=== PATIENT | female | born 2000 | race Caucasian/White ===

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

== ENCOUNTER 2018-07-05 23:00 | Emergency (ER) | payer MEDICAID, SELFPAY ==
[2018-07-05 23:01] VITALS: BP 163/93; PULSE 102; RESP 16; TEMP 37; O2SAT 99; BMI 34.2
[2018-07-05 23:41] LABS: Color, Urine Yellow (Yellow); Glucose, Dipstick Normal (Normal); Ketone-Dipstick 15 mg/dl (Negative); Leukocyte Esterase-Dipstick 25 /ul (Negative); Nitrite-Dipstick Negative (Negative); Occult Blood-Urine Negative /ul (Negative); Protein-Dipstick 15 mg/dl (Negative); Urine Bilirubin Dipstick Negative (Negative); Urine Clarity Clear (Clear); Urine Urobilinogen 1 mg/dl (Normal)
[2018-07-05 23:42] LABS: Absolute Lymphocyte Count 3.06 X10^3/ul (0.83-4.51); Absolute Neutrophil Count 6.4 X10^3/uL (2.0-7.7); Basophil# 0.06 X10^3/uL; Basophil% 0.6 % (0-1); Eosinophil# 0.31 X10^3/uL; Eosinophils% 2.9 % (0-5); Hematocrit 44.6 % (37-47); Hemoglobin 14.6 g/dl (12.0-15.0); Lymphocyte # 3.06 X10^3/ul (4.0); Mean Corp Hgb Conc 32.7 g/gl (32-36); Mean Corpuscular Hgb 26.8 pg (27.0-32.0); Mean Corpuscular Volume 81.8 fL (81-99); Mean Platelet Vol. 9.1 fl (6.2-12.0); Monocyte# 0.74 X10^3/uL; Neutrophil # 6.35 X10^3/uL (2.7-7.7); Neutrophil % 60.3 % (47-70); Platelet Count 313 K/mm3 (150-450); RBC Distribution Width CV 13.9 % (11.6-14.6); RBC Distribution Width SD 41.1 fl (35.1-43.9); Red Blood Count 5.45 M/mm3 (4.2-5.4); White Blood Count 10.5 K/mm3 (4.4-11.0)
[2018-07-05 23:46] LABS: Bacteria RARE /hpf (None Seen); POSITIVE COUNT NO; POSITIVE DIFFERENTIAL NO; POSITIVE MORPHOLOGY NO; Squamous Epithelial Cells - UA 0-5 SEEN /hpf (5-10); White Blood Cells 0-5 SEEN /hpf (0-5)
[2018-07-05 23:47] LABS: Mucous, Urine RARE /hpf (<or=2+); Red Blood Cells-Urine 0 SEEN /hpf (0-5)
[2018-07-05 23:49] LABS: Internal QC Validated? YES +Cl - CLEAR BKGD; Pregnancy, Serum, hCG Quali. NEGATIVE Negative
[2018-07-05 23:55] LABS: Anion Gap 8 (5-15); BUN 17 mg/dL (7-18); BUN/Creat Ratio 22.5 RATIO (10-20); Calcium,Total 8.9 mg/dL (8.5-10.1); Chloride 105 mmol/L (98-107); Creatinine, Serum 0.76 mg/dL (0.55-1.02); EST Glomerular Filtration Rate 104 mL/min (>60); Est Glom Filt Rate - Afr Amer 125 mL/min (>60); Estimated Creatinine Clearance 101.96 ml/min; Glucose 97 mg/dL (74-106); Potassium 3.6 mmol/L (3.5-5.1); Sodium Level 139 mmol/L (136-145)
[2018-07-05] MEDS: Ondansetron 4 MG/2 ML Vial IV (23:56)
[2018-07-05] MEDS: Ketorolac 30 MG/ML Syringe IV (23:56)
[2018-07-05] MEDS: 0.9% Normal Saline 1,000 ML 1000 ML IV (23:56)
[2018-07-06 00:03] LABS: AST(SGOT) 16 U/L (15-37); Alanine Aminotransfer ALT/SGPT 20 U/L (13-56); Albumin, Serum 4.3 g/dL (3.2-5.0); Alkaline Phosphatase 90 U/L (45-117); Lipase 100 U/L (73-393); Protein, Total 8.3 g/dL (6.4-8.2)
--- NOTE | 2018-07-06 01:03 | ED.DCSUM_ITS ---
- ER Visit Summary Date of Service: 07/06/18 Chief Complaint: Abdominal pain, nausea, diarrhea History of Present Illness: The patient is a 18 F with a 3-day history of sharp lower abdominal pain. She reports nausea but no vomiting. She had mild diarrhea with no blood noted in her stool. She does not have a history of IBS, Crohn's disease, ulcerative colitis. She does not have urinary symptoms. Last menstrual cycle was 2 and half weeks ago. She has no known history of ovarian cysts. Physical Examination: Blood pressure is 163/93, otherwise vitals normal. Head and neck examination normal. Heart is regular rate and rhythm. Lungs sounds are clear. Abdomen is soft with mild diffuse tenderness. No guarding or rebound. Hypoactive bowel sounds are noted throughout. Test Results: CBC and chemistry studies normal. LFTs normal. Urinalysis normal. test negative. Emergency Department Course and Treatment: Patient was given IV fluids, Toradol, and Zofran. On repeat evaluation she does feel improved. Blood pressure is 134/87. At this time we have discussed conservative treatment with bland diet. We will avoid CT scan at this time to try to avoid radiation exposure. If her symptoms worsen she is encouraged to return and it can be obtained at that time. Patient is given prescriptions for Zofran and Bentyl. Treatment Plan: [] Disposition: Discharge Impression: Viral gastroenteritis This note was generated with [employer] dictation software. It may contain incorrect words, spelling, and punctuation that were not noted in review of the chart prior to signing ED Disposition - Plan for ED Patient: Disposition: Home or Assisted Living Instructions: ED Gastroenteritis Viral Prescriptions: Ondansetron [Zofran Odt] 4 mg PO Q8H PRN PRN #10 tablet PRN Reason: Nausea Dicyclomine HCl [Bentyl] 20 mg PO TIDAC #20 capsule Referrals: Christy Lao MD [Primary Care Provider] - 1 Week
[2018-07-06 01:16] VITALS: BP 134/87; PULSE 69; PULSE 71; RESP 18; O2SAT 100
== END 2018-07-06 01:19 | disposition home or self-care (01) ==
PROVIDERS: Emergency Provider Emergency Medicine; Family Provider Family Medicine; PCP Family Medicine
DX: A08.4 Viral intestinal infection, unspecified (principal); F32.9 Major depressive disorder, single episode, unspecified; Z79.899 Other long term (current) drug therapy; Z72.0 Tobacco use
CPT/HCPCS: 80048; 80076; 81001; 83690; 84703; 85025; 96361; 96374; 96375; 99283; J7030; A4216; J2405

== ENCOUNTER 2018-07-31 21:26 | Emergency (ER) | payer MEDICAID, SELFPAY ==
[2018-07-31 21:27] VITALS: BP 158/83; PULSE 114; RESP 18; TEMP 36.6; O2SAT 98; BMI 33.7
--- NOTE | 2018-07-31 21:59 | ED.DCSUM_ITS ---
- ER Visit Summary Date of Service: 07/31/18 Chief Complaint: Left lower quadrant abdominal pelvic pain. History of Present Illness: The patient is a 18 F no significant past medical or surgical history. She is Ab0. Over the last month she is had intermittent left lower quadrant and pelvic abdominal pain. Cramping. No vaginal bleeding. Her last menstrual period was more than a month ago. Recently stopped her control. Denies any dysuria. No fever. Mild diarrhea and mild nausea. No tr auma. Patient was seen in the emergency department on July 05 and had a negative work-up at that time. was negative as was her CBC and UA. Physical Examination: Well-appearing young female. Vital signs are stable. She is afebrile. She does not look septic toxic. She is no distress. HEENT exam unremarkable. Neck nontender no lymphadenopathy. Lungs clear to auscultation bilaterally. Heart regular rhythm no murmur. Abdomen soft. Nondistended. Normal bowel sounds no peritoneal signs. Patient moving all 4 extremities. Back nontender. Neurologically she is awake and alert. Pelvic exam done with female nurse present in the room. No vaginal bleeding. Clear discharge. No odor. No lesions. On bimanual exam she had no uterine or adnexal tenderness. No masses. No signs of ectopic. No cervical motion tenderness. Test Results: Urine is positive. Urinalysis shows shows no signs of infection. Due to her positive test a quantitative hCG will be obtained. The overnight physician will interpret those results and make final disposition. Emergency Department Course and Treatment: Left lower quadrant abdominal pelvic pain. Currently not reproducible on exam. Exam is benign. If the quantitative hCG is greater than 1500 and then ultrasound will be obtained tonight. Otherwise she will be discharged home for outpatient follow- up. Treatment Plan: [] Disposition: Discharge Impression: Acute left lower quadrant pelvic pain of uncertain etiology Newly diagnosed first trimester This note was generated with [employer] dictation software. It may contain incorrect words, spelling, and punctuation that were not noted in review of the chart prior to signing ED Disposition - Plan for ED Patient: Referrals: Christy Lao MD [Primary Care Provider] -
[2018-07-31 22:05] LABS: Mucous, Urine 0 SEEN /hpf (<or=2+); Red Blood Cells-Urine 0 SEEN /hpf (0-5)
[2018-07-31 22:08] LABS: Color, Urine Yellow (Yellow); Glucose, Dipstick Normal (Normal); Ketone-Dipstick 15 mg/dl (Negative); Leukocyte Esterase-Dipstick 25 /ul (Negative); Nitrite-Dipstick Negative (Negative); Occult Blood-Urine Negative /ul (Negative); Protein-Dipstick Negative (Negative); Urine Bilirubin Dipstick Negative (Negative); Urine Clarity Clear (Clear); Urine Urobilinogen Normal (Normal); Urine pH 6.5 (5.0 - 8.0)
[2018-07-31 22:09] LABS: Internal QC Validated? YES +Cl - CLEAR BKGD
[2018-07-31 22:11] LABS: Pregnancy, Urine Positive Negative
--- NOTE | 2018-07-31 22:12 | ED.RN ---
LAB CALLED WITH POSITIVE RESULTS. DR. AVENDANO MADE AWARE. NO NEW ORDERS AT THIS TIME
[2018-07-31 22:19] LABS: Squamous Epithelial Cells - UA 0-5 SEEN /hpf (5-10); White Blood Cells 0-5 SEEN /hpf (0-5)
[2018-07-31 22:20] LABS: Bacteria RARE /hpf (None Seen)
--- NOTE | 2018-07-31 23:28 | ED.DEP ---
ED Disposition - Plan for ED Patient: Disposition: Home or Assisted Living Instructions: ED Abdominal Pain Unkn Cause Referrals: Nallely Barksdale MD [STAFF PHYSICIAN] - As soon as possible Additional Instructions: Home follow-up with Dr. Nallely Barksdale CHIEF MINISTER for care and newly diagnosed .
--- NOTE | 2018-07-31 23:31 | DCINST.ED_ITS ---
ED Disposition - Plan for ED Patient: Disposition: Home or Assisted Living Instructions: ED Abdominal Pain Unkn Cause Referrals: Nallely Barksdale MD [STAFF PHYSICIAN] - As soon as possible Additional Instructions: Home follow-up with Dr. Nallely Barksdale DIALER for care and newly diagnosed .
[2018-07-31 23:55] LABS: hCG Titer Quant., Serum 9900 mIU/mL (1-3)
--- NOTE | 2018-08-01 00:13 | US_ITS ---
STUDY: FIRST TRIMESTER OBSTETRICAL ULTRASOUND REASON FOR EXAM: Female, 18 years old. Pelvic pain for 3 weeks. LMP: 06/14/2018. TECHNIQUE: Transvaginal TECHNICAL QUALITY: Adequate. PRIOR ULTRASOUND: None. FINDINGS: There is visualization of a single gestational sac in a normal intrauterine position. The mean sac diameter (MSD) measures 1.22 cm, indicating an estimated gestational age (EGA) of 6 weeks, 0 days. The gestational sac shape is within normal limits. There is a small subchorionic hemorrhage to the right of the gestational sac. There is a visualized yolk sac. The yolk sac measures 2.7 mm.. The placenta is non-visualized. There is visualization of a live embryo. The crown-rump length (CRL) measures 3.4 mm, indicating an estimated gestational age (EGA) of 6 weeks, 0 days. There is demonstrated cardiac activity with a heart rate of 109 bpm. The estimated gestation age (EGA) by LMP is 6 weeks, 6 days. The estimated date of delivery (JORJE) by LMP is 03/21/2019. The estimated gestation age (EGA) by US is 6 weeks, 0 days. The estimated date of delivery (JORJE) by US is 03/27/2019. The uterus measures 7.3 x 5.4 x 4.7 cm. There is no demonstrated uterine fibroid. The cervix is closed. The right ovary measures 3.0 x 2.2 x 2.3 cm. There is a 1.8 cm hypoechoic nodule in the right ovary with increased surrounding vascular flow and small central cyst, consistent with a corpus luteum. There is no visualized right adnexal mass or complex lesion. The left ovary measures 2.7 x 1.6 x 1.1 cm. There is no left ovarian cyst. There is no visualized left adnexal mass or complex lesion. There is small amount of free fluid in the cul de sac. US/Transvaginal w/Preg US IMPRESSION: Single viable intrauterine gestation of 6 weeks, 0 days with estimated date of delivery of . Small subchorionic hemorrhage. Small amount of free fluid in the cul-de-sac. Electronically Signed: Khoi King MD at 3:04 EDT , Service support ,
[2018-08-01 02:01] VITALS: PULSE 88; RESP 16; O2SAT 99
--- NOTE | 2018-08-01 03:09 | DCINST.ED_ITS ---
ED Disposition - Plan for ED Patient: Disposition: Home or Assisted Living Instructions: ED Preg Established Normal Sxs, ED Abdominal Pain Unkn Cause Referrals: Nallely Barksdale MD [STAFF PHYSICIAN] - As soon as possible Additional Instructions: Home follow-up with Dr. Nallely Barksdale DIGITAL PRODUCTION ARTIST for care and newly diagnosed .
[2018-08-01 03:13] VITALS: BP 132/56; PULSE 98; RESP 18; O2SAT 96
== END 2018-08-01 03:14 | disposition home or self-care (01) ==
PROVIDERS: Emergency Provider Emergency Medicine; Family Provider Family Medicine; PCP Family Medicine
DX: O26.891 Other specified pregnancy related conditions, first trimester (principal); R10.32 Left lower quadrant pain; R10.2 Pelvic and perineal pain; O99.331 Smoking (tobacco) complicating pregnancy, first trimester; Z3A.01 Less than 8 weeks gestation of pregnancy
CPT/HCPCS: 76817; 81001; 81025; 84702; 99282

== ENCOUNTER → 2018-08-18 15:53 | Outpatient (CLI) | payer MEDICAID, SELFPAY ==
[2018-07-31 21:27] VITALS: BMI 33.7
[2018-08-18 18:47] LABS: Probe Check PASS; Sample Adequacy Control PASS; Specimen Processing Control PASS; Trichomonas Vag DNA by PCR Negative (Negative)
[2018-08-18 18:50] LABS: Chlamydia Trachomatis by PCR Negative (Negative); Neisserai gonorrhoeae by PCR Negative (Negative); Probe Check PASS; Sample Adequacy Control PASS; Specimen Processing Control PASS
== END ==
PROVIDERS: Family Provider Family Medicine; PCP Family Medicine; Referring Provider Family Medicine; Visit Provider Family Medicine
DX: Z34.90 Encounter for supervision of normal pregnancy, unspecified, unspecified trimester (principal); B37.3 Candidiasis of vulva and vagina; N91.2 Amenorrhea, unspecified
CPT/HCPCS: 87491; 87591; 87661

== ENCOUNTER 2019-05-12 22:46 | Emergency (ER) | payer MEDICAID, SELFPAY ==
[2019-05-12 22:48] VITALS: BP 122/85; PULSE 94; RESP 17; TEMP 36.1; O2SAT 97; BMI 34.5
--- NOTE | 2019-05-12 23:05 | ED.DCSUM_ITS ---
- ER Visit Summary Date of Service: 05/12/19 Chief Complaint: Depression History of Present Illness: The patient is a 18 F history of depression. She had a second child 6 weeks ago and since she is more depressed. After her first child she was placed on an antidepressant for period of time. She states she is more depressed. Start cutting her legs. Denies any prior suicide attempt. Has not tried to commit suicide this time. Has had suicidal thoughts. Patient sees the counseling center. Physical Examination: Young female no acute distress. Accompanied by family. Vital signs are stable and afebrile. She does not look septic or toxic. There is no obvious signs of a toxidrome. I do not smell any alcohol. H EENT exam unremarkable. No signs of trauma. Neck nontender no trauma. No lymphadenopathy. Lungs clear to auscultation bilaterally. Heart regular rhythm rate about 90 no murmur. Chest wall nontender. Abdomen soft nontender. Normal bowel sounds no peritoneal signs. Patient is moving all 4 extremities. Neurovascular intact. Both eyes have very superficial minor self-inflicted wounds. There is no bleeding. Nothing needs to be repaired. No signs of infection. Both upper and lower extremities are neurovascular intact with normal motor strength and range of motion. Back nontender. Neurologically she is awake and alert with no focal motor deficits. Currently she is calm. She is not violent. She is not verbally abusive. She answers questions appears to be forthcoming with answers and follows commands. Test Results: Emergency Department Course and Treatment: After crisis evaluation I spoke to the patient at length she told them that she fully intended to kill herself today. Also that her 2 children at home are better off if she was not alive. She was not that forthcoming with information to me. We will do ED mental health laboratories and she will be transferred for psychiatric admission. Treatment Plan: Transfer to a psychiatric facility. Disposition: Transfer to a psychiatric facility Impression: depression Suicidal ideation This note was generated with [employer] dictation software. It may contain incorrect words, spelling, and punctuation that were not noted in review of the chart prior to signing ED Disposition - Plan for ED Patient: Disposition: Home or Assisted Living Instructions: Depression Referrals: Counseling,Center [GROUP OF PHYSICIANS] - As soon as possible Christy Lao MD [Primary Care Provider] - As Needed Additional Instructions: Follow-up with the counseling center. Return emergency department if you feel worse or that you would actually try to hurt yourself or try to commit suicide. .
--- NOTE | 2019-05-12 23:08 | ED.DEP ---
ED Disposition - Plan for ED Patient: Disposition: Home or Assisted Living Instructions: Depression Referrals: Christy Lao MD [Primary Care Provider] - As Needed Counseling,Center [GROUP OF PHYSICIANS] - As soon as possible Additional Instructions: Follow-up with the counseling center. Return emergency department if you feel worse or that you would actually try to hurt yourself or try to commit suicide. .
--- NOTE | 2019-05-12 23:09 | ED.RN ---
DR. AVENDANO ORDERS NO SITTER, PT WITH NO ACTIVE SUICIDAL IDEATION JUST DEPRESSION. CRISIS CALLED PER DR. AVENDANO FOR EVALUATION AND OUTPATIENT F/U.
--- NOTE | 2019-05-13 00:30 | ED.RN ---
UPON RECOMMENDATION BY CRISIS, PT NOW NEEDS A SITTER AND LAB WORK. RN GETTING PT UNDRESSED. LARGE ANIMAL VETERINARIAN TO DRAW BLOOD AND SIT WITH PATIENT.
[2019-05-13 00:42] VITALS: BP 114/83; PULSE 87; RESP 16; O2SAT 100
[2019-05-13 01:00] VITALS: BP 114/83; PULSE 87; RESP 16; O2SAT 100
[2019-05-13 01:07] LABS: Absolute Lymphocyte Count 2.46 X10^3/uL (0.83-4.51); Basophil# 0.04 X10^3/uL; Basophil% 0.5 % (0-1); Eosinophil# 0.33 X10^3/uL; Eosinophils% 3.9 % (0-5); Hemoglobin 14.4 g/dL (12.0-15.0); Lymphocyte # 2.46 X10^3/ul (4.0); Lymphocyte % 28.9 % (19-41); Mean Corp Hgb Conc 32.7 g/dL (32-36); Mean Corpuscular Hgb 27.9 pg (27.0-32.0); Mean Corpuscular Volume 85.1 fL (81-99); Mean Platelet Vol. 8.8 fl (6.2-12.0); Monocyte# 0.64 X10^3/uL; Monocyte% 7.5 % (0-10); NRBC Flagged by Analyzer 0 % (0-5); Neutrophil # 5.01 X10^3/uL (2.7-7.7); Neutrophil % 58.8 % (47-70); Platelet Count 264 K/mm3 (150-450); RBC Distribution Width CV 13.6 % (11.6-14.6); RBC Distribution Width SD 42.3 fl (35.1-43.9); Red Blood Count 5.17 M/mm3 (4.2-5.4); White Blood Count 8.5 K/mm3 (4.4-11.0)
[2019-05-13 01:20] LABS: Anion Gap 4 (5-15); BUN 8 mg/dL (7-18); BUN/Creat Ratio 10.3 RATIO (10-20); Calcium,Total 9.5 mg/dL (8.5-10.1); Chloride 108 mmol/L (98-107); Creatinine, Serum 0.78 mg/dL (0.55-1.02); EST Glomerular Filtration Rate 100 mL/min (>60); Est Glom Filt Rate - Afr Amer 121 mL/min (>60); Estimated Creatinine Clearance 99.35 ml/min; Glucose 90 mg/dL (74-106); Potassium 3.1 mmol/L (3.5-5.1); Sodium Level 138 mmol/L (136-145)
[2019-05-13 01:40] LABS: Internal QC Validated? YES +Cl - CLEAR BKGD; Pregnancy, Serum, hCG Quali. NEGATIVE Negative
[2019-05-13 01:41] LABS: Alcohol, Blood (Medical)-Serum < 3.0 mg/dL
[2019-05-13 01:49] LABS: Amphetamine Urine VISTA NEGATIVE (<1000 ng/mL); Barbiturate Urine VISTA NEGATIVE (< 200 ng/mL); Benzodiazepine Urine VISTA NEGATIVE (< 200 ng/mL); Cocaine Urine VISTA NEGATIVE (< 300 ng/mL); Ecstacy Urine VISTA NEGATIVE (< 500 ng/mL); Methadone Urine VISTA NEGATIVE (< 300 ng/mL); PCP Urine VISTA NEGATIVE (< 25 ng/mL); THC Urine VISTA NEGATIVE (< 50 ng/mL); Vista UDS pH Range 6
[2019-05-13 03:00] VITALS: BP 114/83; PULSE 87; RESP 16; O2SAT 100
--- NOTE | 2019-05-13 03:03 | ED.RN ---
No charting was done in 0200 hr as it is day [place]. Please see charting in 0100 and 0300 hrs.
== END 2019-05-13 03:38 | disposition home or self-care (01) ==
LOC: ED 23:35
PROVIDERS: Emergency Provider Emergency Medicine; PCP Family Medicine
DX: F53.0 Postpartum depression (principal); R45.851 Suicidal ideations
CPT/HCPCS: 80048; 80307; 80320; 84703; 85025; 99285; G0480

== ENCOUNTER → 2020-06-26 15:24 | Outpatient (CLI) | payer MEDICAID, SELFPAY | PROVIDERS: PCP Family Medicine; Referring Provider Family Medicine; Visit Provider Family Medicine | DX: Z01.419 Encounter for gynecological examination (general) (routine) without abnormal findings (principal) ==

== ENCOUNTER → 2022-12-27 | Outpatient (CLI) | payer MEDICAID, SELFPAY | END | disposition home or self-care (01) | PROVIDERS: PCP Family Medicine; Referring Provider Obstetrics & Gynecology; Visit Provider Obstetrics & Gynecology | DX: O36.80X0 Pregnancy with inconclusive fetal viability, not applicable or unspecified (principal); Z3A.00 Weeks of gestation of pregnancy not specified | CPT/HCPCS: 36415; 84702; 86850; 86900; 86901 ==

== ENCOUNTER 2023-01-02 18:21 | Emergency (ER) | payer MEDICAID, SELFPAY ==
[2023-01-02 18:22] VITALS: BP 110/64; PULSE 80; RESP 18; TEMP 37.1; O2SAT 100; BMI 35.2
[2023-01-02] MEDS: 0.9% Normal Saline (1000mL) 1,000 ML 1000 ML IV (19:06)
[2023-01-02] MEDS: Ondansetron 4 MG/2 ML Vial IV (19:06)
[2023-01-02 19:15] LABS: Color, Urine Yellow (Yellow); Glucose, Dipstick Normal (Normal); Ketone-Dipstick Negative (Negative); Leukocyte Esterase-Dipstick 25 /ul (Negative); Mucous, Urine 0 SEEN /hpf (<or=2+); Nitrite-Dipstick Negative (Negative); Occult Blood-Urine Negative /ul (Negative); Protein-Dipstick Negative (Negative); Red Blood Cells-Urine 0 SEEN /hpf (0-5); Specific Gravity, Urine 1.015 (1.002-1.030); Urine Bilirubin Dipstick Negative (Negative); Urine Clarity Cloudy (Clear); Urine Urobilinogen Normal (Normal)
--- NOTE | 2023-01-02 19:18 | EX.ED.DYSGE1 ---
HPI History of Present Illness Chief Complaint: Nausea/Vomiting Detail of Chief Complaint: Nausea and vomiting several times today. Informant: patient Onset/Context/Timing Onset: Today and Weeks (She also had problems with nausea vomiting 2 weeks ago due to her .) Context: Sudden Onset Timing: Intermittent and Waxes and wanes Quality: Nausea and vomiting 15+ times since this morning Location: GI and Current Severity: Severe Maximum Severity: Severe Worsened by: Relieved by: Nothing Associated Symptoms Associated Symptoms: Thirst and lightheadedness Narrative Narrative: Patient is a G3, P2 Ab0 female who is seen by Dr. Valerio Cardenas for her . PFSH PFS Medical History Depression Home Medications ondansetron 4 mg disintegrating tablet 4 mg PO Q8H PRN PRN Nausea #10 tabs 01/02/23 [Rx Last Taken Unknown] pnv #[id number] acid-dha 28 mg-975 mcg-200 mg oral powder efferv pk 1 ea PO DAILY 01/02/23 [History Last Taken Unknown] Allergy/AdvReac Type Severity Reaction Status Date / Time Penicillins Allergy Hives Verified 01/02/23 18:22 Social History household members: children housing: condominium Smoking Status: Current every day smoker tobacco type: cigarettes ROS ROS ED Constitutional Constitutional ED: Denies chills, fever(s), subjective, sweats or weight loss Eyes Eyes: Denies blurry vision, change in vision or diplopia ENT ENT ED: Reports sore throat; Denies ear pain or rhinorrhea Cardiovascular Cardiovascular: Denies chest pain, palpitations or racing heartbeat Respiratory/Chest Respiratory/Chest: Denies cough, dyspnea or dyspnea on exertion Gastrointestinal Gastrointestinal: Reports nausea and vomiting; Denies abdominal pain, constipation, diarrhea or melena Genitourinary Genitourinary ED: Reports LMP (females 10-50) Details: Comment: (Last normal menstrual period began November 05, 2022.); Denies dysuria, hematuria or urinary frequency Musculoskeletal Musculoskeletal: Denies arthralgias or myalgias Neurologic Neurologic: Denies headache(s), paresthesias or weakness Hematologic/Lymphatic Hematologic/Lymphatic: Reports systems reviewed and no addt'l complaints, except as documented EXAM Physical Exam Const Vital Signs: 01/02/23 18:22 Temperature 98.8 F Temperature Source Temporal Pulse Rate 80 Respiratory Rate 18 Blood Pressure 110/64 Blood Pressure Mean 79 Pulse Ox 100 Oxygen Delivery Method Room Air Positive well nourished and well developed Constitutional Narrative: Patient appears pale and ill. General Appearance ED: well developed and pallor; Negative for cyanotic, diaphoretic or NAD HEENT Reports dry mucous membranes Mouth ED: Yes dry mucous membranes Mouth: dry mucous membranes Eyes PERRL and EOMs intact bilaterally General Eye ED: Negative for pale conjunctiva or scleral icterus Neck no lymphadenopathy, supple and no JVD Chest Wall inspection of chest normal and palpation of chest normal Resp normal respiratory effort and clear to auscultation bilaterally Cardio regular rate, regular rhythm, S1 normal heart sound, S2 normal heart sound and no murmurs GI non-tender, non-distended and no masses; Negative for hepatosplenomegaly Auscultation: hypoactive bowel sounds Palpation: soft; Negative for tender or guarding Back/Spine no CVA tenderness Extremity normal to inspection General Extremety ED: Negative for edema or tenderness General Extremity: Negative for edema Neuro oriented x3, CN's II-XII intact bilaterally and no sensory deficits noted Psych mental status grossly normal Skin no rashes or lesions noted, no wounds and No skin turgor normal General Skin Exam: pallor; Negative for jaundice MDM MDM MDM Narrative Medical decision making narrative: Patient has hyperemesis gravidarum. Will obtain urine to assess for his gravity and for ketones. Also will assess for infection. IV fluids were ordered as well as antiemetic. Also BMP was obtained to assess electrolytes and renal function. History & Record Review Additional record(s) reviewed:: Prior ED visit (There are no recent ER visits.) and No prior records Lab Data Attestation: I reviewed the patient's lab results. Lab results narrative: Patient metabolic panel reveals mild hyponatremia UA is unremarkable. Macro is positive for leukoesterase. Microscopic reveals 0 RBCs and 0-5 WBCs with no bacteria seen. Specific gravity was 1.015. Labs: Laboratory Results - last 24 hr 01/02/23 18:42 Sodium 134 L Potassium 3.5 Chloride 105 Carbon Dioxide 25.0 Anion Gap 4 L BUN 10 Creatinine 0.58 Estim Creat Clear Calc 129.15 Est GFR (MDRD) Af Amer 165 Est GFR (MDRD) Non-Af 137 BUN/Creatinine Ratio 17.4 Glucose 120 H Calcium 8.4 L Urine Color Yellow Urine Clarity Cloudy Urine pH 8.0 Ur Specific [place] 1.015 Urine Protein Negative Urine Glucose (UA) Normal Urine Ketones Negative Urine Occult Blood Negative Urine Nitrite Negative Urine Bilirubin Negative Urine Urobilinogen Normal Ur Leukocyte Esterase 25 H Urine RBC 0 SEEN Urine WBC 0-5 SEEN Ur Squamous Epith Cells 0-5 SEEN Amorphous Sediment 2+ Urine Bacteria RARE Urine Mucus 0 SEEN Treatment and Re-Evaluation :: Patient passed p.o. challenge. Plan is discharged with prescription for Zofran and follow-up with her medicare specialist Dr. Nallely Cardenas Discharge Plan Triage Chief Complaint: Nausea/Vomiting ED Provider: Jarad Hilton Dx/Rx/DC Orders Clinical Impression: Hyperemesis gravidarum, First trimester Prescriptions: New ondansetron [ondansetron] 4 mg tablet,disintegrating 4 mg PO Q8H PRN PRN (Reason: Nausea) Qty: 10 0RF No Action pnv #[id number] [id number] mg-mcg-mg powder effervescent in packet 1 ea PO DAILY Primary Care Provider: Christy Lao Referrals: Christy Lao MD [Primary Care Provider] - Nallely Barksdale MD [Med Staff - Active Staff] - 1-2 Days if not improving Disposition Disposition: Home, Self Care
[2023-01-02 19:21] LABS: Amorphous Sediment 2+; Bacteria RARE /hpf (None Seen); Squamous Epithelial Cells - UA 0-5 SEEN /hpf (5-10); White Blood Cells 0-5 SEEN /hpf (0-5)
[2023-01-02 19:30] LABS: Anion Gap 4 (5-15); BUN 10 mg/dL (7-18); BUN/Creat Ratio 17.4 RATIO (10-20); Calcium,Total 8.4 mg/dL (8.5-10.1); Chloride 105 mmol/L (98-107); Creatinine, Serum 0.58 mg/dL (0.55-1.02); EST Glomerular Filtration Rate 137 mL/min (>60); Est Glom Filt Rate - Afr Amer 165 mL/min (>60); Estimated Creatinine Clearance 129.15 ml/min; Glucose 120 mg/dL (74-106); Potassium 3.5 mmol/L (3.5-5.1); Sodium Level 134 mmol/L (136-145)
[2023-01-02 20:35] VITALS: BP 125/78; PULSE 88; RESP 16
== END 2023-01-02 20:36 | disposition home or self-care (01) ==
PROVIDERS: Emergency Provider Emergency Medicine; PCP Family Medicine; Visit Provider Emergency Medicine
DX: O21.0 Mild hyperemesis gravidarum (principal); O99.331 Smoking (tobacco) complicating pregnancy, first trimester; F17.210 Nicotine dependence, cigarettes, uncomplicated; Z3A.00 Weeks of gestation of pregnancy not specified
CPT/HCPCS: 80048; 81001; 96361; 96374; 99283; J7030; A4216; J2405

== ENCOUNTER → 2023-01-26 | Outpatient (CLI) | payer MEDICAID, SELFPAY ==
[2023-01-26 17:35] LABS: Amphetamine Urine VISTA NEGATIVE (<1000 ng/mL); Barbiturate Urine VISTA NEGATIVE (< 200 ng/mL); Benzodiazepine Urine VISTA NEGATIVE (< 200 ng/mL); Cocaine Urine VISTA NEGATIVE (< 300 ng/mL); Ecstacy Urine VISTA NEGATIVE (< 500 ng/mL); Methadone Urine VISTA NEGATIVE (< 300 ng/mL); PCP Urine VISTA NEGATIVE (< 25 ng/mL); THC Urine VISTA POSITIVE (< 50 ng/mL); Vista UDS pH Range 6
[2023-01-31 18:07] LABS: Chlamydia By Nucleic Acid AMP Negative (Negative); Gonococcus By Nucleic Acid AMP Negative (Negative)
[2023-02-05 05:07] LABS: HPV APTIMA, High Risk Negative (Negative)
[2023-02-07 20:34] LABS: HPV Reflexed? YES, CHARGE PATIENT
== END | disposition home or self-care (01) ==
LOC: LABSPEC 16:50
PROVIDERS: PCP Family Medicine; Referring Provider Registered Nurse; Visit Provider Registered Nurse
DX: Z34.90 Encounter for supervision of normal pregnancy, unspecified, unspecified trimester (principal)
CPT/HCPCS: 80307; 87086; 87088; 87491; 87591; 87624; 88175; G0145

== ENCOUNTER → 2023-02-08 | Outpatient (CLI) | payer MEDICAID, SELFPAY ==
[2023-02-08 14:16] LABS: Absolute Lymphocyte Count 2.86 X10^3/uL (0.83-4.51); Absolute Neutrophil Count 5.9 X10^3/uL (2.0-7.7); Basophil# 0.08 X10^3/uL; Basophil% 0.8 % (0-1); Eosinophil# 0.32 X10^3/uL; Eosinophils% 3.3 % (0-5); Hematocrit 37.1 % (37-47); Hemoglobin 12.2 g/dL (12.0-15.0); Lymphocyte # 2.86 X10^3/ul (0.83-4.51); Lymphocyte % 29.1 % (19-41); Mean Corp Hgb Conc 32.9 g/dL (32-36); Mean Corpuscular Hgb 27.9 pg (27.0-32.0); Mean Corpuscular Volume 84.7 fL (81-99); Mean Platelet Vol. 8.7 fl (6.2-12.0); Monocyte# 0.66 X10^3/uL; Monocyte% 6.7 % (0-10); NRBC Flagged by Analyzer 0 % (0-5); Neutrophil # 5.87 X10^3/uL (2.7-7.7); Neutrophil % 59.6 % (47-70); Platelet Count 250 K/mm3 (150-450); RBC Distribution Width CV 14.1 % (11.6-14.6); RBC Distribution Width SD 43.7 fl (35.1-43.9); Red Blood Count 4.38 M/mm3 (4.2-5.4); White Blood Count 9.8 K/mm3 (4.4-11.0)
[2023-02-08 14:37] LABS: Free T3 1.5 pg/mL (2.18-3.98); T4 Free Direct 0.95 ng/dL (0.76-1.46); Thyroid Stim Hormone (TSH) 1.07 uIU/mL (0.358-3.74)
[2023-02-08 15:10] LABS: HIV - WCH Non-Reactive (Nonreactive); Hepatitis B Surface Antigen Non-Reactive (Nonreactive); Hepatitis C Antibody Non-Reactive (Nonreactive); Rubella IgG Reactive (Nonreactive); Syphilis Antibodies Non-reactive
[2023-02-08 16:42] LABS: NATERA MAILED SPECIMEN
[2023-02-10 08:10] LABS: Thyroid Peroxidase AB 19 IU/mL (0-34)
== END | disposition home or self-care (01) ==
LOC: PAVLAB 13:54
PROVIDERS: PCP Family Medicine; Referring Provider Registered Nurse; Visit Provider Registered Nurse
DX: Z34.90 Encounter for supervision of normal pregnancy, unspecified, unspecified trimester (principal); F17.210 Nicotine dependence, cigarettes, uncomplicated
CPT/HCPCS: 36415; 83036; 84439; 84443; 84481; 85025; 86376; 86703; 86762; 86780; 86803; 86850; 86900; 86901; 87340

== ENCOUNTER 2023-05-06 11:20 | Outpatient (CLI) | payer MEDICAID, SELFPAY ==
[2023-05-06 11:54] VITALS: BP 111/61; PULSE 81; TEMP 36.7
[2023-05-06 12:01] VITALS: BMI 38.2
--- OUTSIDE RECORDS SUMMARY | 2023-05-06 12:01 | XMS RPT_ITS | CCD ---
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 Take 1 tablet and 1 capsule by mouth daily. ondansetron orally disintegrating (ZOFRAN ODT) 4 mg disintegrating tablet Take 1 tablet by mouth every 8 hours as needed for nausea/vomiting. 60 tablet 0 No current facility-administered medications for this visit. Allergies As of Date: 01/19/2023 Allergen Noted Reaction PENICILLINS 01/14/2023 Rash Fully Assessed 01/19/2023 Does patient have penicillin allergy: Yes, plan for allergy testing. documented in this encounter [facility] 12-24-2022 Miscellaneous Notes Formattin g of this note might be different from the original. Attempted to call patient, no answer and unable to leave message due to mailbox full. JANELLE LIVE RN No HCG levels needed at this time. Spotting possibly due to recent intercourse. Please have patient call back if continues to have bleeding or any cramping. Farida Rangel APRN.CNM Pt just got positive test, LMP 11/06/22, 6w 6d. She is c/o dark brown vaginal bleeding that she notes with wiping. No cramping or LOF. Pt was given bleeding precautions and voiced understanding. Pt did report intercourse about 2 days ago. Please see pended order below and advise. Laura Norris LPN documented in this encounter [facility] Diagnosis Supervision of high risk , antepartum- Primary History of depression Personal history of other mental disorder History of depression Nausea and vomiting during Bleeding in early Unspecified hemorrhage in early , unspecified as to episode of care Tobacco use affecting , antepartum Marijuana use during Obesity affecting , antepartum, unspecified obesity type History of hypothyroidism Personal history of other endocrine, metabolic, and immunity disorders Patient request for diagnostic testing Other specified examination [facility] Diagnosis Encounter for screening of mother- Primary Unspecified screening [facility] Diagnosis Screening, , for malformation by ultrasound Encounter for routine screening for malformation using ultrasonics 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 care, single or unspecified fetus [facility] 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 [address] [place] [address] Referral ID Status Reason Start Date Expiration Date Visits Requested Visits Authorized [id number] Pending Review Auto-Generat ed Referral 3 01/19/2024 [address] [facility] Summary Purpose Family History No Family History Records FoundNo Family History Records FoundNo Family History Records FoundNo Family History Records Found Advance Directives No Advanced Directives Records FoundNo Advanced Directives Records FoundNo Advanced Directives Records FoundNo Advanced Directives Records Found Reason for Referral Specialty Diagnoses / Procedures Referred By Vidal churchill Referred To Contact Radiology Diagnoses Screening, , for malformation by ultrasound 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 care, single or unspecified fetus Procedures MRI (single) Aj Betancur MD [address] [facility] [address] [place] [address] Referral ID Status Reason Start Date Expiration Date Visits Re quested Visits Authorized [id number] Closed 03/28/2023 03/27/2024 1 1 Additional Source Comments INFORMATION SOURCE (unrecogn ized section and content) DATE CREATED AUTHOR AUTHOR'S ORGANIZ ATION 02/10/2021 [facility] DATE CREATED AUTHOR AUTHOR'S ORGANIZ ATION 02/07/2023 [facility] DATE CREATED AUTHOR AUTHOR'S ORGANIZ ATION 04/27/2023 [facility] Source Comments (unrecognize d section and content) In the event this informatio n is protected by the Federal Confidentiality of Alcohol and Drug Abuse Patient Records regulations: The Federal rules restrict any use of the information to criminally investigate or prosecute any alcohol or drug abuse patient.[facility] the event this information is protected by the Federal Confidentiality of Alcohol and Drug Abuse Patient Records regulations: The Federal rules restrict any use of the information to criminally investigate or prosecute any alcohol or drug abuse patient.[facility] the event this information is protected by the Federal Confidentiality of Alcohol and Drug Abuse Patient Records regulations: The Federal rules restrict any use of the information to criminally investigate or prosecute any alcohol or drug abuse patient.[facility] Reason for Visit (unrecogniz ed section and content) Reason Comments Care Reason Comments Care Specialty Diagnoses / Procedures Referred By Contac t Referred To Contact Radiology Diagnoses Screening, , for malformation by ultrasound 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 care, single or unspecified fetus Procedures MRI (single) Aj Betancur MD [address] [place] [address] Referral ID Status Reason Start Date Expiration Date Visits Re quested Visits Authorized [id number] Closed 03/28/2023 03/27/2024 1 1 Care Teams (unrecognized sec tion and content) Head Of Talent Management Relationship Specialty Start Date End Date No Primary Care[place] [address] PCP - General Pediatrics 03/28/23 FOR RECORDS PERTAINING TO PATIENTS WHO ARE OR HAVE BEEN ENROLLED IN A CHEMICAL DEPENDENCY/SUBSTANCEABUSE PROGRAM, SOME INFORMATION MAY BE OMITTED. This clinical summary was aggregated from multiple sources. Caution should be exercised in using it in the provision of clinical care. This summary normalizes information from multiple sources, and as a consequence, information in this document may materially change the coding, format and clinical context of patient data. In addition, data may be omitted in some cases. CLINICAL DECISIONS SHOULD BE BASED ON THE PRIMARY CLINICAL RECORDS. [facility] [employer] provides no warranty or guarantee of the accuracy or completeness of information in this document.
[2023-05-06] MEDS: Lactated Ringers 1,000 ML 999 ML IV (12:50)
[2023-05-06 12:57] LABS: Mucous, Urine 0 SEEN /hpf (<or=2+); Red Blood Cells-Urine 0 SEEN /hpf (0-5)
[2023-05-06] MEDS: Acetaminophen 500 MG Tablet 1000 MG PO (12:57)
[2023-05-06 13:10] LABS: Color, Urine Yellow (Yellow); Glucose, Dipstick Normal (Normal); Leukocyte Esterase-Dipstick 25 /ul (Negative); Nitrite-Dipstick Negative (Negative); Occult Blood-Urine Negative /ul (Negative); Protein-Dipstick 30 mg/dl (Negative); Specific Gravity, Urine 1.025 (1.002-1.030); Urine Clarity Sl. Cloudy (Clear); Urine Urobilinogen Normal (Normal)
[2023-05-06 13:16] LABS: Urine Bilirubin Dipstick 1 mg/dL (Negative)
[2023-05-06 13:19] LABS: Ketone-Dipstick 150 mg/dl (Negative)
[2023-05-06 13:22] LABS: ALB/GLOB Ratio 0.6 RATIO (0.9-2.4); AST(SGOT) 42 U/L (15-37); Alanine Aminotransfer ALT/SGPT 37 U/L (13-56); Albumin, Serum 2.5 g/dL (3.2-5.0); Alkaline Phosphatase 71 U/L (45-117); Anion Gap 7 (5-15); BUN 8 mg/dL (7-18); BUN/Creat Ratio 15.2 RATIO (10-20); Chloride 108 mmol/L (98-107); Creatinine, Serum 0.53 mg/dL (0.55-1.02); EST Glomerular Filtration Rate 151 mL/min (>60); Est Glom Filt Rate - Afr Amer 182 mL/min (>60); Estimated Creatinine Clearance 189.25 ml/min; Glucose 92 mg/dL (74-106); Potassium 3.4 mmol/L (3.5-5.1); Protein, Total 6.5 g/dL (6.4-8.2); Sodium Level 135 mmol/L (136-145)
[2023-05-06 13:49] LABS: Bacteria 2+ /hpf (None Seen); Squamous Epithelial Cells - UA 0-5 SEEN /hpf (5-10); White Blood Cells 5-10 SEEN /hpf (0-5)
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
== END 2023-05-06 14:31 | disposition home or self-care (01) ==
LOC: WPOUT 11:40 → WP 11:44
PROVIDERS: Referring Provider Registered Nurse; Visit Provider Registered Nurse
DX: O09.92 Supervision of high risk pregnancy, unspecified, second trimester (principal); O99.332 Smoking (tobacco) complicating pregnancy, second trimester; O99.322 Drug use complicating pregnancy, second trimester; F17.210 Nicotine dependence, cigarettes, uncomplicated; F12.10 Cannabis abuse, uncomplicated; Z79.82 Long term (current) use of aspirin; Z3A.25 25 weeks gestation of pregnancy
CPT/HCPCS: 96365; 36415; 59025; 59050; 80053; 81001; 99221; J7120; G0378

== ENCOUNTER → 2023-05-18 | Outpatient (CLI) | payer MEDICAID, SELFPAY ==
[2023-05-18 10:27] LABS: Absolute Lymphocyte Count 2.59 X10^3/uL (0.83-4.51); Basophil% 0.8 % (0-1); Eosinophil# 0.17 X10^3/uL; Eosinophils% 1.4 % (0-5); Hematocrit 32.7 % (37-47); Hemoglobin 10.4 g/dL (12.0-15.0); Lymphocyte # 2.59 X10^3/ul (0.83-4.51); Lymphocyte % 21.4 % (19-41); Mean Corp Hgb Conc 31.8 g/dL (32-36); Mean Corpuscular Volume 81.8 fL (81-99); Mean Platelet Vol. 8.5 fl (6.2-12.0); Monocyte# 0.95 X10^3/uL; Monocyte% 7.9 % (0-10); NRBC Flagged by Analyzer 0 % (0-5); Neutrophil # 7.97 X10^3/uL (2.7-7.7); Platelet Count 246 K/mm3 (150-450); RBC Distribution Width CV 13.4 % (11.6-14.6); RBC Distribution Width SD 40.1 fl (35.1-43.9); White Blood Count 12.1 K/mm3 (4.4-11.0)
[2023-05-18 10:44] LABS: ALB/GLOB Ratio 0.6 RATIO (0.9-2.4); AST(SGOT) 15 U/L (15-37); Alanine Aminotransfer ALT/SGPT 21 U/L (13-56); Albumin, Serum 2.5 g/dL (3.2-5.0); Alkaline Phosphatase 65 U/L (45-117); Anion Gap 7 (5-15); BUN 11 mg/dL (7-18); BUN/Creat Ratio 18.5 RATIO (10-20); Calcium,Total 8.4 mg/dL (8.5-10.1); Chloride 105 mmol/L (98-107); Creatinine, Serum 0.59 mg/dL (0.55-1.02); EST Glomerular Filtration Rate 131 mL/min (>60); Est Glom Filt Rate - Afr Amer 159 mL/min (>60); Glucose 109 mg/dL (74-106); Glucose Challenge Gest 1H 50g 109 mg/dL (70-140); Potassium 3.5 mmol/L (3.5-5.1); Protein, Total 6.5 g/dL (6.4-8.2); Sodium Level 136 mmol/L (136-145)
[2023-05-18 11:11] LABS: HIV - WCH Non-Reactive (Nonreactive); Syphilis Antibodies Non-reactive
--- OUTSIDE RECORDS SUMMARY | 2023-05-18 12:00 | XMS RPT_ITS | CCD ---
Author Name Unknown Address [address] [place] [address] Organization [facility] Care Team Providers Care Fashion Photographer Name Role Phone CHELSY BELL NP Primary [...] Unavailable Primary Care Provider Unavailabl e No coil strapper, Md Primary Care Provider Tonya vailable ZEESHAN [...] Reaction(s) Facility (1 source) Amoxicillin Drug Allergy [facility] Repository (1 source) Penicillins Drug allergy (disorder) [facility] Repository (5 sources) Penicillins; Translations: [PENICILLINS] Drug Allergy 0 Rash, Hives, Itching [facility] Medications Current Medications Medication Drug Class(es) Dates Sig (Normalized) Sig (Original) aspirin 81 mg delayed release oral tablet (1 source) Platelet Aggregation Inhibitor, Nonsteroidal Anti-inflammatory Drug take 1 tablet by mouth once daily aspirin EC (ECOTRIN LOW STRENGTH) 81 MG EC tablet Take 1 Tablet (81 mg) by mouth daily 0 Active Rgp-YpLewk-BO-DHA (SELECT-OB+DHA) 29-1 & 250 MG MISC (1 source) take 1 tablet by mouth once daily Iol-HgVfwj-XY-DHA (SELECT-OB+DHA) 29-1 & 250 MG MISC Take [...] Start: 04-26-2023 End: 04-26-2023 ambulatory MD NO [facility] Start: 04-25-2023 End: 04-25-2023 ambulatory MD NO [facility] Start: 04-11-2023 End: 04-12-2023 ambulatory MD NO [facility] Start: 04-11-2023 End: 04-11-2023 Subsequent [...] EST Office Visit Maternal Medicine [address] [place], [place] [id number] Aj Betancur MD [address] [facility] [address] [place], [place] [id number] Hedy Hinojosa, [place], [place] [id number] Maternal Medicine Start: 01-19-2023 End: 01-20-2024 NUCHAL TRANSLUCENCY WHI NUCHAL TRANSLUCENCY WHI Anc Imaging Routine Encounter for screening of mother Expected: 01/19/2023, Expires: 01/20/2024 [facility] Work Phone: Payers Date Payer Category Payer Medicaid [facility] MEDICAID [facility] COMMUNITY PLAN MEDICAID [place] [id number] 2022-Present [phone] [address] [place] [id number] Medicaid [id number] 2022 Medicaid [id number] 2022 Private Health Insurance [facility] COMMUNITY [facility] MEDICAID [facility] [id number] 2022-Present [address] [place] [address] [id number] 1998 Unknown [id number] [id number]. 651 1998 Unknown [id number] 2.16.840.1.073991.3.579.2. 651 1998 Unknown [id number] 2.16.840.1.444719.3.579.2. 651 1998 Unknown [id number] 2.16840.1.702490.3.579.2. 651 1998 Unknown [id number] 2.16.840.1.495686.3.579.2. 651 1998 Unknown [id number] 2.16.840.1.404361.3.579.2. 651 1998 Unknown [id number] 2.16840.1.523371.3.579.2. 651 1998 Unknown [id number] 2.16840.1.141807.3.579.2. 479 1998 Unknown [id number] 2.16840.1.102822.3.579.2. 479 1998 Unknown [id number] 2.16840.1.071511.3.579.2. 479 1998 Unknown [id number] 2.16840.1.840811.3.579.2. 479 1998 Unknown [id number] 2.16840.1.934106.3.579.2. 479 1998 Unknown [id number] [id number]. 479 Private Health Insurance [id number] Social History Date Type Detail Facility Tobacco smoking stat [facility] Tobacco smoking consumption unknown [facility] Work Phone: Start: 2000 Sex Assigned At Not on file [facility] Start: 01-19-2023 End: 04-11-2023 Gender identity Not on file [facility] Start: 11-15-2023 [facility] Work Phone: End: 01-05-2023 History of tobacco use Cigarette Smoker [facility] Work Phone: Start: 01-19-2023 Tobacco use and exposure Smokeless tobacco non-user [facility] Work Phone: Start: 01-19-2023 End: 04-11-2023 Alcohol intake Ex-drinker (finding) [facility] Start: 01-19-2023 End: 04-11-2023 History of Social function [facility] National Score (1-100), lower number is lower risk 99 [facility] Start: 01-19-2023 Education 15 [facility] Start: 01-19-2023 Alcohol Comment [facility] Start: 11-20-2022 [facility] Start: 04-11-2023 Tobacco smoking stat [facility] Ex-smoker [facility] End: 01-05-2023 History of tobacco use Current smoker [facility] History of tobacco use Passive smoker [facility] Start: 04-11-2023 Tobacco use and exposure Former smokeless tobacco user [facility] End: 03-07-2023 History of tobacco use User of smokeless tobacco [facility] Clinical Notes 12-24-2022 to 01-26-2023 Telephone Encounter [...] ultrasound a few weeks [facility] and due date was confirmed at [...] before. Please advise documented in this encounter [facility] 01-19-2023 Miscellaneous Notes Formattin g of this [...] Patient had her previous 2 deliveries at [facility].Pt has a history of depression diagnosed at [...] was transferred to a psychiatric facility in [place]. She states she did do cutting at that time. Denies any suicidal thoughts since then. She sees a counselor Mac Galeano at [facility]. Patient was seen at [facility] on December 27 for nausea and vomiting. [...] a quantitative hCG done December 27 at [facility] her where she was seen for nausea [...] coverage. Declines genetic carrier screening testing. Angelica Anglees RN documented in this encounter [facility] 01-19-2023 Note HNO ID: [id number] Author: Angelica Angeles RN Service: ? 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 documented in this encounter [facility] 12-24-2022 Miscellaneous Notes Formattin g of this [...] Laura Norris LPN documented in this encounter [facility] documented in this encounter [facility] Diagnosis Supervision of high risk , [...] specified examination [facility] Diagnosis Encounter for screening of mother- Primary Unspecified screening documented in this encounter [facility] Diagnosis Screening, , for malformation by ultrasound Encounter for routine screening for malformation using ultrasonics 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 care, single or unspecified fetus documented [facility] 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 documented [facility]ative[facility] Diagnostic Procedure Only (Routine) - Pending Review Specialty Diagnoses / Procedures Referred By Vidal churchill Referred To Contact [facility] Diagnoses Encounter for screening of mother Procedures NUCHAL TRANSLUCENCY WHI US NUCHAL TRANSLUCENCY 1ST GESTATION Chelsy Mcclellan APRN.CNM [address] [place] [address] [facility] [address] [place] [address] Referral ID Status Reason Start Date Expiration Date Visits Requested Visits Authorized [id number] Pending Review Auto-Generat ed Referral 3 01/19/2024 1 1 [facility] Summary Purpose Family History No Family [...] MRI (single) Aj Betancur MD [address] [facility] [address] [place] [address] Referral ID Status Reason Start Date Expiration Date Visits Re quested Visits Authorized [id number] Closed 03/28/2023 03/27/2024 1 1 Additional Source Comments INFORMATION SOURCE (unrecogn ized section and content) DATE CREATED AUTHOR AUTHOR'S ORGANIZ ATION 02/10/2021 [facility] DATE CREATED AUTHOR AUTHOR'S ORGANIZ ATION 02/07/2023 [facility] DATE CREATED AUTHOR AUTHOR'S ORGANIZ ATION 04/27/2023 [facility] Source Comments (unrecognize d section and content) In the event this informatio n is protected by the Federal Confidentiality of Alcohol and Drug Abuse Patient Records regulations: The Federal rules restrict any use of the information to criminally investigate or prosecute any alcohol or drug abuse patient.[facility] the event this information is protected by the Federal Confidentiality of Alcohol and Drug Abuse Patient Records regulations: The Federal rules restrict any use of the information to criminally investigate or prosecute any alcohol or drug abuse patient.[facility] the event this information is protected by the Federal Confidentiality of Alcohol and Drug Abuse Patient Records regulations: The Federal rules restrict any use of the information to criminally investigate or prosecute any alcohol or drug abuse patient.[facility] Reason for Visit (unrecogniz ed section and content) Reason Comments Care Reason Comments Care Specialty Diagnoses / Procedures Referred By Contac t Referred To Contact Radiology Diagnoses Screening, , for malformation by ultrasound 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 [facility] [employer] provides no warranty or guarantee of the accuracy or completeness of information in this document.
== END | disposition home or self-care (01) ==
LOC: PAVLAB 10:02
PROVIDERS: Advanced Practice Midwife; Referring Provider Registered Nurse; Visit Provider Registered Nurse
DX: Z34.92 Encounter for supervision of normal pregnancy, unspecified, second trimester (principal)
CPT/HCPCS: 36415; 80053; 82950; 85025; 86703; 86780

== ENCOUNTER → 2023-06-30 | Outpatient (CLI) | payer MEDICAID, SELFPAY ==
[2023-06-30 15:30] LABS: Absolute Neutrophil Count 5.2 X10^3/uL (2.0-7.7); Basophil# 0.06 X10^3/uL; Basophil% 0.7 % (0-1); Eosinophil# 0.13 X10^3/uL; Eosinophils% 1.5 % (0-5); Hematocrit 34.9 % (37-47); Mean Corp Hgb Conc 31.5 g/dL (32-36); Mean Corpuscular Hgb 26.1 pg (27.0-32.0); Mean Corpuscular Volume 82.9 fL (81-99); Mean Platelet Vol. 8.3 fl (6.2-12.0); Monocyte# 0.67 X10^3/uL; Monocyte% 7.9 % (0-10); NRBC Flagged by Analyzer 0 % (0-5); Neutrophil # 5.21 X10^3/uL (2.7-7.7); Neutrophil % 61.3 % (47-70); Platelet Count 229 K/mm3 (150-450); RBC Distribution Width CV 15.8 % (11.6-14.6); RBC Distribution Width SD 47.5 fl (35.1-43.9); Red Blood Count 4.21 M/mm3 (4.2-5.4); White Blood Count 8.5 K/mm3 (4.4-11.0)
== END | disposition home or self-care (01) ==
LOC: PAVLAB 15:20
PROVIDERS: Referring Provider Nurse Practitioner Women's Health; Visit Provider Nurse Practitioner Women's Health
DX: O99.019 Anemia complicating pregnancy, unspecified trimester (principal); Z3A.00 Weeks of gestation of pregnancy not specified
CPT/HCPCS: 36415; 85025

== ENCOUNTER 2023-07-19 07:25 | Outpatient (CLI) | payer MEDICAID, SELFPAY ==
[2023-05-06 11:54] VITALS: RESP 16
[2023-07-19 07:48] VITALS: BMI 42.9
[2023-07-19 08:02] LABS: Mucous, Urine 0 SEEN /hpf (<or=2+)
[2023-07-19 08:17] LABS: Color, Urine Straw (Yellow); Glucose, Dipstick Normal (Normal); Ketone-Dipstick Negative (Negative); Leukocyte Esterase-Dipstick 500 /ul (Negative); Nitrite-Dipstick Negative (Negative); Occult Blood-Urine Negative /ul (Negative); Protein-Dipstick Negative (Negative); Urine Bilirubin Dipstick Negative (Negative); Urine Clarity Sl. Cloudy (Clear); Urine Urobilinogen Normal (Normal)
[2023-07-19 08:23] LABS: Bacteria 2+ /hpf (None Seen); Red Blood Cells-Urine 0-5 SEEN /hpf (0-5); Squamous Epithelial Cells - UA 0-5 SEEN /hpf (5-10); White Blood Cells 10-25 SEEN /hpf (0-5)
--- NOTE | 2023-07-19 08:30 | OB.TRI.PN ---
Progress Notes Date of Service: 07/19/23 Progress Note: Patient presents for triage evaluation secondary to low back pain FHT: 125 Moderate variability reactive no decelerations category I tracing [place]: no Contractions Assessment and plan: + UTI, atb sent, Reactive NST, reassuring maternal and status patient discharged to home to follow-up in office. See problem list details for additional plan information. Laboratory Studies: Laboratory Tests 07/19/23 Range/Units 07:45 Urine Color Straw (Yellow) Urine Clarity Sl. Cloudy (Clear) Urine pH 6.0 (5.0 - 8.0) Ur Specific [place] 1.010 (1.002-1.030) Urine Protein Negative (Negative) mg/dl Urine Glucose (UA) Normal (Normal) mg/dl Urine Ketones Negative (Negative) mg/dl Urine Occult Blood Negative (Negative) /ul Urine Nitrite Negative (Negative) Urine Bilirubin Negative (Negative) mg/dL Urine Urobilinogen Normal (Normal) mg/dl Ur Leukocyte Esterase 500 H (Negative) /ul Urine RBC 0-5 SEEN (0-5) /hpf Urine WBC 10-25 SEEN (0-5) /hpf Ur Squamous Epith Cells 0-5 SEEN (5-10) /hpf Urine Bacteria 2+ (None Seen) /hpf Urine Mucus 0 SEEN (<or=2+) /hpf Charges/Coding Multi Select Codes Urinary/Genital Urinary/Genital CPT Codes: 15053-85 non-stress test Interp Assessment & Plan (1) UTI (urinary tract infection) during : (2) Anemia affecting : QUALIFIERS: Trimester: second trimester Qualified Code(s): O99.012 - Anemia complicating , second trimester COMMENT: 10.4 start PO iron repeat at 32 weeks: anemia improved. 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 no operative vaginal delivery recommended per [facility]. follow up q 4 weeks at [facility]. echo and sees neurology 05/31:reassuring visit. Fluid in brain low and stable. Sees [facility] Q4 wk and is considering c section (4) COVID-19: COMMENT: asa 81 mg daily (5) Obesity (BMI 30-39.9): COMMENT: hbga1c, enc healthy weight gain. 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 Stable (9) Cigarette smoker: COMMENT: counseling provided, cutting down to 2-3/day; no cigarettes now. Occa vaping-not daily (10) Marijuana use: COMMENT: medical card, daily, random tox screen (11) Supervision of high-risk : QUALIFIERS: Trimester: third trimester Qualified Code(s): O09.93 - Supervision of high risk , unspecified, third trimester COMMENT: [id number], JORJE 08/13/23, Azam Bynum (12) : QUALIFIERS: Weeks of gestation: 35 weeks Qualified Code(s): Z3A.35 - 35 weeks gestation of COMMENT: Physician only. NIPT low risk, declines carrier testing, obtaining. low risk,nl 1 hr GCT (13) LGSIL (low grade squamous intraepithelial dysplasia): COMMENT: 07/2020 at PCP. Record scanned. repeated today. 01/2023 ASCUS- repeat in 1 year.
== END 2023-07-19 08:52 | disposition home or self-care (01) ==
LOC: WPOUT 07:33 → WP 07:33
PROVIDERS: Referring Provider Advanced Practice Midwife; Visit Provider Advanced Practice Midwife
DX: O99.891 Other specified diseases and conditions complicating pregnancy (principal); M54.50 Low back pain, unspecified; O23.43 Unspecified infection of urinary tract in pregnancy, third trimester; O99.013 Anemia complicating pregnancy, third trimester; O99.213 Obesity complicating pregnancy, third trimester; O99.283 Endocrine, nutritional and metabolic diseases complicating pregnancy, third trimester; E06.3 Autoimmune thyroiditis; Z3A.35 35 weeks gestation of pregnancy; O99.333 Smoking (tobacco) complicating pregnancy, third trimester
CPT/HCPCS: 59025; 59050; 81001; 87086; 87088; 99221; G0378

== ENCOUNTER → 2023-07-22 | Outpatient (CLI) | payer MEDICAID, SELFPAY | END | disposition home or self-care (01) | LOC: LABSPEC 17:58 | PROVIDERS: Visit Provider Obstetrics & Gynecology | DX: O09.93 Supervision of high risk pregnancy, unspecified, third trimester (principal); Z3A.00 Weeks of gestation of pregnancy not specified | CPT/HCPCS: 87081 ==

== ENCOUNTER → 2023-07-26 | Outpatient (CLI) | payer MEDICAID, SELFPAY | END | disposition home or self-care (01) | LOC: LABSPEC 12:03 | PROVIDERS: Referring Provider Obstetrics & Gynecology; Visit Provider Obstetrics & Gynecology | DX: O09.93 Supervision of high risk pregnancy, unspecified, third trimester (principal); Z3A.00 Weeks of gestation of pregnancy not specified | CPT/HCPCS: 87081 ==

== ENCOUNTER → 2023-08-04 | Outpatient (CLI) | payer MEDICAID, SELFPAY | END | disposition home or self-care (01) | LOC: LABSPEC 16:17 | PROVIDERS: Referring Provider Obstetrics & Gynecology; Visit Provider Obstetrics & Gynecology | DX: O23.40 Unspecified infection of urinary tract in pregnancy, unspecified trimester (principal); Z3A.00 Weeks of gestation of pregnancy not specified | CPT/HCPCS: 87086; 87088 ==

== ENCOUNTER 2023-08-12 07:53 | Inpatient (IN) | payer MEDICAID, SELFPAY ==
[2023-08-12] VITALS (11 sets, daily range): BP systolic 122–133; BP diastolic 60–79; PULSE 63–104; RESP 16–18; TEMP 36.3–37; O2SAT 96–99; BMI 43.7
[2023-08-12 08:15] LABS: Absolute Lymphocyte Count 2.91 X10^3/uL (0.83-4.51); Absolute Neutrophil Count 6.7 X10^3/uL (2.0-7.7); Basophil# 0.05 X10^3/uL; Basophil% 0.5 % (0-1); Eosinophil# 0.18 X10^3/uL; Eosinophils% 1.7 % (0-5); Hematocrit 37.5 % (37-47); Hemoglobin 11.9 g/dL (12.0-15.0); Lymphocyte # 2.91 X10^3/ul (0.83-4.51); Lymphocyte % 27.1 % (19-41); Mean Corp Hgb Conc 31.7 g/dL (32-36); Mean Corpuscular Hgb 26.5 pg (27.0-32.0); Mean Corpuscular Volume 83.5 fL (81-99); Monocyte# 0.77 X10^3/uL; Monocyte% 7.2 % (0-10); NRBC Flagged by Analyzer 0 % (0-5); Neutrophil % 62.2 % (47-70); Platelet Count 251 K/mm3 (150-450); RBC Distribution Width CV 15.7 % (11.6-14.6); RBC Distribution Width SD 47.5 fl (35.1-43.9); Red Blood Count 4.49 M/mm3 (4.2-5.4); White Blood Count 10.8 K/mm3 (4.4-11.0)
[2023-08-12] MEDS: Oxytocin 15 Units/NS 250ml 15 UNITS/250 ML IV.SOLN 2 UNITS IV (08:15)
[2023-08-12] MEDS: Lactated Ringers 1,000 ML 50 ML IV ×2 (08:20→23:10)
[2023-08-12 09:12] LABS: Syphilis Antibodies Non-reactive
[2023-08-12] MEDS: Ondansetron 4 MG/2 ML Vial IV ×2 (09:15→20:51)
[2023-08-12 09:30] LABS: Amphetamine Urine VISTA NEGATIVE (<1000 ng/mL); Barbiturate Urine VISTA NEGATIVE (< 200 ng/mL); Benzodiazepine Urine VISTA NEGATIVE (< 200 ng/mL); Cocaine Urine VISTA NEGATIVE (< 300 ng/mL); Ecstacy Urine VISTA NEGATIVE (< 500 ng/mL); Methadone Urine VISTA NEGATIVE (< 300 ng/mL); PCP Urine VISTA NEGATIVE (< 25 ng/mL); THC Urine VISTA NEGATIVE (< 50 ng/mL); Vista UDS pH Range 5
[2023-08-12] MEDS: 0.9% Normal Saline Single 100 ML IV.SOLN. INTRA-UTER (09:50)
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
[2023-08-12] MEDS: Acetaminophen 500 MG Tablet PO (11:29)
[2023-08-12] MEDS: Lactated Ringers 1,000 ML 200 ML IV ×2 (13:10→18:45)
[2023-08-12] MEDS: 0.9% Saline Lock 10 ML Syringe IV (20:51)
--- NOTE | 2023-08-12 21:53 | PCM.PN.OB ---
Subjective Subjective breathing through contractions Objective Data Objective Data Vital Signs: Vital Signs Temp Pulse Resp BP Pulse Ox 97.6 F L 63 18 125/71 H 99 08/12/23 21:17 08/12/23 21:18 08/12/23 21:17 08/12/23 21:18 08/12/23 21:18 Weight: 255 lb Body Mass Index (BMI) 43.7 Intake & Output: Intake and Output for Last 24 Hours 08/10/23 08/11/23 08/12/23 23:59 23:59 23:59 Intake Total 2067.60 / 2067.60 Output Total 625 / 625 Balance 1442.60 / 1442.60 Lab / Micro Data 08/12/23 07:45 Labs: Laboratory Results - last 24 hr 08/12/23 07:45: WBC 10.8, RBC 4.49, Hgb 11.9 L, Hct 37.5, MCV 83.5, MCH 26.5 L, MCHC 31.7 L, RDW Std Deviation 47.5 H, RDW Coeff of Juni 15.7 H, Plt Count 251, MPV 9.0, Immature Gran % (Auto) 1.300 H, Neut % (Auto) 62.2, Lymph % (Auto) 27.1, [place] % (Auto) 7.2, Eos % (Auto) 1.7, Baso % (Auto) 0.5, Absolute Neuts (auto) 6.7, Absolute Lymphs (auto) 2.91, Nucleated RBC % 0, Syphilis Total Ab Non-reactive, Blood Type O POSITIVE, Antibody Screen NEGATIVE 08/12/23 08:30: Urine Opiates Screen NEGATIVE, Urine Methadone Screen NEGATIVE, Ur Barbiturates Screen NEGATIVE, Ur Phencyclidine Scrn NEGATIVE, Ur Amphetamines Screen NEGATIVE, MDMA (Ecstasy) Screen NEGATIVE, U Benzodiazepines Scrn NEGATIVE, Urine Cocaine Screen NEGATIVE, U Cannabinoids Screen NEGATIVE, Ur Drug Screen Comment Physical Exam Const alert and oriented x3 Resp normal respiratory effort and normal air movement Cardio regular rate and regular rhythm Manual OB Exam: estimated gestational size, dilated 4.5, effaced 80 and station -2 Amniotic Fluid: no amniotic fluid noted Extremity normal to inspection Skin no rashes or lesions noted Psych mental status grossly normal NST FHR Rate Baby A Baseline: 135 Variability:: Moderate Accelerations:: 15 x 15 Decelerations:: None NST Reactive:: Yes FHR Category:: Category I Uterine Activity:: q2-3 minutes Assessment & Plan (1) 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 no operative vaginal delivery recommended per M. follow up q 4 weeks at [facility]. echo and sees neurology 05/31:reassuring visit. Fluid in brain low and stable. 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 AB collected on NOB. not currently on thyroid medications. (3) Encounter for induction of labor: COMMENT: at 39.6 styles/pit PLAN: AROM- clear fluid slow cervical change frequent repositioning recheck in 2 hours. reassuring maternal and status
[2023-08-12] MEDS: Mag Hydrox/Al Hydrox/Simeth 30 ML UDC PO (22:04)
[2023-08-13] VITALS (114 sets, daily range): BP systolic 82–146; BP diastolic 45–86; PULSE 52–116; RESP 16–18; TEMP 35.9–37.4; O2SAT 91–100
[2023-08-13] MEDS: Lactated Ringers 1,000 ML 999 ML IV (08:21)
[2023-08-13] MEDS: Oxytocin 15 Units/NS 250ml 15 UNITS/250 ML IV.SOLN 18 UNITS IV (08:27)
[2023-08-13] MEDS: fentaNYL-bupivacaine (epidural) 100 ML BAG EPIDURAL (09:13)
--- NOTE | 2023-08-13 09:14 | PCM.PN.OB ---
Subjective Subjective using nitrous during contractions, requesting epidural placement. Objective Data Objective Data Vital Signs: Vital Signs Temp Pulse Resp BP Pulse Ox 98.2 F 96 18 139/86 H 98 08/13/23 07:28 08/13/23 09:11 08/13/23 07:28 08/13/23 09:11 08/13/23 09:11 Weight: 255 lb Body Mass Index (BMI) 43.7 Intake & Output: Intake and Output for Last 24 Hours 08/11/23 08/12/23 08/13/23 23:59 23:59 23:59 Intake Total 3550.93 / 3550.93 144.07 / 144.07 Output Total 1675 / 1675 775 / 775 Balance 1875.93 / 1875.93 -630.93 / -630.93 Lab / Micro Data 08/12/23 07:45 Labs: Laboratory Results - last 24 hr 08/12/23 08:30: Urine Opiates Screen NEGATIVE, Urine Methadone Screen NEGATIVE, Ur Barbiturates Screen NEGATIVE, Ur Phencyclidine Scrn NEGATIVE, Ur Amphetamines Screen NEGATIVE, MDMA (Ecstasy) Screen NEGATIVE, U Benzodiazepines Scrn NEGATIVE, Urine Cocaine Screen NEGATIVE, U Cannabinoids Screen NEGATIVE Physical Exam Const alert and oriented x3 Resp normal respiratory effort and normal air movement Cardio regular rate and regular rhythm Manual OB Exam: estimated gestational size, dilated 6, effaced 90 and station -2 Amniotic Fluid: no amniotic fluid noted Extremity normal to inspection Skin no rashes or lesions noted Psych mental status grossly normal NST FHR Rate Baby A Baseline: 130 Variability:: Moderate Accelerations:: 15 x 15 Decelerations:: Early NST Reactive:: Yes FHR Category:: Category I Uterine Activity:: q2-3 Assessment & Plan (1) Encounter for induction of labor: COMMENT: at 39.6 styles/pit PLAN: s/p pit break with resumed pitocin currently at 18u. -plans epidural -making slow cervical change. Dr. Pinto updated on labor progress at 0858. continue with Pitocin per protocol
[2023-08-13] MEDS: LACTATED RINGERS 500 ML 999 ML IV (09:22)
[2023-08-13] MEDS: Lactated Ringers 1,000 ML 200 ML IV (09:52)
[2023-08-13] MEDS: Oxytocin 15 Units/NS 250ml 15 UNITS/250 ML IV.SOLN 334 UNITS IV (12:46)
[2023-08-13] MEDS: Methylergonovine 0.2 MG/ML Ampul IM (12:49)
--- NOTE | 2023-08-13 12:57 | OP.PCM_ITS ---
Assessment & Plan (1) Vaginal delivery: COMMENT: EVON 40weeks IOL Maternal Data Information JORJE Calculator Estimated Delivery Date Method Current WG Current Estimate 08/13/23 LMP (Uncertain) 40w 0d Final JORJE: 08/13/23 Final JORJE Source: LMP Gestational age: 40 Vaginal Delivery Maternal Presentation Maternal Presentation: Medically Indicated Induction Maternal Presentation: Pt with IOL at 39.6 for obesity, prolonged early labor with Pitocin/Meredith bulb. after epidural placement dilation occurred with normal progression to fully dilated. Type of Induction: Pitocin and Meredith Bulb Medical Reason for Induction: Maternal Medical Condition: list: Operative Information Date of Procedure: 08/13/23 Pre-Operative Diagnosis: see problem list Post-Operative Diagnosis: at term Surgery / Procedure Performed: Spontaneous Vaginal Delivery Type of Anesthesia: Epidural Estimated Blood Loss: 250 Time of Delivery: 12:33 Findings Description of Procedure: Patient began pushing and delivered the head in the TOMMIE presentation. The head was delivered atraumatically. The anterior and posterior shoulders delivered without complication followed by the rest of the and the was placed on the maternal abdomen. Delayed cord clamping was employed for approximately 2 minutes. Cord was clamped and cut and gentle traction was applied to the cord and the placenta delivered spontaneously immediately following it was noted to be intact with three-vessel cord. The perineum and vagina were inspected and noted to have no laceration. EBL was 250 cc. increased vaginal bleeding noted and Methergine x1 provided with excellent hemostasis achieved. Patient and infant tolerated delivery well entered recovery phase bonding skin to skin. Dr. Pinto notified of delivery. routine pp orders. Presentation: Vertex Amniotic Membrane Rupture Type: Artificial Time of Membrane Rupture: 2100 Amniotic Fluid Description: Clear Placental Delivery Description: Spontaneous Placenta Disposition: [facility] Cord Vessel Description: 3 Vessels Cord Entanglement: None Infant A Gender: Female (1 minute): 8 (5 minute): 9 Delayed Cord Clamping: Yes Post Vaginal Delivery Medications Given After Delivery: IV Pitocin and IM Methergin Episiotomy Description: None Laceration: None Complication Complications: None Procedures Urinary/Genital [id number]: [id number] Vaginal Delivery [facility]
--- NOTE | 2023-08-13 13:06 | DCINST_ITS ---
Discharge Instructions Diet Discharge Diet: No restrictions Activity Discharge Activity: May Not Drive and May Shower May resume sexual activity in: 6 weeks Weight Bearing Status: Full weight bearing Dressing / Incision Call your doctor if your incision/area has: Sudden Increased Bleeding, Increased Pain/ Swelling and Foul Smelling Discharge Call your doctor if you observe: Fever of 101 or Higher, Numbness or Tingling, Change in Color, Inability to urinate, Inability to have a bowel movement, Using more than 1 pad per hour, Shortness of breath, Dizziness, Fainting spells, Chest pain, Calf discomfort and Uncontrolled pain Follow Up Care Please Follow Up With: Darling Tabor CNM When: 6 weeks , please call office to make an appointment. Congratulations on the of your baby! Test Results: Test results from this visit will be discussed in further detail at your follow- up appointment, if applicable. Discharge Plan Admission Admit Date/Time: 08/12/23 07:53 Attending Provider: Darling Tabor Primary Care Provider: Care Physician,No Primary Discharge Orders/Prescriptions Prescriptions: No Action Slow Fe 137 mg (45 mg iron) tablet extended release 137 mg PO DAILY famotidine [Pepcid] 20 mg tablet 20 mg PO BID Qty: 60 5RF pnv #[id number] mg-mcg-mg powder effervescent in packet 1 ea PO DAILY ondansetron [ondansetron] 4 mg tablet,disintegrating 4 mg PO Q8H PRN PRN (Reason: Nausea) Qty: 10 0RF aspirin 81 mg capsule 81 mg PO DAILY Referrals / Follow Up: Care Physician,No Primary [Primary Care Provider] -
[2023-08-13] MEDS: Oxytocin 15 Units/NS 250ml 15 UNITS/250 ML IV.SOLN 83 UNITS IV (13:20)
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
[2023-08-13] MEDS: Naproxen 500 MG Tablet PO (18:42)
[2023-08-13] MEDS: Acetaminophen 500 MG Tablet 1000 MG PO (22:02)
[2023-08-14 01:52] VITALS: BP 130/92; PULSE 67; RESP 16; TEMP 36.8; O2SAT 98
[2023-08-14 04:31] VITALS: BP 127/82; PULSE 64; RESP 16; TEMP 36.9; O2SAT 98
[2023-08-14] MEDS: Naproxen 500 MG Tablet PO (06:12)
[2023-08-14 07:47] VITALS: BP 98/63; PULSE 78; RESP 17; TEMP 36.7; O2SAT 98
--- NOTE | 2023-08-14 09:28 | PCM.PN.OB ---
Subjective Subjective Patient doing well without complaints. Tolerating PO. Ambulating and voiding without difficulty. Feeding well. Denies chest pain, shortness of breath, calf pain/swelling, fevers, chills, lightheadedness. Objective Data Objective Data Vital Signs: Vital Signs Temp Pulse Resp BP Pulse Ox O2 Del Method 98.1 F 78 17 98/63 98 Room Air 08/14/23 07:47 08/14/23 07:47 08/14/23 07:47 08/14/23 07:47 08/14/23 07:47 08/14/23 07:47 Oxygen Delivery Method Room Air Weight: 255 lb Body Mass Index (BMI) 43.7 Intake & Output: Intake and Output for Last 24 Hours 08/12/23 08/13/23 08/14/23 23:59 23:59 23:59 Intake Total 3550.93 / 3550.93 4394.07 / 4394.07 Output Total 1675 / 1675 2425 / 2425 Balance 1875.93 / 1875.93 1969.07 / 1969.07 Lab / Micro Data 08/12/23 07:45 Physical Exam Const alert and oriented x3 Eyes PERRL Neck full ROM Lymph Lymphatic: no lymphadenopathy noted Chest inspection of chest normal and inspection of breasts normal Resp normal respiratory effort, normal air movement and no use of accessory muscles Effort and Inspection: able to speak in complete sentences Cardio regular rate and regular rhythm GI normal to inspection, nondistended, normoactive bowel sounds Uterus Palpation: uterus fundus firm Extremity normal to inspection, full ROM and no pedal edema Skin no rashes or lesions noted Neuro oriented x3 Psych mental status grossly normal Assessment & Plan (1) Vaginal delivery: COMMENT: EVON 40weeks IOL PLAN: s/p PPD # 1 1. routine post delivery care 2. breast feeding- support given 3. rh positive 4. rubella immune 5. desires early d/c well.
--- NOTE | 2023-08-14 09:30 | PCM.DC.SUM ---
Providers Date of Admission: 08/12/23 Primary Care Physician: No Primary Care Phys Reason For Visit: VAGINAL DELIVERY Diagnosis Discharge Diagnosis (1) Vaginal delivery: Status: Acute Code(s): O80 - Encounter for full-term uncomplicated delivery Plan: s/p PPD # 1 1. routine post delivery care 2. breast feeding- support given 3. rh positive 4. rubella immune 5. desires early d/c well. Medications at Discharge Home Medications ondansetron 4 mg disintegrating tablet 4 mg PO Q8H PRN PRN Nausea #10 tabs 01/02/23 pnv #[id number] acid-dha 28 mg-975 mcg-200 mg oral powder efferv pk 1 ea PO DAILY 01/02/23 aspirin 81 mg capsule 81 mg PO DAILY 05/06/23 ferrous sulfate 137 mg (45 mg iron) tablet,extended release (Slow Fe) 137 mg PO DAILY anemai 05/30/23 famotidine 20 mg tablet (Pepcid) 20 mg PO BID reflux #60 tabs 07/05/23 Hospital Course Operations None Procedures None Summary of Care Provided Minutes Spent on Discharge: 15 Hospital Course: admitted for IOL for obesity at 39.6 weeks Physical Exam Const alert and oriented x3 Eyes PERRL Neck full ROM Lymph Lymphatic: no lymphadenopathy noted Chest inspection of chest normal and inspection of breasts normal Resp normal respiratory effort, normal air movement and no use of accessory muscles Effort and Inspection: able to speak in complete sentences Cardio regular rate and regular rhythm GI normal to inspection, nondistended, normoactive bowel sounds Uterus Palpation: uterus fundus firm Extremity normal to inspection, full ROM and no pedal edema Skin no rashes or lesions noted Neuro oriented x3 Psych mental status grossly normal Weight / BMI Weight Weight: 255 lb Body Mass Index (BMI) 43.7 ABG / Lab / Microbiology Data 08/12/23 07:45 D/C Instructions Discharge Diet: No restrictions May resume sexual activity in: 6 weeks Weight Bearing Status: Full weight bearing Call your doctor if your incision/area has: Sudden Increased Bleeding, Increased Pain/ Swelling and Foul Smelling Discharge Call your doctor if you observe: Fever of 101 or Higher, Numbness or Tingling, Change in Color, Inability to urinate, Inability to have a bowel movement, Using more than 1 pad per hour, Shortness of breath, Dizziness, Fainting spells, Chest pain, Calf discomfort and Uncontrolled pain Please Follow Up With: Darling Tabor CNM When: 6 weeks , please call office to make an appointment. Congratulations on the of your baby! Meaningful Use Info Meaningful Use Meaningful Use Diagnoses (Choose all that apply): None applicable Ischemic Stroke Statin Dosing Therapy Reference: STATIN DOSE THERAPY REFERENCE: * Patients > 75 years receive moderate or high dose statin therapy. * Patients 75 years or YOUNGER should receive HIGH intensity statin dose unless contraindicated. You will be required to document reason for non-treatment if statin daily dose does not meet guidelines. HIGH DOSE STATIN THERAPY DAILY Atorvastatin > than or = to 40 mg Rosuvastatin > than or = to 20 mg Amlodipine + Atorvastatin > than or = to 2.5/40 mg Ezetimibe + Simvastatin 10/80 mg Simvastatin 80mg Discharge Plan Admission Admit Date/Time: 08/12/23 07:53 Attending Provider: Darling Tabor Primary Care Provider: Care Physician,No Primary Discharge Orders/Prescriptions Prescriptions: No Action Slow Fe 137 mg (45 mg iron) tablet extended release 137 mg PO DAILY famotidine [Pepcid] 20 mg tablet 20 mg PO BID Qty: 60 5RF pnv #[id number] [id number] mg-mcg-mg powder effervescent in packet 1 ea PO DAILY ondansetron [ondansetron] 4 mg tablet,disintegrating 4 mg PO Q8H PRN PRN (Reason: Nausea) Qty: 10 0RF aspirin 81 mg capsule 81 mg PO DAILY Referrals / Follow Up: Care Physician,No Primary [Primary Care Provider] - Disposition Disposition (needs filled in before D/C Order can be placed): Home, Self Care
[2023-08-14] MEDS: Acetaminophen 500 MG Tablet 1000 MG PO (12:48)
[2023-08-14 15:56] VITALS: BP 127/91; PULSE 66; RESP 16; TEMP 36.7; O2SAT 97
--- NOTE | 2023-08-15 11:15 | CASEMGMT ---
Social Work Called [facility] services and spoke with Sondra in the intake department. Referral due to substance exposed to in utero with positive maternal drug screen 01/26/2023. Maternal drug screen negative at admission as well as infant's urine is negative at admission. Updated that MOB has reported cessation as of May 2023. Brief maternal infant history is provided including maternal history of mood and anxiety complications after each of last deliveries. Reported MOB agreeable to help me grow referral, and that will need follow-up with neurology as an outpatient. Sondra reports will be reviewed for determination of whether case will be screened in or out. Plan: Make Help Me Grow referral and monitor for meconium drug screen results in . -ALINE Mendoza, BEAUTY DIRECTOR *This note was generated with Endoclear dictation software. It may contain incorrect words, spelling, and punctuation that were not noted in review of the chart prior to signing*
--- NOTE | 2023-08-18 17:59 | CASEMGMT ---
Social Work Labor and Delivery unit Help me grow referral submitted through the [facility] assisted care web-based referral system. No other services requested or indicated for this mother of baby. -ALINE Mendoza, COOLER ROOM WORKER. *This note was generated with Joturl dictation software. It may contain incorrect words, spelling, and punctuation that were not noted in review of the chart prior to signing*
== END 2023-08-14 16:15 | disposition home or self-care (01) | DRG 560 ==
PROVIDERS: Obstetrics & Gynecology; Admitting Provider Registered Nurse; Referring Provider Registered Nurse; Visit Provider Registered Nurse
DX: O99.214 Obesity complicating childbirth (principal); Z37.0 Single live birth; F17.290 Nicotine dependence, other tobacco product, uncomplicated; O35.01 Maternal care for (suspected) central nervous system malformation or damage in fetus, agenesis of the corpus callosum; O99.02 Anemia complicating childbirth; O99.334 Smoking (tobacco) complicating childbirth; Z3A.39 39 weeks gestation of pregnancy; Z79.82 Long term (current) use of aspirin; Z79.899 Other long term (current) drug therapy
CPT/HCPCS: 59025; 59050; 80307; 85025; 86780; 86850; 86900; 86901; 99221; J7120; A4216; G0378; J2405

== ENCOUNTER → 2024-05-28 | Outpatient (CLI) | payer MEDICAID, SELFPAY ==
[2024-05-28 17:02] LABS: Absolute Lymphocyte Count 2.09 X10^3/uL (0.83-4.51); Absolute Neutrophil Count 7.2 X10^3/uL (2.0-7.7); Basophil# 0.04 X10^3/uL; Basophil% 0.4 % (0-1); Eosinophil# 0.08 X10^3/uL; Eosinophils% 0.8 % (0-5); Hematocrit 39.8 % (37-47); Hemoglobin 12.9 g/dL (12.0-15.0); Lymphocyte # 2.09 X10^3/ul (0.83-4.51); Lymphocyte % 21.2 % (19-41); Mean Corp Hgb Conc 32.4 g/dL (32-36); Mean Corpuscular Hgb 27.3 pg (27.0-32.0); Mean Corpuscular Volume 84.3 fL (81-99); Mean Platelet Vol. 9.3 fl (6.2-12.0); Monocyte# 0.41 X10^3/uL; Monocyte% 4.2 % (0-10); NRBC Flagged by Analyzer 0 % (0-5); Neutrophil # 7.22 X10^3/uL (2.7-7.7); Neutrophil % 73.1 % (47-70); Platelet Count 268 K/mm3 (150-450); RBC Distribution Width CV 13.2 % (11.6-14.6); RBC Distribution Width SD 41.1 fl (35.1-43.9); Red Blood Count 4.72 M/mm3 (4.2-5.4); White Blood Count 9.9 K/mm3 (4.4-11.0)
[2024-05-28 21:47] LABS: HIV Nonreactive (Nonreactive)
[2024-05-28 22:00] LABS: Hepatitis B Surface Antigen Nonreactive (Nonreactive); Hepatitis C Antibody Nonreactive (Nonreactive); Rubella IgG REAC (Nonreactive); Syphilis Antibodies Nonreactive (Nonreactive)
[2024-05-29 12:22] LABS: Hemoglobin A1c 5.1 % (<=5.6)
[2024-05-31 03:07] LABS: Chlamydia By Nucleic Acid AMP Negative (Negative); Gonococcus By Nucleic Acid AMP Negative (Negative)
[2024-06-04 15:13] LABS: HPV Reflexed? NOT INDICATED
== END | disposition home or self-care (01) ==
PROVIDERS: Referring Provider Advanced Practice Midwife; Visit Provider Advanced Practice Midwife
DX: O99.210 Obesity complicating pregnancy, unspecified trimester (principal); Z3A.00 Weeks of gestation of pregnancy not specified; Z12.4 Encounter for screening for malignant neoplasm of cervix
CPT/HCPCS: 36415; 83036; 84439; 84443; 85025; 86703; 86762; 86780; 86803; 86850; 86900; 86901; 87086; 87340; 87491; 87591; 88175; G0145

== ENCOUNTER 2024-06-29 03:05 | Emergency (ER) | payer MEDICAID, SELFPAY ==
[2024-06-29 03:06] VITALS: BP 141/80; PULSE 79; RESP 18; TEMP 36.7; O2SAT 95; BMI 42.5
--- NOTE | 2024-06-29 03:37 | US_ITS ---
PROCEDURE: ABDOMEN LIMITED 06/29/2024 REASON FOR EXAM: PAIN COMPARISON: None available FINDINGS: The visualized pancreas appears within limits without evidence of pancreatic ductal dilation seen. The liver measures 17.2 cm and appears within limits. No evidence of intrahepatic biliary ductal dilation. Hepatic color flow is present with flow in the portal vein appearing hepatopetal as expected. No gallstones, wall thickening or pericholecystic free fluid. The wall measures 2 mm. Report of a negative sonographic Ramirez's sign. 4 mm echogenic focus non dependent gallbladder wall appears non mobile and statistically would represent gallbladder polyp versus adherent tumefactive sludge. CBD 5 mm. The right kidney measures 11.4 x 5.7 x 4.4 cm with a cortical thickness of 1 cm. No right hydronephrosis, renal stone or perinephric fluid seen. No free fluid seen. US/Abdomen Limited IMPRESSION: No evidence of acute process as above. 4 mm echogenic focus non dependent gallbladder wall appears non mobile and stat istically would represent gallbladder polyp versus adherent tumefactive sludge Reading Location: [id number]
--- NOTE | 2024-06-29 03:37 | US_ITS ---
PROCEDURE: TRANSVAGINAL W/PREG US 06/29/2024 REASON FOR EXAM: PAIN IN TECHNIQUE: High resolution obstetric ultrasound performed using a 2D transducer. Standard views obtained, including biometry, anatomy survey, and Doppler studies. Transabdominal and transvaginal ultrasound images. COMPARISON: None. FINDINGS Single, live intrauterine gestation. Cephalic presentation. heart rate 145 beats per minute. Normal closed cervix measuring 3.3 cm in its length. Estimated gestational age 17 weeks and 2 days. Estimated delivery date on 12/05/2024. Anterior right lateral placenta. No evidence of placenta previa. Normal amniotic fluid with the largest pocket measuring 3.8 x 6 cm. The maternal adnexal regions were not visualized secondary to bowel gas. US/Transvaginal w/Preg US IMPRESSION: Single, live intrauterine gestation. No abnormality is noted. Reading Location[facility]
[2024-06-29] MEDS: Ondansetron 4 MG/2 ML Vial IV (03:48)
[2024-06-29] MEDS: 0.9% Normal Saline (1000mL) 1,000 ML 999 ML IV (03:48)
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
[2024-06-29 03:55] LABS: Absolute Lymphocyte Count 1.39 X10^3/uL (0.83-4.51); Absolute Neutrophil Count 4.8 X10^3/uL (2.0-7.7); Basophil# 0.03 X10^3/uL; Basophil% 0.4 % (0-1); Eosinophil# 0.08 X10^3/uL; Eosinophils% 1.1 % (0-5); Hemoglobin 14.1 g/dL (12.0-15.0); Lymphocyte # 1.39 X10^3/ul (0.83-4.51); Lymphocyte % 19.7 % (19-41); Mean Corp Hgb Conc 36.2 g/dL (32-36); Mean Corpuscular Hgb 29.3 pg (27.0-32.0); Mean Corpuscular Volume 81.1 fL (81-99); Mean Platelet Vol. 9.4 fl (6.2-12.0); Monocyte# 0.66 X10^3/uL; Monocyte% 9.3 % (0-10); NRBC Flagged by Analyzer 0 % (0-5); Neutrophil # 4.84 X10^3/uL (2.7-7.7); Neutrophil % 68.7 % (47-70); Platelet Count 252 K/mm3 (150-450); RBC Distribution Width CV 13.5 % (11.6-14.6); RBC Distribution Width SD 39.7 fl (35.1-43.9); Red Blood Count 4.81 M/mm3 (4.2-5.4); White Blood Count 7.1 K/mm3 (4.4-11.0)
[2024-06-29 04:20] LABS: Color, Urine Yellow (Yellow); Glucose, Dipstick Normal (Normal); Ketone-Dipstick Negative (Negative); Leukocyte Esterase-Dipstick Negative /ul (Negative); Nitrite-Dipstick Negative (Negative); Occult Blood-Urine Negative /ul (Negative); Protein-Dipstick 30 mg/dl (Negative); Specific Gravity, Urine 1.025 (1.002-1.030); Urine Bilirubin Dipstick Negative (Negative); Urine Clarity Clear (Clear); Urine Urobilinogen Normal (Normal)
[2024-06-29 04:22] LABS: ALB/GLOB Ratio 1.3 RATIO (0.9-2.4); AST(SGOT) 24 U/L (<=31); Alanine Aminotransfer ALT/SGPT 19 U/L (<=34); Alkaline Phosphatase 63 U/L (35-104); Anion Gap 12 (5-15); BUN 10 mg/dL (4-19); Calcium,Total 8.7 mg/dL (7.6-11.0); Carbon Dioxide 19.3 mmol/L (21.0-32.0); Chloride 104 mmol/L (98-108); EST Glomerular Filtration Rate 133 (>60); Estimated Creatinine Clearance 209.25 ml/min (50-250); Glucose 93 mg/dL (70-99); LDH 146 U/L (84-246); Lipase 29 U/L (13-75); Potassium 3.6 mmol/L (3.3-5.1); Sodium Level 135 mmol/L (133-145); Total Bilirubin 0.31 mg/dL (0.00-1.30)
[2024-06-29 04:50] LABS: Bacteria 2+ /hpf (None Seen); Mucous, Urine 1+ /hpf (<or=2+); Red Blood Cells-Urine 0-5 SEEN /hpf (0-5); Squamous Epithelial Cells - UA 10-25 SEEN /hpf (5-10); White Blood Cells 0-5 SEEN /hpf (0-5)
[2024-06-29 05:05] VITALS: BP 151/53; PULSE 67; RESP 18; O2SAT 100
--- NOTE | 2024-06-29 05:08 | ED.RN ---
OB nurse did not make it to department prior to Ultrasound, aware and ok since Ultrasound will see fetus.
[2024-06-29] MEDS: Cephalexin 250 MG Capsule 500 MG PO (06:03)
[2024-06-29 06:05] VITALS: BP 155/71; PULSE 82; RESP 18; O2SAT 100
[2024-06-29 07:21] VITALS: BP 148/85; PULSE 72; RESP 16; TEMP 36.6; O2SAT 99
== END 2024-06-29 07:22 | disposition home or self-care (01) ==
PROVIDERS: Emergency Provider Surgery; Visit Provider Surgery
DX: O21.9 Vomiting of pregnancy, unspecified (principal); O16.2 Unspecified maternal hypertension, second trimester; O99.891 Other specified diseases and conditions complicating pregnancy; R10.84 Generalized abdominal pain; R82.71 Bacteriuria; O99.332 Smoking (tobacco) complicating pregnancy, second trimester; F17.290 Nicotine dependence, other tobacco product, uncomplicated; Z3A.17 17 weeks gestation of pregnancy; Z79.899 Other long term (current) drug therapy
CPT/HCPCS: 76705; 76817; 80053; 81001; 83615; 83690; 85025; 96361; 96374; 99283; A4216; J2405

== ENCOUNTER → 2024-08-09 | Outpatient (CLI) | payer MEDICAID, SELFPAY ==
--- OUTSIDE RECORDS SUMMARY | 2024-08-09 21:59 | XMS RPT_ITS | CCD ---
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 US MR#: [id number] Acct: [id number] Name: RANJAN TAN Rep #: [id number] : 2000 F 24 From: Teddy landon MD PCP: Care Physician,No Primary Status: REG ER Study: Transvaginal w/Preg US Date of Exam: 06/29/24 Exam# [id number] Ordering Dr: Vaughn Tan DO PROCEDURE: TRANSVAGINAL W/PREG US 06/29/2024 REASON FOR EXAM: PAIN IN TECHNIQUE: High resolution obstetric ultrasound performed using a 2D transducer. Standard views obtained, including biometry, anatomy survey, and Doppler studies. Transabdominal and transvaginal ultrasound images. COMPARISON: None. FINDINGS Single, live intrauterine gestation. Cephalic presentation. heart rate 145 beats per minute. Normal closed cervix measuring 3.3 cm in its length. Estimated gestational age 17 weeks and 2 days. Estimated delivery date on 12/05/2024. Anterior right lateral placenta. No evidence of placenta previa. Normal amniotic fluid with the largest pocket measuring 3.8 x 6 cm. The maternal adnexal regions were not visualized secondary to bowel gas. US/Transvaginal w/Preg US IMPRESSION: Single, live intrauterine gestation. No abnormality is noted. Reading [facility] CC: Dr. Vaughn Tan, DO; No Primary Care Physician Mask Inspector: Signed Normal [facility] Urinalysis, Completeon 06-29 BACTERIA 2+ /hpf Normal None Seen [facility] Comment on above: Order Comment: HA CTOR TO SPECIFY Performed By: #### L 400.0001 ####[facility] [address] [place], [address] EPI,SQUAMOUS 10-25 SEEN Normal 5-10 [facility] Comment on above: Order Comment: HA CTOR TO SPECIFY Performed By: #### L 400.0001 ####[facility] [address] [place], [address] Mucus Ql (Urine sed) 1+ /hpf Normal [facility] Comment on above: Order Comment: HA CTOR TO SPECIFY Performed By: #### L 400.0001 ####[facility] [address] [place], [address] RBC 0-5 SEEN Normal 0-5 [facility] Comment on above: Order Comment: HA CTOR TO SPECIFY Performed By: #### L 400.0001 ####[facility] [address] [place], [address] WBC 0-5 SEEN Normal 0-5 [facility] Comment on above: Order Comment: HA CTOR TO SPECIFY Performed By: #### L 400.0001 ####[facility] [address] [place], [address] BILIRUBIN URINE Negative Normal Negative [facility] Comment on above: Order Comment: HA CTOR TO SPECIFY Performed By: #### L 400.0001 ####[facility] [address] [place], [address] Clarity (U) Clear Normal Clear [facility] Comment on above: Order Comment: HA CTOR TO SPECIFY Performed By: #### L 400.0001 ####[facility] [address] [place], [address] Color (U) Yellow Normal Yellow [facility] Comment on above: Order Comment: HA CTOR TO SPECIFY Performed By: #### L 400.0001 ####[facility] [address] [facility] [address] GLUCOSE, UR Normal Normal Normal [facility] Comment on above: Order Comment: HA CTOR TO SPECIFY Performed By: #### L 400.0001 ####[facility] [address] [place], [address] KETONE UR Negative Normal Negative [facility] Comment on above: Order Comment: HA CTOR TO SPECIFY Performed By: #### L 400.0001 ####[facility] [address] [facility] [address] LEUK ESTERASE Negative Normal Negative [facility] Comment on above: Order Comment: HA CTOR TO SPECIFY Performed By: #### L 400.0001 ####[facility] [address] [place], [address] Nitrite Ql (U) Negative Normal Negative [facility] Comment on above: Order Comment: HA CTOR TO SPECIFY Performed By: #### L 400.0001 ####[facility] [address] [place], [address] OCCULT BLOOD-UR Negative Normal Negative [facility] Comment on above: Order Comment: HA CTOR TO SPECIFY Performed By: #### L 400.0001 ####[facility] [address] [place], [address] pH UR 5.0 Normal 5.0 - 8.0 [facility] Comment on above: Order Comment: HA CTOR TO SPECIFY Performed By: #### L 400.0001 ####[facility] [address] [place] [id number] PROT DIPSTX 30 mg/dl Abnormal Negative [facility] Comment on above: Order Comment: HA CTOR TO SPECIFY Performed By: #### L 400.0001 ####[facility] [address] [place], [address] SP.GR. DIPSTX 1.025 Normal 1.002-1.030 [facility] Comment on above: Order Comment: HA CTOR TO SPECIFY Performed By: #### L 400.0001 ####[facility] [address] [place], [address] UROBILI Normal Normal Normal [facility] Comment on above: Order Comment: HA CTOR TO SPECIFY Performed By: #### L 400.0001 ####[facility] [address] [place], [place], [id number] Urine blood detectionOrdered By: Vaughn Tan on 06-29-2024 Urine Occult Blood Negative Negative [facility] Urine clarityOrdered By: Rich Tan on 06-29-2024 Clarity (U) Clear Clear [facility] Urine color determinationOrd ered By: Vaughn Tan on 06-29-2024 Color (U) Yellow Yellow [facility] Urine leukocyte esterase det ection by dipstickOrdered By: Vaughn Tan on 06-29-2024 Leukocyte esterase Test strip Ql (U) Negative Negative [facility] Urine pHOrdered By: Vaughn Wong on 06-29-2024 pH (U) 5.0 [pH] 5.0 - 8.0 [facility] Urine sediment bacteria coun t by microscopy (number/high power field)Ordered By: Vaughn Tan on 06-29-2024 Bacteria LM.HPF (Urine sed) [#/Area] 2 /[HPF] None Seen [facility] Urine specific gravity measu rementOrdered By: Vaughn Tan on 06-29-2024 Specific gravity (U) [Rel density] 1.025 1.002-1.030 [facility] Urobilinogen Ql (U)Ordered B y: Vaughn Tan on 06-29-2024 Urine Urobilinogen Normal mg/dl Normal [facility] White blood cell (WBC) count Ordered By: Vaughn Tan on 06-29-2024 WBC (Bld) [#/Vol] 7.1 10*3/uL 4.4-11.0 [facility] White blood cell countOrdere d By: Vaughn Luzt on 06-29-2024 Urine WBC 0-5 SEEN /hpf 0-5 [facility] L3410.9998on 06-06-2024 [facility] Misc. COMMENT Normal . [facility] Comment on above: Order Comment: [id number] 8TSH RECEPTOR AB SERUM FZ Result Comment: Test Ordered: [id number] TSH Receptor Antibody (TBII) TSH Receptor Antibody (TBII) 0.6 U/L ES Reference Range: . Reference Range: Antibody Titer: <1.0 U/L = Negative 1.1 - 1.5 U/L = Equivocal >1.5 U/L = Positive Performed at: [facility] [address] [place] [id number] Classics Professor: Del Rock MD, Phone: [phone] Performed at: [facility] [address] [id number] Classics Professor: Brian Alvarado PhD, Phone: [phone] Performed By: #### L 501.9985, L506.0400, L3890.6006, BTS, L501.9520, L3890.6301, L509.4006, L900.0098, L3890.6102, L100.0100, L3410.9998, L509.8002 ####[facility] [address] [place], [place], [id number] PAP I-G w/rfx hrHPV-Aptimaon 06-04-2024 ADEQ Comment Normal . [facility] Comment on above: Order Comment: Speci men Comment: [id number] Specimen Comment: Source.............Cervix;Endocervix Specimen Comment: LMP / Prev Treat...EQC=[id number] Specimen Comment: Other.............. Specimen Comment: No. of containers..01 ThinPrep Vial Result Comment: Sati sfactory for evaluation. Endocervical and/or squamous metaplastic cells (endocervical component) are present. Performed By: #### M 100.2200, L7400.0353, L7000.1800 #### [facility] [address] [place], [place], [id number] COMM . Normal . [facility] Comment on above: Order Comment: Speci men Comment: [id number] Specimen Comment: Source.............Cervix;Endocervix Specimen Comment: LMP / Prev Treat...TQF=[id number] Specimen Comment: Other.............. Specimen Comment: No. of containers..01 ThinPrep Vial Performed By: #### M 100.2200, L7400.0353, L7000.1800 #### [facility] [address] [place], [place], [address] COMMENT Comment Normal . [facility] Comment on above: Order Comment: Speci men Comment: [id number] Specimen Comment: Source.............Cervix;Endocervix Specimen Comment: LMP / Prev Treat...[id number]=[id number] Specimen Comment: Other.............. Specimen Comment: No. of containers..01 ThinPrep Vial Result Comment: This liquid based ThinPrep(R) pap test was screened with the use of an image guided system. Performed By: #### M 100.2200, L7400.0353, L7000.1800 #### [facility] [address] [place], [place], [address] DIAG Comment Normal . [facility] Comment on above: Order Comment: Speci men Comment: [id number] Specimen Comment: Source.............Cervix;Endocervix Specimen Comment: LMP / Prev Treat...DOR=[id number] Specimen Comment: Other.............. Specimen Comment: No. of containers..01 ThinPrep Vial Result Comment: NEGA TIVE FOR INTRAEPITHELIAL LESION OR MALIGNANCY. Performed By: #### M 100.2200, L7400.0353, L7000.1800 #### [facility] [address] [place], [place], [address] HPV RFLX Comment Normal . [facility] Comment on above: Order Comment: Speci men Comment: [id number] Specimen Comment: Source.............Cervix;Endocervix Specimen Comment: LMP / Prev Treat...EJE=[id number] Specimen Comment: Other.............. Specimen Comment: No. of containers..01 ThinPrep Vial Result Comment: The HPV DNA reflex criteria were not met with this specimen result therefore, no HPV testing was performed. Performed at: [address] [id number] Classics Professor: Radha Lau PhD, Phone: [phone] Performed at: [address] [id number] Classics Professor: Tomeka Brandt MD, Phone: [phone] Performed By: #### M 100.2200, L7400.0353, L7000.1800 #### [facility] [address] [place], [place], [address] PAPSMR Comment Normal . [facility] Comment on above: Order Comment: Speci men Comment: [id number] Specimen Comment: Source.............Cervix;Endocervix Specimen Comment: LMP / Prev Treat...PBP=[id number] Specimen Comment: Other.............. Specimen Comment: No. of containers..01 ThinPrep Vial Result Comment: The Pap smear is a screening test designed to aid in the detection of premalignant and malignant conditions of the uterine cervix. It is not a diagnostic procedure and should not be used as the sole means of detecting cervical cancer. Both false-positive and false-negative reports do occur. Performed By: #### M 100.2200, L7400.0353, L7000.1800 #### [facility] [address] [place], [address] PERFORM Comment Normal . [facility] Comment on above: Order Comment: Speci men Comment: [id number] Specimen Comment: Source.............Cervix;Endocervix Specimen Comment: LMP / Prev Treat...CQK=[id number] Specimen Comment: Other.............. Specimen Comment: No. of containers..01 ThinPrep Vial Result Comment: Jerica Tony, Loom Blower (ASCP) Performed By: #### M 100.2200, L7400.0353, L7000.1800 #### [facility] [address] [place], [address] Chlamydia/GC SHAJI aptimaon CHLAMY,NUC ACID Negative Normal Negative [facility] Comment on above: Performed By: #### M 100.2200, L7400.0353, L7000.1800 #### [facility] [address] [place], [address] GC BY NUC ACID Negative Normal Negative [facility] Comment on above: Result Comment: Perf ormed at: =G - [facility] [address] [place] [id number] Classics Professor: Tomeka Brandt MD, Phone: [phone] Performed By: #### M 100.2200, L7400.0353, L7000.1800 #### [facility] [address] [place], [address] Urine Cultureon 05-31-2024 [facility] Culture exhibits no growth. Normal [facility] Comment on above: Performed By: #### M 100.2200, L7400.0353, L7000.1800 #### [facility] [address] [place], [address] Hemoglobin A1con 05-29-2024 HbA1c (Bld) [Mass fraction] 5.1 % Low <=5.6 [facility] Comment on above: Performed By: #### L 501.9985, L506.0400, L3890.6006, BTS, L501.9520, L3890.6301, L509.4006, L900.0098, L3890.6102, L100.0100, L3410.9998, L509.8002 ####[facility] [address] [place], [place], [address] Absolute neutrophil countOrd ered By: Simi Lara on 05-28-2024 Neutrophils (Bld) [#/Vol] 7.2 10*3/uL 2.0-7.7 [facility] Basophil percentageOrdered B y: Simi Lara on 05-28-2024 Basophils/100 WBC (Bld) 0.4 % 0-1 [facility] C. trachomatis rRNA SHAJI+prob e Ql (Unsp spec)Ordered By: Simi Lara on 05-28-2024 Chlamydia DNA (SHAJI) Negative Negative [facility] CBC W/Diff, Automatedon 05-06 Absolute Lymph 2.09 X10 3/uL Normal 0.83-4.51 [facility] Comment on above: Performed By: #### L 501.9985, L506.0400, L3890.6006, BTS, L501.9520, L3890.6301, L509.4006, L900.0098, L3890.6102, L100.0100, L3410.9998, L509.8002 #### [facility] [address] [place], [address] Absolute Neut 7.2 X10 3/uL Normal 2.0-7.7 [facility] Comment on above: Performed By: #### L 501.9985, L506.0400, L3890.6006, BTS, L501.9520, L3890.6301, L509.4006, L900.0098, L3890.6102, L100.0100, L3410.9998, L509.8002 #### [facility] [address] [place], [address] Basophils/100 WBC (Bld) 0.4 % Normal 0-1 [facility] Comment on above: Performed By: #### L 501.9985, L506.0400, L3890.6006, BTS, L501.9520, L3890.6301, L509.4006, L900.0098, L3890.6102, L100.0100, L3410.9998, L509.8002 #### [facility] [address] [place], [address] Eosinophils/100 WBC (Bld) 0.8 % Normal 0-5 [facility] Comment on above: Performed By: #### L 501.9985, L506.0400, L3890.6006, BTS, L501.9520, L3890.6301, L509.4006, L900.0098, L3890.6102, L100.0100, L3410.9998, L509.8002 #### [facility] [address] [place], [address] Erythrocyte distribution width (RBC) [Ratio] 13.2 % Normal 11.6-14.6 [facility] Comment on above: Performed By: #### L 501.9985, L506.0400, L3890.6006, BTS, L501.9520, L3890.6301, L509.4006, L900.0098, L3890.6102, L100.0100, L3410.9998, L509.8002 #### [facility] [address] [place], [address] Hematocrit (Bld) [Volume fraction] 39.8 % Normal 37-47 [facility] Comment on above: Performed By: #### L 501.9985, L506.0400, L3890.6006, BTS, L501.9520, L3890.6301, L509.4006, L900.0098, L3890.6102, L100.0100, L3410.9998, L509.8002 #### [facility] [address] [place], [address] Hemoglobin (Bld) [Mass/Vol] 12.9 g/dL Normal 12.0-15.0 [facility] Comment on above: Performed By: #### L 501.9985, L506.0400, L3890.6006, BTS, L501.9520, L3890.6301, L509.4006, L900.0098, L3890.6102, L100.0100, L3410.9998, L509.8002 #### [facility] [address] [place], [address] IG% 0.300 Normal 0.0-0.9 [facility] Comment on above: Result Comment: IG% - Immature Granulocytes (promyelocytes, myelocytes and metamyelocytes) > 1% indicates that a LEFT SHIFT is Present. Performed By: #### L 501.9985, L506.0400, L3890.6006, BTS, L501.9520, L3890.6301, L509.4006, L900.0098, L3890.6102, L100.0100, L3410.9998, L509.8002 #### [facility] [address] [place], [address] Lymphocytes/100 WBC (Bld) 21.2 % Normal 19-41 [facility] Comment on above: Performed By: #### L 501.9985, L506.0400, L3890.6006, BTS, L501.9520, L3890.6301, L509.4006, L900.0098, L3890.6102, L100.0100, L3410.9998, L509.8002 #### [facility] [address] [place], [address] MCH (RBC) [Entitic mass] 27.3 pg Normal 27.0-32.0 [facility] Comment on above: Performed By: #### L 501.9985, L506.0400, L3890.6006, BTS, L501.9520, L3890.6301, L509.4006, L900.0098, L3890.6102, L100.0100, L3410.9998, L509.8002 #### [facility] [address] [place], [address] MCHC (RBC) [Mass/Vol] 32.4 g/dL Normal 32-36 [facility] Comment on above: Performed By: #### L 501.9985, L506.0400, L3890.6006, BTS, L501.9520, L3890.6301, L509.4006, L900.0098, L3890.6102, L100.0100, L3410.9998, L509.8002 #### [facility] [address] [place], [address] MCV (RBC) [Entitic vol] 84.3 fL Normal 81-99 [facility] Comment on above: Performed By: #### L 501.9985, L506.0400, L3890.6006, BTS, L501.9520, L3890.6301, L509.4006, L900.0098, L3890.6102, L100.0100, L3410.9998, L509.8002 #### [facility] [address] [place], [address] Monocytes/100 WBC (Bld) 4.2 % Normal 0-10 [facility] Comment on above: Performed By: #### L 501.9985, L506.0400, L3890.6006, BTS, L501.9520, L3890.6301, L509.4006, L900.0098, L3890.6102, L100.0100, L3410.9998, L509.8002 #### [facility] [address] [place], [address] Neutrophils/100 WBC (Bld) 73.1 % High 47-70 [facility] Comment on above: Performed By: #### L 501.9985, L506.0400, L3890.6006, BTS, L501.9520, L3890.6301, L509.4006, L900.0098, L3890.6102, L100.0100, L3410.9998, L509.8002 #### [facility] [address] [place], [address] Nucleated RBC (Bld) [#/Vol] 0 10*3/uL Normal 0-5 [facility] Comment on above: Performed By: #### L 501.9985, L506.0400, L3890.6006, BTS, L501.9520, L3890.6301, L509.4006, L900.0098, L3890.6102, L100.0100, L3410.9998, L509.8002 #### [facility] [address] [place], [address] Platelet mean volume (Bld) [Entitic vol] 9.3 fL Normal 6.2-12.0 [facility] Comment on above: Performed By: #### L 501.9985, L506.0400, L3890.6006, BTS, L501.9520, L3890.6301, L509.4006, L900.0098, L3890.6102, L100.0100, L3410.9998, L509.8002 #### [facility] [address] [place], [id number] (819) Platelets (Bld) [#/Vol] 268 10*3/uL Normal 150-450 [facility] Comment on above: Performed By: #### L 501.9985, L506.0400, L3890.6006, BTS, L501.9520, L3890.6301, L509.4006, L900.0098, L3890.6102, L100.0100, L3410.9998, L509.8002 #### [facility] [address] [place], [address] (607) RBC (Bld) [#/Vol] 4.72 10*6/uL Normal 4.2-5.4 [facility] Comment on above: Performed By: #### L 501.9985, L506.0400, L3890.6006, BTS, L501.9520, L3890.6301, L509.4006, L900.0098, L3890.6102, L100.0100, L3410.9998, L509.8002 #### [facility] [address] [place], [place], [phone] (849) RDW SD 41.1 fl Normal 35.1-43.9 [facility] Comment on above: Performed By: #### L 501.9985, L506.0400, L3890.6006, BTS, L501.9520, L3890.6301, L509.4006, L900.0098, L3890.6102, L100.0100, L3410.9998, L509.8002 #### [facility] [address] [place], [place], [id number] WBC (Bld) [#/Vol] 9.9 10*3/uL Normal 4.4-11.0 [facility] Comment on above: Performed By: #### L 501.9985, L506.0400, L3890.6006, BTS, L501.9520, L3890.6301, L509.4006, L900.0098, L3890.6102, L100.0100, L3410.9998, L509.8002 #### [facility] [address] [place], [place], [phone] Pharmacology Associate Cyto stain Nom (C vx/Vag) [ID]Ordered By: Simi Lara on 05-28-2024 Pap Smear Performed By Comment . [facility] Comment on above: Nunu Tony, Cyto technologist (ASCP) Cytology report Cyto stain D oc (Cvx/Vag)Ordered By: Simi Lara on 05-28-2024 Thin Prep Pap Smear Comment . [facility] Comment on above: The Pap smear is a s creening test designed to aid in thedetection of premalignant and malignant conditions of theuterine cervix. It is not a diagnostic procedure andshould not be used as the sole means of detecting cervicalcancer. Both false-positive and false-negative reports dooccur. Eosinophil percentageOrdered By: Simi Lara on 05-28-2024 Eosinophils/100 WBC (Bld) 0.8 % 0-5 [facility] Erythrocyte distribution wid th ratioOrdered By: Simi Lara on 05-28-2024 Erythrocyte distribution width (RBC) [Ratio] 13.2 % 11.6-14.6 [facility] Erythrocyte distribution wid th standard deviationOrdered By: Simi Lara on 05-28-2024 Erythrocyte distribution width (RBC) [Entitic vol] 41.1 fL 35.1-43.9 [facility] HBV surface Ag Ql (S)Ordered By: Simi Lara on 05-28-2024 Hepatitis B Surface Antigen Non-Reactive Nonreactive [facility] Comment on above: Reactive: Presumptiv e evidence of HBV. Repeatedly reactive samples must be confirmed using a neutralization test ([employer]ys HBsAg Confirmatory Test)Non-Reactive: HBsAg not detected; does not exclude the possibility of exposure to HBV Hematocrit Auto (Bld) [Volum e fraction]Ordered By: Simi Lara on 05-28-2024 Hematocrit (Bld) [Volume fraction] 39.8 % 37-47 [facility] Hemoglobin A1c percentageOrd ered By: Simi Lara on 05-28-2024 HbA1c (Bld) [Mass fraction] 5.1 % Low >5.7 [facility] Hemoglobin measurementOrdere d By: Simi Lara on 05-28-2024 Hemoglobin (Bld) [Mass/Vol] 12.9 g/dL 12.0-15.0 [facility] Hepatitis C antibodyOrdered By: Simi Lara on 05-28-2024 Hepatitis C Antibody Non-Reactive Nonreactive [facility] Comment on above: Reactive: Presumptiv e evidence of antibodies to HCV. Follow CDC recommendations for supplemental testing.Non-Reactive: Antibodies to HCV were not detected; does not exclude the possibility of exposure to HCVReactive Results are presumptive evidence of antibodies to HCV. Follow CDC recommendations for supplemental testing.Order confirmation testing: HCV Quant by PCR testing - HCVPCR #[id number] Non Reactive: < 0.8 Equivocal: >/= 0.8 to < 1.0 Reactive: >/= 1.0The CDC requires that a reactive/equivocal HCV antibody result be sent out for confirmation. HCV Quant by PCR testing. Image-guided ThinPrep PapOrd ered By: Simi Lara on 05-28-2024 Pap Smear Note Comment . [facility] Comment on above: This liquid based Th inPrep(R) pap test was screened withthe use of an image guided system. Image-guided liquid-based Pa pOrdered By: Simi Lara on 05-28-2024 Pap Smear Diagnosis Comment . [facility] Comment on above: NEGATIVE FOR INTRAEP ITHELIAL LESION OR MALIGNANCY. Image-guided liquid-based ce rvical Pap w high-risk HPV+reflex to HPV 16+18Ordered By: Simi Lara on 05-28-2024 Human Papillomavirus Screen Comment . [facility] Comment on above: The HPV DNA reflex c riteria were not met with this specimenresult therefore, no HPV testing was performed.Performed at: [address] [id number] Director: Radha Lau PhD, Phone: [phone] at: WB - [facility] [address] [place] [id number] Director: Tomeka Brandt MD, Phone: [phone] Immature granulocytes/100 WB C Auto (Bld)Ordered By: Simi Lara on 05-28-2024 Immature granulocytes/100 WBC (Bld) 0.300 % 0.0-0.9 [facility] Comment on above: IG% - Immature Granu locytes (promyelocytes, myelocytes and metamyelocytes) > 1% indicates that a LEFT SHIFT is Present. L3890.6006on 05-28-2024 HIV Non-Reactive Normal Nonreactive [facility] Comment on above: Result Comment: Non- Reactive Reactive Repeatedly reactive samples must be confirmed according to CDC recommended confirmatory algorithms. The subresults for either HIVAG or AHIV can be used as an aid in the selection of the confirmation algorithm for reactive samples. Send out specimens with Reactive results to [facility] for confirmation. Order the HIV antibody detection and differentiation: [id number] Performed By: #### L 501.9985, L506.0400, L3890.6006, BTS, L501.9520, L3890.6301, L509.4006, L900.0098, L3890.6102, L100.0100, L3410.9998, L509.8002 ####[facility] [address] [place], [address] L3890.6102on 05-28-2024 HEP B Surf Ag Non-Reactive Normal Nonreactive [facility] Comment on above: Result Comment: Reac tive: Presumptive evidence of HBV. Repeatedly reactive samples must be confirmed using a neutralization test (Elecsys HBsAg Confirmatory Test) Non-Reactive: HBsAg not detected; does not exclude the possibility of exposure to HBV Performed By: #### L 501.9985, L506.0400, L3890.6006, BTS, L501.9520, L3890.6301, L509.4006, L900.0098, L3890.6102, L100.0100, L3410.9998, L509.8002 ####[facility] [address] [place], [address] L3890.6301on 05-28-2024 Hepatitis C Ab Non-Reactive Normal Nonreactive [facility] Comment on above: Result Comment: Reac tive: Presumptive evidence of antibodies to HCV. Follow CDC recommendations for supplemental testing. Non-Reactive: Antibodies to HCV were not detected; does not exclude the possibility of exposure to HCV Reactive Results are presumptive evidence of antibodies to HCV. Follow CDC recommendations for supplemental testing. Order confirmation testing: HCV Quant by PCR testing - HCVPCR #[id number] Non Reactive: < 0.8 Equivocal: >/= 0.8 to < 1.0 Reactive: >/= 1.0 The [facility] requires that a reactive/equivocal HCV antibody result be sent out for confirmation. HCV Quant by PCR testing. Performed By: #### L 501.9985, L506.0400, L3890.6006, BTS, L501.9520, L3890.6301, L509.4006, L900.0098, L3890.6102, L100.0100, L3410.9998, L509.8002 ####[facility] [address] [facility] [place], [address] L509.4006on 05-28-2024 Rubella IgG REAC [facility] Comment on above: Result Comment: Anti body Result: Interpretation Non-Reactive: Non-Immune Reactive: Immune The following results were obtained with the Ele[employer]ys Rubella IgG assay. Results from assays of other manufacturers cannot be used interchangeably. Performed By: #### L 501.9985, L506.0400, L3890.6006, BTS, L501.9520, L3890.6301, L509.4006, L900.0098, L3890.6102, L100.0100, L3410.9998, L509.8002 ####[facility] [address] [facility] [place], [address] L509.8002on 05-28-2024 Syphilis Abs Non-Reactive Normal Nonreactive [facility] Comment on above: Performed By: #### L 501.9985, L506.0400, L3890.6006, BTS, L501.9520, L3890.6301, L509.4006, L900.0098, L3890.6102, L100.0100, L3410.9998, L509.8002 ####[facility] [address] [place], [address] Lymphocytes Auto (Unsp spec) [#/Vol]Ordered By: Simi Lara on 05-28-2024 Lymphocytes (Bld) [#/Vol] 2.09 10*3/uL 0.83-4.51 [facility] Lymphocytes/100 WBC Auto (Un sp spec)Ordered By: Simi Lara on 05-28-2024 Lymphocytes/100 WBC (Bld) 21.2 % 19-41 [facility] MCV (mean corpuscular volume ) determinationOrdered By: Simi Lara on 05-28-2024 MCV (RBC) [Entitic vol] 84.3 fL 81-99 [facility] Mean corpuscular hemoglobin (MCH) determinationOrdered By: Simi Lara on 05-28-2024 MCH (RBC) [Entitic mass] 27.3 pg 27.0-32.0 [facility] Mean corpuscular hemoglobin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 Papanicolaou smear with manual screening 2.5 g/dL 3.2-5.0 [facility] Thin prep Papanicolaou smear with manual screening 42 U/L 15-37 [facility] Thin prep Papanicolaou smear with manual screening 7 5-15 [facility] Urine blood detectionOrdered By: Darling Tabor on 05-06-2023 RBC Ql (U) Negative Negative [facility] Urine clarityOrdered By: Yuli Tabor on 05-06-2023 Clarity (U) Sl. Cloudy Clear [facility] Urine color determinationOrd ered By: Darling Tabor on 05-06-2023 Color (U) Yellow Yellow [facility] Urine glucose detectionOrder ed By: Darling Tabor on 05-06-2023 Glucose Ql (U) Normal mg/dl Normal [facility] Urine leukocyte esterase det ection by dipstickOrdered By: Darling Tabor on 05-06-2023 Leukocyte esterase Test strip Ql (U) 25 /ul Negative [facility] Urine pHOrdered By: Darling Tabor on 05-06-2023 pH (U) 6.0 [pH] 5.0 - 8.0 [facility] Urine sediment bacteria coun t by microscopy (number/high power field)Ordered By: Darling Tabor on 05-06-2023 Bacteria LM.HPF (Urine sed) [#/Area] 2 /[HPF] None Seen [facility] Urine specific gravity measu rementOrdered By: Darling Tabor on 05-06-2023 Specific gravity (U) [Rel density] 1.025 1.002-1.030 [facility] Urine urobilinogen measureme ntOrdered By: Darling Tabor on 05-06-2023 Urobilinogen Ql (U) Normal mg/dl Normal [facility] Laboratory - Chemistry and C hemistry - challengeon 04-21-2023 Glucose Ql (U) Negative [facility] Laboratory - Urinalysison Protein Ql (U) Negative [facility] MR Fetalon 04-06-2023 IMPRESSION: The study is significantly limited by motion. 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 No other obvious [employer]ELOPER abnormality is identified This report has been created using voice recognition software [facility] RADIOLOGY MRI (SINGLE) CLINICAL HISTORY: agnesis of CC COMPARISON: Examination correlated with report of obstetrical ultrasound performed on 03/28/2023 PROCEDURE COMMENTS: MRI of the fetus was performed without contrast, with attention to the brain. Examination performed at approximately 22 weeks of gestational age, as assessed from the above ultrasound. FINDINGS: Findings of : Quintana intrauterine gestation. Placenta: Posterior. Placenta previa: No. Findings: position: Vertex. Number of vessels in umbilical cord: Three. Amniotic fluid volume: Normal. brain: There is agenesis of the corpus callosum. The ventricles are splayed with a mildly colpocephalic configuration. The trigones of the lateral ventricles fissure 89 mm bilaterally. Posterior Fossa: Brainstem morphology: Normal. Cerebellum morphology: Normal appearance of hemispheres and vermis for age. Cranio-cervical junction: Normal with no sign of Chiari or other malformation. Face: There is no obvious facial clefting. Ocular globes: Normal and symmetrical appearance. spine: Spine: Normal appearing. No sign of scoliosis or open neural tube defect. Conus: Normal in position. Body: Limited by motion. Grossly unremarkable to extent visualized Situs: Normal. Oropharynx/cervical airway: Normal. Lungs: Normal in size and signal. No diaphragmatic hernia. Liver: Normal. Kidneys: Normal. Small bowel: Normal. Colon: Normal. Meconium is present in the rectum. Urinary bladder: Normal. Evaluation of the extremities is limited due to motion artifacts. No gross limb deficiencies are noted, but subtle findings would be better assessed by ultrasound. Maternal findings: Visible parts of maternal kidneys/bladder/adnexa are unremarkable. Visible maternal spine is unremarkable. [facility] RADIOLOGY Fidencio Coley MD - 04/06/2023 MRI (SINGLE) CLINICAL HISTORY: agnesis of CC COMPARISON: Examination correlated with report of obstetrical ultrasound performed on 03/28/2023 PROCEDURE COMMENTS: MRI of the fetus was performed without contrast, with attention to the brain. Examination performed at approximately 22 weeks of gestational age, as assessed from the above ultrasound. FINDINGS: Findings of : Quintana intrauterine gestation. Placenta: Posterior. Placenta previa: No. Findings: position: Vertex. Number of vessels in umbilical cord: Three. Amniotic fluid volume: Normal. brain: There is agenesis of the corpus callosum. The ventricles are splayed with a mildly colpocephalic configuration. The trigones of the lateral ventricles fissure 89 mm bilaterally. Posterior Fossa: Brainstem morphology: Normal. Cerebellum morphology: Normal appearance of hemispheres and vermis for age. Cranio-cervical junction: Normal with no sign of Chiari or other malformation. Face: There is no obvious facial clefting. Ocular globes: Normal and symmetrical appearance. spine: Spine: Normal appearing. No sign of scoliosis or open neural tube defect. Conus: Normal in position. Body: Limited by motion. Grossly unremarkable to extent visualized Situs: Normal. Oropharynx/cervical airway: Normal. Lungs: Normal in size and signal. No diaphragmatic hernia. Liver: Normal. Kidneys: Normal. Small bowel: Normal. Colon: Normal. Meconium is present in the rectum. Urinary bladder: Normal. Evaluation of the extremities is limited due to motion artifacts. No gross limb deficiencies are noted, but subtle findings would be better assessed by ultrasound. Maternal findings: Visible parts of maternal kidneys/bladder/adnexa are unremarkable. Visible maternal spine is unremarkable. IMPRESSION: The study is significantly limited by motion. 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 No other obvious [employer]BEL DEVELOPER abnormality is identified This report has been created using voice recognition software [facility] Radiology Study observation (narrative) [facility] MR FetalOrdered By: Fidencio Coley on 04-06-2023 [facility] Work Phone: Laboratory - Chemistry and C hemistry - challengeon 03-23-2023 Glucose Ql (U) Negative [facility] Laboratory - Urinalysison Protein Ql (U) Negative [facility] Laboratory - Chemistry and C hemistry - challengeon 02-21-2023 Glucose Ql (U) Negative [facility] Laboratory - Urinalysison Protein Ql (U) Negative [facility] Absolute lymphocyte countOrd ered By: Darlign Tabor on 02-08-2023 Lymphocytes Auto (Unsp spec) [#/Vol] 2.86 10*3/uL 0.83-4.51 [facility] Basophil percentageOrdered B y: Darling Tabor on 02-08-2023 Basophils/100 WBC (Bld) 0.8 % 0-1 [facility] Eosinophils/100 WBC (Bld) 3.3 % 0-5 [facility] Neutrophils (Bld) [#/Vol] 5.9 10*3/uL 2.0-7.7 [facility] Neutrophils/100 WBC (Bld) 59.6 % 47-70 [facility] WBC (Bld) [#/Vol] 9.8 10*3/uL 4.4-11.0 [facility] Blood erythrocytes count (nu mber/volume)Ordered By: Darling Tabor on 02-08-2023 RBC (Bld) [#/Vol] 4.38 10*6/uL 4.2-5.4 [facility] Blood hemoglobin measurement (mass/volume)Ordered By: Darling Tabor on 02-08-2023 Hemoglobin (Bld) [Mass/Vol] 12.2 g/dL 12.0-15.0 [facility] Blood lymphocytes/100 leukoc ytesOrdered By: Darling Tabor on 02-08-2023 Lymphocytes/100 WBC (Bld) 29.1 % 19-41 [facility] Blood monocytes/100 leukocyt esOrdered By: Darling Tabor on 02-08-2023 Monocytes/100 WBC (Bld) 6.7 % 0-10 [facility] Blood platelet mean volumeOr dered By: Darling Tabor on 02-08-2023 Platelet mean volume (Bld) [Entitic vol] 8.7 fL 6.2-12.0 [facility] Determination of erythrocyte mean corpuscular volume (MCV)Ordered By: Darling Tabor on 02-08-2023 MCV (RBC) [Entitic vol] 84.7 fL 81-99 [facility] HIV 1 and HIV-2 antibody ass ay with HIV-1 p24 antigen detectionOrdered By: Darling Tabor on 02-08-2023 HIV 1+2 Ab+HIV1 p24 Ag IA Ql Non-Reactive Nonreactive [facility] Hematocrit Auto (Bld) [Volum e fraction]Ordered By: Darling Tabor on 02-08-2023 Hematocrit (Bld) [Volume fraction] 37.1 % 37-47 [facility] Laboratory - Chemistry and C hemistry - challengeOrdered By: Darling Tabor on 02-08-2023 Free T4 [Mass/Vol] 0.95 ng/dL 0.76-1.46 [facility] Laboratory - Hematology and Cell countsOrdered By: Darling Tabor on 02-08-2023 Erythrocyte distribution width (RBC) [Entitic vol] 43.7 fL 35.1-43.9 [facility] Erythrocyte distribution width (RBC) [Ratio] 14.1 % 11.6-14.6 [facility] Immature granulocytes/100 WBC (Bld) 0.500 % 0.0-0.9 [facility] Comment on above: IG% - Immature Granu locytes (promyelocytes, myelocytes and metamyelocytes) > 1% indicates that a LEFT SHIFT is Present. MCH (RBC) [Entitic mass] 27.9 pg 27.0-32.0 [facility] Nucleated RBC/100 WBC (Bld) [Ratio] 0 % 0-5 [facility] MCHC Auto (RBC) [Mass/Vol]Or dered By: Darling Tabor on 02-08-2023 MCHC (RBC) [Mass/Vol] 32.9 g/dL 32-36 [facility] No Panel InformationOrdered By: Darling Tabor on 02-08-2023 Free Triiodothyronine (T3) pg/dL 1.5 pg/mL 2.18-3.98 [facility] Hepatitis B Surface Antigen Non-Reactive Nonreactive [facility] Hepatitis C Antibody Non-Reactive Nonreactive [facility] Comment on above: Non Reactive: < 0.8 Equivocal: >/= 0.8 to < 1.0 Reactive: >/= 1.0The CDC recommends that a reactive/equivocal HCV antibody result be followed up by the HCV Nucleic Acid Amplificationtest (448597) Miscellaneous Test Comment MAILED SPECIMEN [facility] Rubella IgG Antibody Reactive Nonreactive [facility] Comment on above: Antibody Results Int erpretation of Immune Status Non Reactive Presumed Non-Immune Equivocal Equivocal Reactive Presumed Immune Thyroid Stimulating Hormone (TSH) 1.07 uIU/mL 0.358-3.74 [facility] Platelets bldOrdered By: Yuli Tabor on 02-08-2023 Platelets (Bld) [#/Vol] 250 10*3/uL 150-450 [facility] Serum Treponema species anti body detectionOrdered By: Darling Tabor on 02-08-2023 Treponema sp Ab Ql (S) Non-Reactive [facility] Serum or plasma thyroperoxid ase antibody assay (units/volume)Ordered By: Darling Tabor on 02-08-2023 TPO Ab Qn 19 [IU]/mL 0-34 [facility] Comment on above: Performed at: [place] [id number] Director: Brian Alvarado PhD, Phone: [phone] Whole blood hemoglobin A1c/t otal hemoglobin ratio (mass fraction)Ordered By: Darling Tabor on 02-08-2023 HbA1c (Bld) [Mass fraction] 5.0 % 3.8-5.6 [facility] Comment on above: Normal < 5.7 % Predi abetic 5.7 - 6.4 % Diabetic >or= 6.5 % Please note range changes. Cervical or vagninal specime n microscopic examination by cytology stain (reported asOrdered By: Darling Tabor on 01-26-2023 Cytology report Cyto stain Doc (Cvx/Vag) Comment . [facility] Comment on above: The Pap smear is a s creening test designed to aid in thedetection of premalignant and malignant conditions of theuterine cervix. It is not a diagnostic procedure andshould not be used as the sole means of detecting cervicalcancer. Both false-positive and false-negative reports dooccur. Chlamydia trachomatis rRNA d etection by probe and target amplification methodOrdered By: Darling Tabor on 01-26-2023 C. trachomatis rRNA SHAJI+probe Ql (Unsp spec) Negative Negative [facility] Culture, urineOrdered By: Kim Tabor on 01-26-2023 Bacteria identified Cx Nom (U) Positive [facility] Bacteria identified Cx Nom (U) Positive [facility] Laboratory - CytologyOrdered By: Darling Tabor on 01-26-2023 Pharmacology Associate Cyto stain Nom (Cvx/Vag) [ID] Comment . [facility] Comment on above: Eric Worrell otechnologist (ASCP) Pathologist Cyto stain Nom (Cvx/Vag) [ID] Comment . [facility] Comment on above: Brooklyn Murillo MD, Pa thologist Recommended follow-up Cyto stain Nom (Cvx/Vag) Comment . [facility] Comment on above: Suggest follow up as clinically appropriate. Laboratory - Drug toxicology Ordered By: Darling Tabor on 01-26-2023 Amphetamines Ql (U) Negative <1000 ng/mL [facility] Benzodiazepines Ql (U) Negative < 200 ng/mL [facility] Cannabinoids Screen Ql (U) Positive < 50 ng/mL [facility] Cocaine Ql (U) Negative < 300 ng/mL [facility] Opiates Ql (U) Negative < 300 ng/mL [facility] Laboratory - Microbiology an d Antimicrobial susceptibilityOrdered By: Darling Tabor on 01-26-2023 N. gonorrhoeae DNA SHAJI+probe Ql (Unsp spec) Negative Negative [facility] Comment on above: Performed at: =[address] [id number] Director: Tomeka Brandt MD, Phone: [phone] Laboratory - Miscellaneous t estsOrdered By: Darling Tabor on 01-26-2023 Service comment (Unsp spec) [Interp] Comment . [facility] Comment on above: This liquid based Th inPrep(R) pap test was screened withthe use of an image guided system. Service comment (Unsp spec) [Interp] . . [facility] No Panel InformationOrdered By: Darling Tabor on 01-26-2023 Human Papillomavirus Screen Comment . [facility] Comment on above: See below for HPV te sting results. MDMA (Ecstasy) Screen Negative < 500 ng/mL [facility] Pathology report final diagnosis Narrative Comment . [facility] Comment on above: EPITHELIAL CELL ABNO RMALITY.ATYPICAL SQUAMOUS CELLS OF UNDETERMINED SIGNIFICANCE (ASC-US). R87.610 Urine Barbiturates Screen Negative < 200 ng/mL [facility] Urine Drug Screen Comment [facility] Comment on above: CONFIRMATORY TESTING FOR ALL POSITIVE URINE DRUG SCREENRESULTS WILL ONLY BE SENT OUT UPON PHYSICIAN ORDER. VISTA Urine Drug Screen methods provide only preliminaryanalytical test results. A more specific alternate chemicalmethod must be used in order to obtain a confirmedanalytical result. Gas chromatography/mass spectrometery(GC/MS) is the preferred confirmatory method. Clinicalconsideration and professional judgement should be appliedto any drug of abuse test result, particularly whenpreliminary positive results are used. URINE TCA TESTING MUST BE ORDERED SEPARATELY. USE TESTMNEMONIC: [facility] Urine Methadone Screen Negative < 300 ng/mL [facility] Urine phencyclidine (PCP) de tectionOrdered By: Darling Tabor on 01-26-2023 Phencyclidine Ql (U) Negative < 25 ng/mL [facility] CNNURSEon 01-19-2023 CNNURSE Nurse Visit (OBGYWM) -- RANJAN TAN ([id number]) 2000 F Date Time Provider Department 01/19/23 9:00 [facility] During your visit today, we recorded the following information about you: Last Period 11/06/22 Angelica Angeles RN 01/19/2023 12:36 PM Signed INITIAL OB ASSESSMENT OB Provider: Angelica Angeles [...] use: No Multivitamin with Folic acid: Yes Yazidi or heritage: No Would refuse blood transfusion if medically necessary: No 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 Normal [facility] Jace 01-19-2023 ALEXANDRE Telephone (OBGYWM) -- RANJAN TAN ([id number]) 2000 F Date Time Provider Department 01/19/23 MELISSA MCCLELLAN During your visit today, we recorded the following information about you: Angelica Angeles RN 01/19/2023 10:07 AM Signed Patient seen for prenew OB visit today. She is 10 weeks 4 days by dates. States she had had ultrasound a few weeks ago at the care center and due date was confirmed at that time. Patient would like to have nuchal ultrasound. Her appointment with you is on February 07. Please advise if you would like to place order for nuchal ultrasound and we can schedule. There is 1 ultrasound available after your new OB appointment on February 07 or there are several appointments available the Tuesday before. Please advise Melissa Mcclellan APRN.CNM 01/19/2023 12:48 PM Signed Can we not get her NOB sooner than that? I can can order NT so she can have that date but recommend NOB sooner. Thanks, Melissa Mcclellan APRN.Silvina Goldberg RN 01/19/2023 1:34 PM Signed Left message to call office. We have sooner New OB appointments. Please assist patient in scheduling sooner New OB. Can also schedule NT ultrasound. Robby Live RN 01/26/2023 3:38 PM Signed Left message for patient to call office. No openings on 02/07 for NT anymore. Was going to see if patient would move to 02/04 for nuchal and visit with . ROBBY LIVE RN Allergies As of Date: 01/19/2023 Noted Allergy Reaction PENICILLINS 01/14/2023 2 - Rash Date Reviewed: 01/19/2023 Reviewed by: Angelica Angeles RN - Fully Assessed Reason for Visit: Care [86] Primary Visit Diagnosis:Encounter for screening of mother [Z36.9] Order(s):NUCHAL TRANSLUCENCY WHI [[id number]] Order #: [id number]: 1 FUTURE Prescriptions as of 02/04/2023 - vit 81-ulni-urxmt-dha (SELECT-OB+DHA) 29 mg iron-1 mg -250 mg Take by mouth as directed. Take 1 tablet and 1 capsule by mouth daily. - ondansetron orally disintegrating (ZOFRAN ODT) 4 mg disintegrating tablet Take 1 tablet by mouth every 8 hours as needed for nausea/vomiting. Problem List As Of Date 01/19/2023 Noted Resolved History of depression [Z86.59] 01/19/2023 History of depression [Z87.59, Z86.5*01/19/2023 Nausea and vomiting during [O21.9] 01/19/2023 Bleeding in early [O20.9] 01/19/2023 Tobacco use affecting , antepartum [O9*01/19/2023 Marijuana use during [O99.320, F12.90]01/19/2023 Obesity affecting , antepartum [O99.21*01/19/2023 History of hypothyroidism [Z86.39] 01/19/2023 Patient request for diagnostic testing [Z01.89] 01/19/2023 Encounter Status:Closed by CAT DOUGLASS RN on 02/04/23 [facility] CNCOon 01-14-2023 CNCO Letter Text [facility] CNPNon 01-11-2023 CNPN Telephone (OBGYWM) -- RANJAN TAN ([id number]) 2000 F Date Time Provider Department 01/11/23 FARIDA RANGEL OBGYWM During your visit today, we recorded the following information about you: Angelica Angeles RN 01/11/2023 5:05 PM Signed Left message for patient to return phone call. Patient has PNOB appt 01/19. Please ask her if she has delivered elsewhere or if this is her [facility] . Please assist her in getting records sent here is applicable. Amira Damon RN 01/14/2023 11:31 AM Addendum LMP 9 Patient returned call. 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 Asked that patient request her delivery records. Also, faxed a request to [facility]. CP- patient has gone to ER for antiemetics. She is almost out. Asking if she could have another RX. Currently taking Zofran 4 MG ODT. Pharmacy added. Allergies updated. Please advise. Thank you. Silvina Quintanilla RN, RN 01/14/2023 11:56 AM Signed Delivery records from 2016 and 2019 received from [facility]. Please also see patients question about Zofran. Scan on 01/14/2023 11:35 AM by Provider, External, PA-C: ELECTRICAL TECHNICIAN Farida Rangel APRN.CNM 01/14/2023 1:38 PM Signed Rx sent. Farida Rangel APRN.Silvina Goldberg RN 01/14/2023 1:40 PM Signed Patient notified and voiced understanding. Silvina Alvarado RN Allergies As of Date: 01/11/2023 (Not on File) Date Reviewed: Never Reviewed Reason for Visit: upcoming appointment [Other] Order(s):ondansetron orally disintegrating (ZOFRAN ODT) 4 mg disintegrating tabletTake 1 tablet by mouth every 8 hours as needed for nausea/vomiting.Disp: 60 tabletRfl: 0 Prescriptions as of 01/14/2023 - ondansetron orally disintegrating (ZOFRAN ODT) 4 mg disintegrating tablet Take 1 tablet by mouth every 8 hours as needed for nausea/vomiting. Problem List As Of Date: 01/11/2023 (None) Prescriptions ordered this encounter Disp Refills Start End ONDANSETRON 4 MG DISINTEGRATING TABL* 60 t* 0 01/14/2023 Route: ORAL Sig: Take 1 tablet by mouth every 8 hours as needed for nausea/vomiting. Encounter Status:Closed by FARIDA RANGEL on 01/14/23 [facility] Amorphous sediment detection in urine sediment by light microscopyOrdered By: Jarad Hilton on 01-02-2023 Amorphous sediment LM Ql (Urine sed) 2+ [facility] Basophil percentageOrdered B y: Jarad Hilton on 01-02-2023 Basophil percentage 0-5 SEEN /hpf 0-5 [facility] Chloride [Moles/Vol] 105 mmol/L 98-107 [facility] Glucose [Mass/Vol] 120 mg/dL 74-106 [facility] Comment on above: Fasting Glucose resu lt from 100 to 125 mg/dL suggests IMPAIRED HOMEOSTASIS per A.D.A. criteria. Potassium [Moles/Vol] 3.5 mmol/L 3.5-5.1 [facility] Sodium [Moles/Vol] 134 mmol/L 136-145 [facility] Bilirubin Test strip Ql (U)O rdered By: Jarad Hilton on 01-02-2023 Bilirubin Ql (U) Negative Negative [facility] Ketones Test strip Ql (U)Ord ered By: Jarad Hilton on 01-02-2023 Ketones Ql (U) Negative Negative [facility] Laboratory - Chemistry and C hemistry - challengeOrdered By: Jarad Hilton on 01-02-2023 CO2 [Moles/Vol] 25.0 mmol/L 21.0-32.0 [facility] Urea nitrogen/Creatinine [Mass ratio] 17.4 mg/mg 10- [facility] Mucus LM Ql (Urine sed)Order ed By: Jarad Hilton on 01-02-2023 Mucus Ql (Urine sed) 0 SEEN /hpf [facility] Nitrite Test strip Ql (U)Ord ered By: Jarad Hilton on 01-02-2023 Nitrite Ql (U) Negative Negative [facility] No Panel InformationOrdered By: Jarad Hilton on 01-02-2023 Estimated Creatinine Clearance Calc 129.15 ml/min [facility] Estimated GFR (MDRD) Amer 165 mL/min >60 [facility] Comment on above: GFR Calc Estimated GFR (MDRD) Non-Af Amer 137 mL/min >60 [facility] Comment on above: Non- GFR Calc Protein Test strip Ql (U)Ord ered By: Jarad Hilton on 01-02-2023 Protein Ql (U) Negative Negative [facility] Serum or plasma calcium hudson urement (mass/volume)Ordered By: Jarad Hilton on 01-02-2023 Calcium [Mass/Vol] 8.4 mg/dL 8.5-10.1 [facility] Serum or plasma creatinine m easurement (mass/volume)Ordered By: Jarad Hilton on 01-02-2023 Creatinine [Mass/Vol] 0.58 mg/dL 0.55-1.02 [facility] Comment on above: The validity of the calculated GFR & GFRAA in patients over 70 years has not been determined. Clinical correlation is essential. Serum or plasma urea nitroge n measurement (mass/volume)Ordered By: Jarad Hilton on 01-02-2023 Urea nitrogen [Mass/Vol] 10 mg/dL 7-18 [facility] Squamous epithelial cells de tection in urine sediment by light microscopyOrdered By: Jarad Hilton on 01-02-2023 Epithelial cells.squamous LM Ql (Urine sed) 0-5 SEEN /hpf 5-10 [facility] Thin prep Papanicolaou smear with manual screeningOrdered By: Jarad Hilton on 01-02-2023 Thin prep Papanicolaou smear with manual screening 4 5-15 [facility] Urine blood detectionOrdered By: Jarad Hilton on 01-02-2023 RBC Ql (U) Negative Negative [facility] RBC Ql (U) 0 SEEN /hpf 0-5 [facility] Urine clarityOrdered By: Jarad Hilton on 01-02-2023 Clarity (U) Cloudy Clear [facility] Urine color determinationOrd ered By: Jarad Hilton on 01-02-2023 Color (U) Yellow Yellow [facility] Urine glucose detectionOrder ed By: Jarad Hilton on 01-02-2023 Glucose Ql (U) Normal mg/dl Normal [facility] Urine leukocyte esterase det ection by dipstickOrdered By: Jarad Hilton on 01-02-2023 Leukocyte esterase Test strip Ql (U) 25 /ul Negative [facility] Urine pHOrdered By: Jarad kauffman on 01-02-2023 pH (U) 8.0 [pH] 5.0 - 8.0 [facility] Urine sediment bacteria coun t by microscopy (number/high power field)Ordered By: Jarad Hilton on 01-02-2023 Bacteria LM.HPF (Urine sed) [#/Area] RARE /hpf None Seen [facility] Urine specific gravity measu rementOrdered By: Jarad Hilton on 01-02-2023 Specific gravity (U) [Rel density] 1.015 1.002-1.030 [facility] Urobilinogen Auto test strip Ql (U)Ordered By: Jarad Hilton on 01-02-2023 Urobilinogen Ql (U) Normal mg/dl Normal [facility] Serum or plasma choriogonado tropin detectionOrdered By: Nallely Barksdale on 12-27-2022 HCG ( test) [place] [address] mIU/mL <4 [facility] Comment on above: hCG levels with Gest ational AgeGestational Age hCG mIU/mL (IU/L)0.2 - 1 week 5 - 501-2 weeks 50 - 5002-3 weeks 100 - 83431-5 weeks 500 - 223763-6 weeks 1000 - 296200-5 weeks 58729 - 100,0006-8 weeks 37031 - 200,0002-3 months 25106 - 100,000 CNPNon 12-24-2022 CNPN Telephone (OBGYWM) -- RANJAN TAN ([id number]) 2000 F Date Time Provider Department 12/24/22 FARIDA RANGEL During your visit today, we recorded the following information about you: Laura Norris LPN 12/24/2022 1:57 PM Signed Pt just got positive test, LMP 11/06/22, 6w 6d. She is c/o dark brown vaginal bleeding that she notes with wiping. No cramping or LOF. Pt was given bleeding precautions and voiced understanding. Pt did report intercourse about 2 days ago. Please see pended order below and advise. Farida Burch LPN, APRN.CNM 12/24/2022 2:37 PM Signed No HCG levels needed at this time. Spotting possibly due to recent intercourse. Please have patient call back if continues to have bleeding or any cramping. FABIOLA Marlow Danielle, RN 12/24/2022 2:49 PM Signed Attempted to call patient, no answer and unable to leave message due to mailbox full. JEFFREY WHEELER Kimberly LPN 12/30/2022 9:09 AM Signed Spoke with pt and below information given. Pt denies any further issues with bleeding. Laura Norris LPN Allergies As of Date: 12/24/2022 (Not on File) Date Reviewed: Never Reviewed Reason for Visit: Patient Question [1477] Primary Visit Diagnosis:Bleeding in early [O20.9] Problem List As Of Date: 12/24/2022 (None) Encounter Status:Closed by FARIDA RANGEL on 12/24/22 Normal [facility] B TESTO SHBG, FEM, CHIL [CCL ]on 02-09-2021 Sex Hormon Bind Glb 80 Normal [facility] Comment on above: Result Comment: Refe rence range: 30 to 135 Unit: nmol/L (NOTE) REFERENCE INTERVAL: Sex Hormone Binding Globulin Access complete set of age- and/or gender-specific reference intervals for this test in the [email or web address] Laboratory Test Directory ([facility]). Performed By: #### 2 [id number] #### [place] [id number] Testos Bioavail 3.1 Normal [facility] Comment on above: Result Comment: Refe rence range: 2.2 to 20.6 Unit: ng/dL (NOTE) Testosterone LC-MS, Bioavailable Reference Interval Females, 18 years and older Postmenopausal: 1.5 - 9.4 ng/dL REFERENCE INTERVAL: Testosterone LC-MS, Bioavailable Access complete set of age- and/or gender-specific reference intervals for this test in the [email or web address] Laboratory Test Directory ([facility]). [address] [address] Wayne Andrade III, M.D. [id number] Performed By: #### 2 [id number] #### [place] [id number] Testosterone [Mass/Vol] 11 ng/dL Normal [facility] Comment on above: Result Comment: Refe rence range: 9 to 55 Unit: ng/dL (NOTE) Total Testosterone, Females 18 years and older Premenopausal 9-55 ng/dL Postmenopausal 5-32 ng/dL REFERENCE INTERVAL: Testosterone, LC-MS/MS Access complete set of age- and/or gender-specific reference intervals for this test in the [email or web address] Test Directory ([facility]). This test was developed and its performance characteristics determined by [facility]. It has not been cleared or approved by the [place] Food and Drug Administration. This test was performed in a CLIA certified laboratory and is intended for clinical purposes. Performed By: #### 2 [id number] #### [place] [address] Testosterone Free 1.0 Normal [facility] Comment on above: Result Comment: Refe rence range: 0.8 to 7.4 Unit: pg/mL (NOTE) Testosterone, Free LC-MS/MS Reference Interval for Females 18 years and older Postmenopausal: 0.6 - 3.8 pg/mL To convert to pmol/L, multiply pg/mL by 3.47 The concentration of Free and Bioavailable Testosterone are derived from mathematical expressions based on constants for the binding of testosterone to albumin and/or sex hormone binding globulin. REFERENCE INTERVAL: Testosterone, Free LC-MS/MS Access complete set of age- and/or gender-specific reference intervals for this test in the [email or web address] Test Directory ([facility]). This test was developed and its performance characteristics determined by [facility]. It has not been cleared or approved by the [place] Food and Drug Administration. This test was performed in a CLIA certified laboratory and is intended for clinical purposes. Performed by [facility], [address] [place] [address] [email or web address], Jillian Metzger MD, Lab. Director Performed By: #### 2 [id number] #### [facility],[address] [place] [address] B TestoSHBG,fem,chilon 02-09 Sex Hormon Bind Glb 80 nmol/L Normal 30-135 [facility] Reference Lab Testos Bioavail 3.1 ng/dL Normal 2.2-20.6 [facility] Testosterone [Mass/Vol] 11 ng/dL Normal 9-55 [facility] Lab Testosterone Free 1.0 pg/mL Normal 0.8-7.4 [facility] CBC + DIFFon 02-03-2021 Baso # 0.10 x10EE3/UL Normal 0.00 - 0.10 [facility] Comment on above: Performed By: #### 2 55503 #### [facility],[address] [place] [address] Basophils/100 WBC (Bld) 1.0 % Normal 0.0 - 2.0 [facility] Comment on above: Performed By: #### 2 [id number] #### [facility],[address] [place] [address] CBC + DIFF Normal [facility] Comment on above: Result Comment: CBC- COMPLETE BLOOD COUNT Performed By: #### 2 07415 #### [facility],[address] [place] [address] EO # 0.30 x10EE3/UL Normal 0.00 - 0.50 [facility] Comment on above: Performed By: #### 2 62630 #### [facility],[address] [place], [place] [id number] Eosinophils/100 WBC (Bld) 6.2 % Normal 0.0 - 7.0 [facility] Comment on above: Performed By: #### 2 53191 #### [facility],[address] [place], [place] [id number] Erythrocyte distribution width (RBC) [Ratio] 14.1 % Normal 12.0 - 15.6 [facility] Comment on above: Performed By: #### 2 [id number] #### [facility],[address] [place] [address] Hematocrit (Bld) [Volume fraction] 40.0 % Normal 34.0 - 46.0 [facility] Comment on above: Performed By: #### 2 14504 #### [facility],[address] [place], [place] [id number] Hemoglobin (Bld) [Mass/Vol] 13.2 g/dL Normal 12.0 - 16.0 [facility] Comment on above: Performed By: #### 2 09223 #### [facility],[address] [place] [address] Lymph # 1.70 x10EE3/UL Normal 0.80 - 2.80 [facility] Comment on above: Performed By: #### 2 60868 #### [facility],[address] [place] [address] Lymphocytes/100 WBC (Bld) 32.7 % Normal 20.0 - 45.0 [facility] Comment on above: Performed By: #### 2 66881 #### [facility],[address] [place] [address] MANUAL DIFF N/A Normal [facility] Comment on above: Performed By: #### 2 25607 #### [facility],[address] [place] [address] 79414 MCH (RBC) [Entitic mass] 26 pg Low 27 - 33 [facility] Comment on above: Performed By: #### 2 64279 #### [facility],[address] [place] [address] 84498 MCHC 33 X10 3 Normal 32 - 36 [facility] Comment on above: Performed By: #### 2 88807 #### [facility],[address] [place] [address] 98346 MCV (RBC) [Entitic vol] 78 fL Low 80 - 99 [facility] Comment on above: Performed By: #### 2 36057 #### [facility],[address] [place] [address] 51897 Gratiot # 0.30 x10EE3/UL Normal 0.20 - 1.00 [facility] Comment on above: Performed By: #### 2 69107 #### [facility],[address] [place] [address] 10660 MONOS % 6.7 % Normal 0.0 - 10.0 [facility] Comment on above: Performed By: #### 2 32987 #### [facility],[address] [place] [address] 77695 Morphology González (Bld) [Interp] N/A Normal [facility] Comment on above: Result Comment: {CD] Performed By: #### 2 67852 #### [facility],[address] [place] [address] 30628 Neut # 2.70 x10EE3/UL Normal 1.50 - 7.10 [facility] Comment on above: Performed By: #### 2 82652 #### [facility],[address] [place] [address] 03217 Neutrophils/100 WBC (Bld) 53.4 % Normal 46.0 - 76.0 [facility] Comment on above: Performed By: #### 2 00541 #### [facility],[address] [place] [address] 22786 PLATELET 216 x10EE3/UL Normal 150 - 450 [facility] Comment on above: Performed By: #### 2 07206 #### [facility],[address] [place] [address] 71289 Platelet mean volume (Bld) [Entitic vol] 7.9 fL Normal 6.6 - 10.5 [facility] Comment on above: Result Comment: AUTO MATED DIFFERENTIAL Performed By: #### 2 53392 #### [facility],[address] [place] [address] 52363 RBC 5.10 x 10EE6/UL Normal 4.10 - 5.30 [facility] Comment on above: Performed By: #### 2 26598 #### [facility],[address] [place] [address] 38463 WBC 5.1 x 10EE3/UL Normal 4.5 - 10.8 [facility] Comment on above: Performed By: #### 2 28048 #### [facility],[address] [place] [address] 65160 CMP with eGFRon 02-03-2021 AGE 20 years Normal [facility] Comment on above: Performed By: #### 2 81896 #### [facility],[address] [place] [address] 05893 Albumin [Mass/Vol] 4.2 g/dL Normal 3.4 - 5.0 [facility] Comment on above: Performed By: #### 2 73876 #### [facility],[address] [place] [address] 34686 Albumin/Globulin [Mass ratio] 1.2 {ratio} Normal 0.9 - 1.6 [facility] Comment on above: Performed By: #### 2 07897 #### [facility],[address] [place] [address] 76541 ALK PHOS 58 U/L Normal 46 - 116 [facility] Comment on above: Performed By: #### 2 22723 #### [facility],[address] [place] [address] 79576 ALT [Catalytic activity/Vol] 21 U/L Normal 14 - 59 [facility] Comment on above: Performed By: #### 2 91442 #### [facility],[address] [place] [address] 06879 Anion gap [Moles/Vol] 17 mmol/L Normal 10 - 20 [facility] Comment on above: Performed By: #### 2 77648 #### [facility],[address] [place] [address] 70750 AST [Catalytic activity/Vol] 16 U/L Normal 13 - 39 [facility] Comment on above: Performed By: #### 2 75097 #### [facility],[address] [place] [address] 78001 B/C RATIO 19 ratio Normal 0 - 30 [facility] Comment on above: Performed By: #### 2 15723 #### [facility],[address] [place] [address] 30957 Bilirubin [Mass/Vol] 0.6 mg/dL Normal 0.2 - 1.0 [facility] Comment on above: Performed By: #### 2 31732 #### [facility],[address] [place] [address] 85346 Calcium [Mass/Vol] 9.2 mg/dL Normal 8.5 - 10.1 [facility] Comment on above: Performed By: #### 2 77679 #### [facility],[address] [place] [address] 56261 Chloride [Moles/Vol] 103 mmol/L Normal 98 - 107 [facility] Comment on above: Performed By: #### 2 16251 #### [facility],[address] [place] [address] 21340 CMP with eGFR Normal [facility] Comment on above: Result Comment: COMP REHENSIVE METABOLIC PANEL Performed By: #### 2 67026 #### [facility],[address] [place] [address] 34892 CO2 [Moles/Vol] 24.3 mmol/L Normal 21.0 - 32.0 [facility] Comment on above: Performed By: #### 2 43425 #### [facility],[address] [place] [address] 02161 Creatinine [Mass/Vol] 0.72 mg/dL Normal 0.55 - 1.02 [facility] Comment on above: Performed By: #### 2 95878 #### [facility],[address] [place] [address] 77483 GFR/1.73 sq M.predicted among non-blacks MDRD (S/P/Bld) [Vol rate/Area] mL/min/{1.73_m2} Normal 60 - 999 [facility] Comment on above: Performed By: #### 2 80307 #### [facility],[address] [place] [address] 81967 Result Comment: ACCO RDING TO THE NATIONAL KIDNEY DISEASE EDUCATION PROGRAM(NKDE), A NORMAL eGFR IS A VALUE GREATER THAN OR EQUAL TO 60 ML/MIN/1.73 SQ METERS. CHRONIC KIDNEY DISEASE: <60mL/MIN/1.73 SQ METERS KIDNEY FAILURE: <15mL/MIN/1.73 SQ METERS THIS TEST SHOULD ONLY BE USED FOR PATIENTS 18 YEARS OF AGE AND OLDER. Globulin (S) [Mass/Vol] 3.6 g/dL Normal 1.5 - 3.8 [facility] Comment on above: Performed By: #### 2 53363 #### [address] [address] Glucose [Mass/Vol] 82 mg/dL Normal 74 - 106 [facility] Comment on above: Performed By: #### 2 37138 #### [address] [address] Potassium [Moles/Vol] 3.9 mmol/L Normal 3.5 - 5.1 [facility] Comment on above: Performed By: #### 2 31778 #### [address] [address] Protein [Mass/Vol] 7.8 g/dL Normal 6.4 - 8.2 [facility] Comment on above: Performed By: #### 2 42323 #### [facility],[address] [place] [address] 28765 Sodium [Moles/Vol] 140 mmol/L Normal 136 - 145 [facility] Comment on above: Performed By: #### 2 15476 #### [facility],[address] [place] [address] 93538 Urea nitrogen [Mass/Vol] 14 mg/dL Normal 7 - 18 [facility] Comment on above: Performed By: #### 2 95464 #### [address] [address] LIPID PROFILEon 02-03-2021 Cholesterol [Mass/Vol] 181 mg/dL Normal 0 - 240 [facility] Comment on above: Performed By: #### 2 31796 #### [facility],[address] [place] [address] 50802 Cholesterol in HDL [Mass/Vol] 76 mg/dL High 40 - 60 [facility] Comment on above: Performed By: #### 2 22689 #### [facility],[address] [place] [address] 96167 Cholesterol in LDL [Mass/Vol] 97 mg/dL Normal 0 - 129 [facility] Comment on above: Performed By: #### 2 56816 #### [facility],[address] [place] [address] 33262 Cholesterol.total/Chol esterol in HDL [Mass ratio] 2.4 {ratio} Normal 0.0 - 5.0 [facility] Comment on above: Performed By: #### 2 97093 #### [facility],[address] [place] [address] 65081 Lipid 1996 panel Normal [facility] Comment on above: Result Comment: LIPI D PROFILE Performed By: #### 2 74595 #### [facility],[address] [place] [address] 87395 Triglyceride [Mass/Vol] 41 mg/dL Normal 0 - 150 [facility] Comment on above: Performed By: #### 2 38943 #### [facility],[address] [place] [address] 09036 T4 (THYROXINE) TOTALon 02-03 T4 (THYROXINE) TOTAL Normal [facility] Comment on above: Result Comment: THYR OXINE(T4) Performed By: #### 2 09300 #### [facility],[address] [place] [address] 97258 T4 [Mass/Vol] 6.7 ug/dL Normal 4.7 - 13.3 [facility] Comment on above: Performed By: #### 2 93349 #### [facility],[address] [place] [address] 82316 TSHon 02-03-2021 TSH Qn 2.50 m[IU]/L Normal 0.35 - 3.74 [facility] Comment on above: Performed By: #### 2 86261 #### [facility],[address] [place] [address] 64133 CORONAVIRUS PCR - [facility] 12-03-2020 SARS-CoV-2 (COVID-19) RNA SHAJI+probe Ql (Unsp spec) Negative Normal NORMAL: NEGATIVE [facility] Comment on above: Performed By: #### 2 92862 #### [facility],[address] [place] [address] 58928 SEND TO IC? YES Normal [facility] Comment on above: Result Comment: RESU LTS FAXED TO INFECTION CONTROL. SARS-CoV-2 THIS TEST IS BEING USED UNDER THE FDA EUA PROCEDURE. THIS ASSAY HAS BEEN VALIDATED IN THE [facility] FOR USE WITH [facility]OPH[facility]AL SPECIMENS [facility]. INTERPRETIVE DATA LABORATORY TEST RESULTS SHOULD ALWAYS BE CONSIDERED IN THE CONTEXT OF CLINICAL OBSERVATIONS AND EPIDEMIOLOGICAL DATA IN MAKING FINAL DIAGNOSIS AND PATIENT MANAGEMENT DECISIONS. PATIENT MANAGEMENT SHOULD FOLLOW CURRENT CDC GUIDELINES. A POSITIVE TEST RESULT FOR COVID-19 INDICATES THAT RNA FROM SARS-CoV-2 WAS DETECTED, AND THE PATIENT IS INFECTED WITH THE VIRUS AND PRESUMED TO BE CONTAGIOUS. A NEGATIVE TEST RESULT FOR THIS TEST MEANS THAT SARS-CoV-2 RNA WAS NOT PRESENT IN THE SPECIMEN ABOVE THE LIMIT OF DETECTION. HOWEVER, A NEGATVIE RESULT DOES NOT RULE OUT COVID-19 AND SHOULD NOT BE USED THE SOLE BASIS FOR TREATMENT OR PATIENT MANAGEMENT DECISIONS. A NEGATIVE RESULT DOES NOT EXCLUDE THE POSSIBILITY OF COVID-19. WHEN DIAGNOSTIC TESTING IS NEGATIVE, THE POSSIBLILTY OF A FALSE NEGATIVE RESULT SHOULD BE CONSIDERED IN THE CONTEXT OF A PATIENT'S RECENT EXPOSURES AND THE PRESENCE OF CLINICAL SIGNS AND SYMPTOMS CONSISTENT WITH COVID-19. THE POSSIBILITY OF A FALSE NEGATIVE RESULT SHOULD ESPECIALLY BE CONSIDERED IF THE PATIENT'S RECENT EXPOSURES OR CLINICAL PRESENTATION INDICATE THAT COVID-19 IS LIKELY, AND DIAGNOSTIC TESTS FOR OTHER CAUSES OF ILLNESS (e.g., OTHER RESPIRATORY ILLNESS) ARE NEGATIVE. IF COVID-19 IS STILL SUSPECTED BASED ON EXPOSURE HISTORY TOGETHER WITH OTHER CLINICAL FINDINGS, RE-TESTED SHOULD BE CONSIDERED BY HEALTHCARE PROVIDERS IN CONSULTATION WITH PUBLIC HEALTH AUTHORITIES. Performed By: #### 2 89416 #### [facility],[address] [place] [address] 48692 CORONAVIRUS PCR - [facility] 11-07-2020 SARS-CoV-2 (COVID-19) RNA SHAJI+probe Ql (Unsp spec) Negative Normal NORMAL: NEGATIVE [facility] Comment on above: Performed By: #### 2 78484 #### [facility],[address] [place] [address] 69483 SEND TO IC? YES Normal [facility] Comment on above: Result Comment: RESU LTS FAXED TO INFECTION CONTROL. SARS-CoV-2 THIS TEST IS BEING USED UNDER THE FDA EUA PROCEDURE. THIS ASSAY HAS BEEN VALIDATED IN THE [facility] FOR USE WITH [facility]OPHARYN[facility]AL SPECIMENS [facility]. INTERPRETIVE DATA LABORATORY TEST RESULTS SHOULD ALWAYS BE CONSIDERED IN THE CONTEXT OF CLINICAL OBSERVATIONS AND EPIDEMIOLOGICAL DATA IN MAKING FINAL DIAGNOSIS AND PATIENT MANAGEMENT DECISIONS. PATIENT MANAGEMENT SHOULD FOLLOW CURRENT CDC GUIDELINES. A POSITIVE TEST RESULT FOR COVID-19 INDICATES THAT RNA FROM SARS-CoV-2 WAS DETECTED, AND THE PATIENT IS INFECTED WITH THE VIRUS AND PRESUMED TO BE CONTAGIOUS. A NEGATIVE TEST RESULT FOR THIS TEST MEANS THAT SARS-CoV-2 RNA WAS NOT PRESENT IN THE SPECIMEN ABOVE THE LIMIT OF DETECTION. HOWEVER, A NEGATVIE RESULT DOES NOT RULE OUT COVID-19 AND SHOULD NOT BE USED THE SOLE BASIS FOR TREATMENT OR PATIENT MANAGEMENT DECISIONS. A NEGATIVE RESULT DOES NOT EXCLUDE THE POSSIBILITY OF COVID-19. WHEN DIAGNOSTIC TESTING IS NEGATIVE, THE POSSIBLILTY OF A FALSE NEGATIVE RESULT SHOULD BE CONSIDERED IN THE CONTEXT OF A PATIENT'S RECENT EXPOSURES AND THE PRESENCE OF CLINICAL SIGNS AND SYMPTOMS CONSISTENT WITH COVID-19. THE POSSIBILITY OF A FALSE NEGATIVE RESULT SHOULD ESPECIALLY BE CONSIDERED IF THE PATIENT'S RECENT EXPOSURES OR CLINICAL PRESENTATION INDICATE THAT COVID-19 IS LIKELY, AND DIAGNOSTIC TESTS FOR OTHER CAUSES OF ILLNESS (e.g., OTHER RESPIRATORY ILLNESS) ARE NEGATIVE. IF COVID-19 IS STILL SUSPECTED BASED ON EXPOSURE HISTORY TOGETHER WITH OTHER CLINICAL FINDINGS, RE-TESTED SHOULD BE CONSIDERED BY HEALTHCARE PROVIDERS IN CONSULTATION WITH PUBLIC HEALTH AUTHORITIES. Performed By: #### 2 92861 #### [facility],[address] [facility] [address] EMERGENCY REPORTon 1 EMERGENCY REPORT [facility] EMERGENCY ROOM REPORT NAME ACCOUNT SEX AGE ADMIT DISCHARGE PT MED. RECORD# NUMBER DATE DATE TYPE ANGIE [id number] Roscoe 09/03/20 09/03/20 3 RANJAN [id number] ROOM: ER DATE OF : 2000 DICTATING PHYSICIAN: Morro Juárez HISTORY OF PRESENT ILLNESS: This is a 20-year-old female who presents with muscle aches. She states that it began this morning. She states that she received her COVID vaccine yesterday. She is also concerned because there is redness inside of her bellybutton with some clear drainage. Denies vomiting. Denies any vaginal bleeding or discharge. PAST MEDICAL HISTORY: None. PAST SURGICAL HISTORY: None. SOCIAL HISTORY: Denies tobacco, alcohol or illicit drugs. REVIEW OF SYSTEMS: Ten systems are reviewed and negative except as mentioned above. PHYSICAL EXAMINATION: GENERAL: The patient appears well and nontoxic. VITAL SIGNS: Within normal limits. HEENT: Head is normocephalic without signs of trauma. Eye - Equal ocular motion intact. PERRLA. Mouth - Buccal mucosa appears well hydrated. NECK: Trachea is midline. Supple. LUNGS: Clear to auscultation. HEART: S1 and S2 appreciated without murmur. ABDOMEN: Soft and nontender. There is slight redness to the inner umbilicus without drainage or evidence of abscess or surrounding cellulitis. MUSCULOSKELETAL: There is +5/5 muscle strength in the upper and lower extremities. NEUROLOGIC: Alert and oriented x3. SKIN: Clear. PSYCHIATRIC: Mood and affect normal. EMERGENCY DEPARTMENT COURSE AND TREATMENT: The patient appears well and nontoxic. No appreciable infection of the umbilicus. DIAGNOSES: Post-COVID vaccine reaction. PLAN/DISPOSITION: The patient will be treated with Toradol and Naprosyn for home. Asked to return for new or worsening symptoms. Likely a post-COVID vaccine reaction. Stable at the time of discharge. Dictated By: Morro Juárez DO 09/03/20 18:28 Page 1 of 2 RANJAN TAN Emergency Room Report TANRANJAN PERALTA : 2000 JOB #: [id number] Transcribed By: rut 09/04/20 08:33 Electronically signed by: E-SIGN: Morro Juárez D.O. 09/04/20 09:41 Page 2 of 2 RANJAN TAN Emergency Room Report Normal [facility] T3, FREE [CCL]on 06-30-2020 Free T3 [Mass/Vol] 2.8 pg/mL Normal 2.3-4.1 [facility] Comment on above: Result Comment: [facility] [address] [place] [address] Wayne Andrade III, M.D. [id number] Performed By: #### 2 95293 #### [facility],[address] [place] [address] 90429 THYROGLOBULIN AB [CCL]on Thyroglobulin Ab Qn 2.4 [IU]/mL Normal <14.4 [facility] Comment on above: Result Comment: [place] [id number] [place] [id number] Wayne Andrade III, M.D. [id number] Performed By: #### 2 62140 #### [facility],[address] [place] [address] 21618 THYROID PEROXIDASE AB [CCL]o n 06-30-2020 TPO Antibody <1.0 Normal <5.6 [facility] Comment on above: Result Comment: [facility] [address] [place] [address] Wayne Andrade III, M.D. [id number] Performed By: #### 2 05956 #### [address] [address] TPO Antibodyon 06-30-2020 TPO Antibody <1.0 Normal <5.6 [facility] Comment on above: Performed By: #### F REET3, TGAB, MICRO #### [facility] Routine Lab [facility] [place] [phone] Thyroglobulin Abon Thyroglobulin Ab Qn 2.4 [IU]/mL Normal <14.4 [facility] Comment on above: Performed By: #### F REET3, TGAB, MICRO #### [facility] Routine Lab [address] [place], [place] [id number] Free T3on 06-28-2020 Free T3 [Mass/Vol] 2.8 pg/mL Normal 2.3-4.1 [facility] Comment on above: Performed By: #### F REET3, TGAB, MICRO #### [facility] Routine Lab [address] [place], [place] [id number] T4-FREE (FREE THYROXINE)on 0 06-27-2020 Free T4 [Mass/Vol] 0.93 ng/dL Normal 0.76 - 1.46 [facility] Comment on above: Result Comment: P otential of falsely elevated results when biotin concentrations are > 10 ng/mL. Performed By: #### 2 69644 #### [facility],[address] [place], [place] [id number] TSHon 06-27-2020 TSH Qn 2.78 m[IU]/L Normal 0.35 - 3.74 [facility] Comment on above: Performed By: #### 2 92902 #### [facility],[address] [place] [address] 50578 Vital Signs Date Time Vital Sign Value Performing Clinician Elena harry 06-29-2024 07:21-0400 Body temperature 97.9 [degF] No Primary Care Physician [facility] 06-29-2024 07:21-0400 Diastolic blood pressure 85 mm[Hg] No Primary Care Physician [facility] 06-29-2024 07:21-0400 Heart rate 72 /min No Primary Care Physician [facility] 06-29-2024 07:21-0400 Respiratory rate 16 /min No Primary Care Physician [facility] 06-29-2024 07:21-0400 SaO2% (BldA) [Mass fraction] 99 % No Primary Care Physician [facility] 06-29-2024 07:21-0400 Systolic blood pressure 148 mm[Hg] No Primary Care Physician [facility] 06-29-2024 03:06-0400 Body height 162.56 cm No Primary Care Physician [facility] 06-29-2024 03:06-0400 Body mass index (BMI) [Ratio] 42.5 kg/m2 No Primary Care Physician [facility] 06-29-2024 03:06-0400 Body weight 112.3 kg No Primary Care Physician [facility] 05-28-2024 14:19-0400 Body height 162.56 cm No Primary Care Physician [facility] 05-28-2024 14:19-0400 Body mass index (BMI) [Ratio] 42.4 kg/m2 No Primary Care Physician [facility] 05-28-2024 14:19-0400 Body weight 112.15 kg No Primary Care Physician [facility] 05-28-2024 14:19-0400 Diastolic blood pressure 73 mm[Hg] No Primary Care Physician [facility] 05-28-2024 14:19-0400 Systolic blood pressure 108 mm[Hg] No Primary Care Physician [facility] 07-05-2023 11:00-0400 Body height 162.[address] Christy Lao Work Phone: [facility] 07-05-2023 11:00-0400 Body mass index (BMI) [Ratio] 42.2 kg/m2 Dr. Christy Lao Work Phone: [facility] 07-05-2023 11:00-0400 Body weight 111.[address] Christy Lao Work Phone: [facility] 07-05-2023 11:00-0400 Diastolic blood pressure 78 mm[Hg] Dr. Christy Lao Work Phone: [facility] 07-05-2023 11:00-0400 Systolic blood pressure 118 mm[Hg] Dr. Christy Lao Work Phone: [facility] 06-27-2023 09:59-0400 Body mass index (BMI) [Ratio] 42.3 kg/m2 Dr. Christy Lao Work Phone: [facility] 06-27-2023 09:59-0400 Body weight 111.[address] Christy Lao Work Phone: [facility] 06-27-2023 09:59-0400 Diastolic blood pressure 72 mm[Hg] Dr. Christy Lao Work Phone: [facility] 06-27-2023 09:59-0400 Systolic blood pressure 118 mm[Hg] Dr. Christy Lao Work Phone: [facility] 05-30-2023 08:21-0400 Body mass index (BMI) [Ratio] 40.1 kg/m2 Dr. Christy Lao Work Phone: [facility] 05-30-2023 08:21-0400 Body weight 106.[address] Christy Lao Work Phone: [facility] 05-30-2023 08:21-0400 Diastolic blood pressure 84 mm[Hg] Dr. Christy Lao Work Phone: [facility] 05-30-2023 08:21-0400 Systolic blood pressure 124 mm[Hg] Dr. Christy Lao Work Phone: [facility] 05-18-2023 10:40-0400 Body height 162.[address] Christy Lao Work Phone: [facility] 05-18-2023 10:39-0400 Body mass index (BMI) [Ratio] 39.6 kg/m2 Dr. Christy Lao Work Phone: [facility] 05-18-2023 10:39-0400 Body weight 104.[address] Christy Lao Work Phone: [facility] 05-18-2023 10:39-0400 Diastolic blood pressure 69 mm[Hg] Dr. Christy Lao Work Phone: [facility] 05-18-2023 10:39-0400 Systolic blood pressure 106 mm[Hg] Dr. Christy Lao Work Phone: [facility] 05-06-2023 12:01-0500 Body height 162.[address] Christy Lao Work Phone: [facility] 05-06-2023 12:01-0500 Body mass index (BMI) [Ratio] 38.2 kg/m2 Dr. Christy Lao Work Phone: [facility] 05-06-2023 12:01-0500 Body weight 101.[address] Christy Lao Work Phone: [facility] 05-06-2023 11:54-0500 Body temperature 98 [degF] Dr. Christy Lao Work Phone: [facility] 05-06-2023 11:54-0500 Diastolic blood pressure 61 mm[Hg] Dr. Christy Lao Work Phone: [facility] 05-06-2023 11:54-0500 Heart rate 81 /min Dr. Christy Lao Work Phone: [facility] 05-06-2023 11:54-0500 Systolic blood pressure 111 mm[Hg] Dr. Christy Lao Work Phone: [facility] 04-21-2023 15:53-0500 Body mass index (BMI) [Ratio] 39.1 kg/m2 Dr. Christy Lao Work Phone: [facility] 04-21-2023 15:53-0500 Body weight 103.[address] Christy Lao Work Phone: [facility] 04-21-2023 15:53-0500 Diastolic blood pressure 73 mm[Hg] Dr. Christy Lao Work Phone: [facility] 04-21-2023 15:53-0500 Systolic blood pressure 114 mm[Hg] Dr. Christy Lao Work Phone: [facility] 03-23-2023 09:31-0500 Body mass index (BMI) [Ratio] 37.8 kg/m2 Dr. Christy Lao Work Phone: [facility] 03-23-2023 09:31-0500 Body weight 99.[address] Christy Lao Work Phone: [facility] 03-23-2023 09:31-0500 Diastolic blood pressure 68 mm[Hg] Dr. Christy Lao Work Phone: [facility] 03-23-2023 09:31-0500 Systolic blood pressure 110 mm[Hg] Dr. Christy Lao Work Phone: [facility] 02-21-2023 10:38-0500 Body mass index (BMI) [Ratio] 37.3 kg/m2 Dr. Christy Lao Work Phone: [facility] 02-21-2023 10:38-0500 Body weight 98.[address] Christy Lao Work Phone: [facility] 02-21-2023 10:38-0500 Diastolic blood pressure 76 mm[Hg] Dr. Christy Lao Work Phone: [facility] 02-21-2023 10:38-0500 Systolic blood pressure 123 mm[Hg] Dr. Christy Lao Work Phone: [facility] 01-26-2023 14:34-0500 Body height 162.[address] Christy Lao Work Phone: [facility] 01-26-2023 14:23-0500 Body mass index (BMI) [Ratio] 36.2 kg/m2 Dr. Christy Lao Work Phone: [facility] 01-26-2023 14:23-0500 Body weight 95.[address] Christy Lao Work Phone: [facility] 01-26-2023 14:23-0500 Diastolic blood pressure 72 mm[Hg] Dr. Christy Lao Work Phone: [facility] 01-26-2023 14:23-0500 Systolic blood pressure 112 mm[Hg] Dr. Christy Lao Work Phone: [facility] 01-02-2023 20:35-0400 Diastolic blood pressure 78 mm[Hg] [facility] 01-02-2023 20:35-0400 Heart rate 88 /min [facility] 01-02-2023 20:35-0400 Respiratory rate 16 /min [place] [facility] 01-02-2023 20:35-0400 Systolic blood pressure 125 mm[Hg] [facility] 01-02-2023 18:22-0400 Body height 162.56 cm [facility] 01-02-2023 18:22-0400 Body mass index (BMI) [Ratio] 35.2 kg/m2 [facility] 01-02-2023 18:22-0400 Body temperature 98.8 [degF] [facility] 01-02-2023 18:22-0400 Body weight 92.94 kg [facility] 01-02-2023 18:22-0400 SaO2% (BldA) [Mass fraction] 100 % [facility] Encounters Encounter Date Encounter Type Care Provider Facility Start: 08-09-2024 ambulatory No Primary Car e Physician Facility:[facility] Start: 08-07-2024 End: 08-07-2024 ambulatory SIMI Anay [facility] Start: 07-10-2024 End: 07-10-2024 ambulatory No Primary Care Physician Facility:[facility] Start: 06-29-2024 End: 06-29-2024 ambulatory No Primary Care Physician Facility:[facility] Start: 06-29-2024 End: 06-29-2024 Emergency department patient visit No Primary Care Physician -Emergency Department Work Phone: Start: 05-28-2024 End: 05-28-2024 Patient encounter procedure Simi Lara [facility] Work Phone: Start: 05-28-2024 End: 05-28-2024 ambulatory No Primary Care Physician [facility] Work Phone: Start: 05-28-2024 End: 05-28-2024 ambulatory No Primary Care Physician Facility:[facility] Start: 09-20-2023 End: 09-20-2023 ambulatory No Primary Care Physician Facility:[facility] Start: 09-06-2023 End: 09-06-2023 ambulatory No Primary Care Physician Facility:[facility] Start: 08-12-2023 ambulatory Darling Tabor Facilit y:[facility] Start: 08-12-2023 End: 08-14-2023 Evaluation and management of inpatient Darling Tabor Facility:[facility] Start: 08-11-2023 End: 08-11-2023 ambulatory No Primary Care Physician Facility:[facility] Start: 08-08-2023 End: 08-08-2023 ambulatory No Primary Care Physician Facility:[facility] Start: 07-05-2023 End: 07-05-[address] Christy Lao Work Phone: [facility] Work Phone: Start: 06-30-2023 End: 06-30-[address] Christy Lao Work Phone: [facility] Work Phone: Start: 06-30-2023 End: 06-30-[address] Christy Lao Work Phone: [facility] Start: 06-27-2023 End: 06-27-[address] Christy Lao Work Phone: [facility] Work Phone: Start: 06-15-[address] Christy Lao Work Phone: [facility] Work Phone: Start: 06-15-2023 End: 06-15-[address] Christy Lao Work Phone: [facility] Work Phone: Start: 05-30-2023 End: 05-30-[address] Christy Lao Work Phone: [facility] Work Phone: Start: 05-18-2023 End: 05-18-[address] Christy Lao Work Phone: [facility] Work Phone: Start: 05-18-2023 End: 05-18-[address] Christy Lao Work Phone: [facility] Work Phone: Start: 05-06-2023 Non-patient / Non-visit Dr. Antonio Lao Work Phone: [facility] Start: 05-06-2023 End: 05-06-[address] Christy Lao Work Phone: [facility] Work Phone: Start: 05-06-2023 End: 05-06-[address] [facility] Work Phone: Start: 04-21-2023 End: 04-21-[address] Christy Lao Work Phone: [facility] Work Phone: Start: 04-11-2023 End: 04-11-2023 Subsequent hospital visit by physician Dez Olmstead MD Work Phone: [facility] Comment on above: Agenesis of corpus c allosum Start: 04-06-2023 End: 04-06-2023 Subsequent hospital visit by physician Dez Olmstead MD Work Phone: Magnetic Resonance Comment on above: Screening, , for malformation by ultrasound; 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 care, single or unspecified fetus Start: 03-23-2023 End: 03-23-[address] Christy Lao Work Phone: [facility] Work Phone: Start: 02-21-2023 End: 02-21-[address] Christy Lao Work Phone: [facility] Work Phone: Start: 02-08-2023 End: 02-08-[address] Christy Lao Work Phone: [facility] Work Phone: Start: 02-08-2023 End: 02-08-[address] Christy Lao Work Phone: [facility] Start: 01-26-2023 End: 01-26-[address] [facility] Work [facility]: Start: 01-26-2023 End: 01-26-[address] Christy Lao Work Phone: [facility] Work Phone: Start: 01-19-2023 Telephone encounter Melissa monaco APRN.CNM Work Phone: OB/Gynecology Comment on above: Care Start: 01-19-2023 End: 01-19-2023 ambulatory Facility:[facility] Start: 01-19-2023 End: 01-19-2023 Nursing evaluation of patient and report Nurse [facility] Work Phone: OB/Gynecology Comment on above: Supervision of high risk , antepartum (Primary Dx); History of depression; History of depression; Nausea and vomiting during ; Bleeding in early ; Tobacco use affecting , antepartum; Marijuana use during ; Obesity affecting , antepartum, unspecified obesity type; History of hypothyroidism; Patient request for diagnostic testing Start: 01-19-2023 End: 01-19-2023 Patient requested procedure Nurse Pnob [facility] Work Phone: [facility] Work Phone: Start: 01-02-2023 End: 01-02-2023 Emergency department patient visit [facility] Work Phone: Start: 12-27-2022 End: 12-27-2022 ambulatory [facility] Work Phone: Start: 12-27-2022 End: 12-27-2022 Patient encounter procedure [facility] Work Phone: Start: 12-24-2022 Telephone encounter Farida olivares APRN.CNM Work Phone: OB/Gynecology Comment on above: Patient Question Start: 02-03-2021 End: 02-03-2021 ambulatory MELISSA BELL [facility] Start: 12-02-2020 End: 12-02-2020 ambulatory EDUARDO GONZALEZ [facility] Start: 11-06-2020 End: 11-06-[address] DOUGIE VITAL [facility] Start: 09-03-2020 End: 09-03-2020 Emergency department patient visit MORRO JUÁREZ [facility] Start: 06-27-2020 End: 06-27-2020 ambulatory OTONIEL BUSTILLO [facility] Start: 03-28-2020 ambulatory CHRISTY LAO [facility] Procedures Date Procedure Procedure Detail Performing Clinician Start: 06-29-2024 Transvaginal obstetr ic ultrasonography No Primary Care Physician Start: 06-29-2024 Ultrasonography of abdomen No Primary Care Physician Start: 05-28-2024 Urine culture No Primar y Care Physician Start: 04-06-2023 mri w/placntl matrnl plvc img sing/1st ges Dez Olmstead MD Work Phone: Start: 01-26-[address] Lorie Lao Work Phone: Plan of Treatment Date Care Activity Detail Author Start: 06-29-2024 [facility] Start: 05-28-2024 Liquid based cervica l cytology screening [facility] Start: 05-06-2023 Iv infusion therapy/prophylaxis /dx 1st to 1 hr THER/PROPH/DIAG IV INF INIT [facility] Start: 05-06-2023 Insertion of cathete r into peripheral vein [facility] Start: 05-06-2023 Nonstress test [facility] Start: 05-06-2023 Obstetric monitoring [facility] Start: 05-06-2023 Vital signs measurements [facility] Start: 05-06-2023 [facility] Start: 05-06-2023 Patient discharge [facility] Start: 04-11-2023 End: 04-11-2023 Patient encounter procedure 04/11/2023 10:15 AM EST Office Visit Maternal Medicine [address] [place], [place] [id number] Dez Olmstead MD [address] [facility] [address] [place], [place] [id number] Hedy Hinojosa, [place], [place] [id number] [facility] Start: 01-19-2023 End: 01-20-2024 [facility] TRANSLUCENCY [facility] Anc Imaging Routine Encounter for screening of mother Expected: 01/19/2023, Expires: 01/20/[address] [facility] Work Phone: Comment on above: Expected: 01/19/2023 , Expires: 01/20/2024 Start: 01-02-2023 [facility] Start: 11-05-2022 COVID-19 (2022-04 4 season) COVID-19 ( season) [facility] Start: 11-05-2022 Covid-19 Vaccine ( season) Covid-19 Vaccine ( season) [facility] Start: 11-05-2022 Influenza vaccination Influenza Vacc ine (#1) [facility] Start: 03-07-2022 Depression Assessment Depression Ass essment [facility] Start: 04-23-2021 Urine microalbumin profile DTaP,Tdap,Td Vaccine (4 - Td or Tdap) [facility] Start: 06-22-2019 Microscopic observat ion [Identifier] in Cervix by Cyto stain Pap Smear [facility] Start: 06-22-2019 Pap Testing Pap Testing [facility] Start: 2017 Urine microalbumin profile DTaP,Tdap,Td Vaccine (1 - Tdap) [facility] Start: 2016 Hepatitis C Screening Hepatitis C Sc zackning [facility] Start: 2016 HIV Screening HIV Screening [facility] Start: 2014 MenB (1 of 2 - MenB 2-Dose Series Bexsero) MenB (1 of 2 - MenB 2-Dose Series Bexsero) [facility] Start: 2012 Peds To Adult Transi tion Annual Assessment Peds To Adult Transition Annual Assessment [facility] Start: 2010 Peds To Adult Transi tion Initial Discussion Peds To Adult Transition Initial Discussion [facility] Start: 2009 HPV (1 - 2-dose series) HPV (1 - 2-d ose series) [facility] Start: 06-22-2007 HPV Vaccine (1 - 2-d ose series) HPV Vaccine (1 - 2-dose series) [facility] Start: 2005 Tetanus Diphtheria a nd Pertussis Vaccines (1 - Tdap) Tetanus Diphtheria and Pertussis Vaccines (1 - Tdap) [facility] Start: 2004 Pneumococcal vaccination Pneum ococcal Vaccine (1 - PCV) [facility] Start: 06-22-1999 MMR (1 of 1 - Standa rd series) MMR (1 of 1 - Standard series) [facility] Start: 06-22-1999 Varicella (1 of 2 - 2-dose childhood series) Varicella (1 of 2 - 2-dose childhood series) [facility] Start: 1998 Covid-19 Vaccine (#1) Covid-19 Vacci ne (#1) [facility] Start: 1998 Hepatitis B (1 of 3 - 3-dose series) Hepatitis B (1 of 3 - 3-dose series) [facility] Start: 1998 Hepatitis B Vaccine (1 of 3 - 3-dose series) Hepatitis B Vaccine (1 of 3 - 3-dose series) [facility] CMV IgG Ab CMV IgG Ab Lab R outine Agenesis of corpus callosum 04/11/2023 12:35 PM EST [facility] CMV IgM Ab CMV IgM Ab Lab R outine Agenesis of corpus callosum 04/11/2023 12:35 PM [facility] CMV PCR Quantitative CMV PCR Ronaldo ntitative Microbiology Routine Agenesis of corpus callosum 04/11/2023 12:35 PM [facility] Miscellaneous sendou t: Yuval [facility] Work Phone: Path report.final Dx Spec [facility] Patient Education [facility] Work Phone: Patient referral [facility] Work Phone: [facility] Immunizations Immunization Date Immunization Notes Care Provider Fa cility 05-30-2023 tetanus toxoid, redu yuri diphtheria toxoid, and acellular pertussis vaccine, adsorbed Dr. Christy Lao Work Phone: [facility] 03-23-2023 influenza, injectabl e, quadrivalent, preservative free Dr. Christy Lao Work Phone: [facility] Payers Date Payer Category Payer Self-pay [id number] [facility] MEDICAID UHC COMMUNITY PLAN MEDICA[place] [id number] 2022-Present [phone] [address] [place] [address] Medicaid [id number] 2022 Unknown [id number] 2022 Private Health Insurance [place] [facility] [id number] 2022-Present [address] [place] [address] [id number] 1998 Unknown [id number] 2.16.840.1.331406.3.579.2. 651 1998 Unknown [id number] 2.16.840.1.123283.3.579.2. 651 1998 Unknown [id number] 2.16.840.1.018494.3.579.2. 651 1998 Unknown [id number] 2.16.840.1.515757.3.579.2. 651 1998 Unknown [id number] 2.16.840.1.996144.3.579.2. 651 1998 Unknown [id number] 2.16.840.1.089243.3.579.2. 651 1998 Unknown [id number] 2.16.840.1.170678.3.579.2. 651 1998 Unknown [id number] 2.16.840.1.020550.3.579.2. 479 1998 Unknown [id number] 2.16.840.1.114863.3.579.2. 479 Private Health Insurance [id number] Unknown [id number] 2.16.840.1.375937.3.579.2. 462 Unknown [id number] 2.16.840.1.707604.3.579.2. 462 Unknown [id number] 2.16.840.1.443065.3.579.2. 462 Unknown [id number] 2.16.840.1.185351.3.579.2. 462 Unknown [id number] 2.16.840.1.299443.3.579.2. 462 Unknown [id number] 2.16.840.1.304298.3.579.2. 462 Unknown [id number] 2.16.840.1.033050.3.579.2. 462 Unknown [id number] 2.16.840.1.560598.3.579.2. 462 Unknown [id number] 2.16.840.1.109768.3.579.2. 462 Unknown [id number] 2.16.840.1.790508.3.579.2. 462 Unknown [id number] 2.16.840.1.338600.3.579.2. 462 Unknown [id number] 2.16.840.1.352853.3.579.2. 462 Unknown [id number] 2.16840.1.843340.3.579.2. 462 Unknown [id number] 2.16.840.1.042748.3.579.2. 462 Social History Date Type Detail Facility Start: 05-12-2019 End: 06-15-2023 Tobacco smoking status [facility]IS Tobacco smoking consumption unknown [facility] Work Phone: Start: 2000 Sex Assigned At Not on file [facility] Start: 01-19-2023 End: 04-11-2023 Gender identity Not on file [facility] Start: 05-12-2019 Cigarettes [place] [facility] Start: 2000 Sex Assigned At Female [facility] Start: 01-19-2023 [facility] Work Phone: End: 01-05-2023 History of tobacco use Cigarette Smoker [facility] Work Phone: Start: 01-19-2023 Tobacco use and exposure Smokeless tobacco non-user [facility] Work Phone: Start: 01-19-2023 End: 04-11-2023 Alcohol intake Ex-drinker (finding) [facility] Start: 01-19-2023 End: 04-11-2023 History of Social function [facility] National Score (1-100), lower number is lower risk 99 [facility] Start: 01-19-2023 Education 15 [facility] Start: 01-19-2023 Alcohol Comment rarely [facility] Start: 11-20-2022 [facility] Start: 04-11-2023 Tobacco [facility] End: 01-05-2023 History of tobacco use Current smoker [facility] History of tobacco use Passive smoker [facility] Start: 04-11-2023 Tobacco use and exposure Former smokeless tobacco user [facility] End: 03-07-2023 History of tobacco use User of smokeless tobacco [facility] Start: 05-22-2024 End: 06-29-2024 Tobacco smoking status NHIS Current some day smoker [facility] Start: 06-02-2024 End: 06-29-2024 Sex Female (finding) [facility] Clinical Notes 12-24-2022 to 06-29-2024 Note Date & Type Note Facility 06-29-2024 Discharge summary [facility] 06-29-2024 Radiology Diagnostic study note [facility] Imaging Services [address] [place] [address] Transvaginal w/Preg US MR#: [id number] Acct: [id number] Name: RANJAN TAN Rep #: [id number] : 2000 F 24 From: Katerin Walton MD PCP: Care Physician,No Primary Status: REG ER Study:Transvaginal w/Preg US Date of Exam: 06/29/24 Exam# [id number] Ordering Dr: Vaughn Guzman DO PROCEDURE: TRANSVAGINAL W/PREG US 06/29/2024 REASON FOR EXAM: PAIN IN TECHNIQUE: High resolution obstetric ultrasound performed using a 2D transducer. Standard views obtained, including biometry, anatomy survey, and Doppler studies. Transabdominal and transvaginal ultrasound images. COMPARISON: None. FINDINGS Single, live intrauterine gestation. Cephalic presentation. heart rate 145 beats per minute. Normal closed cervix measuring 3.3 cm in its length. Estimated gestational age 17 weeks and 2 days. Estimated delivery date on 12/05/2024. Anterior right lateral placenta. No evidence of placenta previa. Normal amniotic fluid with the largest pocket measuring 3.8 x 6 cm. The maternal adnexal regions were not visualized secondary to bowel gas. US/Transvaginal w/Preg US IMPRESSION: Single, live intrauterine gestation. No abnormality is noted. Reading [facility] CC: Dr. Vaughn Tan DO; No Primary Care Physician ~ Mask Inspector: Signed [facility] 06-29-2024 Radiology Diagnostic study note [facility] Imaging Services [address] [place] [address] [id number] Abdomen Limited MR#: [id number] Acct: [id number] Name: RANJAN TAN Rep #: [id number] : 2000 F 24 From: Porfirio Sinha MD PCP: Care Physician,No Primary Status: REG ER Study:Abdomen Limited Date of Exam: 06/06 07/29 Exam# [id number] Ordering Dr: Vaughn Guzman DO PROCEDURE: ABDOMEN LIMITED 06/29/2024 REASON FOR EXAM: PAIN COMPARISON: None available FINDINGS: The visualized pancreas appears within limits without evidence of pancreatic ductal dilation seen. The liver measures 17.2 cm and appears within limits. No evidence of intrahepatic biliary ductal dilation. Hepatic color flow is present with flow in the portal vein appearing hepatopetal as expected. No gallstones, wall thickening or pericholecystic free fluid. The wall measures2 mm. Report of a negative sonographic Ramirez's sign. 4 mm echogenic focus non dependent gallbladder wall appears non mobile and statistically would represent gallbladder polyp versus adherent tumefactive sludge. CBD 5 mm. The right kidney measures 11.4 x 5.7 x 4.4 cm with a cortical thickness of 1 cm. No right hydronephrosis, renal stone or perinephric fluid seen. No free fluid seen. US/Abdomen Limited IMPRESSION: No evidence of acute process as above. 4 mm echogenic focus non dependent gallbladder wall appears non mobile and statistically would represent gallbladder polyp versus adherent tumefactive sludge Reading Location: [id number] CC: Dr. Vaughn Tipton-Angela, ; No Primary Care Physician ~ Mask Inspector: Signed [facility] 05-28-2024 Note [facility] Pap Smear Specimen Adequacy May 28, 2024 11:59pm Comment . Satisfactory for evaluation. Endocervical and/or squamous metaplasticcells (endocervical component) are present. Comment on above: Satisfactory for blayne luation. Endocervical and/or squamous metaplasticcells (endocervical component) are present. 05-28-2024 Evaluation note Diagnosis Onset Date Resolution Anxiety and depression acute 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, 2024 2:14pm LGSIL (low grade squamous intraepithelial dysplasia) acute May 28, 2024 2:14pm Marijuana use acute May 28, 2024 2:14pm Obesity affecting acute May 28, 2024 2:14pm acute May 28 2:14pm Supervision of high-risk acute May 28, 2024 2:14pm [facility] Work Phone: [phone]) 590-393406-09-2024 [facility] Medical Records Department [address] [place] [address] Discharge Summary 08/14/23929 MR#: [id number] Acct: [id number] Name: RANJAN TAN Rep #: [id number] : 2000 23 From: Darling Tabor CNM PCP: Care Physician,No Primary Status:ADM IN Location: DS911-0 Providers Date of Admission: 08/12/23 Primary Care Physician: No Primary Care Phys Reason For Visit: VAGINAL DELIVERY Diagnosis Discharge Diagnosis (1) Vaginal delivery: Status: Acute Code(s): O80 - Encounter for full-term uncomplicated delivery Plan: s/p PPD # 1 1. routine post delivery care 2. breast feeding- support given 3. rh positive 4. rubella immune 5. desires early d/c well. Medications at Discharge Home Medications ondansetron 4 mg disintegrating tablet 4 mg PO Q8H PRN PRN Nausea #10 tabs 01/02/23 pnv #[id number] acid-dha 28 mg-975 mcg-200 mg oral powder efferv pk 1 ea PO DAILY 01/02/23 aspirin 81 mg capsule 81 mg PO DAILY 05/06/23 ferrous sulfate 137 mg (45 mg iron) tablet,extended release (Slow Fe) 137 mg PO DAILY anemai 05/30/23 famotidine 20 mg tablet (Pepcid) 20 mg PO BID reflux #60 tabs 07/05/23 Hospital Course Operations None Procedures None Summary of Care Provided Minutes Spent on Discharge: 15 Hospital Course: admitted for IOL for obesity at 39.6 weeks Physical Exam Const alert and oriented x3 Eyes PERRL Neck full ROM Lymph Lymphatic: no lymphadenopathy noted Chest inspection of chest normal and inspection of breasts normal Resp normal respiratory effort, normal air movement and no use of accessory muscles Effort and Inspection: able to speak in complete sentences Cardio regular rate and regular rhythm GI normal to inspection, nondistended, normoactive bowel sounds Uterus Palpation: uterus fundus firm Extremity normal to inspection, full ROM and no pedal edema Skin no rashes or lesions noted Neuro oriented x3 Psych mental status grossly normal Weight / BMI Weight Weight: 255 lb Body Mass Index (BMI) 43.7 ABG / Lab / Microbiology Data 08/12/23 07:45 D/C Instructions Discharge Diet: No restrictions May resume sexual activity in: 6 weeks Weight Bearing Status: Full weight bearing Call your doctor if your incision/area has: Sudden Increased Bleeding, Increased Pain/ Swelling and Foul Smelling Discharge Call your doctor if you observe: Fever of 101 or Higher, Numbness or Tingling, Change in Color, Inability to urinate, Inability to have a bowel movement, Using more than 1 pad per hour, Shortness of breath, Dizziness, Fainting spells, Chest pain, Calf discomfort and Uncontrolled pain Please Follow Up With: Darling Tabor CNM When: 6 weeks , please call office to make an appointment. Congratulations on the of your baby! Meaningful Use Info Meaningful Use Meaningful Use Diagnoses (Choose all that apply): None applicable Ischemic Stroke Statin Dosing Therapy Reference: STATIN DOSE THERAPY REFERENCE: * Patients > 75 years receive moderate or high dose statin therapy. * Patients 75 years or YOUNGER should receive HIGH intensity statin dose unless contraindicated. You will be required to document reason for non-treatment if statin daily dose does not meet guidelines. HIGH DOSE STATIN THERAPY DAILY Atorvastatin > than or = to 40 mg Rosuvastatin > than or = to 20 mg Amlodipine + Atorvastatin > than or = to 2.5/40 mg Ezetimibe + Simvastatin 10/80 mg Simvastatin 80mg Discharge Plan Admission Admit Date/Time: 08/12/23 07:53 Attending Provider: Darling Tabor Primary Care Provider: Care Physician,No Primary Discharge Orders/Prescriptions Prescriptions: No Action Slow Fe 137 mg (45 mg iron) tablet extended release 137 mg PO DAILY famotidine [Pepcid] 20 mg tablet 20 mg PO BID Qty: 60 5RF pnv #[id number] mg-mcg-mg powder effervescent in packet 1 ea PO DAILY ondansetron [ondansetron] 4 mg tablet,disintegrating 4 mg PO Q8H PRN PRN (Reason: Nausea) Qty: 10 0RF aspirin 81 mg capsule 81 mg PO DAILY Referrals / Follow Up: Care Physician,No Primary [Primary Care Provider] - Disposition Disposition (needs filled in before D/C Order can be placed): Home, Self Care 08/14/23 0932 Cosigner Signature (if applicable): CC: ELA Tabor; No Primary Care Physician [facility]igned[facility]-2023 NotePap Smear Specimen Adequacy January 26, 2023 5:04pmComment.Satisfactory for evaluation. No endocervical component is identified.An endocervical component is not commonly seen in the patient.[facility] A#[id number] Hardin Memorial HospitalCommclaren [facility] on above:Satisfactory for evaluation. No endocervical component is identified.An endocervical component is not commonly seen in the patient.01-26-2023 NotePap Smear Specimen AdequacyNovember 2022 5:04pmComment.Satisfactory for evaluation. No endocervical component is identified.An endocervical component is not commonly seen in the patient.[facility] A#[id number] Hardin Memorial HospitalCommclaren [facility] on above:Satisfactory for evaluation. No endocervical component is identified.An endocervical component is not commonly seen in the patient.01-26-2023 NotePap Smear Specimen AdequacyNovember 2022 6:04pmComment.Satisfactory for evaluation. No endocervical component is identified.An endocervical component is not commonly seen in the patient.[facility] A#[id number] Hardin Memorial HospitalCommclaren [place] [facility] on above:Satisfactory for evaluation. No endocervical component is identified.An endocervical component is not commonly seen in the patient.01-26-2023 Miscellaneous Notes* Telephone Encounter - Robby Live RN - 01/26/2023 3:37 PM EST Left message for patient to call office. No openings on 02/07 for NT anymore. Was going to see if patient would move to 02/04 for nuchal and visit with . ROBBY LIVE RN * Telephone Encounter - Silvina Alvarado RN - 01/19/2023 1:33 PM EST Left message to call office. We have sooner New OB appointments. Please assist patient in scheduling sooner New OB. Can also schedule NT ultrasound. * Telephone Encounter - Melissa Mcclellan APRN.CNM - 01/19/2023 12:48 PM EST Can we not get her NOB sooner than that? I can can order NT so she can have that date but recommendNOB sooner. Thanks, Melissa Mcclellan APRN.CNM * Telephone Encounter - Angelica Angeles RN - 01/19/2023 10:00 AM EST Patient seen for prenew OB visit today. She is 10 weeks 4 days by dates. States she had had ultrasound a few weeks ago at the [facility] care center and due date was confirmed at that [...] Tuesday before. Please advise documented in this encounterLancaster [facility]11-15-2023 Miscellaneous Notes*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 acute Obesity (BMI 30-39.9) acute acute Seasonal allergies acute Supervision of high-risk acute Elevated AST (SGOT) resolved [facility] Work Phone: Evaluation note* Diagnosis Onset Date Resolution Status Anxiety and depression acute Cigarette smoker acute 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 Obesity (BMI 30-39.9) acute acute Supervision of high-risk acute [id number] acute Anxiety and depression acute Cigarette smoker acute 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 acute Obesity (BMI 30-39.9) acute acute Seasonal allergies acute Supervision of high-risk acute Supervision of high-risk acute Elevated AST (SGOT) resolved [id number] acute Anxiety and depression acute Cigarette smoker acute 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 acute Obesity (BMI 30-39.9) acute acute Seasonal allergies acute Supervision of high-risk acute Elevated AST (SGOT) resolved [id number] acute Anemia affecting a cute Anxiety and depression acute Cigarette smoker acute 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 Obesity (BMI 30-39.9) acute acute Supervision of high-risk acute [id number] acute Anemia affecting a cute Anxiety and depression acute Cigarette smoker acute 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 Call them when you leave here to figure out a time of when they want you to present. Return back to the ED if symptoms change or worsen. Continue your home Zofran. You had bacteria in your urine therefore we will treat with antibiotics. You received your first dose here in the emergency department. Your ultrasound of the gallbladder showed a possible gallbladder polyp. Follow-up with general surgery.[facility] Work Phone: Reason for referral (narrative)* Diagnostic Procedure Only (Routine) - Pending Review Specialty Diagnoses / Procedures Referred By Vidal t Referred To Contact [facility] Diagnoses Encounter for screening of mother Procedures NUCHAL TRANSLUCENCY WHI US NUCHAL TRANSLUCENCY 1ST GESTATION Melissa Mcclellan APRN.LEA [address] [place] [address] [facility] [address] [place] [address] Referral ID Status Reason Start Date Expiration Date Visits Requested Visits Authorized [id number] Pending Review Auto-Generat ed Referral 3 01/19/2024 1 1 [facility] for referral (narrative)No reason for referral information [facility] Work [facility]: Summary Purpose Family History No Family History Records Found Relationship Condition Age at Onset Recorded Date/T winsome grandmother Malignant neoplasm of breast 74 aunt Family history of liver cancer 51 aunt Family history of liver cancer 61 Advance Directives No Advanced Directives Records Found Advance Directive Response Recorded Date/ Time Living Will No May 12, 2019 11:56pm Power of Relocation Specialist No May 11 11:56pm Advance Directive Response Recorded Date/ Time Living Will No January 02 6:29pm Power of Relocation Specialist No January 02, 2023 6:29pm Advance Directive Response Recorded Date/ Time Living Will No January 02 5:29pm Power of Relocation Specialist No January 02, 2023 5:29pm Advance Directive Response Recorded Date/ Time Do you have a [facility] Power of Relocation Specialist? No June 29, 2024 3:12am Chief Complaint and Reason for Visit Chief Complaint Admit Date New OB May 28, 2024 2:1 4pm n/v 17 weeks June 29, 2024 3 :05am Reason for Visit Admit Date Anxiety and depression May 28, 2024 2:14pm Cigarette smoker May 28, 2024 2:1 4pm Brandon's disease May 28, 2024 2:1 4pm LGSIL (low grade squamous intraepithelia l dysplasia) May 28, 2024 2:14pm Marijuana use May 28, 2024 2:1 4pm Obesity affecting May 28, 2024 2:14pm May 28, 2024 2:1 4pm Supervision of high-risk May 28, 2024 2:14pm Chief Complaint VOMITING Chief Complaint VOMITING NOB LMP 9/2 PAP Reason for Visit Anxiety and depressi on Cigarette smoker 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) Marijuana use Obesity (BMI 30-39.9) Seasonal allergies Supervision of high-risk Chief Complaint NOB LMP 9/2 PAP 15 WK OB 19 WK OB 24 WK OB R/O LABOR Reason for Visit Anxiety and depressi on Cigarette smoker 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) Marijuana use Obesity (BMI 30-39.9) Seasonal allergies Supervision of high-risk Anxiety and depression Cigarette smoker 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) Marijuana use Obesity (BMI 30-39.9) Seasonal allergies Supervision of high-risk Anxiety and depression Cigarette smoker 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 Obesity (BMI 30-39.9) Supervision of high-risk [id number] Anxiety and depression Cigarette smoker 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) Marijuana use Obesity (BMI 30-39.9) Seasonal allergies Supervision of high-risk Chief Complaint NOB LMP 9/2 PAP 15 WK OB 19 WK OB 24 WK OB R/O LABOR R/O LABOR 28 WK OB/GLUCOSE *pt to see Dr per phone note Reason for Visit Anxiety and depressi on Cigarette smoker 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) Marijuana use Obesity (BMI 30-39.9) Seasonal allergies Supervision of high-risk Anxiety and depression Cigarette smoker 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) Marijuana use Obesity (BMI 30-39.9) Seasonal allergies Supervision of high-risk Anxiety and depression Cigarette smoker 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 Obesity (BMI 30-39.9) Supervision of high-risk [id number] Anxiety and depression Cigarette smoker 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) Marijuana use Obesity (BMI 30-39.9) Seasonal allergies Supervision of high-risk Supervision of high-risk Elevated AST (SGOT) [id number] Anxiety and depression Cigarette smoker 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) Marijuana use Obesity (BMI 30-39.9) Seasonal allergies Supervision of high-risk Elevated AST (SGOT) Chief Complaint 19 WK OB 24 WK OB R/O LABOR R/O LABOR 28 WK OB/GLUCOSE *pt to see Dr per phone note 30 WK OB 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/tb BD/ 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- [facility] 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 34 WK OB 36 WK OB Reason for Visit Anxiety and depressi on Cigarette smoker 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 Obesity (BMI 30-39.9) Supervision of high-risk [id number] Anxiety and depression Cigarette smoker 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) Marijuana use Obesity (BMI 30-39.9) Seasonal allergies Supervision of high-risk Supervision of high-risk Elevated AST (SGOT) [id number] Anxiety and depression Cigarette smoker 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) Marijuana use Obesity (BMI 30-39.9) Seasonal allergies Supervision of high-risk Elevated AST (SGOT) [id number] Anemia affecting Anxiety and depression Cigarette smoker 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 Obesity (BMI 30-39.9) Supervision of high-risk [id number] Anemia affecting Anxiety and depression Cigarette smoker 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 Obesity (BMI 30-39.9) Supervision of high-risk [id number] Anemia affecting Anxiety and depression Cigarette smoker 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) Marijuana use Obesity (BMI 30-39.9) Seasonal allergies Supervision of high-risk Chief Complaint Admit Date New OB May 28, 2024 2:1 4pm Reason for Referral Specialty Diagnoses / Procedures Referred By Contac t Referred To Contact Radiology Diagnoses Screening, , for malformation by ultrasound 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 care, single or unspecified fetus Procedures MRI (single) Dez Olmstead MD [address] [facility] [address] [place] [address] Referral ID Status Reason Start Date Expiration Date Visits Re quested Visits Authorized [id number] Closed 03/28/2023 03/27/2024 1 1 Additional Source Comments INFORMATION SOURCE (unrecogn ized section and content) DATE CREATED AUTHOR 02/10/2021 [facility] DATE CREATED AUTHOR AUTHOR'S ORGANIZ ATION 02/10/2021 [facility] DATE CREATED AUTHOR AUTHOR'S ORGANIZ ATION 02/07/2023 [facility] DATE CREATED AUTHOR AUTHOR'S ORGANIZ ATION 08/04/2024 [facility] DATE CREATED AUTHOR AUTHOR'S ORGANIZ ATION 08/08/2024 [facility] Source Comments (unrecognize d section and content) In the event this informatio n is protected by the Federal Confidentiality of Alcohol and Drug Abuse Patient Records regulations: The Federal rules restrict any use of the information to criminally investigate or prosecute any alcohol or drug abuse patient.[facility] the event this information is protected by the Federal Confidentiality of Alcohol and Drug Abuse Patient Records regulations: The Federal rules restrict any use of the information to criminally investigate or prosecute any alcohol or drug abuse patient.[facility] the event this information is protected by the Federal Confidentiality of Alcohol and Drug Abuse Patient Records regulations: The Federal rules restrict any use of the information to criminally investigate or prosecute any alcohol or drug abuse patient.[facility] Reason for Visit (unrecogniz ed section and content) Reason Comments Patient Question Reason Comments Care Reason Comments Care Specialty Diagnoses / Procedures Referred By Contac t Referred To Contact Radiology Diagnoses Screening, , for malformation by ultrasound 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 Christy Lao MD Family Provider Active Dr. Christy Lao MD Primary Care Provider Active Team Status: Inactive Member Role Status Dates Dr. Christy Lao MD Primary Care Provider Active Dr. Nallely Barksdale MD Attending Provider, Referr ing Provider Active Team Status: Inactive Member Role Status Dates Dr. Christy Lao MD Primary Care Provider Active Dr. Jarad Hilton MD Emergency Provider Active Team Status: Inactive Member Role Status Dates Dr. Christy Lao MD Primary Care Provider, Referrin g Provider Active Darling Tabor CNM Attending Provider Active Team Status: Inactive Member Role Status Dates Dr. Christy Lao MD Primary Care Provider Active Dr. Jarad Hilton MD Attending Provider, Emergency Provi bob Active Team Status: Inactive Member Role Status Dates Dr. Christy Lao MD Primary Care Provider Active Darling Tabor CNM Attending Provider, Referring Pr ovider Active Florist Manager Relationship Specialty Start Date End Date No Primary [place] [address] PCP - General Pediatrics 03/28/23 Florist Manager Relationship Specialty Start Date End Date [place] [address] PCP - General Pediatrics 03/28/23 Team Status: Active Member Role Status Dates Dr. Christy Lao MD Family Provider Active No Primary Care Physician Primary Care Provider Active Team Status: Inactive Member Role Status Dates Dr. Christy Lao MD Primary Care Provider, Referrin g Provider Active Coby Klein SPECIAL EDUCATION TEACHER, SPECIAL EDUCATION TEACHER-C Attending Provider Active Team Status: Inactive Member Role Status Dates Dr. Christy Lao MD Primary Care Provider, Referrin g Provider Active Simi Lara CNM Attending Provider Active Team Status: Inactive Member Role Status Dates No Primary Care Physician Primary Care Provider Active Darling Tabor CNM Attending Provider, Referring Pr ovider Active Team Status: Inactive Member Role Status Dates Dr. Christy Lao MD Referring Provider Active Dr. Amira Underwood , DO Attending Provider Activ e No Primary Care Physician Primary Care Provider Active Team Status: Active Member Role Status Dates No Primary Care Physician Primary Care Provider Active Darling Tabor CNM Attending Provider , Referring Provider, Other Provider Active Team Status: Inactive Member Role Status Dates No Primary Care Physician Primary Care Provider, Refer ring Provider Active Coby Klein SPECIAL EDUCATION TEACHER, SPECIAL EDUCATION TEACHER-C Attending Provider Active Team Status: Inactive Member Role Status Dates No Primary Care Physician Primary Care Provider, Refer ring Provider Active Pablito SANCHEZ PA Attending Provider Active Team Status: Inactive Member Role Status Dates No Primary Care Physician Primary Care Provider, Refer ring Provider Active Dr. Amira Underwood , DO Attending Provider Activ e Team Status: Inactive Member Role Status Dates No Primary Care Physician Primary Care Provider Active Coby Klein SPECIAL EDUCATION TEACHER, SPECIAL EDUCATION TEACHER-C Attending Provider, Referring Provider Active Team Status: Active Member Role Status Dates No Primary Care Physician Primary Care Provider Active Pablito Grossman PA PA Attending Provider, Referring Provi bob Active Team Status: Active Member Role Status Dates No Primary Care Physician Primary Care Provider Active Team Status: Inactive Member Role Status Dates No Primary Care Physician Primary Care Provider Active Start: May 28, 2024 End: May 28, 2024 No Primary Care Physician Referring Provider Active Start: May 28, 2024 End: May 28, 2024 Simi Lara CNM Attending Provider Active S tart: May 28, 2024 End: May 28, 2024 Team Status: Inactive Member Role Status Dates No Primary Care Physician Primary Care Provider Active Start: May 28, 2024 End: May 28, 2024 Simi Lara CNM Attending Provider Active S tart: May 28, 2024 End: May 28, 2024 Simi Lara CNM Referring Provider Active S tart: May 28, 2024 End: May 28, 2024 Team Status: Inactive Member Role Status Dates No Primary Care Physician Primary Care Provider Active Start: June 29, 2024 End: June 29, 2024 Dr. Vaughn Tan , DO Emergency Provider Activ e Start: June 29, 2024 End: June 29, 2024 Goals (unrecognized section and content) Goals may be documented in a n alternate sectionGoals may be documented in an alternate sectionGoals may be documented in an alternate sectionGoals may be documented in an alternate sectionGoals may be documented in an alternate sectionGoals may be documented in an alternate sectionGoals may be documented in an alternate sectionGoals may be documented in an alternate section FOR RECORDS PERTAINING TO PATIENTS WHO ARE [...] BE BASED ON THE PRIMARY CLINICAL RECORDS. [facility] [employer] provides no warranty or guarantee of the accuracy or completeness of information in this document.
== END | disposition home or self-care (01) ==
LOC: LABSPEC 15:39
PROVIDERS: Referring Provider Obstetrics & Gynecology; Visit Provider Obstetrics & Gynecology
DX: R30.0 Dysuria (principal)
CPT/HCPCS: 87086; 87088

== ENCOUNTER → 2024-09-04 | Outpatient (CLI) | payer MEDICAID, SELFPAY ==
[2024-09-04 12:57] LABS: Hematocrit 37.5 % (37-47); Hemoglobin 12.3 g/dL (12.0-15.0); Immature Granulocytes Count 0.080 X10^3/uL (0.0-0.0); Mean Corp Hgb Conc 32.8 g/dL (32-36); Mean Corpuscular Volume 83.7 fL (81-99); Mean Platelet Vol. 8.7 fl (6.2-12.0); NRBC Flagged by Analyzer 0 % (0-5); Platelet Count 227 K/mm3 (150-450); RBC Distribution Width CV 13.9 % (11.6-14.6); RBC Distribution Width SD 42.6 fl (35.1-43.9); Red Blood Count 4.48 M/mm3 (4.2-5.4); White Blood Count 10.6 K/mm3 (4.4-11.0)
[2024-09-04 14:09] LABS: Glucose Challenge Gest 1H 50g 93 mg/dL (70-140); HIV Nonreactive (Nonreactive); Syphilis Antibodies Nonreactive (Nonreactive)
== END | disposition home or self-care (01) ==
LOC: LAB 12:21
PROVIDERS: Referring Provider Obstetrics & Gynecology; Visit Provider Obstetrics & Gynecology
DX: O09.90 Supervision of high risk pregnancy, unspecified, unspecified trimester (principal); Z13.1 Encounter for screening for diabetes mellitus; Z3A.00 Weeks of gestation of pregnancy not specified
CPT/HCPCS: 36415; 82950; 85025; 86703; 86780

== ENCOUNTER → 2024-09-25 | Outpatient (CLI) | payer MEDICAID, SELFPAY ==
[2024-09-25 17:38] LABS: Barbiturate Urine NEGATIVE (< 200 ng/mL); Benzodiazepine Urine NEGATIVE (< 200 ng/mL); PCP Urine NEGATIVE (< 25 ng/mL); THC Urine PRESUMPTIVE POSITIVE (< 50 ng/mL)
--- OUTSIDE RECORDS SUMMARY | 2024-09-25 21:28 | XMS RPT_ITS | CCD ---
Author Organization [facility] Care Team Providers Care Coloring Checker Name Role Phone MELISSA BELL COUNTER HOP Primary Care Unavailable MELISSA BELL COUNTER HOP Attending Unavailable MELISSA BELL COUNTER HOP Admitting Unavailable ROBBY SOFIA CNP Consulting Unavailable PROVIDER, UNKNOWN Consulting Unavailable PROVIDER, UNKNOWN Consulting Unavailable CHRISTY LAO Consulting Unavailable CHRISTY LAO Attending Unavailable CHRISTY LAO Admitting Unavailable CHRISTY LAO Primary Care Unavailable PROVIDER, UNKNOWN Consulting Unavailable PROVIDER, UNKNOWN Consulting Unavailable AMANUEL, DR DOUGIE Moseley Attending Unavaila ble AMANUEL, DR DOUGIE Moseley Admitting Unavaila ble AMANUEL, DR DOUGIE Moseley Primary Care Unavaila ROBBY Hernandez CNP Consulting Unavailable PROVIDER, UNKNOWN Consulting Unavailable [...] Consulting Unavailable CHRISTY LAO Consulting Unavailable OTONIEL BONE MD Primary Care Unavailable OTONIEL BONE MD Attending Unavailable OTONIEL BONE MD Admitting Unavailable PROVIDER, UNKNOWN Consulting Unavailable PROVIDER, UNKNOWN Consulting Unavailable EDUARDO GONZALEZ Primary Care Unavailable EDUARDO GONZALEZ Attending Unavailable ROBBY SOFIA CNP Consulting Unavailable EDUARDO GONZALEZ Admitting Unavailable PROVIDER, UNKNOWN Consulting Unavailable PROVIDER, UNKNOWN Consulting Unavailable Unavailable Primary Care Provider UnavailDr. Christy Ojeda Primary Care Provider [phone] Dr. Christy Lao Referring Provider ELA Tabor Attending Provider No customer service advocate, Primary Care Provider Tonya vailable Latoya COUNTER HOP, COUNTER HOP-C Coby Attending Provider ELA Lara Attending Provider [phone] Dr. Christy Lao Primary Care Provider [phone] Dr. Christy Lao Referring Provider ELA Tabor Attending Provider Latoya COUNTER HOP, COUNTER HOP-C Coby Attending Provider [phone] ELA Lara Attending Provider Care Physician, No Primary Primary Care Provider Unavailable ELA Tabor Referring Provider ELA Tabor Other Provider Dr. Amira Underwood Attending Provider [phone] Dr. Christy Lao Primary Care Provider [phone] Dr. Christy Lao Referring Provider ELA Tabor Attending Provider Care Physician, No Primary Referring Provider Un available LAURA Alejandra Attending Provider Care Physician, No Primary Primary Care Provider Unavailable Care Physician, No Primary Referring Provider Un available Simi Lara CNM Attending Provider [phone] Simi Lara CNM Referring Provider [phone] Dr. Vaughn Tan DO Emergency Provider Dr. Vaughn Tan DO Attending Provider Dr. Amira Underwood DO Attending Provider Shamir BECKER, Dr. Browning Attending Provider Dr. Nallely Barksdale MD Referring Provider Latoya COUNTER HOP-CCoby Attending Provider SIMI LARA S Referring Unavailable DOC, MISC Primary Care Unavailable CHUCK COOLEY Attending Unavailable SIMI LARA Referring Unavailable [place] [facility] [place] Unavailable OMAR DARBY Attending Unavailable MESERET, [facility] Primary Care Unavailable DOUGLAS JIMENEZ Attending Unavailable SIMI LARA Referring Unavailable Care Physician, No Primary Referring Unava ilable Amira Underwood Attending Unavailabl e Care Physician, No Primary Primary Care Unava ilable Care Physician, No Primary Referring Unava ilable Care Physician, No Primary Primary Care Unava ilable Simi Lara Attending Unavailable Care Physician, No Primary Primary Care Unava ilable Care Physician, No Primary Referring Unava ilable Latoya COUNTER HOP, Coby Attending Unavailable Care Physician, No Primary Primary Care Unava ilable Care Physician, No Primary Referring Unava ilable Nallely Barksdale Attending Unavailable Care Physician, No Primary Referring Unava ilable Marcanthnkechi, Nallely Attending Unavailable Care Physician, No Primary Primary Care Unava ilable Care Physician, No Primary Referring Unava ilable Care Physician, No Primary Primary Care Unava ilable Simi Lara Attending Unavailable MarcNallely charlton Attending Unavailable Care Physician, No Primary Primary Care Unava ilable Marcanthony, Nallely Referring Unavailable Vaughn Tan Attending Unavailabl e Care Physician, No Primary Primary Care Unava ilable Care Physician, No Primary Primary Care Unava ilable Simi Lara Referring Unavailable Simi Lara Attending Unavailable Care Physician, No Primary Primary Care Unava ilable Marcamilcarony, Nallely Referring Unavailable Shamir, Nallely Attending Unavailable Allergies Allergy Classification Reported Allergen(s) Allergy Type Date of Onset Reaction(s) Facility (1 source) Amoxicillin Drug Allergy [facility] (1 source) Penicillins Drug allergy (disorder) [facility] (16 sources) Penicillins; Translations: [PENICILLINS] Allergy to substance 0 Hives, Itching, Rash [facility] (2 sources) Penicillins Drug Allergy 3 Rash [facility] (1 source) Penicillins Drug allergy (disorder) 5 [facility] Medications Current Medications Medication Drug Class(es) Dates Sig (Normalized) Sig (Original) cephalexin 500 mg oral capsule (6 sources) Cephalosporin Antibacterial Start: 06-29-2024 take 1 capsule by mouth every six hours Cephalexin 500 mg capsule Active 500 mg PO EVERY 6 HOURS 28 7 0 June 29, 2024 12:00am famotidine 20 mg oral tablet (12 sources) Histamine-2 Receptor Antagonist Start: 09-04-2024 End: 09-25-2024 take 1 tablet by mouth twice daily Famotidine 20 mg tablet Active 20 mg PO TWICE A DAY 60 3 September 25, 2024 2:10pm Start: 07-05-2023 End: 09-20-2023 take 1 tablet by mouth twice daily Famotidine (Pepcid) 20 mg tablet Discontinued 20 mg PO TWICE A DAY 60 5 July 05, 2023 12:00am September 20, 2023 11:01am reflux ferrous sulfate 325 mg oral tablet (14 sources) Start: 06-29-2024 take 1 tablet by [...] 30, 2023 12:00am September 20, 2023 11:01am anemai Mv-Mn 870-Rw-Zi5-Dha-Epa-Fis h 180 mcg-35 mg- 25 mg-5 mg tablet,chewable (5 sources) Start: 05-22-2024 Mv-Mn 110-Fa-O x5-Bsk-Yfm-Fish 180 mcg-35 mg- 25 mg-5 mg tablet,chewable Active 1 {tbl} PO DAILY May 22, 2024 12:00am Pnv #77-Vinh-Sj-Dha (5 sources) Start: 01-02-2023 Pnv #59-Iron-F a-Dha Active 1 EACH PO DAILY January 01, 2023 11:00pm Start: 01-02-2023 Pnv #59-Iron-F a-Dha Active 1 EACH PO DAILY January 02, 2023 12:00am Pnv No.995-Gu-Aq4-Dha-Epa-Fi sh 180 mcg-35 mg- 25 mg-5 mg tablet,chewable (2 sources) Start: 05-22-2024 Pnv No.032-Ke-Bh3-Dha-Epa-Fi sh 180 mcg-35 mg- 25 mg-5 mg tablet,chewable Active 1 {tbl} PO DAILY May 22, 2024 12:00am Start: 05-22-2024 Pnv No.178-Fa- Th4-Mje-Nrc-Fish 180 mcg-35 mg- 25 mg-5 mg tablet,chewable Active {tbl} PO May 22, 2024 12:00am Klx-VoBlwp-PW-DHA (SELECT-OB+DHA) 29-1 & 250 MG MISC (1 source) take 1 tablet by mouth once daily Tdh-OtCffu-PY-DHA (SELECT-OB+DHA) 29-1 & 250 MG MISC Take 1 Tablet by mouth daily 0 Active Completed/Discontinued Medications Medication Drug Class(es) Dates Sig (Normalized) Sig (Original) aspirin 81 mg oral tablet (11 sources) Platelet Aggregation Inhibitor, Nonsteroidal Anti-inflammatory Drug Start: 05-06-2023 End: 09-20-2023 take 1 capsule by mouth once daily Aspirin 81 mg capsule Discontinued 81 mg PO DAILY May 06, 2023 1:00am September 20, 2023 11:01am take 1 tablet by mouth once regino y aspirin EC (ECOTRIN LOW STRENGTH) 81 MG EC tablet Take 1 Tablet (81 mg) by mouth daily 0 Active nitrofurantoin, macrocrystals 25 mg / nitrofurantoin, monohydrate 75 mg oral capsule (7 sources) Nitrofuran Antibacterial Start: 07-19-2023 End: 08-08-2023 take 1 capsule by mouth every twelve hours at mealtime Nitrofurantoin Monohyd/M-Cryst (Macrobid) 100 mg capsule Discontinued 100 mg PO Q12H 14 7 0 July 19, 2023 12:00am August 08, 2023 9:23am must administer with a meal/food ondansetron 4 mg disintegrating oral tablet (14 sources) Serotonin-3 Receptor Antagonist Start: 01-02-2023 End: 09-20-2023 take 1 tablet by mouth every eight hours as needed for nausea Ondansetron 4 mg tablet,disintegrati ng Discontinued 4 mg PO EVERY 8 HOURS NEEDED as needed for Nausea 10 0 January 02, 2023 12:00am September 20, 2023 11:01am Comment on above: Take 1 tablet by zeina every 8 hours as needed for nausea/vomiting. Pnv #26-Tjes-Zo-Dha 28-975-200 mg-mcg-mg powder effervescent in packet (7 sources) Start: 01-02-2023 End: 09-20-2023 Pnv #37-Mquy-Sd-Dha 28-975-200 mg-mcg-mg powder effervescent in packet Discontinued 1 NMA PO DAILY January 02, 2023 12:00am September 20, 2023 11:01am Start: 01-02-2023 End: 09-20-2023 Pnv #54-Zljn-Gt-Dha 28-975-2 00 mg-mcg-mg powder effervescent in packet Discontinued 1 NMA PO DAILY January 02, 2023 12:00am September 20, 2023 11:01am vit 16-psqc-opblg-d pinto (SELECT-OB+DHA) 29 mg iron-1 mg -250 mg (2 sources) vit 33- tlgc-whhgu-ntg (SELECT-OB+DHA) 29 mg iron-1 mg -250 mg [...] Comment on above: counseling encourage d. Stable Contraceptive and procreative management (4 sources) Patient encounter status; Translations: [Encounter for contraceptive management, unspecified] 09-04-2024 Episodic Comment on above: IUD 8wk pp Essential hypertension (11 sources) Hypertensive disorder; Translations: [Essential (primary) hypertension] 06-29-2024 Chronic Genitourinary symptoms and ill-defined conditions (1 source) Dysuria; Translations: [Dysuria] Onset: 08-17-2024 Episodic Hemorrhage during ; abruptio placenta; placenta previa (4 sources) Antepartum hemorrhage; Translations: [Hemorrhage in early , unspecified] Onset: 01-19-2023 12-24-2022 Episodic Mood disorders (1 source) Depressive disorder; Translations: [Depression] Onset: 04-11-2023 04-11-2023 Chronic Mood disorders (1 source) Mood disorders; Translations: [Depression, unspecified] Onset: 08-09-2024 Nausea and vomiting (1 source) Nausea with vomiting, unspecified; Translations: [Nausea with vomiting, unspecified] Onset: 07-04-2024 Episodic Nervous system congenital anomalies (2 sources) Agenesis of corpus callosum; 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 no operative vaginal delivery recommended per MFM. follow up q 4 weeks at [facility]. echo and sees neurology 05/31:reassuring visit. Fluid in brain low and stable. Sees [facility] Q4 wk and is considering c section Other complications of (20 sources) Maternal obesity complicating , childbirth and the puerperium, antepartum; Translations: [Obesity complicating , unspecified trimester] Onset: 01-19-2023 01-19-2023 Chronic Comment on above: HgbA1c ShaI0w-GUSh at 34 we eks Other complications of (9 sources) Anemia of ; Translations: [Anemia complicating [...] Translations: [Obesity complicating , unspecified trimester] Onset: 08-09-2024 Chronic Other complications of (12 sources) Hyperemesis gravidarum; Translations: [Mild hyperemesis gravidarum] 01-02-2023 Episodic Other complications of (14 sources) Nausea and vomiting; Translations: [Vomiting of , unspecified] Onset: 01-19-2023 01-19-2023 Episodic Other complications of (3 sources) Maternal tobacco use; Translations: [Smoking (tobacco) complicating , unspecified trimester] Onset: 01-19-2023 01-19-2023 Episodic Other complications of (20 sources) High risk ; Translations: [Supervision of high risk , unspecified, unspecified trimester] 01-19-2023 Episodic Comment on above: PRR, , JORJE 12/05, Azam Barth Oaklynn, Fiance Kyler MDOM2T3, JORJE 08/13/23, girl Azam Goldstein Other complications of (19 sources) Supervision of high risk , unspecified, unspecified trimester; Translations: [Supervision of unspecified high-risk ] Onset: 09-10-2024 01-26-2023 Episodic Other complications of (7 sources) Urinary tract infection in ; Translations: [Unspecified infection of urinary tract in , unspecified trimester] 05-18-2024 Episodic Comment on above: repeat culture neg Other infections; including parasitic (1 source) Personal history of other infectious and parasitic diseases; Translations: [History of COVID-19] Onset: 04-11-2023 04-11-2023 Episodic Other liver diseases (14 sources) Aspartate aminotransferase serum level raised; Translations: [High aspartate aminotransferase level] 05-06-2023 Episodic Comment on above: repeat-normal. AST 4 2, likely viral Other nutritional; endocrine; and metabolic disorders (11 sources) Body mass index 30+ - obesity; Translations: [Obesity, unspecified] 01-26-2023 Chronic Comment on above: hbga1c, enc healthy weight gain. Other nutritional; endocrine; and metabolic disorders (16 sources) Obesity, unspecified; Translations: [Obesity, unspecified] 01-26-2023 Chronic Other nutritional; endocrine; and metabolic disorders (1 source) Obesity; Translations: [Obesity, unspecified] Onset: 04-11-2023 04-11-2023 Chronic Other nutritional; endocrine; and metabolic disorders (3 sources) H/O: hypothyroidism; Translations: [Personal history of other endocrine, nutritional and metabolic disease] Onset: 01-19-2023 01-19-2023 Episodic Other and delivery including normal (20 sources) First trimester ; Translations: [Encounter for supervision of normal , unspecified, first trimester] 01-02-2023 Episodic Comment on above: LC 40weeks IOL at 39.6 styles/p it elects NIPT with gen bob GBS Negative, NIPT l ow risk, declines carrier testing, obtaining. low risk,nl 1 hr GCT NIPT low risk NIPT low risk, nl an atomy-more views in 2 weeks Other skin disorders (1 source) Generalized hyperhidrosis; Translations: [Generalized hyperhidrosis] Onset: 02-03-2021 Episodic Other upper respiratory disease (11 sources) Seasonal allergy; Translations: [Other seasonal allergic rhinitis] 01-21-2023 Chronic Other upper respiratory disease (11 sources) Other seasonal allergic rhinitis; Translations: [Allergic rhinitis, cause unspecified] 01-26-2023 Chronic Other upper respiratory infections (1 [...] 04-11-2023 Episodic Residual codes; unclassified (1 source) 23 weeks gestation of ; Translations: [23 weeks gestation of ] Onset: 08-09-2024 Episodic Residual codes; unclassified (1 source) 18 weeks gestation of ; Translations: [18 weeks gestation of ] Onset: 05-06-2025 Episodic Substance-related disorders (20 sources) Cigarette smoker ; Translations: [Nicotine dependence, cigarettes, uncomplicated] Onset: 08-09-2024 01-21-2023 Chronic Comment on above: counseling provided, [...] on NOB. not currently on thyroid medications. Umbilical cord complication (15 sources) Velamentous insertion of umbilical cord; Translations: [Velamentous insertion of umbilical cord, unspecified trimester] Onset: 08-09-2024 08-09-2024 Episodic Comment on above: growth at 28+ 32+36 weeks. weekly NSTs at 34 growth at 28+ 32+36 weeks. weekly NSTs at 34MFM US 7/7: growth at 28+ 32+36 weeks. weekly BPP at 34wMFM US 7/: Viral infection (20 sources) Disease caused by 2019-nCoV; Translations: [COVID-19] 03-09-2023 Episodic Comment on above: asa 81 mg daily Past or Other Problems Problem Classification Problem Date Documented Da te Episodic/Chronic Other lower respiratory disease (3 sources) Cough; Translations: [Cough] Onset: 11-06-2020 Episodic Other screening for suspected conditions (not mental disorders or infectious disease) (4 sources) Encounter for screening for lipoid disorders; Translations: [Patient encounter status] Onset: 02-03-2021 01-19-2023 Episodic Residual codes; unclassified (1 source) 28 weeks gestation of ; Translations: [28 weeks gestation of ] Onset: 03-28-2020 Episodic Residual codes; unclassified (1 source) 12 weeks gestation of ; Translations: [12 weeks gestation of ] Onset: 05-28-2024 Episodic Results Test Name Value Interpretation Reference Range Facility Absolute lymphocyte countOrd ered By: Nallely Barksdale on 09-04-2024 Lymphocytes Auto (Unsp spec) [#/Vol] 2.00 10*3/uL 0.83-4.51 [facility] Absolute neutrophil countOrd ered By: Nallely Barksdale on 09-04-2024 Neutrophils (Bld) [#/Vol] 7.8 10*3/uL High 2.0-7.7 [facility] Automated lymphocyte count a s percentage of total leukocytesOrdered By: Nallely Barksdale on 09-04-2024 Lymphocytes/100 WBC Auto (Unsp spec) 18.9 % Low 19-41 [facility] Basophil percentageOrdered B y: Nallely Barksdale on 09-04-2024 Basophils/100 WBC (Bld) 0.4 % 0-1 [facility] CBC W/Diff, Automatedon Absolute Lymph 2.00 X10 3/uL Normal 0.83-4.51 [facility] Comment on above: Performed By: #### L 509.8002, L3890.6006, L501.0250, L100.0100 ####[facility] [address] [place], [address] Absolute Neut 7.8 X10 3/uL High 2.0-7.7 [facility] Comment on above: Performed By: #### L 509.8002, L3890.6006, L501.0250, L100.0100 ####[facility] [address] [place], [address] Basophils/100 WBC (Bld) 0.4 % Normal 0-1 [facility] Comment on above: Performed By: #### L 509.8002, L3890.6006, L501.0250, L100.0100 ####[facility] [address] [place], [address] Eosinophils/100 WBC (Bld) 0.9 % Normal 0-5 [facility] Comment on above: Performed By: #### L 509.8002, L3890.6006, L501.0250, L100.0100 ####[facility] [address] [place], [address] Erythrocyte distribution width (RBC) [Ratio] 13.9 % Normal 11.6-14.6 [facility] Comment on above: Performed By: #### L 509.8002, L3890.6006, L501.0250, L100.0100 ####[facility] [address] [place], [address] Hematocrit (Bld) [Volume fraction] 37.5 % Normal 37-47 [facility] Comment on above: Performed By: #### L 509.8002, L3890.6006, L501.0250, L100.0100 ####[facility] [address] [place], [address] Hemoglobin (Bld) [Mass/Vol] 12.3 g/dL Normal 12.0-15.0 [facility] Comment on above: Performed By: #### L 509.8002, L3890.6006, L501.0250, L100.0100 ####[facility] [address] [place], [address] IG% 0.800 Normal 0.0-0.9 [facility] Comment on above: Result Comment: IG% - Immature Granulocytes (promyelocytes, myelocytes and metamyelocytes) > 1% indicates that a LEFT SHIFT is Present. Performed By: #### L 509.8002, L3890.6006, L501.0250, L100.0100 ####[facility] [address] [place], [address] Lymphocytes/100 WBC (Bld) 18.9 % Low 19-41 [facility] Comment on above: Performed By: #### L 509.8002, L3890.6006, L501.0250, L100.0100 ####[facility] [address] [place], [address] MCH (RBC) [Entitic mass] 27.5 pg Normal 27.0-32.0 [facility] Comment on above: Performed By: #### L 509.8002, L3890.6006, L501.0250, L100.0100 ####[facility] [address] [place], [address] MCHC (RBC) [Mass/Vol] 32.8 g/dL Normal 32-36 [facility] Comment on above: Performed By: #### L 509.8002, L3890.6006, L501.0250, L100.0100 ####[facility] [address] [place], [address] MCV (RBC) [Entitic vol] 83.7 fL Normal 81-99 [facility] Comment on above: Performed By: #### L 509.8002, L3890.6006, L501.0250, L100.0100 ####[facility] [address] [place], [address] Monocytes/100 WBC (Bld) 5.1 % Normal 0-10 [facility] Comment on above: Performed By: #### L 509.8002, L3890.6006, L501.0250, L100.0100 ####[facility] [address] [place], [address] Neutrophils/100 WBC (Bld) 73.9 % High 47-70 [facility] Comment on above: Performed By: #### L 509.8002, L3890.6006, L501.0250, L100.0100 ####[facility] [address] [place], [address] Nucleated RBC (Bld) [#/Vol] 0 10*3/uL Normal 0-5 [facility] Comment on above: Performed By: #### L 509.8002, L3890.6006, L501.0250, L100.0100 ####[facility] [address] [place], [address] Platelet mean volume (Bld) [Entitic vol] 8.7 fL Normal 6.2-12.0 [facility] Comment on above: Performed By: #### L 509.8002, L3890.6006, L501.0250, L100.0100 ####[facility] [address] [place], [address] Platelets (Bld) [#/Vol] 227 10*3/uL Normal 150-450 [facility] Comment on above: Performed By: #### L 509.8002, L3890.6006, L501.0250, L100.0100 ####[facility] [address] [place], [address] RBC (Bld) [#/Vol] 4.48 10*6/uL Normal 4.2-5.[address] [facility] Comment on above: Performed By: #### L 509.8002, L3890.6006, L501.0250, L100.0100 ####[facility] [address] [place], [address] RDW SD 42.6 fl Normal 35.1-43.9 [facility] Comment on above: Performed By: #### L 509.8002, L3890.6006, L501.0250, L100.0100 ####[facility] [address] [place], [address] WBC (Bld) [#/Vol] 10.6 10*3/uL Normal 4.4-11.[address] [facility] Comment on above: Performed By: #### L 509.8002, L3890.6006, L501.0250, L100.0100 ####[facility] [address] [place], [address] Eosinophil percentageOrdered By: Nallely Barksdale on 09-04-2024 Eosinophils/100 WBC (Bld) 0.9 % 0-5 [facility] Erythrocyte distribution wid th ratioOrdered By: Nallely Barksdale on 09-04-2024 Erythrocyte distribution width (RBC) [Ratio] 13.9 % 11.6-14.6 [facility] Erythrocyte distribution wid th standard deviationOrdered By: Nallely Barksdale on 09-04-2024 Erythrocyte distribution width (RBC) [Ratio] 42.6 fl 35.1-43.9 [facility] Glucose Challenge Gest 1H 50 vernon 09-04-2024 GLU GEST 50g 1H 93 mg/dL Normal 70-140 [facility] Comment on above: Performed By: #### L 509.8002, L3890.6006, L501.0250, L100.0100 ####[facility] [address] [place], [address] Glucose measurement at 2 leann rs post-dose gestational glucose tolerance testOrdered By: Nallely Barksdale on 09-04-2024 Glucose [Mass/Vol] 93 mg/dL 70-140 [facility] HIVon 09-04-2024 HIV Non-Reactive Normal Nonreactive [facility] Comment on above: Result Comment: Non- Reactive Reactive Repeatedly reactive samples must be confirmed according to CDC recommended confirmatory algorithms. The subresults for either HIVAG or AHIV can be used as an aid in the selection of the confirmation algorithm for reactive samples. Send out specimens with Reactive results to [facility] for confirmation. Order the HIV antibody detection and differentiation: #[id number] Performed By: #### L 509.8002, L3890.6006, L501.0250, L100.0100 ####[facility] [address] [place], [address] Hematocrit Auto (Bld) [Volum e fraction]Ordered By: Nallely Barksdale on 09-04-2024 Hematocrit (Bld) [Volume fraction] 37.5 % 37-47 [facility] Hemoglobin measurementOrdere d By: Nallely Barksdale on 09-04-2024 Hemoglobin (Bld) [Mass/Vol] 12.3 g/dL 12.0-15.0 [facility] Immature granulocytes/100 WB C Auto (Bld)Ordered By: Nallely Barksdale on 09-04-2024 Immature granulocytes/100 WBC (Bld) 0.800 % 0.0-0.9 [facility] Comment on above: IG% - Immature Granu locytes (promyelocytes, myelocytes and metamyelocytes) > 1% indicates that a LEFT SHIFT is Present. MCV (mean corpuscular volume ) determinationOrdered By: Nallely Barksdale on 09-04-2024 MCV (RBC) [Entitic vol] 83.7 fL 81-99 [facility] Mean corpuscular hemoglobin (MCH) determinationOrdered By: Nallely Barksdale on 09-04-2024 MCH (RBC) [Entitic mass] 27.5 pg 27.0-32.0 [facility] Mean corpuscular hemoglobin concentration (MCHC) determinationOrdered By: Nallely Barksdale on 09-04-2024 MCHC (RBC) [Mass/Vol] 32.8 g/dL 32-36 [facility] Mean platelet volume determi nationOrdered By: Nallely Barksdale on 09-04-2024 Platelet mean volume (Bld) [Entitic vol] 8.7 fL 6.2-12.0 [facility] Monocyte percentageOrdered B y: Nallely Barksdale on 09-04-2024 Monocytes/100 WBC (Bld) 5.1 % 0-10 [facility] Neutrophil percentageOrdered By: Nallely Barksdale on 09-04-2024 Neutrophils/100 WBC (Bld) 73.9 % High 47-70 [facility] No Panel InformationOrdered By: Nallely Barksdale on 09-04-2024 HIV (1&2) Antibody Non-Reactive Nonreactive [facility] Comment on above: Non-ReactiveReactive Repeatedly reactive samples must be confirmed according to CDC recommended confirmatory algorithms. The subresults for either HIVAG or AHIV can be used as an aid in the selection of the confirmation algorithm for reactive samples.Send out specimens with Reactive results to [facility] for confirmation.Order the HIV antibody detection and differentiation: #[id number] Nucleated red blood cell per centageOrdered By: Nallely Barksdale on 09-04-2024 Nucleated RBC/100 WBC (Bld) [Ratio] 0 % 0-5 [facility] Retirement Sales Consultant Office Visit Reporton 09-04-2024 Retirement Sales Consultant Office Visit Report [facility] [address], [address] [place] [address] OFFICE VISIT Date of Service: 09/04/24 MR#: [id number] Acct: [id number] Name: RANJAN TAN Rep #: [id number] : 2000 Provider: CHRISTOPHER garnica Age/Sex: 24/F Location: [facility] Status: Signed Intake Vital Signs 06/29/24 13:55 08/09/24 14:43 09/04/24 12:57 Height 5 ft 4 in 5 ft 4 in 5 ft 4 in Weight: 270 lb 2 oz BMI 46.3 BP 116/78 Intake Visit Reasons: 27 wk ob/glucose Chief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 - Urinalysison Protein Ql (U) Negative [facility] MR Fetalon 04-06-2023 IMPRESSION: The study is significantly limited by motion. 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 No other obvious EMISSION SPECIALIST abnormality is identified This report has been created using voice recognition software [facility] RADIOLOGY MRI (SINGLE) CLINICAL HISTORY: agnesis of [...] are unremarkable. Visible maternal spine is unremarkable. [facility] Fidencio Cuevas MD - 04/06/2023 MRI (SINGLE) CLINICAL HISTORY: [...] configuration of the ventricles. No other obvious EMISSION SPECIALIST abnormality is identified This report has been created using voice recognition software [facility] Radiology Study observation (narrative) [facility] MR FetalOrdered By: Fidencio Coley on 04-06-2023 [facility] Work Phone: Laboratory - Chemistry and C hemistry - challengeon 03-23-2023 Glucose Ql (U) Negative [facility] Laboratory - Urinalysison Protein Ql (U) Negative [facility] Laboratory - Chemistry and C hemistry - challengeon 02-21-2023 Glucose Ql (U) Negative [facility] Laboratory - Urinalysison Protein Ql (U) Negative [facility] Absolute lymphocyte countOrd ered By: Darling Tabor on 02-08-2023 Lymphocytes Auto (Unsp spec) [#/Vol] 2.86 10*3/uL 0.83-4.51 [facility] Basophil percentageOrdered B y: Darling Tabor on 02-08-2023 Basophils/100 WBC (Bld) 0.8 % 0-1 [facility] Eosinophils/100 WBC (Bld) 3.3 % 0-5 [facility] Neutrophils (Bld) [#/Vol] 5.9 10*3/uL 2.0-7.7 [facility] Neutrophils/100 WBC (Bld) 59.6 % 47-70 [facility] WBC (Bld) [#/Vol] 9.8 10*3/uL 4.4-11.0 [facility] Blood erythrocytes count (nu mber/volume)Ordered By: Darling Tabor on 02-08-2023 RBC (Bld) [#/Vol] 4.38 10*6/uL 4.2-5.[address] [facility] Blood hemoglobin measurement (mass/volume)Ordered By: Darling Tabor on 02-08-2023 Hemoglobin (Bld) [Mass/Vol] 12.2 g/dL 12.0-15.0 [facility] Blood lymphocytes/100 leukoc ytesOrdered By: Darling Tabor on 02-08-2023 Lymphocytes/100 WBC (Bld) 29.1 % 19-41 [facility] Blood monocytes/100 leukocyt esOrdered By: Darling Tabor on 02-08-2023 Monocytes/100 WBC (Bld) 6.7 % 0-10 [facility] Blood platelet mean volumeOr dered By: Darling Tabor on 02-08-2023 Platelet mean volume (Bld) [Entitic vol] 8.7 fL 6.2-12.0 [facility] Determination of erythrocyte mean corpuscular volume (MCV)Ordered By: Darling Tabor on 02-08-2023 MCV (RBC) [Entitic vol] 84.7 fL 81-99 [facility] HIV 1 and HIV-2 antibody ass ay with HIV-1 p24 antigen detectionOrdered By: Darling Tabor on 02-08-2023 HIV 1+2 Ab+HIV1 p24 Ag IA Ql Non-Reactive Nonreactive [facility] Hematocrit Auto (Bld) [Volum e fraction]Ordered By: Darling Tabor on 02-08-2023 Hematocrit (Bld) [Volume fraction] 37.1 % 37-47 [facility] Laboratory - Chemistry and C hemistry - challengeOrdered By: Darling Tabor on 02-08-2023 Free T4 [Mass/Vol] 0.95 ng/dL 0.76-1.46 [facility] Laboratory - Hematology and Cell countsOrdered By: Darling Tabor on 02-08-2023 Erythrocyte distribution width (RBC) [Entitic vol] 43.7 fL 35.1-43.9 [facility] Erythrocyte distribution width (RBC) [Ratio] 14.1 % 11.6-14.6 [facility] Immature granulocytes/100 WBC (Bld) 0.500 % 0.0-0.9 [facility] Comment on above: IG% - Immature Granu locytes (promyelocytes, myelocytes and metamyelocytes) > 1% indicates that a LEFT SHIFT is Present. MCH (RBC) [Entitic mass] 27.9 pg 27.0-32.0 [facility] Nucleated RBC/100 WBC (Bld) [Ratio] 0 % 0-5 [facility] MCHC Auto (RBC) [Mass/Vol]Or dered By: Darling Tabor on 02-08-2023 MCHC (RBC) [Mass/Vol] 32.9 g/dL 32-36 [facility] No Panel InformationOrdered By: Darling Tabor on 02-08-2023 Free Triiodothyronine (T3) pg/dL 1.5 pg/mL 2.18-3.98 [facility] Hepatitis B Surface Antigen Non-Reactive Nonreactive [facility] Hepatitis C Antibody Non-Reactive Nonreactive [facility] Comment on above: Non Reactive: < 0.8 Equivocal: >/= 0.8 to < 1.0 Reactive: >/= 1.0The CDC recommends that a reactive/equivocal HCV antibody result be followed up by the HCV Nucleic Acid Amplificationtest (457714) Miscellaneous Test Comment MAILED SPECIMEN [facility] Rubella IgG Antibody Reactive Nonreactive [facility] Comment on above: Antibody Results Int erpretation of Immune Status Non Reactive Presumed Non-Immune Equivocal Equivocal Reactive Presumed Immune Thyroid Stimulating Hormone (TSH) 1.07 uIU/mL 0.358-3.74 [facility] Platelets bldOrdered By: Yuli Tabor on 02-08-2023 Platelets (Bld) [#/Vol] 250 10*3/uL 150-450 [facility] Serum Treponema species anti body detectionOrdered By: Darling Tabor on 02-08-2023 Treponema sp Ab Ql (S) Non-Reactive [facility] Serum or plasma thyroperoxid ase antibody assay (units/volume)Ordered By: Darling Tabor on 02-08-2023 TPO Ab Qn 19 [IU]/mL 0-34 [facility] Comment on above: Performed at: [address] Director: Brian Alvarado PhD, Phone: [phone] Whole blood hemoglobin A1c/t otal hemoglobin ratio (mass fraction)Ordered By: Darling Tabor on 02-08-2023 HbA1c (Bld) [Mass fraction] 5.0 % 3.8-5.6 [facility] Comment on above: Normal < 5.7 % Predi abetic 5.7 - 6.4 % Diabetic >or= 6.5 % Please note range changes. Cervical or vagninal specime n microscopic examination by cytology stain (reported asOrdered By: Darling Tabor on 01-26-2023 Cytology report Cyto stain Doc (Cvx/Vag) Comment . [facility] Comment on above: The Pap smear is [...] rRNA SHAJI+probe Ql (Unsp spec) Negative Negative [facility] Culture, urineOrdered By: Kim Tabor on 01-26-2023 Bacteria identified Cx Nom (U) Positive [facility] Bacteria identified Cx Nom (U) Positive [facility] Laboratory - CytologyOrdered By: Darling Tabor on 01-26-2023 [employer] Cyto stain Nom (Cvx/Vag) [ID] Comment . [facility] Comment on above: Eric Worrell otechnologist (ASCP) Pathologist Cyto stain Nom (Cvx/Vag) [ID] Comment . [facility] Comment on above: Brooklyn Murillo MD, [place] thologist Recommended follow-up Cyto stain Nom (Cvx/Vag) Comment . [facility] Comment on above: Suggest follow up as clinically appropriate. Laboratory - Drug toxicology Ordered By: Darling Tabor on 01-26-2023 Amphetamines Ql (U) Negative <1000 ng/mL [facility] Benzodiazepines Ql (U) Negative < 200 ng/mL [facility] Cannabinoids Screen Ql (U) Positive < 50 ng/mL [facility] Cocaine Ql (U) Negative < 300 ng/mL [facility] Opiates Ql (U) Negative < 300 ng/mL [facility] Laboratory - Microbiology an d Antimicrobial susceptibilityOrdered By: Darling Tabor on 01-26-2023 N. gonorrhoeae DNA SHAJI+probe Ql (Unsp spec) Negative Negative [facility] Comment on above: Performed at: =G - L [address] [id number] Director: Tomeka Brandt MD, Phone: [phone] Laboratory - Miscellaneous t estsOrdered By: Darling Tabor on 01-26-2023 Service comment (Unsp spec) [Interp] Comment . [facility] Comment on above: This liquid based Th inPrep(R) pap test was screened withthe use of an image guided system. Service comment (Unsp spec) [Interp] . . [facility] No Panel InformationOrdered By: Darling Tabor on 01-26-2023 Human Papillomavirus Screen Comment . [facility] Comment on above: See below for HPV te sting results. MDMA (Ecstasy) Screen Negative < 500 ng/mL [facility] Pathology report final diagnosis Narrative Comment . [facility] Comment on above: EPITHELIAL CELL ABNO RMALITY.ATYPICAL SQUAMOUS CELLS OF UNDETERMINED SIGNIFICANCE (ASC-US). R87.610 Urine Barbiturates Screen Negative < 200 ng/mL [facility] Urine Drug Screen Comment [facility] Comment on above: CONFIRMATORY TESTING FOR ALL [...] TESTING MUST BE ORDERED SEPARATELY. USE TESTMNEMONIC: [facility] Urine Methadone Screen Negative < 300 ng/mL 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 Normal [facility] Jace 01-19-2023 ALEXANDRE Telephone (OBGYWM) -- RANJAN TAN ([id number]) 2000 F Date Time Provider Department 01/19/23 MELISSA MCCLELLAN During your visit today, we recorded the following information about you: Angelica Angeles RN 01/19/2023 10:07 AM Signed Patient seen for prenew OB visit today. She is 10 weeks 4 days by dates. States she had had ultrasound a few weeks ago at the [facility] and due date was confirmed [...] screening of mother [Z36.9] Order(s):NUCHAL TRANSLUCENCY WHI [[id number]] Order #: [id number]: 1 FUTURE Prescriptions as of 02/04/2023 - vit 96-niug-pqzzz-dha (SELECT-OB+DHA) 29 mg iron-1 mg -250 mg [...] Status:Closed by CAT DOUGLASS RN on 02/04/23 [facility] CNCOon 01-14-2023 CNCO Letter Text Normal [facility] CNPGisella 01-11-2023 CNPN Telephone (OBGYWM) -- RANJAN TAN ([id number]) 2000 F Date Time Provider Department 01/11/23 FARIDA RANGEL OBROWENAWJose Manuel During your visit today, we recorded the following information about you: Angelica Angeles RN 01/11/2023 5:05 PM Signed Left message for patient to return phone call. Patient has PNOB appt 01/19. Please ask her if she has delivered elsewhere or if this is her fir . Please assist her in getting records sent here is applicable. Amira Damon RN 01/14/2023 11:31 AM Addendum LMP 9/ Patient returned call. 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 Asked that patient request her delivery records. Also, faxed a request to [facility]. CP- patient has gone to ER for antiemetics. She is almost out. Asking if she could have another RX. Currently taking Zofran 4 MG ODT. Pharmacy added. Allergies updated. Please advise. Thank you. Silvina Quintanilla RN, RN 01/14/2023 11:56 AM Signed Delivery records from 2016 and 2019 received from [facility]. Please also see patients question about Zofran. Scan on 01/14/2023 11:35 AM by Provider, External, PA-C: UNDERWATER PHOTOGRAPHER Farida Rangel APRN.CNM 01/14/2023 1:38 PM Signed [...] Status:Closed by FARIDA RANGEL on 01/14/23 Normal [facility] Amorphous sediment detection in urine sediment by light microscopyOrdered By: Jarad Hilton on 01-02-2023 Amorphous sediment LM Ql (Urine sed) 2+ [facility] Basophil percentageOrdered B y: Jarad Hilton on 01-02-2023 Basophil percentage 0-5 SEEN /hpf 0-5 [facility] Chloride [Moles/Vol] 105 mmol/L 98-107 [facility] Glucose [Mass/Vol] 120 mg/dL 74-106 [facility] Comment on above: Fasting Glucose resu lt from 100 to 125 mg/dL suggests IMPAIRED HOMEOSTASIS per A.D.A. criteria. Potassium [Moles/Vol] 3.5 mmol/L 3.5-5.1 [facility] Sodium [Moles/Vol] 134 mmol/L 136-145 [facility] Bilirubin Test strip Ql (U)O rdered By: Jarad Hilton on 01-02-2023 Bilirubin Ql (U) Negative Negative [facility] Ketones Test strip Ql (U)Ord ered By: Jarad Hilton on 01-02-2023 Ketones Ql (U) Negative Negative [facility] Laboratory - Chemistry and C hemistry - challengeOrdered By: Jarad Hilton on 01-02-2023 CO2 [Moles/Vol] 25.0 mmol/L 21.0-32.0 [facility] Urea nitrogen/Creatinine [Mass ratio] 17.4 mg/mg 10- [facility] Mucus LM Ql (Urine sed)Order ed By: Jarad Hilton on 01-02-2023 Mucus Ql (Urine sed) 0 SEEN /hpf [facility] Nitrite Test strip Ql (U)Ord ered By: Jarad Hilton on 01-02-2023 Nitrite Ql (U) Negative Negative [facility] No Panel InformationOrdered By: Jarad Hilton on 01-02-2023 Estimated Creatinine Clearance Calc 129.15 ml/min [facility] Estimated GFR (MDRD) Amer 165 mL/min >60 [facility] Comment on above: GFR Calc Estimated GFR (MDRD) Non-Af Amer 137 mL/min >60 [facility] Comment on above: Non- GFR Calc Protein Test strip Ql (U)Ord ered By: Jarad Hilton on 01-02-2023 Protein Ql (U) Negative Negative [facility] Serum or plasma calcium hudson urement (mass/volume)Ordered By: Jarad Hilton on 01-02-2023 Calcium [Mass/Vol] 8.4 mg/dL 8.5-10.1 [facility] Serum or plasma creatinine m easurement (mass/volume)Ordered By: Jarad Hilton on 01-02-2023 Creatinine [Mass/Vol] 0.58 mg/dL 0.55-1.02 [facility] Comment on above: The validity of the calculated GFR & GFRAA in patients over 70 years has not been determined. Clinical correlation is essential. Serum or plasma urea nitroge n measurement (mass/volume)Ordered By: Jarad Hilton on 01-02-2023 Urea nitrogen [Mass/Vol] 10 mg/dL 7-18 [facility] Squamous epithelial cells de tection in urine sediment by light microscopyOrdered By: Jarad Hilton on 01-02-2023 Epithelial cells.squamous LM Ql (Urine sed) 0-5 SEEN /hpf 5-10 [facility] Thin prep Papanicolaou smear with manual screeningOrdered By: Jarad Hilton on 01-02-2023 Thin prep Papanicolaou smear with manual screening 4 5-15 [facility] Urine blood detectionOrdered By: Jarad Hilton on 01-02-2023 RBC Ql (U) Negative Negative [facility] RBC Ql (U) 0 SEEN /hpf 0-5 [facility] Urine clarityOrdered By: Jarad Hilton on 01-02-2023 Clarity (U) Cloudy Clear [facility] Urine color determinationOrd ered By: Jarad Hilton on 01-02-2023 Color (U) Yellow Yellow [facility] Urine glucose detectionOrder ed By: Jarad Hilton on 01-02-2023 Glucose Ql (U) Normal mg/dl Normal [facility] Urine leukocyte esterase det ection by dipstickOrdered By: Jarad Hilton on 01-02-2023 Leukocyte esterase Test strip Ql (U) 25 /ul Negative [facility] Urine pHOrdered By: Jarad kauffman on 01-02-2023 pH (U) 8.0 [pH] 5.0 - 8.0 [facility] Urine sediment bacteria coun t by microscopy (number/high power field)Ordered By: Jarad Hilton on 01-02-2023 Bacteria LM.HPF (Urine sed) [#/Area] RARE /hpf None Seen [facility] Urine specific gravity measu rementOrdered By: Jarad Hilton on 01-02-2023 Specific gravity (U) [Rel density] 1.015 1.002-1.030 [facility] Urobilinogen Auto test strip Ql (U)Ordered By: Jarad Hilton on 01-02-2023 Urobilinogen Ql (U) Normal mg/dl Normal [facility] Serum or plasma choriogonado tropin detectionOrdered By: Nallely Barksdale on 12-27-2022 HCG ( test) [place]l 52355 mIU/mL <4 [facility] Comment on above: hCG levels with Gest ational AgeGestational Age hCG mIU/mL (IU/L)0.2 - 1 week 5 - 501-2 weeks 50 - 5002-3 weeks 100 - 82617-8 weeks 500 - 167332-5 weeks 1000 - 922728-8 weeks 01988 - 100,0006-8 weeks 82853 - 200,0002-3 months 47361 - 100,000 [facility] RANJAN [facility] ([id number]) 2000 F Date Time Provider Department 12/24/22 [...] order below and advise. Farida Burch LPN, CERTIFICATION ENGINEER.CNM 12/24/2022 2:37 PM Signed No HCG levels [...] Status:Closed by FARIDA RANGEL on 12/24/22 Normal [facility] B TESTO SHBG, FEM, CHIL [CCL ]on 02-09-2021 Sex Hormon Bind Glb 80 Normal [facility] Comment on above: Result Comment: Refe rence range: 30 to 135 Unit: nmol/L (NOTE) REFERENCE INTERVAL: Sex Hormone Binding Globulin Access complete set of age- and/or gender-specific reference intervals for this test in the [facility] Test Directory ([facility]viva). Performed By: #### 2 90843 #### [facility],[address] [place] [address] Testos Bioavail 3.1 Normal [facility] Comment on above: Result Comment: Refe rence range: 2.2 to 20.6 Unit: ng/dL (NOTE) Testosterone LC-MS, Bioavailable Reference Interval Females, 18 years and older Postmenopausal: 1.5 - 9.4 ng/dL REFERENCE INTERVAL: Testosterone LC-MS, Bioavailable Access complete set of age- and/or gender-specific reference intervals for this test in the [facility] Test Directory ([place] [address] Wayne Andrade III, M.D. [id number] Performed By: #### 2 17937 #### [address] [address] Testosterone [Mass/Vol] 11 ng/dL Normal [facility] Comment on above: Result Comment: Refe rence range: 9 to 55 Unit: ng/dL (NOTE) Total Testosterone, Females 18 years and older Premenopausal 9-55 ng/dL Postmenopausal 5-32 ng/dL REFERENCE INTERVAL: Testosterone, LC-MS/MS Access complete set of age- and/or gender-specific reference intervals for this test in the [facility] Test Directory (tapviva). This test was developed and its performance characteristics determined by [employer]. It has not been cleared or approved by the US Food and Drug Administration. This test was performed in a CLIA certified laboratory and is intended for clinical purposes. Performed By: #### 2 02416 #### [address] [address] Testosterone Free 1.0 Normal [facility] Comment on above: Result Comment: Refe rence [...] reference intervals for this test in the [facility] Test Directory ([facility]iva). This test was developed and its performance characteristics determined by [employer]. It has not been cleared or approved by the US Food and Drug Administration. This test was performed in a CLIA certified laboratory and is intended for clinical purposes. Performed by [facility] [employer], [address] [place] [id number] [email or web address], Jillian Metzger MD, Lab. Director Performed By: #### 2 45436 #### [facility],[address] [place] [address] B TestoSHBG,carla vaughn 02-09 Sex Hormon Bind Glb 80 nmol/L Normal 30-135 [facility] Testos Bioavail 3.1 ng/dL Normal 2.2-20.6 [facility] Testosterone [Mass/Vol] 11 ng/dL Normal 9-55 [facility] Testosterone Free 1.0 pg/mL Normal 0.8-7.4 [facility] CBC + DIFFon 02-03-2021 Baso # 0.10 x10EE3/UL Normal 0.00 - 0.10 [facility] Comment on above: Performed By: #### 2 25002 #### [facility],[address] [place] [address]14 Basophils/100 WBC (Bld) 1.0 % Normal 0.0 - 2.0 [facility] Comment on above: Performed By: #### 2 79849 #### [facility],[address] [place] [address] CBC + DIFF Normal [facility] Comment on above: Result Comment: CBC- COMPLETE BLOOD COUNT Performed By: #### 2 23826 #### [facility],[address] [place] [address] EO # 0.30 x10EE3/UL Normal 0.00 - 0.50 [facility] Comment on above: Performed By: #### 2 06691 #### [facility],[address] [place] [address] Eosinophils/100 WBC (Bld) 6.2 % Normal 0.0 - 7.0 [facility] Comment on above: Performed By: #### 2 31818 #### [facility],[address] [place] [address] 81860 Erythrocyte distribution width (RBC) [Ratio] 14.1 % Normal 12.0 - 15.6 [facility] Comment on above: Performed By: #### 2 35348 #### [facility],[address] [place] [address] 14896 Hematocrit (Bld) [Volume fraction] 40.0 % Normal 34.0 - 46.0 [facility] Comment on above: Performed By: #### 2 37487 #### [facility],[address] [place] [address] 70228 Hemoglobin (Bld) [Mass/Vol] 13.2 g/dL Normal 12.0 - 16.0 [facility] Comment on above: Performed By: #### 2 64814 #### [facility],[address] [place] [address] Lymph # 1.70 x10EE3/UL Normal 0.80 - 2.80 [facility] Comment on above: Performed By: #### 2 90366 #### [facility],[address] [place] [address] 31266 Lymphocytes/100 WBC (Bld) 32.7 % Normal 20.0 - 45.0 [facility] Comment on above: Performed By: #### 2 38578 #### [facility],[address] [place] [address]4060 MANUAL DIFF N/A Normal [facility] Comment on above: Performed By: #### 2 51422 #### [facility],[address] [place] [address] 97579 MCH (RBC) [Entitic mass] 26 pg Low 27 - 33 [facility] Comment on above: Performed By: #### 2 14855 #### [facility],[address] [place] [address]156 MCHC 33 X10 3 Normal 32 - 36 [facility] Comment on above: Performed By: #### 2 66590 #### [facility],[address] [place] [address] 14792 MCV (RBC) [Entitic vol] 78 fL Low 80 - 99 [facility] Comment on above: Performed By: #### 2 53467 #### [facility],[address] [place] [address]37 Jackson # 0.30 x10EE3/UL Normal 0.20 - 1.00 [facility] Comment on above: Performed By: #### 2 21529 #### [facility],[address] [place] [address]995 MONOS % 6.7 % Normal 0.0 - 10.0 [facility] Comment on above: Performed By: #### 2 87775 #### [facility],[address] [place] [address]00 Morphology González (Bld) [Interp] N/A Normal [facility] Comment on above: Result Comment: {CD] Performed By: #### 2 11787 #### [facility],[address] [place] [address] 56931 Neut # 2.70 x10EE3/UL Normal 1.50 - 7.10 [facility] Comment on above: Performed By: #### 2 83686 #### [facility],[address] [place] [address] 95421 Neutrophils/100 WBC (Bld) 53.4 % Normal 46.0 - 76.0 [facility] Comment on above: Performed By: #### 2 42963 #### [facility],[address] [place] [address] 30739 PLATELET 216 x10EE3/UL Normal 150 - 450 [facility] Comment on above: Performed By: #### 2 42876 #### [facility],[address] [place] [address] 05488 Platelet mean volume (Bld) [Entitic vol] 7.9 fL Normal 6.6 - 10.5 [facility] Comment on above: Result Comment: AUTO MATED DIFFERENTIAL Performed By: #### 2 71067 #### [facility],[address] [place] [address] 42397 RBC 5.10 x 10EE6/UL Normal 4.10 - 5.30 [facility] Comment on above: Performed By: #### 2 98048 #### [facility],[address] [place] [address] 35428 WBC 5.1 x 10EE3/UL Normal 4.5 - 10.8 [facility] Comment on above: Performed By: #### 2 79845 #### [facility],[address] [place] [address]1962 CMP with eGFRon 02-03-2021 AGE 20 years Normal [facility] Comment on above: Performed By: #### 2 07231 #### [facility],[address] [place] [address] 55844 Albumin [Mass/Vol] 4.2 g/dL Normal 3.4 - 5.0 [facility] Comment on above: Performed By: #### 2 95860 #### [facility],[address] [place], [place] [address] Albumin/Globulin [Mass ratio] 1.2 {ratio} Normal 0.9 - 1.6 [facility] Comment on above: Performed By: #### 2 11373 #### [facility],[address] [place] [address] 59475 ALK PHOS 58 U/L Normal 46 - 116 [facility] Comment on above: Performed By: #### 2 94376 #### [facility],[address] [place] [address] 34230 ALT [Catalytic activity/Vol] 21 U/L Normal 14 - 59 [facility] Comment on above: Performed By: #### 2 75689 #### [facility],[address] [place] [address] 77985 Anion gap [Moles/Vol] 17 mmol/L Normal 10 - 20 [facility] Comment on above: Performed By: #### 2 74908 #### [facility],[address] [place] [address] 86145 AST [Catalytic activity/Vol] 16 U/L Normal 13 - 39 [facility] Comment on above: Performed By: #### 2 15382 #### [facility],[address] [place] [address] 84542 B/C RATIO 19 ratio Normal 0 - 30 [facility] Comment on above: Performed By: #### 2 15966 #### [facility],[address] [place] [address] 85296 Bilirubin [Mass/Vol] 0.6 mg/dL Normal 0.2 - 1.0 [facility] Comment on above: Performed By: #### 2 77799 #### [facility],[address] [place] [address] 55593 Calcium [Mass/Vol] 9.2 mg/dL Normal 8.5 - 10.1 [facility] Comment on above: Performed By: #### 2 44720 #### [facility],[address] [place] [address] 61577 Chloride [Moles/Vol] 103 mmol/L Normal 98 - 107 [facility] Comment on above: Performed By: #### 2 33370 #### [facility],[address] [place] [address] 35784 CMP with eGFR Normal [facility] Comment on above: Result Comment: COMP REHENSIVE METABOLIC PANEL Performed By: #### 2 32974 #### [facility],[address] [place] [address] 63269 CO2 [Moles/Vol] 24.3 mmol/L Normal 21.0 - 32.0 [facility] Comment on above: Performed By: #### 2 83963 #### [facility],[address] [place] [address] 37667 Creatinine [Mass/Vol] 0.72 mg/dL Normal 0.55 - 1.[address] [facility] Comment on above: Performed By: #### 2 40457 #### [facility],[address] [place] [address] 27206 GFR/1.73 sq M.predicted among non-blacks MDRD (S/P/Bld) [Vol rate/Area] mL/min/{1.73_m2} Normal 60 - 999 [facility] Comment on above: Performed By: #### 2 10261 #### [address] [address] Result Comment: ACCO RDING TO THE NATIONAL KIDNEY DISEASE EDUCATION PROGRAM(NKDE), A NORMAL eGFR IS A VALUE GREATER THAN OR EQUAL TO 60 ML/MIN/1.73 SQ METERS. CHRONIC KIDNEY DISEASE: <60mL/MIN/1.73 SQ METERS KIDNEY FAILURE: <15mL/MIN/1.73 SQ METERS THIS TEST SHOULD ONLY BE USED FOR PATIENTS 18 YEARS OF AGE AND OLDER. Globulin (S) [Mass/Vol] 3.6 g/dL Normal 1.5 - 3.8 [facility] Comment on above: Performed By: #### 2 20897 #### [address] [address] Glucose [Mass/Vol] 82 mg/dL Normal 74 - 106 [facility] Comment on above: Performed By: #### 2 01703 #### [address] [address] Potassium [Moles/Vol] 3.9 mmol/L Normal 3.5 - 5.1 [facility] Comment on above: Performed By: #### 2 85201 #### [address] [address] Protein [Mass/Vol] 7.8 g/dL Normal 6.4 - 8.2 [facility] Comment on above: Performed By: #### 2 52324 #### [address] [address] Sodium [Moles/Vol] 140 mmol/L Normal 136 - 145 [facility] Comment on above: Performed By: #### 2 82252 #### [address] [address] Urea nitrogen [Mass/Vol] 14 mg/dL Normal 7 - 18 [facility] Comment on above: Performed By: #### 2 98026 #### [facility],[address] [place] [address] 59569 LIPID PROFILEon 02-03-2021 Cholesterol [Mass/Vol] 181 mg/dL Normal 0 - [address] [facility] Comment on above: Performed By: #### 2 40361 #### [facility],[address] [place] [address] 87537 Cholesterol in HDL [Mass/Vol] 76 mg/dL High 40 - 60 [facility] Comment on above: Performed By: #### 2 60768 #### [facility],[address] [place] [address] 32644 Cholesterol in LDL [Mass/Vol] 97 mg/dL Normal 0 - 129 [facility] Comment on above: Performed By: #### 2 31837 #### [facility],[address] [place] [address] 89669 Cholesterol.total/Chol esterol in HDL [Mass ratio] 2.4 {ratio} Normal 0.0 - 5.0 [facility] Comment on above: Performed By: #### 2 57913 #### [facility],[address] [place] [address] 06831 Lipid 1996 panel Normal [facility] Comment on above: Result Comment: LIPI D PROFILE Performed By: #### 2 73809 #### [facility],[address] [place] [address] 12462 Triglyceride [Mass/Vol] 41 mg/dL Normal 0 - 150 [facility] Comment on above: Performed By: #### 2 69135 #### [facility],[address] [place] [address] 47448 T4 (THYROXINE) TOTALon 02-03 T4 (THYROXINE) TOTAL Normal [facility] Comment on above: Result Comment: THYR OXINE(T4) Performed By: #### 2 67642 #### [facility],[address] [place] [address] 23528 T4 [Mass/Vol] 6.7 ug/dL Normal 4.7 - 13.3 [facility] Comment on above: Performed By: #### 2 15610 #### [facility],[address] [place] [address] TSHon 02-03-2021 TSH Qn 2.50 m[IU]/L Normal 0.35 - 3.74 [facility] Comment on above: Performed By: #### 2 06399 #### [facility],[address] [place] [address] CORONAVIRUS PCR - [facility] 12-03-2020 SARS-CoV-2 (COVID-19) RNA SHAJI+probe Ql (Unsp spec) Negative Normal NORMAL: NEGATIVE [facility] Comment on above: Performed By: #### 2 42693 #### [facility],[address] [place] [address] 39479 SEND TO IC? YES Normal [facility] Comment on above: Result Comment: RESU LTS FAXED TO INFECTION CONTROL. SARS-CoV-2 THIS TEST IS BEING USED UNDER THE FDA EUA PROCEDURE. THIS ASSAY HAS BEEN VALIDATED IN THE [facility] FOR USE WITH NASOPHARYNGEAL SPECIMENS IN [facility]. INTERPRETIVE DATA LABORATORY TEST RESULTS SHOULD [...] PUBLIC HEALTH AUTHORITIES. Performed By: #### 2 83409 #### [facility],[address] [place] [address] CORONAVIRUS PCR - [facility] 11-07-2020 SARS-CoV-2 (COVID-19) RNA SHAJI+probe Ql (Unsp spec) Negative Normal NORMAL: NEGATIVE [facility] Comment on above: Performed By: #### 2 05976 #### [facility],[address] [place] [address] SEND TO ? YES Normal [facility] Comment on above: Result Comment: RESU LTS FAXED TO INFECTION CONTROL. SARS-CoV-2 THIS TEST IS BEING USED UNDER THE FDA EUA PROCEDURE. THIS ASSAY HAS BEEN VALIDATED IN THE [facility] FOR USE WITH NASOPHARYNGEAL SPECIMENS IN [facility]. INTERPRETIVE DATA LABORATORY TEST RESULTS SHOULD [...] PUBLIC HEALTH AUTHORITIES. Performed By: #### 2 21842 #### Mac Replaced By [facility],[address] [place] [address] EMERGENCY REPORTon 1 EMERGENCY REPORT [facility] EMERGENCY ROOM REPORT NAME ACCOUNT SEX AGE ADMIT DISCHARGE PT MED. RECORD# NUMBER DATE DATE TYPE ANGIE [id number] F 09/03/20 09/03/20 3 RANJAN [id number] ROOM: ER DATE OF : 2000 DICTATING [...] of 2 RANJAN TAN Emergency Room Report RANJAN TAN : 2000 JOB #: [id number] Transcribed By: rut 09/04/20 08:33 Electronically signed by: E-SIGN: Morro Juárez D.O. 09/04/20 09:41 Page 2 of 2 RANJAN TAN Emergency Room Report Normal [facility] T3, FREE [CCL]on 06-30-2020 Free T3 [Mass/Vol] 2.8 pg/mL Normal 2.3-4.1 [facility] Comment on above: Result Comment: [place] [address] Wayne Andrade III, M.D. [id number] Performed By: #### 2 97670 #### [address] [address] THYROGLOBULIN AB [CCL]on Thyroglobulin Ab Qn 2.4 [IU]/mL Normal <14.4 [facility] Comment on above: Result Comment: [place] [id number] Wayne Andrade III, M.D. [id number] Performed By: #### 2 29312 #### [facility],[address] [place] [address] THYROID PEROXIDASE AB [CCL]o n 06-30-2020 TPO Antibody <1.0 Normal <5.6 [facility] Comment on above: Result Comment: [place] [id number] [place] [address] Wayne Andrade III, M.D. [id number] Performed By: #### 2 83542 #### [facility],[address] [place] [address] TPO Antibodyon 06-30-2020 TPO Antibody <1.0 Normal <5.6 [facility] Comment on above: Performed By: #### F REET3, TGAB, MICRO #### [facility] Routine Lab [address] [place], [place] [address] Thyroglobulin Abon Thyroglobulin Ab Qn 2.4 [IU]/mL Normal <14.4 [facility] Comment on above: Performed By: #### F REET3, TGAB, MICRO #### [facility] Routine Lab [address] [place], [place] [address] Free T3on 06-28-2020 Free T3 [Mass/Vol] 2.8 pg/mL Normal 2.3-4.1 [facility] Comment on above: Performed By: #### F REET3, TGAB, MICRO #### [facility] Routine Lab [address] [place] [address] T4-FREE (FREE THYROXINE)on 0 06-27-2020 Free T4 [Mass/Vol] 0.93 ng/dL Normal 0.76 - 1.46 [facility] Comment on above: Result Comment: P otential of falsely elevated results when biotin concentrations are > 10 ng/mL. Performed By: #### 2 31783 #### [place] [id number] TSHon 06-27-2020 TSH Qn 2.78 m[IU]/L Normal 0.35 - 3.74 [facility] Comment on above: Performed By: #### 2 25756 #### [address] [address] Vital Signs Date Time Vital Sign Value Performing Clinician Elena harry 09-25-2024 13:49-0400 Body height 162.56 cm No Primary Care Physician [facility] 09-25-2024 13:49-0400 Body mass index (BMI) [Ratio] 47.5 kg/m2 No Primary Care Physician [facility] 09-25-2024 13:49-0400 Body weight 125.64 kg No Primary Care Physician [facility] 09-25-2024 13:49-0400 Diastolic blood pressure 76 mm[Hg] No Primary Care Physician [facility] 09-25-2024 13:49-0400 Systolic blood pressure 117 mm[Hg] No Primary Care Physician [facility] 09-04-2024 12:57-0400 Body height 162.56 cm No Primary Care Physician [facility] 09-04-2024 12:57-0400 Body mass index (BMI) [Ratio] 46.3 kg/m2 No Primary Care Physician [facility] 09-04-2024 12:57-0400 Body weight 122.52 kg No Primary Care Physician [facility] 09-04-2024 12:57-0400 Diastolic blood pressure 78 mm[Hg] No Primary Care Physician [facility] 09-04-2024 12:57-0400 Systolic blood pressure 116 mm[Hg] No Primary Care Physician [facility] 08-09-2024 14:43-0400 Body height 162.56 cm No Primary Care Physician [facility] 08-09-2024 14:43-0400 Body mass index (BMI) [Ratio] 44.9 kg/m2 No Primary Care Physician [facility] 08-09-2024 14:43-0400 Body weight 118.55 kg No Primary Care Physician [facility] 08-09-2024 14:43-0400 Diastolic blood pressure 80 mm[Hg] No Primary Care Physician [facility] 08-09-2024 14:43-0400 Systolic blood pressure 121 mm[Hg] No Primary Care Physician [facility] 07-10-2024 13:03-0400 Body mass index (BMI) [Ratio] 43.3 kg/m2 No Primary Care Physician [facility] 07-10-2024 13:03-0400 Body weight 114.47 kg No Primary Care Physician [facility] 07-10-2024 13:03-0400 Diastolic blood pressure 71 mm[Hg] No Primary Care Physician [facility] 07-10-2024 13:03-0400 Systolic blood pressure 109 mm[Hg] No Primary Care Physician [facility] 06-29-2024 13:55-0400 Body mass index (BMI) [Ratio] 42.4 kg/m2 No Primary Care Physician [facility] 06-29-2024 13:55-0400 Body weight 112.15 kg No Primary Care Physician [facility] 06-29-2024 13:55-0400 Diastolic blood pressure 73 mm[Hg] No Primary Care Physician [facility] 06-29-2024 13:55-0400 Systolic blood pressure 116 mm[Hg] No Primary Care Physician [facility] 06-29-2024 07:21-0400 Body temperature 97.9 [degF] No Primary Care Physician [facility] 06-29-2024 07:21-0400 Diastolic blood pressure 85 mm[Hg] No Primary Care Physician [facility] 06-29-2024 07:21-0400 Heart rate 72 /min No Primary Care Physician [facility] 06-29-2024 07:21-0400 Respiratory rate 16 /min No Primary Care Physician [facility] 06-29-2024 07:21-0400 SaO2% (BldA) [Mass fraction] 99 % No Primary Care Physician [facility] 06-29-2024 07:21-0400 Systolic blood pressure 148 mm[Hg] No Primary Care Physician [facility] 06-29-2024 03:06-0400 Body height 162.56 cm No Primary Care Physician [facility] 06-29-2024 03:06-0400 Body mass index (BMI) [Ratio] 42.5 kg/m2 No Primary Care Physician [facility] 06-29-2024 03:06-0400 Body weight 112.3 kg No Primary Care Physician [facility] 05-28-2024 14:19-0400 Body height 162.56 cm No Primary Care Physician [facility] 05-28-2024 14:19-0400 Body mass index (BMI) [Ratio] 42.4 kg/m2 No Primary Care Physician [facility] 05-28-2024 14:19-0400 Body weight 112.15 kg No Primary Care Physician [facility] 05-28-2024 14:19-0400 Diastolic blood pressure 73 mm[Hg] No Primary Care Physician [facility] 05-28-2024 14:19-0400 Systolic blood pressure 108 mm[Hg] No Primary Care Physician [facility] 07-05-2023 11:00-0400 Body height 162.[address] Christy Lao Work Phone: [facility] 07-05-2023 11:00-0400 Body mass index (BMI) [Ratio] 42.2 kg/m2 Dr. Christy Lao Work Phone: [facility] 07-05-2023 11:00-0400 Body weight 111.[address] Christy Lao Work Phone: [facility] 07-05-2023 11:00-0400 Diastolic blood pressure 78 mm[Hg] Dr. Christy Lao Work Phone: [facility] 07-05-2023 11:00-0400 Systolic blood pressure 118 mm[Hg] Dr. Christy Lao Work Phone: [facility] 06-27-2023 09:59-0400 Body mass index (BMI) [Ratio] 42.3 kg/m2 Dr. Christy Lao Work Phone: [facility] 06-27-2023 09:59-0400 Body weight 111.[address] Christy Lao Work Phone: [facility] 06-27-2023 09:59-0400 Diastolic blood pressure 72 mm[Hg] Dr. Christy Lao Work Phone: [facility] 06-27-2023 09:59-0400 Systolic blood pressure 118 mm[Hg] Dr. Christy Lao Work Phone: [facility] 05-30-2023 08:21-0400 Body mass index (BMI) [Ratio] 40.1 kg/m2 Dr. Christy Lao Work Phone: [facility] 05-30-2023 08:21-0400 Body weight 106.[address] Christy Lao Work Phone: [facility] 05-30-2023 08:21-0400 Diastolic blood pressure 84 mm[Hg] Dr. Christy Lao Work Phone: [facility] 05-30-2023 08:21-0400 Systolic blood pressure 124 mm[Hg] Dr. Christy Lao Work Phone: [facility] 05-18-2023 10:40-0400 Body height 162.[address] Christy Lao Work Phone: [facility] 05-18-2023 10:39-0400 Body mass index (BMI) [Ratio] 39.6 kg/m2 Dr. Christy Lao Work Phone: [facility] 05-18-2023 10:39-0400 Body weight 104.[address] Christy Lao Work Phone: [facility] 05-18-2023 10:39-0400 Diastolic blood pressure 69 mm[Hg] Dr. Christy Lao Work Phone: [facility] 05-18-2023 10:39-0400 Systolic blood pressure 106 mm[Hg] Dr. Christy Lao Work Phone: [facility] 05-06-2023 12:01-0500 Body height 162.[address] Christy Lao Work Phone: [facility] 05-06-2023 12:01-0500 Body mass index (BMI) [Ratio] 38.2 kg/m2 Dr. Christy Lao Work Phone: [facility] 05-06-2023 12:01-0500 Body weight 101.[address] Christy Lao Work Phone: [facility] 05-06-2023 11:54-0500 Body temperature 98 [degF] Dr. Christy Lao Work Phone: [facility] 05-06-2023 11:54-0500 Diastolic blood pressure 61 mm[Hg] Dr. Christy Lao Work Phone: [facility] 05-06-2023 11:54-0500 Heart rate 81 /min Dr. Christy Lao Work Phone: [facility] 05-06-2023 11:54-0500 Systolic blood pressure 111 mm[Hg] Dr. Christy Lao Work Phone: [facility] 04-21-2023 15:53-0500 Body mass index (BMI) [Ratio] 39.1 kg/m2 Dr. Christy Lao Work Phone: [facility] 04-21-2023 15:53-0500 Body weight 103.[address] Christy Lao Work Phone: [facility] 04-21-2023 15:53-0500 Diastolic blood pressure 73 mm[Hg] Dr. Christy Lao Work Phone: [facility] 04-21-2023 15:53-0500 Systolic blood pressure 114 mm[Hg] Dr. Christy Lao Work Phone: [facility] 03-23-2023 09:31-0500 Body mass index (BMI) [Ratio] 37.8 kg/m2 Dr. Christy Lao Work Phone: [facility] 03-23-2023 09:31-0500 Body weight 99.[address] Christy Lao Work Phone: [facility] 03-23-2023 09:31-0500 Diastolic blood pressure 68 mm[Hg] Dr. Christy Lao Work Phone: [facility] 03-23-2023 09:31-0500 Systolic blood pressure 110 mm[Hg] Dr. Christy Lao Work Phone: [facility] 02-21-2023 10:38-0500 Body mass index (BMI) [Ratio] 37.3 kg/m2 Dr. Christy Lao Work Phone: [facility] 02-21-2023 10:38-0500 Body weight 98.[address] Christy Lao Work Phone: [facility] 02-21-2023 10:38-0500 Diastolic blood pressure 76 mm[Hg] Dr. Christy Lao Work Phone: [facility] 02-21-2023 10:38-0500 Systolic blood pressure 123 mm[Hg] Dr. Christy Lao Work Phone: [facility] 01-26-2023 14:34-0500 Body height 162.[address] Christy Lao Work Phone: [facility] 01-26-2023 14:23-0500 Body mass index (BMI) [Ratio] 36.2 kg/m2 Dr. Christy Lao Work Phone: [facility] 01-26-2023 14:23-0500 Body weight 95.[address] Christy Lao Work Phone: [facility] 01-26-2023 14:23-0500 Diastolic blood pressure 72 mm[Hg] Dr. Christy Lao Work Phone: [facility] 01-26-2023 14:23-0500 Systolic blood pressure 112 mm[Hg] Dr. Christy Lao Work Phone: [facility] 01-02-2023 20:35-0400 Diastolic blood pressure 78 mm[Hg] [facility] 01-02-2023 20:35-0400 Heart rate 88 /min [facility] 01-02-2023 20:35-0400 Respiratory rate 16 /min [facility] 01-02-2023 20:35-0400 Systolic blood pressure 125 mm[Hg] [facility] 01-02-2023 18:22-0400 Body height 162.56 cm [facility] 01-02-2023 18:22-0400 Body mass index (BMI) [Ratio] 35.2 kg/m2 [facility] 01-02-2023 18:22-0400 Body temperature 98.8 [degF] [facility] 01-02-2023 18:22-0400 Body weight 92.94 kg [facility] 01-02-2023 18:22-0400 SaO2% (BldA) [Mass fraction] 100 % [facility] Encounters Encounter Date Encounter Type Care Provider Facility Start: 09-25-2024 End: 09-25-2024 ambulatory No Primary Care Physician Facility:[facility] Start: 09-25-2024 End: 09-25-[address] Nallely Barksdale MD -[facility] Work Phone: Start: 09-10-2024 End: 09-10-2024 ambulatory [facility] Start: 09-04-2024 End: 09-04-2024 ambulatory No Primary Care Physician -[facility] Start: 09-04-2024 End: 09-04-2024 Patient encounter procedure Coby WHITE -[facility] Work Phone: Start: 09-04-2024 End: 09-04-2024 ambulatory No Primary Care Physician Facility:[facility] Start: 08-09-2024 End: 08-09-[address] Nallely Barksdale MD -[facility] Work Phone: Start: 08-09-2024 End: 08-09-2024 ambulatory No Primary Care Physician [facility] Work Phone: Start: 08-09-2024 End: 08-09-2024 ambulatory Nallely Barksdale Facility:[facility] Start: 08-07-2024 End: 08-07-2024 ambulatory SIMI Cueva [facility] Start: 07-10-2024 End: 07-10-2024 Patient encounter procedure Simi Lara CNM -[facility] Work Phone: Start: 07-10-2024 End: 07-10-2024 ambulatory SIMI Cueva JANE [facility] Start: 06-29-2024 End: 06-29-[address] Amira Underwood DO -[facility] Work Phone: Start: 06-29-2024 End: 06-29-2024 ambulatory No Primary Care Physician Facility:[facility] Start: 06-29-2024 End: 06-29-2024 Emergency department patient visit No Primary Care Physician -Emergency Department Work Phone: Start: 05-28-2024 End: 05-28-2024 Patient encounter procedure Simi Lara [facility] -[facility] Work Phone: Start: 05-28-2024 End: 05-28-2024 ambulatory No Primary Care Physician [facility] Work Phone: Start: 05-28-2024 End: 05-28-2024 ambulatory No Primary Care Physician Facility:[facility] Start: 07-05-2023 End: 07-05-[address] Christy Lao Work Phone: [facility] Work Phone: Start: 06-30-2023 End: 06-30-[address] Christy Lao Work Phone: [facility] Work Phone: Start: 06-30-2023 End: 06-30-[address] Christy Lao Work Phone: [facility] Start: 06-27-2023 End: 06-27-[address] Christy Lao Work Phone: [facility] Work Phone: Start: 06-15-[address] Christy Lao Work Phone: [facility] Work Phone: Start: 06-15-2023 End: 06-15-[address] Christy Lao Work Phone: [facility] Work Phone: Start: 05-30-2023 End: 05-30-[address] Christy Lao Work Phone: [facility] Work Phone: Start: 05-18-2023 End: 05-18-[address] Christy Lao Work Phone: [facility] Work Phone: Start: 05-18-2023 End: 05-18-[address] Christy Lao Work Phone: [facility] Work Phone: Start: 05-06-2023 Non-patient / Non-visit Dr. Antonio Lao Work Phone: [facility] Start: 05-06-2023 End: 05-06-[address] Christy Lao Work Phone: [facility] Work Phone: Start: 05-06-2023 End: 05-06-[address] Christy Lao Work Phone: [facility] Work Phone: Start: 04-21-2023 End: 04-21-[address] Christy Lao Work Phone: [facility] Work Phone: Start: 04-11-2023 End: [...] encounter procedure Dr. Christy Lao Work Phone: [facility] Work Phone: Start: 02-21-2023 End: 02-21-[address] Christy Lao Work Phone: [facility] Work Phone: Start: 02-08-2023 End: 02-08-[address] Christy Lao Work Phone: [facility] Work Phone: Start: 02-08-2023 End: 02-08-[address] Christy Lao Work Phone: [facility] Start: 01-26-2023 End: 01-26-[address] [facility] Work [facility]: Start: 01-26-2023 End: 01-26-[address] Christy Lao Work Phone: [facility] Work Phone: Start: 01-19-2023 Telephone encounter Melissa monaco APRN.CNM Work Phone: OB/Gynecology Comment on above: Care Start: 01-19-2023 End: 01-19-2023 ambulatory Facility:[facility] Start: 01-19-2023 End: 01-19-2023 Nursing evaluation of patient and report Nurse Lupe [facility] Work Phone: OB/Gynecology Comment on above: Supervision of high risk , antepartum (Primary Dx); History of depression; History of depression; Nausea and vomiting during ; Bleeding in early ; Tobacco use affecting , antepartum; Marijuana use during ; Obesity affecting , antepartum, unspecified obesity type; History of hypothyroidism; Patient request for diagnostic testing Start: 01-19-2023 End: 01-19-2023 Patient requested procedure Nurse Lupe [facility] Work Phone: [facility] Work Phone: Start: 01-02-2023 End: 01-02-2023 Emergency department patient visit [facility] Work Phone: Start: 12-27-2022 End: 12-27-2022 ambulatory [facility] Work Phone: Start: 12-27-2022 End: 12-27-2022 Patient encounter procedure [facility] Work Phone: Start: 12-24-2022 Telephone encounter Farida olivares APRN.CNM Work Phone: OB/Gynecology Comment on above: Patient Question Start: 02-03-2021 End: 02-03-2021 ambulatory MELISSA BELL [facility] Start: 12-02-2020 End: 12-02-2020 ambulatory EDUARDO GONZALEZ [facility] Start: 11-06-2020 End: 11-06-[address] DOUGIE VITAL [facility] Start: 09-03-2020 End: 09-03-2020 Emergency department patient visit MORRO JUÁREZ [facility] Start: 06-27-2020 End: 06-27-2020 ambulatory OTONIEL BONE [facility] Start: 03-28-2020 [facility] Date Procedure Procedure Detail Performing Clinician Start: 09-04-2024 Serologic test for syphilis No Primary Care Physician Start: 08-09-2024 Urine culture No Primar y Care Physician Start: 06-29-2024 Transvaginal obstetr ic ultrasonography No Primary Care Physician Start: 06-29-2024 Ultrasonography of abdomen No Primary Care Physician Start: 06-29-2024 Estimated creatinine clearance No Primary Care Physician Start: 06-29-2024 Urnls dip stick/tabl et reagent auto microscopy No Primary Care Physician Start: 05-28-2024 Liquid based cervica l cytology screening No Primary Care Physician Comment on above: NEGATIVE FOR INTRAEP ITHELIAL LESION OR MALIGNANCY. This liquid based Th inPrep(R) pap test was screened withthe use of an image guided system. The HPV DNA reflex c riteria were not met with this specimenresult therefore, no HPV testing was performed.Performed at: [facility] [id number] Director: Radha Lau PhD, Phone: [phone] at: [facility] [id number] Director: Tomeka Brandt MD, Phone: [phone] Start: 05-28-2024 Hepatitis C antibody measurement No Primary Care Physician Comment on above: Reactive: Presumptiv e evidence of antibodies to HCV. Follow CDC recommendations for supplemental testing.Non-Reactive: Antibodies to HCV were not detected; does not exclude the possibility of exposure to HCVReactive Results are presumptive evidence of antibodies to HCV. Follow CDC recommendations for supplemental testing.Order confirmation testing: HCV Quant by PCR testing - HCVPCR #[id number] Non Reactive: < 0.8 Equivocal: >/= 0.8 to < 1.0 Reactive: >/= 1.0The CDC requires that a reactive/equivocal HCV antibody result be sent out for confirmation. HCV Quant by PCR testing. Start: 05-28-2024 Procedure No Primary Care Physician Start: 05-28-2024 Rubella IgG measurement No Primary Care Physician Comment on above: Antibody Result: Int erpretationNon-Reactive: Non- ImmuneReactive: ImmuneThe following results were obtained with the [employer] Rubella IgG assay. Results from assays of other manufacturers cannot be used interchangeably. Start: 05-28-2024 Serologic test for syphilis No Primary Care Physician Start: 05-28-2024 Urine culture No Primar y Care Physician Start: 04-06-2023 mri w/placntl matrnl plvc img sing/1st ges Dez Olmstead MD Work Phone: Start: 01-26-[address] Lorie Lao Work Phone: Plan of Treatment Date Care Activity Detail Author Start: 09-04-2024 Measurement of gluco se 2 hours after glucose challenge for glucose tolerance test [facility] Start: 09-04-2024 Serologic test for syphilis [facility] Start: 09-04-2024 [facility] Start: 06-29-2024 [facility] Start: 05-28-2024 Liquid based cervica l cytology screening [facility] Start: 05-06-2023 Iv infusion therapy/prophylaxis /dx 1st to 1 hr THER/PROPH/DIAG IV INF INIT [facility] Start: 05-06-2023 Insertion of cathete r into peripheral vein [facility] Start: 05-06-2023 Nonstress test [facility] Start: 05-06-2023 Obstetric monitoring [facility] Start: 05-06-2023 Vital signs measurements [facility] Start: 05-06-2023 [facility] Start: 05-06-2023 Patient discharge [facility] Start: 04-11-2023 End: 04-11-2023 Patient encounter procedure 04/11/2023 10:15 AM EST Office Visit [facility] [address], [place] [id number] Dez Olmstead MD [address] [facility] [address] [place], [place] [id number] Hedy Hinojosa, [place], [place] [id number] [facility] Start: 01-19-2023 End: 01-20-2024 [facility] Anc Imaging Routine Encounter for screening of mother Expected: 01/19/2023, Expires: 01/20/2024 [facility] Work Phone: Comment on above: Expected: 01/19/2023 , Expires: 01/20/2024 Start: 01-02-2023 [facility] Start: 11-05-2022 COVID-19 (2022-04 4 season) COVID-19 ( season) [facility] Start: 11-05-2022 Covid-19 Vaccine ( season) Covid-19 Vaccine ( season) [facility] Start: 11-05-2022 Influenza vaccination Influenza Vacc ine (#1) [facility] Start: 03-07-2022 Depression Assessment Depression Ass essment [facility] Start: 04-23-2021 Urine microalbumin profile DTaP,Tdap,Td Vaccine (4 - Td or Tdap) [facility] Start: 06-22-2019 Microscopic observat ion [Identifier] in Cervix by Cyto stain Pap Smear [facility] Start: 06-22-2019 Pap Testing Pap Testing [facility] Start: 2017 Urine microalbumin profile DTaP,Tdap,Td Vaccine (1 - Tdap) [facility] Start: 2016 Hepatitis C Screening Hepatitis C Sc zackning [facility] Start: 2016 HIV Screening HIV Screening [facility] Start: 2014 MenB (1 of 2 - MenB 2-Dose Series Bexsero) MenB (1 of 2 - MenB 2-Dose Series Bexsero) [facility] Start: 2012 Peds To Adult Transi tion Annual Assessment Peds To Adult Transition Annual Assessment [facility] Start: 2010 Peds To Adult Transi tion Initial Discussion Peds To Adult Transition Initial Discussion [facility] Start: 2009 HPV (1 - 2-dose series) HPV (1 - 2-d ose series) [facility] Start: 06-22-2007 HPV Vaccine (1 - 2-d ose series) HPV Vaccine (1 - 2-dose series) [facility] Start: 2005 Tetanus Diphtheria a nd Pertussis Vaccines (1 - Tdap) Tetanus Diphtheria and Pertussis Vaccines (1 - Tdap) [facility] Start: 2004 Pneumococcal vaccination Pneum ococcal Vaccine (1 - PCV) [facility] Start: 06-22-1999 MMR (1 of 1 - Standa rd series) MMR (1 of 1 - Standard series) [facility] Start: 06-22-1999 Varicella (1 of 2 - 2-dose childhood series) Varicella (1 of 2 - 2-dose childhood series) [facility] Start: 1998 Covid-19 Vaccine (#1) Covid-19 Vacci ne (#1) [facility] Start: 1998 Hepatitis B (1 of 3 - 3-dose series) Hepatitis B (1 of 3 - 3-dose series) [facility] Start: 1998 Hepatitis B Vaccine (1 of 3 - 3-dose series) Hepatitis B Vaccine (1 of 3 - 3-dose series) [facility] CBC W Auto Different ial panel - Blood [facility] CMV IgG Ab CMV IgG Ab Lab R outine Agenesis of corpus callosum 04/11/2023 12:35 PM EST [facility] CMV IgM Ab CMV IgM Ab Lab R outine Agenesis of corpus callosum 04/11/2023 12:35 PM [facility] CMV PCR Quantitative CMV PCR Ronaldo ntitative Microbiology Routine Agenesis of corpus callosum 04/11/2023 12:35 PM [facility] Drugs identified in Urine by Screen method [facility] Measurement of gluco se 2 hours after glucose challenge for glucose tolerance test [facility] Miscellaneous sendou t: Yuval VELIZEdna [facility] Work Phone: Path report.final Dx Spec [facility] Patient Education [facility] Work Phone: Patient referral [facility] Work Phone: Serologic test for syphilis [facility] Immunizations Immunization Date Immunization Notes Care Provider Fa cility 05-30-2023 tetanus toxoid,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 AB collected on NOB. not currently on thyroid medications. (6) Anxiety and depression: Status: Acute Comment: counseling encouraged. Stable (7) Cigarette smoker: Status: Acute Comment: counseling provided, cutting down to 2-3/day; no cigarettes now. 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 Record scanned. repeated today. 01/2023 ASCUS- repeat in 1 year. Orders: Orders POC Urinalysis 2 Dip (Clinic) Today CBC W/Diff, Automated Today O09.90 - Supervision of high risk , unspecified, unspecified trimester Glucose Challenge Gest 1H 50g Today O09.90 - Supervision of high risk , unspecified, unspecified trimester, Z13.1 - Encounter for screening for diabetes mellitus HIV Today O09.90 - Supervision of high risk , unspecified, unspecified trimester Syphilis Antibodies Today O09.90 - Supervision of high risk , unspecified, unspecified trimester 08/09/24 7826 <Electronically signed by Nallely dorsey MD> Date _ Nallely Barksdale MD Cosigner Signature: Date (if applicable) CC: ~ [facility] Work Phone: 1(370) [phone] Discharge summary [facility] Medical Records Department [address] [place] [address] Emergency Department Summary 06/29/24 MR#: [id number] Acct: [id number] Name: RANJAN TAN Rep #:[id number] : [...] Denies any alcohol use. She follows with [facility]. 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 Denies any vaginal bleeding. Follows with [facility]. On presentation, patient is hypertensive with a [...] abnormality. heart rate 145. On reevaluation, patient's nauseais improved. She has not vomited. Repeat blood pressure still hypertensive with blood pressure 155/71. Given this finding, [facility] was consulted and patient was discussed with Dr. Underwood. Plan is for patient to have her blood pressure repeated in their office this afternoon and theywill make further discussion about treatment. Patient was updated on the recommendations as well asthe plan. Sheconfirmed understanding. She states she has [...] % (Auto) 68.7 Lymph % (Auto) 19.7 Jackson % (Auto) 9.3 Eos % (Auto) 1.1 [...] Clarity Clear Urine pH 5.0 Ur Specific [place] 1.025 Urine Protein 30 H Urine Glucose [...] polyp versus adherent tumefactive sludge Reading Location: [facility] Obstetrics Ultrasound 06/29/24 03:37 IMPRESSION: Single, live intrauterine gestation. No abnormality is noted. Reading Location: [place] [address] Discharge Plan Triage Chief Complaint: Nausea/Vomiting ED Provider: Vaughn Tan Dx/Rx/DC Orders Clinical Impression: Nausea & vomiting, Hypertension, Instructions: ED Diet Vomiting Diarrhea, ED Hypertension, To Be Confirmed, ED Prescriptions: New cephalexin 500 mg capsule 500 mg PO Q6H 7 Days Qty: 28 0RF No Action PNV no.[id number] 180 mcg-35 mg- 25 mg-5 mg tablet,chewable [...] have your blood pressure repeated at your UNDERWATER PHOTOGRAPHER office this afternoon. Call them when you [...] polyp. Follow-up with general surgery. Print Language: [place] Disposition Disposition: Home, Self Care What to do if you have Problems For any increased pain, shortness of breath, bleeding, nausea or vomiting, chestpain, or any unexpected problems, contact your Primary Care Provider. Call [facility] ([phone]) or report tothe closest Emergency Room. Call 911 if necessary. 06/29/24 0719 Cosigner Signature (if applicable): CC: No Primary Care Physician ~ Signed [facility]04-25-2025 Radiology Diagnostic study note [facility] Imaging Services [address] [place], [place] [id number] Transvaginal w/Preg US MR#: [id number] Acct: [id number] Name: RANJAN TAN Rep #: [id number] : 2000 F 24 From: Katerin Walton MD PCP: Care Physician,No Primary Status: REG ER Study:Transvaginal w/Preg US Date of Exam: 06/29/24 Exam# [id number] Ordering Dr: Vaughn Guzman DO PROCEDURE: TRANSVAGINAL [...] gestation. No abnormality is noted. Reading Location: [place] [address] CC: Dr. Vaughn Tan DO; No Primary Care Physician ~ Health Information Clerk: Signed [facility]04-25-2025 Radiology Diagnostic study note [facility] Imaging Services [address] [place] [address] Abdomen Limited MR#: [id number] Acct: [id number] Name: RANJAN TAN Rep #: [id number] : 2000 F 24 From: Porfirio Sinha MD PCP: Care Physician,No Primary Status: REG ER Study:Abdomen Limited Date of Exam: 06/06 07/29 Exam# [id number] Ordering Dr: Vaughn Guzman DO PROCEDURE: ABDOMEN [...] polyp versus adherent tumefactive sludge Reading Location: [id number] CC: Dr. Vaughn Tipton-Angela, DO; No Primary Care Physician ~ Health Information Clerk: Signed [facility]03-24-2025 NotePap Smear Specimen AdequacyMarch 2024 11:59pmComment.Satisfactory for evaluation. Endocervical and/or squamous metaplasticcells (endocervical component)are present.[facility] INTERFACED A#[id number] Metrohealth SystemComment on above:Satisfactory for evaluation. Endocervical and/or squamous metaplasticcells (endocervical component)are present.05-28-2024 Evaluation note* Diagnosis Onset Date Resolution Status Admit Date Anxiety and depression acute [facility] 2024 2:14pm Cigarette smoker acute May 282024 2:14pm Brandon's disease acute May 28, 2024 2:14pm LGSIL (low grade squamous intraepithelial dysplasia) acute May 28, 2024 2:14pm Marijuana use acute May 28, 2024 2:14pm Obesity affecting acute May 28, 2024 2:14pm acute May 28 2:14pm Supervision of high-risk acute May 28, 2024 2:14pm [facility] Work Phone: 1(361) 401-528703-24-2025 Evaluation note* Diagnosis Onset Date Resolution Status Admit Date Anxiety and depression acute [facility] 2024 2:14pm Cigarette smoker acute May 282024 2:14pm Brandon's disease acute May 28, 2024 2:14pm LGSIL (low grade squamous intraepithelial dysplasia) acute May 28, 2024 2:14pm Marijuana use acute May 28, 2024 2:14pm Obesity affecting acute May 28, 2024 2:14pm acute May 28 2:14pm Supervision of high-risk acute May 28, 2024 2:14pm Anxiety and depression acute Ap 2024 1:54pm Cigarette smoker acute June 292024 1:54pm Brandon's disease acute June 29, 2024 1:54pm LGSIL (low grade squamous intraepithelial dysplasia) acute June 29, 2024 1:54pm Marijuana use acute June 29, 2024 1:54pm Obesity affecting acute June 29, 2024 1:54pm inactive June 29 1:54pm Supervision of high-risk acute June 29, 2024 1:54pm Hypertension inactive June 29, 2024 1:54pm Nausea & vomiting inactive June 062024 1:54pm Anxiety and depression acute 2024 12:38pm Cigarette smoker acute July 10, 2024 12:38pm Brandon's disease acute July 102024 12:38pm LGSIL (low grade squamous intraepithelial dysplasia) acute July 102024 12:38pm Marijuana use acute July 10 12:38pm Obesity affecting acute July 10, 2024 12:38pm acute July 10, 2024 12:38pm Supervision of high-risk acute July 10, 2024 12 :38pm Anxiety and depression acute 2024 2:39pm Cigarette smoker acute August 2:39pm Brandon's disease acute August 09, 2024 2:39pm LGSIL (low grade squamous intraepithelial dysplasia) acute August 09, 2024 2:39pm Marijuana use acute August 09, 2:39pm Obesity affecting acute August 09, 2024 2:39pm acute August 09, 2024 2:39pm Supervision of high-risk acute August 09, 2024 2 :39pm Velamentous insertion of umbilical cord acute August 09, 2024 2 :39pm [facility] Work Phone: 1(748) 497-680803-24-2025 Evaluation note* Diagnosis Onset Date Resolution Status Admit Date Anxiety and depression acute [facility] 2024 2:14pm Cigarette smoker acute May 282024 2:14pm Brandon's disease acute May 28, 2024 2:14pm LGSIL (low grade squamous intraepithelial dysplasia) acute May 28, 2024 2:14pm Marijuana use acute May 28, 2024 2:14pm Obesity affecting acute May 28, 2024 2:14pm acute May 28 2:14pm Supervision of high-risk acute May 28, 2024 2:14pm Anxiety and depression acute 2024 1:54pm Cigarette smoker acute June 292024 1:54pm Brandon's disease acute June 29, 2024 1:54pm LGSIL (low grade squamous intraepithelial dysplasia) acute June 29, 2024 1:54pm Marijuana use acute June 29, 2024 1:54pm Obesity affecting acute June 29, 2024 1:54pm inactive June 29 1:54pm Supervision of high-risk acute June 29, 2024 1:54pm Hypertension inactive June 29, 2024 1:54pm Nausea & vomiting inactive June 062024 1:54pm Anxiety and depression acute 2024 12:38pm Cigarette smoker acute July 10, 2024 12:38pm Brandon's disease acute July 102024 12:38pm LGSIL (low grade squamous intraepithelial dysplasia) acute July 102024 12:38pm Marijuana use acute July 10 12:38pm Obesity affecting acute July 10, 2024 12:38pm acute July 10, 2024 12:38pm Supervision of high-risk acute July 10, 2024 12 :38pm Anxiety and depression acute 2024 2:39pm Cigarette smoker acute August 2:39pm Brandon's disease acute August 09, 2024 2:39pm LGSIL (low grade squamous intraepithelial dysplasia) acute August 09, 2024 2:39pm Marijuana use acute August 09, 025 2:39pm Obesity affecting acute August 09, 2024 2:39pm acute August 09, 2024 2:39pm Supervision of high-risk acute August 09, 2024 2 :39pm Velamentous insertion of umbilical cord acute August 09, 2024 2 :39pm Anxiety and depression acute 2024 12:44pm Cigarette smoker acute September 12:44pm Brandon's disease acute September 04, 2024 12:44pm LGSIL (low grade squamous intraepithelial dysplasia) acute September 04, 2024 12:44pm Marijuana use acute September 04, 2 025 12:44pm Obesity affecting acute September 04, 2024 12:44pm acute September 04, 2024 12:44pm Supervision of high-risk acute September 04, 2024 1 2:44pm Velamentous insertion of umbilical cord acute September 04, 2024 1 2:44pm [facility] Work Phone: 1(130) 254-814603-24-2025 Evaluation note* Diagnosis Onset Date Resolution Status Admit Date Anxiety and depression acute [facility] 2024 2:14pm Cigarette smoker acute May 282024 2:14pm Brandon's disease acute May 28, 2024 2:14pm LGSIL (low grade squamous intraepithelial dysplasia) acute May 28, 2024 2:14pm Marijuana use acute May 28, 2024 2:14pm Obesity affecting acute May 28, 2024 2:14pm acute May 28 2:14pm Supervision of high-risk acute May 28, 2024 2:14pm Anxiety and depression acute Ap 2024 1:54pm Cigarette smoker acute June 292024 1:54pm Brandon's disease acute June 29, 2024 1:54pm LGSIL (low grade squamous intraepithelial dysplasia) acute June 29, 2024 1:54pm Marijuana use acute June 29, 2024 1:54pm Obesity affecting acute June 29, 2024 1:54pm inactive June 29 1:54pm Supervision of high-risk acute June 29, 2024 1:54pm Hypertension inactive June 29, 2024 1:54pm Nausea & vomiting inactive June 062024 1:54pm Anxiety and depression acute 2024 12:38pm Cigarette smoker acute July 10, 2024 12:38pm Brandon's disease acute July 102024 12:38pm LGSIL (low grade squamous intraepithelial dysplasia) acute July 102024 12:38pm Marijuana use acute July 10 12:38pm Obesity affecting acute July 10, 2024 12:38pm acute July 10, 2024 12:38pm Supervision of high-risk acute July 10, 2024 12 :38pm Anxiety and depression acute 2024 2:39pm Cigarette smoker acute August 2:39pm Brandon's disease acute August 09, 2024 2:39pm LGSIL (low grade squamous intraepithelial dysplasia) acute August 09, 2024 2:39pm Marijuana use acute August 09 025 2:39pm Obesity affecting acute August 09, 2024 2:39pm acute August 09, 2024 2:39pm Supervision of high-risk acute August 09, 2024 2 :39pm Velamentous insertion of umbilical cord acute August 09, 2024 2 :39pm Anxiety and depression acute 2024 12:44pm Cigarette smoker acute September 12:44pm Brandon's disease acute September 04, 2024 12:44pm Marijuana use acute September 04 12:44pm Obesity affecting acute September 04, 2024 12:44pm acute September 04, 2024 12:44pm Supervision of high-risk acute September 04, 2024 1 2:44pm Velamentous insertion of umbilical cord acute September 04, 2024 1 2:44pm [facility] Work Phone: 1(796) 732-204003-24-2025 Evaluation note* Diagnosis Onset Date Resolution Status Admit Date Anxiety and depression acute [facility] 2024 2:14pm Cigarette smoker acute May 282024 2:14pm Brandon's disease acute May 28, 2024 2:14pm LGSIL (low grade squamous intraepithelial dysplasia) acute May 28, 2024 2:14pm Marijuana use acute May 28, 2024 2:14pm Obesity affecting acute May 28, 2024 2:14pm acute May 28 2:14pm Supervision of high-risk acute May 28, 2024 2:14pm Anxiety and depression acute 2024 1:54pm Cigarette smoker acute June 292024 1:54pm Brandon's disease acute June 29, 2024 1:54pm LGSIL (low grade squamous intraepithelial dysplasia) acute June 29, 2024 1:54pm Marijuana use acute June 29, 2024 1:54pm Obesity affecting acute June 29, 2024 1:54pm inactive June 29 1:54pm Supervision of high-risk acute June 29, 2024 1:54pm Hypertension inactive June 29, 2024 1:54pm Nausea & vomiting inactive June 062024 1:54pm Anxiety and depression acute 2024 12:38pm Cigarette smoker acute July 10, 2024 12:38pm Brandon's disease acute July 102024 12:38pm LGSIL (low grade squamous intraepithelial dysplasia) acute July 102024 12:38pm Marijuana use acute July 10 12:38pm Obesity affecting acute July 10, 2024 12:38pm acute July 10, 2024 12:38pm Supervision of high-risk acute July 10, 2024 12 :38pm Anxiety and depression acute 2024 2:39pm Cigarette smoker acute August 2:39pm Brandon's disease acute August 09, 2024 2:39pm LGSIL (low grade squamous intraepithelial dysplasia) acute August 09, 2024 2:39pm Marijuana use acute August 09, 2:39pm Obesity affecting acute August 09, 2024 2:39pm acute August 09, 2024 2:39pm Supervision of high-risk acute August 09, 2024 2 :39pm Velamentous insertion of umbilical cord acute August 09, 2024 2 :39pm Anxiety and depression acute Ju 2024 12:44pm Cigarette smoker acute September 12:44pm Brandon's disease acute September 04, 2024 12:44pm Marijuana use acute September 04, 12:44pm Obesity affecting acute September 04, 2024 12:44pm acute September 04, 2024 12:44pm Supervision of high-risk acute September 04, 2024 1 2:44pm Velamentous insertion of umbilical cord acute September 04, 2024 1 2:44pm Anxiety and depression acute Ju ly 2024 1:44pm Cigarette smoker acute September 1:44pm Contraception management acute September 25, 2024 1:44pm Brandon's disease acute September 25, 2024 1:44pm LGSIL (low grade squamous intraepithelial dysplasia) acute September 25, 2024 1:44pm Marijuana use acute September 25, 2024 1:44pm Obesity affecting acute September 25, 2024 1:44pm acute September 25 1:44pm Supervision of high-risk acute September 25, 2024 1:44pm Velamentous insertion of umbilical cord acute September 25, 2024 1:44pm [facility] Work Phone: 1(897) 919-345011-22-2023 NotePap Smear Specimen AdequacyNovember 2022 5:04pmComment.Satisfactory for evaluation. No endocervical component is identified.An endocervical component is not commonly seen in the patient.[facility] INTER[facility]ED A#[id number] [facility] SystemCom[facility] on above: Satisfactory for evaluation. No endocervical component is identified.An endocervical component is not commonly seen in the patient.01-26-2023 NotePap Smear Specimen AdequacyNovember 2022 5:04pmComment.Satisfactory for evaluation. No endocervical component is identified.An endocervical component is not commonly seen in the patient.[facility] INTER[facility]ACED A#[id number] [facility] SystemComasc[facility] on above:Satisfactory for evaluation. No endocervical component is identified.An endocervical component is not commonly seen in the patient.01-26-2023 NotePap Smear Specimen AdequacyNovember 2022 6:04pmComment.Satisfactory for evaluation. No endocervical component is identified.An endocervical component is not commonly seen in the patient.[facility] INTERFACED A#[id number] [facility] SystemComasc[facility] on above:Satisfactory for evaluation. No endocervical component [...] Tuesday before. Please advise documented [facility]23 Miscellaneous Notes* Quick Notes - Angelica [...] Patient had her previous 2 deliveries at [facility].Pt has a history of depression diagnosed at [...] was transferred to a psychiatric facility in [place]. She states she did do cutting at that time. Denies any suicidal thoughts since then. She sees a counselor Mac Galeano at [facility]. Patient was seen at [facility] on December 27 for nausea and vomiting. [...] a quantitative hCG done December 27 at [facility] her where she was seen for nausea [...] and treated by Shagufta Macias and Dr Sofia. States she has been on andoff medications since then. Last took medication for about 8 months after the of her first child. Patient desires aneuploidy screening. Contact information for [facility] given to patient for her to check on insurance coverage. Declines genetic carrier screening testing. Angelica Angeles RN documented in this encounterMart[facility]11-15-2023 NoteHNO ID: [id number] Author: Angelica Angeles RN Service: ? Author [...] pre-existing diabetes: No No results found for: "ABORHD" No weight on file for this encounter. History of abnormal pap: No Prior treatment for cervical dysplasia: none. 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 History of abnormal pap: No Prior treatment for cervical dysplasia: none. 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 documented in this encounterMart[facility]10-29-2023 Discharge summary Author Jarad Hilton [facility] January 02, 2023 8:21pm Note Date/Time January 02, 2023 7 :20pm [facility] Medical Records Department [address] [place] [address] Emergency Department Summary 01/02/23 MR#: [id number] Acct: [id number] Name: RANJAN TAN Rep #:[id number] : [...] female who is seen by Dr. Valerio Charlton for her . [facility] Medical History Depression Home Medications ondansetron 4 mg disintegrating tablet 4 mg PO Q8H PRN PRN Nausea #10 tabs 01/02/23 [Rx Last Taken Unknown] pnv #11-fjhb-molhr acid-dha 28 mg-975 mcg-200 mg oral powder efferv pk 1 ea PO DAILY 01/02/23 [History Last Taken Unknown] Allergy/AdvReac Type Severity Reaction Status Date / Time Penicillins Allergy Hives Verified 01/02/23 18:22 Social History household members: children housing: [facility] Smoking Status: Current every day smoker tobacco [...] Clarity Cloudy Urine pH 8.0 Ur Specific [place] 1.015 Urine Protein Negative Urine Glucose (UA) [...] prescription for Zofran and follow-up with her outside plant technician Dr. Nallely Charlton Discharge Plan Triage Chief Complaint: Nausea/Vomiting ED Provider: Jarad Hilton Dx/Rx/DC Orders Clinical Impression: Hyperemesis gravidarum, First trimester Prescriptions: New ondansetron [ondansetron] 4 mg tablet,disintegrating 4 mg PO Q8H PRN PRN (Reason: Nausea) Qty: 10 0RF No Action pnv #48-uqoo-SW-dha 28-975-200 mg-mcg-mg powder effervescent in packet 1 [...] your Primary Care Provider. Call [facility] ([phone]) or report to the closest Emergency Room. Call 911 if necessary. 01/02/232020 <Electronically signed by Jarad Hilton MD> Cosigner Signature (if applicable): CC: Dr. Christy Lao MD ~ Signed [facility] Work Phone: 1(389) 416-361310-20-2023 Miscellaneous Notes* Telephone Encounter - Robby Live, RN - 12/24/2022 2:49 PM EDT Attempted to call patient, no answer and unable to leave message due to mailbox full. ROBBY LIVE, RN * Telephone Encounter - Farida Rangel [...] advise. Laura Norris LPN documented in this encounterNashua ClinicDischar summary Author Vaughn Quintanillagett [facility] Note Date/Time June 29, 2024 7:1 9am [facility] Medical Records Department [address] [place] [address] Emergency Department Summary 06/29/24 MR#: [id number] Acct: [id number] Name: RANJAN TAN Rep #:[id number] : [...] Denies any alcohol use. She follows with [facility]. 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 Denies any vaginal bleeding. Follows with [facility]. On presentation, patient is hypertensive with a [...] with blood pressure 155/71. Given this finding, [facility] was consulted and patient was discussed with [...] % (Auto) 68.7 Lymph % (Auto) 19.7 Jackson % (Auto) 9.3 Eos % (Auto) 1.1 [...] Clarity Clear Urine pH 5.0 Ur Specific [place] 1.025 Urine Protein 30 H Urine Glucose [...] polyp versus adherent tumefactive sludge Reading Location: [facility] Obstetrics Ultrasound 06/29/24 03:37 IMPRESSION: Single, live intrauterine gestation. No abnormality is noted. Reading Location: [place] [address] Discharge Plan Triage Chief Complaint: Nausea/Vomiting ED Provider: Vaughn Tan Dx/Rx/DC Orders Clinical Impression: Nausea & vomiting, Hypertension, Instructions: ED Diet Vomiting Diarrhea, ED Hypertension, To Be Confirmed, ED Prescriptions: New cephalexin 500 mg capsule 500 mg PO Q6H 7 Days Qty: 28 0RF No Action PNV no.888-MW-zo1-cvr-zps-pwvb 180 mcg-35 mg- 25 mg-5 mg tablet,chewable [...] have your blood pressure repeated at your [facility] office this afternoon. Call them when you [...] polyp. Follow-up with general surgery. Print Language: Australian Disposition Disposition: Home, Self Care What to do if you have Problems For any increased pain, shortness of breath, bleeding, nausea or vomiting, chestpain, or any unexpected problems, contact your Primary Care Provider. Call [facility] ([phone]) or report to the closest Emergency Room. Call 911 if necessary. 06/29/24 0719 <Electronically signed by Vaughn Tan DO> Cosigner Signature (if applicable): CC: No Primary Care Physician ~ Signed [facility] Work Phone: Evaluation note* Diagnosis Bleeding in early - Primary Unspecified hemorrhage in early , unspecified as to episode of care documented in this encounter [facility] noteNo assessment information availableWMercy Health [facility] Work Phone: Evaluation note* Diagnosis Supervision [...] Other specified examination documented in this encounter [facility] note* Diagnosis Encounter for screening of mother- Primary Unspecified screening documented in this encounter [facility] note* Diagnosis Onset Date Resolution Status Anxiety and depression acute Cigarette smoker 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 Marijuana use acute Obesity (BMI 30-39.9) acute acute Seasonal allergies acute Supervision of high-risk acute [facility] Work Phone: Evaluation note* Diagnosis Screening, , for malformation by ultrasound Encounter for routine screening for malformation using ultrasonics 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 care, single or unspecified fetus documented in this encounter [facility] note* 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 documented in this encounter [facility] note* Diagnosis Onset Date Resolution Status Anxiety [...] 30-39.9) acute acute Supervision of high-risk acute [id number] acute Anxiety and depression acute Cigarette smoker acute 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 acute Obesity (BMI 30-39.9) acute acute Seasonal allergies acute Supervision of high-risk acute [facility] Work Phone: Evaluation note* Diagnosis Onset Date [...] 30-39.9) acute acute Supervision of high-risk acute [id number] acute Anxiety and depression acute Cigarette smoker acute 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 acute Obesity (BMI 30-39.9) acute acute Seasonal allergies acute Supervision of high-risk acute Supervision of high-risk acute Elevated AST (SGOT) resolved [id number] acute Anxiety and depression acute Cigarette smoker acute 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 acute Obesity (BMI 30-39.9) acute acute Seasonal allergies acute Supervision of high-risk acute Elevated AST (SGOT) resolved [facility] Work Phone: Evaluation note* Diagnosis Onset Date Resolution Status Anxiety and depression acute Cigarette smoker acute 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 Obesity (BMI 30-39.9) acute acute Supervision of high-risk acute [id number] acute Anxiety and depression acute Cigarette smoker acute 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 acute Obesity (BMI 30-39.9) acute acute Seasonal allergies acute Supervision of high-risk acute Supervision of high-risk acute Elevated AST (SGOT) resolved [id number] acute Anxiety and depression acute Cigarette smoker acute 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 acute Obesity (BMI 30-39.9) acute acute Seasonal allergies acute Supervision of high-risk acute Elevated AST (SGOT) resolved [id number] acute Anemia affecting a cute Anxiety and depression acute Cigarette smoker acute 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 Obesity (BMI 30-39.9) acute acute Supervision of high-risk acute [id number] acute Anemia affecting a cute Anxiety and depression acute Cigarette smoker acute 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 Call them when you [...] a possible gallbladder polyp. Follow-up with general surgery.[facility] Work Phone: Reason for referral (narrative)* Diagnostic Procedure Only (Routine) - Pending Review Specialty Diagnoses / Procedures Referred By Vidal churchill Referred To Contact [facility] Diagnoses Encounter for screening of mother Procedures NUCHAL TRANSLUCENCY WHI US NUCHAL TRANSLUCENCY 1ST GESTATION Melissa Mcclellan APRN.ELA [address] [address] [facility] [address] [place] [address] Referral ID Status Reason Start Date Expiration Date Visits Requested Visits Authorized [id number] Pending Review Auto-Generat ed Referral 3 01/19/2024 1 1 [facility] for referral (narrative)No reason for referral information [facility] Work Phone: Summary Purpose Family History Relationship Condition Age at Onset Recorded Date/T winsome grandmother Malignant neoplasm of breast 74 aunt Family history of liver cancer 51 aunt Family history of liver cancer 61 Advance Directives Advance Directive Response Recorded Date/ Time Living Will No May 12, 2019 11:56pm Power of Supervisor [place] No May 11 11:56pm Advance Directive Response Recorded Date/ Time Living Will No January 02 6:29pm Power of Supervisor [place] No January 02, 2023 6:29pm Advance Directive Response Recorded Date/ Time Living Will No January 02 5:29pm Power of Supervisor [place] No January 02, 2023 5:29pm Advance Directive Response Recorded Date/ Time Do you have a [facility] Power of Supervisor [place]? 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) Marijuana use Obesity (BMI 30-39.9) Seasonal allergies Supervision of high-risk Supervision of high-risk Elevated AST (SGOT) [id number] Anxiety and depression Cigarette smoker 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) Marijuana use Obesity (BMI 30-39.9) Seasonal allergies Supervision of high-risk Elevated AST (SGOT) Chief Complaint 19 WK OB 24 WK OB R/O LABOR R/O LABOR 28 WK OB/GLUCOSE *pt to see per phone note 30 WK OB 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/tb BD/ FIT TEST- 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 34 WK OB 36 WK OB Reason for Visit Anxiety and depressi on Cigarette smoker 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 Obesity (BMI 30-39.9) Supervision of high-risk [id number] Anxiety and depression Cigarette smoker 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) Marijuana use Obesity (BMI 30-39.9) Seasonal allergies Supervision of high-risk Supervision of high-risk Elevated AST (SGOT) [id number] Anxiety and depression Cigarette smoker 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) Marijuana use Obesity (BMI 30-39.9) Seasonal allergies Supervision of high-risk Elevated AST (SGOT) [id number] Anemia affecting Anxiety and depression Cigarette smoker 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 Obesity (BMI 30-39.9) Supervision of high-risk [id number] Anemia affecting Anxiety and depression Cigarette smoker 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 Obesity (BMI 30-39.9) Supervision of high-risk [id number] Anemia affecting Anxiety and depression Cigarette smoker 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) Marijuana use Obesity (BMI 30-39.9) Seasonal allergies Supervision of high-risk Chief Complaint Admit Date New OB May 28, 2024 2:1 4pm Chief Complaint Admit Date New OB May 28, 2024 2:1 4pm n/v 17 weeks June 29, 2024 3 :05am BP check after ER June 29, 2024 1:5 4pm 18w 6d ob (this day per pt) July 10 12:38pm 23 wk ob August 09, 2024 2:39p m Reason for Visit Admit Date Anxiety and depression May 28, 2024 2:14pm Cigarette smoker May 28, 2024 2:1 4pm Brandon's disease May 28, 2024 2:1 4pm LGSIL (low grade squamous intraepithelia l dysplasia) May 28, 2024 2:14pm Marijuana use May 28, 2024 2:1 4pm Obesity affecting May 28, 2024 2:14pm May 28, 2024 2:1 4pm Supervision of high-risk May 28, 2024 2:14pm Anxiety and depression June 29, 2024 1:54pm Cigarette smoker June 29, 2024 1:5 4pm Brandon's disease June 29, 2024 1:5 4pm LGSIL (low grade squamous intraepithelia l dysplasia) June 29, 2024 1:54pm Marijuana use June 29, 2024 1:5 4pm Obesity affecting June 29, 2024 1:54pm June 29, 2024 1:5 4pm Supervision of high-risk June 29, 2024 1:54pm Hypertension June 29, 2024 1:5 4pm Nausea & vomiting June 29, 2024 1:5 4pm Anxiety and depression July 10, 2024 12: 38pm Cigarette smoker July 10, 2024 12:38p m Brandon's disease July 10, 2024 12:38p m LGSIL (low grade squamous intraepithelia l dysplasia) July 10, 2024 12:38pm Marijuana use July 10, 2024 12:38p m Obesity affecting July 10 12:38pm July 10, 2024 12:38p m Supervision of high-risk July 102024 12:38pm Anxiety and depression August 09, 2024 2: 39pm Cigarette smoker August 09, 2024 2:39p m Brandon's disease August 09, 2024 2:39p m LGSIL (low grade squamous intraepithelia l dysplasia) August 09, 2024 2:39pm Marijuana use August 09, 2024 2:39p m Obesity affecting August 09 2:39pm August 09, 2024 2:39p m Supervision of high-risk August 09, 2024 2:39pm Velamentous insertion of umbilical cord August 09, 2024 2:39pm Chief Complaint Admit Date New OB May 28, 2024 2:1 4pm n/v 17 weeks June 29, 2024 3 :05am BP check after ER June 29, 2024 1:5 4pm 18w 6d ob (this day per pt) July 10 12:38pm 23 wk ob August 09, 2024 2:39p m INT LAB ORDER September 04, 2024 12:20 pm 27 wk ob/glucose September 04, 2024 12:44 pm Reason for Visit Admit Date Anxiety and depression May 28, 2024 2:14pm Cigarette smoker May 28, 2024 2:1 4pm Brandon's disease May 28, 2024 2:1 4pm LGSIL (low grade squamous intraepithelia l dysplasia) May 28, 2024 2:14pm Marijuana use May 28, 2024 2:1 4pm Obesity affecting May 28, 2024 2:14pm May 28, 2024 2:1 4pm Supervision of high-risk May 28, 2024 2:14pm Anxiety and depression June 29, 2024 1:54pm Cigarette smoker June 29, 2024 1:5 4pm Brandon's disease June 29, 2024 1:5 4pm LGSIL (low grade squamous intraepithelia l dysplasia) June 29, 2024 1:54pm Marijuana use June 29, 2024 1:5 4pm Obesity affecting June 29, 2024 1:54pm June 29, 2024 1:5 4pm Supervision of high-risk June 29, 2024 1:54pm Hypertension June 29, 2024 1:5 4pm Nausea & vomiting June 29, 2024 1:5 4pm Anxiety and depression July 10, 2024 12: 38pm Cigarette smoker July 10, 2024 12:38p m Brandon's disease July 10, 2024 12:38p m LGSIL (low grade squamous intraepithelia l dysplasia) July 10, 2024 12:38pm Marijuana use July 10, 2024 12:38p m Obesity affecting July 10 12:38pm July 10, 2024 12:38p m Supervision of high-risk July 102024 12:38pm Anxiety and depression August 09, 2024 2: 39pm Cigarette smoker August 09, 2024 2:39p m Brandon's disease August 09, 2024 2:39p m LGSIL (low grade squamous intraepithelia l dysplasia) August 09, 2024 2:39pm Marijuana use August 09, 2024 2:39p m Obesity affecting August 09 2:39pm August 09, 2024 2:39p m Supervision of high-risk August 09, 2024 2:39pm Velamentous insertion of umbilical cord August 09, 2024 2:39pm Anxiety and depression September 04, 2024 12 :44pm Cigarette smoker September 04, 2024 12:44 pm Brandon's disease September 04, 2024 12:44 pm LGSIL (low grade squamous intraepithelia l dysplasia) September 04, 2024 12:44pm Marijuana use September 04, 2024 12:44 pm Obesity affecting September 04 12:44pm September 04, 2024 12:44 pm Supervision of high-risk September 04, 2024 12:44pm Velamentous insertion of umbilical cord September 04, 2024 12:44pm Reason for Visit Admit Date Anxiety and depression May 28, 2024 2:14pm Cigarette smoker May 28, 2024 2:1 4pm Brandon's disease May 28, 2024 2:1 4pm LGSIL (low grade squamous intraepithelia l dysplasia) May 28, 2024 2:14pm Marijuana use May 28, 2024 2:1 4pm Obesity affecting May 28, 2024 2:14pm May 28, 2024 2:1 4pm Supervision of high-risk May 28, 2024 2:14pm Anxiety and depression June 29, 2024 1:54pm Cigarette smoker June 29, 2024 1:5 4pm Brandon's disease June 29, 2024 1:5 4pm LGSIL (low grade squamous intraepithelia l dysplasia) June 29, 2024 1:54pm Marijuana use June 29, 2024 1:5 4pm Obesity affecting June 29, 2024 1:54pm June 29, 2024 1:5 4pm Supervision of high-risk June 29, 2024 1:54pm Hypertension June 29, 2024 1:5 4pm Nausea & vomiting June 29, 2024 1:5 4pm Anxiety and depression July 10, 2024 12: 38pm Cigarette smoker July 10, 2024 12:38p m Brandon's disease July 10, 2024 12:38p m LGSIL (low grade squamous intraepithelia l dysplasia) July 10, 2024 12:38pm Marijuana use July 10, 2024 12:38p m Obesity affecting July 10 12:38pm July 10, 2024 12:38p m Supervision of high-risk July 102024 12:38pm Anxiety and depression August 09, 2024 2: 39pm Cigarette smoker August 09, 2024 2:39p m Brandon's disease August 09, 2024 2:39p m LGSIL (low grade squamous intraepithelia l dysplasia) August 09, 2024 2:39pm Marijuana use August 09, 2024 2:39p m Obesity affecting August 09 2:39pm August 09, 2024 2:39p m Supervision of high-risk August 09, 2024 2:39pm Velamentous insertion of umbilical cord August 09, 2024 2:39pm Anxiety and depression September 04, 2024 12 :44pm Cigarette smoker September 04, 2024 12:44 pm Brandon's disease September 04, 2024 12:44 pm Marijuana use September 04, 2024 12:44 pm Obesity affecting September 04 12:44pm September 04, 2024 12:44 pm Supervision of high-risk September 04, 2024 12:44pm Velamentous insertion of umbilical cord September 04, 2024 12:44pm Chief Complaint Admit Date New OB May 28, 2024 2:1 4pm n/v 17 weeks June 29, 2024 3 :05am BP check after ER June 29, 2024 1:5 4pm 18w 6d ob (this day per pt) July 10 12:38pm 23 wk ob August 09, 2024 2:39p m INT LAB ORDER September 04, 2024 12:20 pm 27 wk ob/glucose September 04, 2024 12:44 pm 30 WK OB September 25, 2024 1:44 pm Reason for Visit Admit Date Anxiety and depression May 28, 2024 2:14pm Cigarette smoker May 28, 2024 2:1 4pm Brandon's disease May 28, 2024 2:1 4pm LGSIL (low grade squamous intraepithelia l dysplasia) May 28, 2024 2:14pm Marijuana use May 28, 2024 2:1 4pm Obesity affecting May 28, 2024 2:14pm May 28, 2024 2:1 4pm Supervision of high-risk May 28, 2024 2:14pm Anxiety and depression June 29, 2024 1:54pm Cigarette smoker June 29, 2024 1:5 4pm Brandon's disease June 29, 2024 1:5 4pm LGSIL (low grade squamous intraepithelia l dysplasia) June 29, 2024 1:54pm Marijuana use June 29, 2024 1:5 4pm Obesity affecting June 29, 2024 1:54pm June 29, 2024 1:5 4pm Supervision of high-risk June 29, 2024 1:54pm Hypertension June 29, 2024 1:5 4pm Nausea & vomiting June 29, 2024 1:5 4pm Anxiety and depression July 10, 2024 12: 38pm Cigarette smoker July 10, 2024 12:38p m Brandon's disease July 10, 2024 12:38p m LGSIL (low grade squamous intraepithelia l dysplasia) July 10, 2024 12:38pm Marijuana use July 10, 2024 12:38p m Obesity affecting July 10 12:38pm July 10, 2024 12:38p m Supervision of high-risk July 102024 12:38pm Anxiety and depression August 09, 2024 2: 39pm Cigarette smoker August 09, 2024 2:39p m Brandon's disease August 09, 2024 2:39p m LGSIL (low grade squamous intraepithelia l dysplasia) August 09, 2024 2:39pm Marijuana use August 09, 2024 2:39p m Obesity affecting August 09 2:39pm August 09, 2024 2:39p m Supervision of high-risk August 09, 2024 2:39pm Velamentous insertion of umbilical cord August 09, 2024 2:39pm Anxiety and depression September 04, 2024 12 :44pm Cigarette smoker September 04, 2024 12:44 pm Brandon's disease September 04, 2024 12:44 pm Marijuana use September 04, 2024 12:44 pm Obesity affecting September 04 12:44pm September 04, 2024 12:44 pm Supervision of high-risk September 04, 2024 12:44pm Velamentous insertion of umbilical cord September 04, 2024 12:44pm Anxiety and depression September 25, 2024 1 :44pm Cigarette smoker September 25, 2024 1:44 pm Contraception management September 25, 2024 1:44pm Brandon's disease September 25, 2024 1:44 pm LGSIL (low grade squamous intraepithelia l dysplasia) September 25, 2024 1:44pm Marijuana use September 25, 2024 1:44 pm Obesity affecting September 25, 025 1:44pm September 25, 2024 1:44 pm Supervision of high-risk September 25, 2024 1:44pm Velamentous insertion of umbilical cord September 25, 2024 1:44pm Reason for Referral Specialty Diagnoses / Procedures Referred By Contac t Referred To Contact Radiology Diagnoses Screening, , for malformation by ultrasound 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 care, single or unspecified fetus Procedures MRI (single) Dez Olmstead MD [address] [facility] [address] [place] [address] Referral ID Status Reason Start Date Expiration Date Visits Re quested Visits Authorized [id number] Closed 03/28/2023 03/27/2024 1 1 Additional Source Comments INFORMATION SOURCE (unrecogn ized section and content) DATE CREATED AUTHOR 02/10/2021 [facility] DATE CREATED AUTHOR AUTHOR'S ORGANIZ ATION 02/10/2021 [facility] DATE CREATED AUTHOR AUTHOR'S ORGANIZ ATION 02/07/2023 [facility] DATE CREATED AUTHOR AUTHOR'S ORGANIZ ATION 09/14/2024 [facility] DATE CREATED AUTHOR AUTHOR'S ORGANIZ ATION 09/24/2024 [facility] Source Comments (unrecognize d section and content) In the event this informatio n is protected by the Federal Confidentiality of Alcohol and Drug Abuse Patient Records regulations: The Federal rules restrict any use of the information to criminally investigate or prosecute any alcohol or drug abuse patient.[facility] event this information is protected by the Federal Confidentiality of Alcohol and Drug Abuse Patient Records regulations: The Federal rules restrict any use of the information to criminally investigate or prosecute any alcohol or drug abuse patient.[facility] the event this information is protected by the Federal Confidentiality of Alcohol and Drug Abuse Patient Records regulations: The Federal rules restrict any use of the information to criminally investigate or prosecute any alcohol or drug abuse patient.[facility] Reason for Visit (unrecogniz ed section and content) Reason Comments Patient Question Reason Comments Care Reason Comments Care Specialty Diagnoses / Procedures Referred By Vidal t Referred To Contact Radiology Diagnoses Screening, , for malformation by ultrasound 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 care, single or unspecified fetus Procedures MRI (single) Dez Olmstead MD [address] [facility] [address] [place] [address] Referral ID Status Reason Start Date Expiration Date Visits Re quested Visits Authorized [id number] Closed 03/28/2023 03/27/2024 1 1 Care Teams [...] CNM Attending Provider, Referring Pr ovider Active Coloring Checker Relationship Specialty Start Date End Date No Primary Care, MD Dariana [place] [id number] PCP - General Pediatrics 03/28/23 Coloring Checker Relationship Specialty Start Date End Date No Primary Care, [place] [address] PCP - General Pediatrics 03/28/23 Team Status: Active Member Role Status Dates Dr. Christy Lao MD Family Provider Active No Primary Care Physician Primary Care Provider Active Team Status: Inactive Member Role Status Dates Dr. Christy Lao MD Primary Care Provider, Referrin g Provider Active Coby Klein COUNTER HOP, COUNTER HOP-C Attending Provider Active Team Status: Inactive Member [...] MD Referring Provider Active Dr. Amira Underwood DO Attending Provider Activ e No Primary Care Physician Primary Care Provider Active Team Status: Active Member Role Status Dates No Primary Care Physician Primary Care Provider Active Darling Tabor CNM Attending Provider , Referring Provider, Other Provider Active Team Status: Inactive Member Role Status Dates No Primary Care Physician Primary Care Provider, Refer ring Provider Active Coby Klein COUNTER HOP, COUNTER HOP-C Attending Provider Active Team Status: Inactive Member Role Status Dates No Primary Care Physician Primary Care Provider, Refer ring Provider Active Pablito Grossman PA, PA Attending Provider Active Team Status: Inactive Member Role Status Dates No Primary Care Physician Primary Care Provider, Refer ring Provider Active Dr. Amira Underwood DO Attending Provider Activ e Team Status: Inactive Member Role Status Dates No Primary Care Physician Primary Care Provider Active Coby Klein COUNTER HOP, COUNTER HOP-C Attending Provider, Referring Provider Active Team Status: Active Member Role Status Dates No Primary Care Physician Primary Care Provider Active Pablito Grossman PA, PA Attending Provider, Referring Provi bob Active [...] June 29, 2024 End: June 29, 2024 Team Status: Inactive Member Role Status Dates No Primary Care Physician Primary Care Provider Active Start: June 29, 2024 End: June 29, 2024 Dr. Vaughn Tan , DO Attending Provider Activ e Start: June 29, 2024 End: June 29, 2024 Dr. Vaughn Tan , DO Emergency Provider Activ e Start: June 29, 2024 End: June 29, 2024 Team Status: Inactive Member Role Status Dates No Primary Care Physician Primary Care Provider Active Start: June 29, 2024 End: June 29, 2024 No Primary Care Physician Referring Provider Active Start: June 29, 2024 End: June 29, 2024 Dr. Amira Underwood , DO Attending Provider Activ e Start: June 29, 2024 End: June 29, 2024 Team Status: Inactive Member Role Status Dates No Primary Care Physician Primary Care Provider Active Start: July 10, 2024 End: July 10, 2024 No Primary Care Physician Referring Provider Active Start: July 10, 2024 End: July 10, 2024 Simi Lara CNM Attending Provider Active S tart: July 10, 2024 End: July 10, 2024 Team Status: Inactive Member Role Status Dates No Primary Care Physician Primary Care Provider Active Start: August 09, 2024 End: August 09, 2024 No Primary Care Physician Referring Provider Active Start: August 09, 2024 End: August 09, 2024 Dr. Nallely Barksdale MD Attending Provider Active Start: August 09, 2024 End: August 09, 2024 Team Status: Inactive Member Role Status Dates No Primary Care Physician Primary Care Provider Active Start: August 09, 2024 End: August 09, 2024 Dr. Nallely Barksdale MD Attending Provider Active Start: August 09, 2024 End: August 09, 2024 Dr. Nallely Barksdale MD Referring Provider Active Start: August 09, 2024 End: August 09, 2024 Team Status: Active Member Role/Relationship Status Dates No Primary Care Physician Primary Care Provider Active Team Status: Inactive Member Role/Relationship Status Dates No Primary Care Physician Primary Care Provider Active Start: May 28, 2024 End: May 28, 2024 No Primary Care Physician Referring Provider Active Start: May 28, 2024 End: May 28, 2024 Simi Lara CNM Attending Provider Active S tart: May 28, 2024 End: May 28, 2024 Team Status: Inactive Member Role/Relationship Status Dates No Primary Care Physician Primary Care Provider Active Start: May 28, 2024 End: May 28, 2024 Simi Lara CNM Attending Provider Active S tart: May 28, 2024 End: May 28, 2024 Simi Lara CNM Referring Provider Active S tart: May 28, 2024 End: May 28, 2024 Team Status: Inactive Member Role/Relationship Status Dates No Primary Care Physician Primary Care Provider Active Start: June 29, 2024 End: June 29, 2024 Dr. Vaughn Tan DO Attending Provider Activ e Start: June 29, 2024 End: June 29, 2024 Dr. Vaughn Tan DO Emergency Provider Activ e Start: June 29, 2024 End: June 29, 2024 Team Status: Inactive Member Role/Relationship Status Dates No Primary Care Physician Primary Care Provider Active Start: June 29, 2024 End: June 29, 2024 No Primary Care Physician Referring Provider Active Start: June 29, 2024 End: June 29, 2024 Dr. Amira Underwood DO Attending Provider Activ e Start: June 29, 2024 End: June 29, 2024 Team Status: Inactive Member Role/Relationship Status Dates No Primary Care Physician Primary Care Provider Active Start: July 10, 2024 End: July 10, 2024 No Primary Care Physician Referring Provider Active Start: July 10, 2024 End: July 10, 2024 Simi Lara CNM Attending Provider Active S tart: July 10, 2024 End: July 10, 2024 Team Status: Inactive Member Role/Relationship Status Dates No Primary Care Physician Primary Care Provider Active Start: August 09, 2024 End: August 09, 2024 No Primary Care Physician Referring Provider Active Start: August 09, 2024 End: August 09, 2024 Dr. Nallely Barksdale MD Attending Provider Active Start: August 09, 2024 End: August 09, 2024 Team Status: Inactive Member Role/Relationship Status Dates No Primary Care Physician Primary Care Provider Active Start: August 09, 2024 End: August 09, 2024 Dr. Nallely Barksdale MD Attending Provider Active Start: August 09, 2024 End: August 09, 2024 Dr. Nallely Barksdale MD Referring Provider Active Start: August 09, 2024 End: August 09, 2024 Team Status: Active Member Role/Relationship Status Dates No Primary Care Physician Primary Care Provider Active Start: September 04, 2024 Dr. Nallely Barksdale MD Attending Provider Active Start: September 04, 2024 Dr. Nallely Barksdale MD Referring Provider Active Start: September 04, 2024 Team Status: Inactive Member Role/Relationship Status Dates No Primary Care Physician Primary Care Provider Active Start: September 04, 2024 End: September 04, 2024 No Primary Care Physician Referring Provider Active Start: September 04, 2024 End: September 04, 2024 Coby Klein NP, COUNTER HOP-C Attending Provider Active Start: September 04, 2024 End: September 04, 2024 Team Status: Inactive Member Role/Relationship Status Dates No Primary Care Physician Primary Care Provider Active Start: September 04, 2024 End: September 04, 2024 Dr. Nallely Barksdale MD Attending Provider Active Start: September 04, 2024 End: September 04, 2024 Dr. Nallely Barksdale MD Referring Provider Active Start: September 04, 2024 End: September 04, 2024 Team Status: Inactive Member Role/Relationship Status Dates No Primary Care Physician Primary Care Provider Active Start: September 25, 2024 End: September 25, 2024 No Primary Care Physician Referring Provider Active Start: September 25, 2024 End: September 25, 2024 Dr. Nallely Barksdale MD Attending Provider Active Start: September 25, 2024 End: September 25, 2024 Goals (unrecognized section and content) Goals [...] BE BASED ON THE PRIMARY CLINICAL RECORDS. [employer] provides no warranty or guarantee of the accuracy or completeness of information in this document.
== END | disposition home or self-care (01) ==
LOC: LABSPEC 15:31
PROVIDERS: Referring Provider Obstetrics & Gynecology; Visit Provider Obstetrics & Gynecology
DX: F12.90 Cannabis use, unspecified, uncomplicated (principal)
CPT/HCPCS: 80307

== ENCOUNTER → 2024-10-09 | Outpatient (CLI) | payer MEDICAID, SELFPAY | END | disposition home or self-care (01) | PROVIDERS: Visit Provider Obstetrics & Gynecology | DX: E06.3 Autoimmune thyroiditis (principal) | CPT/HCPCS: 36415; 84439; 84443 ==

== ENCOUNTER 2024-10-14 13:10 | Outpatient (CLI) | payer MEDICAID, SELFPAY ==
[2024-10-14] VITALS (9 sets, daily range): BP systolic 108–141; BP diastolic 58–87; PULSE 71–88; RESP 16; TEMP 36.6; O2SAT 94–96; BMI 47.7
--- OUTSIDE RECORDS SUMMARY | 2024-10-14 13:26 | XMS RPT_ITS | CCD ---
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 Negative [facility] MR Travis 04-06-2023 IMPRESSION: The study is significantly limited by motion. 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 No other obvious [employer]RAF[employer] abnormality is identified This report has been created using voice recognition software [facility] MRI (SINGLE) CLINICAL HISTORY: agnesis of [...] are unremarkable. Visible maternal spine is unremarkable. [facility] Fidencio Coley MD - 04/06/2023 MRI [...] configuration of the ventricles. No other obvious [employer] abnormality is identified This report has been created using voice recognition software [facility] Radiology Study observation (narrative) [facility] MR FetalOrdered By: Fidencio Coley on 04-06-2023 [facility] Work Phone: Laboratory - Chemistry and C hemistry - challengeon 03-23-2023 Glucose Ql (U) Negative [facility] Laboratory - Urinalysison Protein Ql (U) Negative [facility] Laboratory - Chemistry and C hemistry - challengeon 02-21-2023 Glucose Ql (U) Negative [facility] Laboratory - Urinalysison Protein Ql (U) Negative [facility] Absolute lymphocyte countOrd ered By: Darling Tabor on 02-08-2023 Lymphocytes Auto (Unsp spec) [#/Vol] 2.86 10*3/uL 0.83-4.51 [facility] Basophil percentageOrdered B y: Darling Tabor on 02-08-2023 Basophils/100 WBC (Bld) 0.8 % 0-1 [facility] Eosinophils/100 WBC (Bld) 3.3 % 0-5 [facility] Neutrophils (Bld) [#/Vol] 5.9 10*3/uL 2.0-7.7 [facility] Neutrophils/100 WBC (Bld) 59.6 % 47-70 [facility] WBC (Bld) [#/Vol] 9.8 10*3/uL 4.4-11.0 [facility] Blood erythrocytes count (nu mber/volume)Ordered By: Darling Tabor on 02-08-2023 RBC (Bld) [#/Vol] 4.38 10*6/uL 4.2-5.4 [facility] Blood hemoglobin measurement (mass/volume)Ordered By: Darling Taobr on 02-08-2023 Hemoglobin (Bld) [Mass/Vol] 12.2 g/dL 12.0-15.0 [facility] Blood lymphocytes/100 leukoc ytesOrdered By: Darling Tabor on 02-08-2023 Lymphocytes/100 WBC (Bld) 29.1 % 19-41 [facility] Blood monocytes/100 leukocyt esOrdered By: Darling Tabor on 02-08-2023 Monocytes/100 WBC (Bld) 6.7 % 0-10 [facility] Blood platelet mean volumeOr dered By: Darling Tabor on 02-08-2023 Platelet mean volume (Bld) [Entitic vol] 8.7 fL 6.2-12.0 [facility] Determination of erythrocyte mean corpuscular volume (MCV)Ordered By: Darling Tabor on 02-08-2023 MCV (RBC) [Entitic vol] 84.7 fL 81-99 [facility] HIV 1 and HIV-2 antibody ass ay with HIV-1 p24 antigen detectionOrdered By: Darling Tabor on 02-08-2023 HIV 1+2 Ab+HIV1 p24 Ag IA Ql Non-Reactive Nonreactive [facility] Hematocrit Auto (Bld) [Volum e fraction]Ordered By: Darling Tabor on 02-08-2023 Hematocrit (Bld) [Volume fraction] 37.1 % 37-47 [facility] Laboratory - Chemistry and C hemistry - challengeOrdered By: Darling Tabor on 02-08-2023 Free T4 [Mass/Vol] 0.95 ng/dL 0.76-1.46 [facility] Laboratory - Hematology and Cell countsOrdered By: Darling Tabor on 02-08-2023 Erythrocyte distribution width (RBC) [Entitic vol] 43.7 fL 35.1-43.9 [facility] Erythrocyte distribution width (RBC) [Ratio] 14.1 % 11.6-14.6 [facility] Immature granulocytes/100 WBC (Bld) 0.500 % 0.0-0.9 [facility] Comment on above: IG% - Immature Granu locytes (promyelocytes, myelocytes and metamyelocytes) > 1% indicates that a LEFT SHIFT is Present. MCH (RBC) [Entitic mass] 27.9 pg 27.0-32.0 [facility] Nucleated RBC/100 WBC (Bld) [Ratio] 0 % 0-5 [facility] MCHC Auto (RBC) [Mass/Vol]Or dered By: Darling Tabor on 02-08-2023 MCHC (RBC) [Mass/Vol] 32.9 g/dL 32-36 [facility] No Panel InformationOrdered By: Darling Tabor on 02-08-2023 Free Triiodothyronine (T3) pg/dL 1.5 pg/mL 2.18-3.98 [facility] Hepatitis B Surface Antigen Non-Reactive Nonreactive [facility] Hepatitis C Antibody Non-Reactive Nonreactive [facility] Comment on above: Non Reactive: < 0.8 Equivocal: >/= 0.8 to < 1.0 Reactive: >/= 1.0The CDC recommends that a reactive/equivocal HCV antibody result be followed up by the HCV Nucleic Acid Amplificationtest (229555) Miscellaneous Test Comment MAILED SPECIMEN [facility] Rubella IgG Antibody Reactive Nonreactive [facility] Comment on above: Antibody Results Int erpretation of Immune Status Non Reactive Presumed Non-Immune Equivocal Equivocal Reactive Presumed Immune Thyroid Stimulating Hormone (TSH) 1.07 uIU/mL 0.358-3.74 [facility] Platelets bldOrdered By: Yuli Tabor on 02-08-2023 Platelets (Bld) [#/Vol] 250 10*3/uL 150-450 [facility] Serum Treponema species anti body detectionOrdered By: Darling Tabor on 02-08-2023 Treponema sp Ab Ql (S) Non-Reactive [facility] Serum or plasma thyroperoxid ase antibody assay (units/volume)Ordered By: Darling Tabor on 02-08-2023 TPO Ab Qn 19 [IU]/mL 0-34 [facility] Comment on above: Performed at: [place] [id number] Director: Brian Alvarado PhD, Phone: [phone] Whole blood hemoglobin A1c/t otal hemoglobin ratio (mass fraction)Ordered By: Darling Tabor on 02-08-2023 HbA1c (Bld) [Mass fraction] 5.0 % 3.8-5.6 [facility] Comment on above: Normal < 5.7 % Predi abetic 5.7 - 6.4 % Diabetic >or= 6.5 % Please note range changes. Cervical or vagninal specime n microscopic examination by cytology stain (reported asOrdered By: Darling Tabor on 01-26-2023 Cytology report Cyto stain Doc (Cvx/Vag) Comment . [facility] Comment on above: The Pap [...] SHAJI+probe Ql (Unsp spec) Negative Negative [facility] Culture, urineOrdered By: Kim Tabor on 01-26-2023 Bacteria identified Cx Nom (U) Positive [facility] Bacteria identified Cx Nom (U) Positive [facility] Laboratory - CytologyOrdered By: Darling Tabor on 01-26-2023 Lang Path Therapist Cyto stain Nom (Cvx/Vag) [ID] Comment . [facility] Comment on above: Eric Worrell otechnologist (ASCP) Pathologist Cyto stain Nom (Cvx/Vag) [ID] Comment . [facility] Comment on above: Brooklyn Murillo MD, Pa thologist Recommended follow-up Cyto stain Nom (Cvx/Vag) Comment . [facility] Comment on above: Suggest follow up as clinically appropriate. Laboratory - Drug toxicology Ordered By: Darling Tabor on 01-26-2023 Amphetamines Ql (U) Negative <1000 ng/mL [facility] Benzodiazepines Ql (U) Negative < 200 ng/mL [facility] Cannabinoids Screen Ql (U) Positive < 50 ng/mL [facility] Cocaine Ql (U) Negative < 300 ng/mL [facility] Opiates Ql (U) Negative < 300 ng/mL [facility] Laboratory - Microbiology an d Antimicrobial susceptibilityOrdered By: Darling Tabor on 01-26-2023 N. gonorrhoeae DNA SHAJI+probe Ql (Unsp spec) Negative Negative [facility] Comment on above: Performed at: =[address] [id number] Director: Tomeka Brandt MD, Phone: [phone] Laboratory - Miscellaneous t estsOrdered By: Darling Tabor on 01-26-2023 Service comment (Unsp spec) [Interp] Comment . [facility] Comment on above: This liquid based Th inPrep(R) pap test was screened withthe use of an image guided system. Service comment (Unsp spec) [Interp] . . [facility] No Panel InformationOrdered By: Darling Tabor on 01-26-2023 Human Papillomavirus Screen Comment . [facility] Comment on above: See below for HPV te sting results. MDMA (Ecstasy) Screen Negative < 500 ng/mL [facility] Pathology report final diagnosis Narrative Comment . [facility] Comment on above: EPITHELIAL CELL ABNO RMALITY.ATYPICAL SQUAMOUS CELLS OF UNDETERMINED SIGNIFICANCE (ASC-US). R87.610 Urine Barbiturates Screen Negative < 200 ng/mL [facility] Urine Drug Screen Comment [facility] Comment on above: CONFIRMATORY TESTING FOR ALL [...] TESTING MUST BE ORDERED SEPARATELY. USE TESTMNEMONIC: [facility] Urine Methadone Screen Negative < 300 ng/mL [facility] Urine phencyclidine (PCP) de tectionOrdered By: Darling Tabor on 01-26-2023 Phencyclidine Ql (U) Negative < 25 ng/mL [facility] CNNURSEon 01-19-2023 CNNURSE Nurse Visit (OBGYWM) -- ANGIERANJAN Jose Manuel ([id number]) 2000 F Date Time Provider Department 01/19/23 9:00 [facility] During your visit today, we recorded [...] use: No Multivitamin with Folic acid: Yes Advent or heritage: No Would refuse blood transfusion if medically necessary: No 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 Normal [facility] Jace 01-19-2023 CNPN Telephone (OBGYWM) -- RANJAN TAN ([id number]) 2000 F Date Time Provider Department 01/19/23 MELISSA MCCLELLAN OBGYWM During your visit today, we recorded [...] screening of mother [Z36.9] Order(s):NUCHAL TRANSLUCENCY WHI [[id number]] Order #: [id number]: 1 FUTURE Prescriptions as of 02/04/2023 - vit 27-hqgh-mmeqa-dha (SELECT-OB+DHA) 29 mg iron-1 mg -250 mg [...] Status:Closed by CAT DOUGLASS RN on 02/04/23 [facility] CNCOon 01-14-2023 CNCO Letter Text [facility] CNPNon 01-11-2023 CNPN Telephone (OBGYWM) -- RANJAN TAN ([id number]) 2000 F Date Time Provider Department 01/11/23 FARIDA RANGEL OBGYWM During your visit today, we recorded the following information about you: Angelica Angeles RN 01/11/2023 5:05 PM Signed Left message for patient to return phone call. Patient has PNOB appt 01/19. Please ask her if she has delivered elsewhere or if this is her [facility] . Please assist her in getting records sent here is applicable. Amira Damon RN 01/14/2023 11:31 AM Addendum LMP 9/2 Patient returned call. 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 Asked that patient request her delivery records. Also, faxed a request to [facility]. CP- patient has gone to ER for antiemetics. She is almost out. Asking if she could have another RX. Currently taking Zofran 4 MG ODT. Pharmacy added. Allergies updated. Please advise. Thank you. Silvina Quintanilla RN, RN 01/14/2023 11:56 AM Signed Delivery records from 2016 and 2019 received from [facility]. Please also see patients question about Zofran. Scan on 01/14/2023 11:35 AM by Provider, External, PA-C: [employer] LOAN INTERVIEWER Farida Rangel APRN.ELA 01/14/2023 1:38 PM Signed Rx sent. Farida [...] Status:Closed by FARIDA RANGEL on 01/14/23 Normal [facility] Amorphous sediment detection in urine sediment by light microscopyOrdered By: Jarad Hilton on 01-02-2023 Amorphous sediment LM Ql (Urine sed) 2+ [facility] Basophil percentageOrdered B y: Jarad Hilton on 01-02-2023 Basophil percentage 0-5 SEEN /hpf 0-5 [facility] Chloride [Moles/Vol] 105 mmol/L 98-107 [facility] Glucose [Mass/Vol] 120 mg/dL 74-106 [facility] Comment on above: Fasting Glucose resu lt from 100 to 125 mg/dL suggests IMPAIRED HOMEOSTASIS per A.D.A. criteria. Potassium [Moles/Vol] 3.5 mmol/L 3.5-5.1 [facility] Sodium [Moles/Vol] 134 mmol/L 136-145 [facility] Bilirubin Test strip Ql (U)O rdered By: Jarad Hilton on 01-02-2023 Bilirubin Ql (U) Negative Negative [facility] Ketones Test strip Ql (U)Ord ered By: Jarad Hilton on 01-02-2023 Ketones Ql (U) Negative Negative [facility] Laboratory - Chemistry and C hemistry - challengeOrdered By: Jarad Hilton on 01-02-2023 CO2 [Moles/Vol] 25.0 mmol/L 21.0-32.0 [facility] Urea nitrogen/Creatinine [Mass ratio] 17.4 mg/mg 10-20 [facility] Mucus LM Ql (Urine sed)Order ed By: Jarad Hilton on 01-02-2023 Mucus Ql (Urine sed) 0 SEEN /hpf [facility] Nitrite Test strip Ql (U)Ord ered By: Jarad Hilton on 01-02-2023 Nitrite Ql (U) Negative Negative [facility] No Panel InformationOrdered By: Jarad Hilton on 01-02-2023 Estimated Creatinine Clearance Calc 129.15 ml/min [facility] Estimated GFR (MDRD) Amer 165 mL/min >60 [facility] Comment on above: GFR Calc Estimated GFR (MDRD) Non-Af Amer 137 mL/min >60 [facility] Comment on above: Non- GFR Calc Protein Test strip Ql (U)Ord ered By: Jarad Hilton on 01-02-2023 Protein Ql (U) Negative Negative [facility] Serum or plasma calcium hudson urement (mass/volume)Ordered By: Jarad Hilton on 01-02-2023 Calcium [Mass/Vol] 8.4 mg/dL 8.5-10.1 [facility] Serum or plasma creatinine m easurement (mass/volume)Ordered By: Jarad Hilton on 01-02-2023 Creatinine [Mass/Vol] 0.58 mg/dL 0.55-1.02 [facility] Comment on above: The validity of the calculated GFR & GFRAA in patients over 70 years has not been determined. Clinical correlation is essential. Serum or plasma urea nitroge n measurement (mass/volume)Ordered By: Jarad Hilton on 01-02-2023 Urea nitrogen [Mass/Vol] 10 mg/dL 7-18 [facility] Squamous epithelial cells de tection in urine sediment by light microscopyOrdered By: Jarad Hilton on 01-02-2023 Epithelial cells.squamous LM Ql (Urine sed) 0-5 SEEN /hpf 5-10 [facility] Thin prep Papanicolaou smear with manual screeningOrdered By: Jarad Hilton on 01-02-2023 Thin prep Papanicolaou smear with manual screening 4 5-15 [facility] Urine blood detectionOrdered By: Jarad Hilton on 01-02-2023 RBC Ql (U) Negative Negative [facility] RBC Ql (U) 0 SEEN /hpf 0-5 [facility] Urine clarityOrdered By: Jarad Hilton on 01-02-2023 Clarity (U) Cloudy Clear [facility] Urine color determinationOrd ered By: Jarad Hilton on 01-02-2023 Color (U) Yellow Yellow [facility] Urine glucose detectionOrder ed By: Jarad Hilton on 01-02-2023 Glucose Ql (U) Normal mg/dl Normal [facility] Urine leukocyte esterase det ection by dipstickOrdered By: Jarad Hilton on 01-02-2023 Leukocyte esterase Test strip Ql (U) 25 /ul Negative [facility] Urine pHOrdered By: Jarad kauffman on 01-02-2023 pH (U) 8.0 [pH] 5.0 - 8.0 [facility] Urine sediment bacteria coun t by microscopy (number/high power field)Ordered By: Jarad Hilton on 01-02-2023 Bacteria LM.HPF (Urine sed) [#/Area] RARE /hpf None Seen [facility] Urine specific gravity measu rementOrdered By: Jarad Hilton on 01-02-2023 Specific gravity (U) [Rel density] 1.015 1.002-1.030 [facility] Urobilinogen Auto test strip Ql (U)Ordered By: Jarad Hilton on 01-02-2023 Urobilinogen Ql (U) Normal mg/dl Normal [facility] Serum or plasma choriogonado tropin detectionOrdered By: Nallely Shamir on 12-27-2022 HCG ( test) Ql 21698 mIU/mL <4 [facility] Comment on above: hCG levels with Gest ational AgeGestational Age hCG mIU/mL (IU/L)0.2 - 1 week 5 - 501-2 weeks 50 - 5002-3 weeks 100 - 07973-9 weeks 500 - 366241-3 weeks 1000 - 936955-3 weeks 80812 - 100,0006-8 weeks 72296 - 200,0002-3 months 37746 - 100,000 CNPNon 12-24-2022 CNPN Telephone (OBGYWM) -- RANJAN TAN ([id number]) 2000 F Date Time Provider Department 12/24/22 [...] Status:Closed by FARIDA RANGEL on 12/24/22 Normal [facility] B TESTO SHBG, FEM, CHIL [CCL ]on 02-09-2021 Sex Hormon Bind Glb 80 Normal [facility] Comment on above: Result Comment: Refe rence range: 30 to 135 Unit: nmol/L (NOTE) REFERENCE INTERVAL: Sex Hormone Binding Globulin Access complete set of age- and/or gender-specific reference intervals for this test in the [facility] Test Directory ([facility]). Performed By: #### 2 05492 #### [place] [id number] Testos Bioavail 3.1 Normal [facility] Comment on above: Result Comment: Refe rence range: 2.2 to 20.6 Unit: ng/dL (NOTE) Testosterone LC-MS, Bioavailable Reference Interval Females, 18 years and older Postmenopausal: 1.5 - 9.4 ng/dL REFERENCE INTERVAL: Testosterone LC-MS, Bioavailable Access complete set of age- and/or gender-specific reference intervals for this test in the [facility] Test Directory ([facility]). [facility] [address] [place] [address] Wayne Andrade III, M.D. [id number] Performed By: #### 2 60134 #### [place] [id number] Testosterone [Mass/Vol] 11 ng/dL Normal [facility] Comment on above: Result Comment: Refe rence range: 9 to 55 Unit: ng/dL (NOTE) Total Testosterone, Females 18 years and older Premenopausal 9-55 ng/dL Postmenopausal 5-32 ng/dL REFERENCE INTERVAL: Testosterone, LC-MS/MS Access complete set of age- and/or gender-specific reference intervals for this test in the [facility] Test Directory ([employer]). This test was developed and its performance characteristics determined by [facility]. It has not been cleared or approved by the [place] Food and Drug Administration. This test was performed in a CLIA certified laboratory and is intended for clinical purposes. Performed By: #### 2 23320 #### [place] [address] Testosterone Free 1.0 Normal [facility] Comment on above: Result Comment: Refe rence [...] reference intervals for this test in the [facility] Test Directory ([employer]). This test was developed and its performance characteristics determined by [facility]. It has not been cleared or approved by the [place] Food and Drug Administration. This test was performed in a CLIA certified laboratory and is intended for clinical purposes. Performed by [facility], [address] [place] [id number] [email or web address], Jillian Metzger MD, Lab. Director Performed By: #### 2 84061 #### [facility],[address] [place], [place] [address] B TestoSHBG,fem,carla 02-09 Sex Hormon Bind Glb 80 nmol/L Normal 30-135 [facility] Testos Bioavail 3.1 ng/dL Normal 2.2-20.6 [facility] Testosterone [Mass/Vol] 11 ng/dL Normal 9-55 [facility] Testosterone Free 1.0 pg/mL Normal 0.8-7.4 [facility] CBC + DIFFon 02-03-2021 Baso # 0.10 x10EE3/UL Normal 0.00 - 0.10 [facility] Comment on above: Performed By: #### 2 98109 #### [facility],[address] [place] [address]175 Basophils/100 WBC (Bld) 1.0 % Normal 0.0 - 2.0 [facility] Comment on above: Performed By: #### 2 09955 #### [facility],[address] [place] [address] CBC + DIFF Normal [facility] Comment on above: Result Comment: CBC- COMPLETE BLOOD COUNT Performed By: #### 2 62688 #### [facility],[address] [place] [address] EO # 0.30 x10EE3/UL Normal 0.00 - 0.50 [facility] Comment on above: Performed By: #### 2 59180 #### [facility],[address] [place] [address]122 Eosinophils/100 WBC (Bld) 6.2 % Normal 0.0 - 7.0 [facility] Comment on above: Performed By: #### 2 60146 #### [facility],[address] [place] [address] Erythrocyte distribution width (RBC) [Ratio] 14.1 % Normal 12.0 - 15.6 [facility] Comment on above: Performed By: #### 2 95740 #### [facility],[address] [place] [address] Hematocrit (Bld) [Volume fraction] 40.0 % Normal 34.0 - 46.0 [facility] Comment on above: Performed By: #### 2 10196 #### [facility],[address] [place], [place] [id number] Hemoglobin (Bld) [Mass/Vol] 13.2 g/dL Normal 12.0 - 16.0 [facility] Comment on above: Performed By: #### 2 60859 #### [facility],[address] [place] [address] Lymph # 1.70 x10EE3/UL Normal 0.80 - 2.80 [facility] Comment on above: Performed By: #### 2 64620 #### [place] [address] Lymphocytes/100 WBC (Bld) 32.7 % Normal 20.0 - 45.0 [facility] Comment on above: Performed By: #### 2 76550 #### [facility],[address] [place] [address] MANUAL DIFF N/A Normal [facility] Comment on above: Performed By: #### 2 64929 #### [place] [address] MCH (RBC) [Entitic mass] 26 pg Low 27 - 33 [facility] Comment on above: Performed By: #### 2 17906 #### [place] [address] MCHC 33 X10 3 Normal 32 - 36 [facility] Comment on above: Performed By: #### 2 01223 #### [place] [address] MCV (RBC) [Entitic vol] 78 fL Low 80 - 99 [facility] Comment on above: Performed By: #### 2 61600 #### [place] [address] [place] # 0.30 x10EE3/UL Normal 0.20 - 1.00 [facility] Comment on above: Performed By: #### 2 37674 #### [place] [address] MONOS % 6.7 % Normal 0.0 - 10.0 [facility] Comment on above: Performed By: #### 2 09545 #### [facility],[address] [place] [address] Morphology González (Bld) [Interp] N/A Normal [facility] Comment on above: Result Comment: {CD] Performed By: #### 2 03484 #### [facility],[address] [place] [address] Neut # 2.70 x10EE3/UL Normal 1.50 - 7.10 [facility] Comment on above: Performed By: #### 2 20677 #### [place] [address] Neutrophils/100 WBC (Bld) 53.4 % Normal 46.0 - 76.0 [facility] Comment on above: Performed By: #### 2 95791 #### [place] [address] PLATELET 216 x10EE3/UL Normal 150 - 450 [facility] Comment on above: Performed By: #### 2 75006 #### [place] [address] Platelet mean volume (Bld) [Entitic vol] 7.9 fL Normal 6.6 - 10.5 [facility] Comment on above: Result Comment: AUTO MATED DIFFERENTIAL Performed By: #### 2 41881 #### [place] [address] RBC 5.10 x 10EE6/UL Normal 4.10 - 5.30 [facility] Comment on above: Performed By: #### 2 64598 #### [place] [address] WBC 5.1 x 10EE3/UL Normal 4.5 - 10.8 [facility] Comment on above: Performed By: #### 2 48287 #### [address] [address] CMP with eGFRon 02-03-2021 AGE 20 years Normal [facility] Comment on above: Performed By: #### 2 64283 #### [facility],[address] [place] [address]36 Albumin [Mass/Vol] 4.2 g/dL Normal 3.4 - 5.0 [facility] Comment on above: Performed By: #### 2 11515 #### [facility],[address] [place] [address] Albumin/Globulin [Mass ratio] 1.2 {ratio} Normal 0.9 - 1.6 [facility] Comment on above: Performed By: #### 2 83283 #### [facility],[address] [place] [address] 20102 ALK PHOS 58 U/L Normal 46 - 116 [facility] Comment on above: Performed By: #### 2 86583 #### [facility],[address] [place] [address] 05704 ALT [Catalytic activity/Vol] 21 U/L Normal 14 - 59 [facility] Comment on above: Performed By: #### 2 44246 #### [facility],[address] [place] [address] 07406 Anion gap [Moles/Vol] 17 mmol/L Normal 10 - 20 [facility] Comment on above: Performed By: #### 2 73214 #### [facility],[address] [place] [address] 26684 AST [Catalytic activity/Vol] 16 U/L Normal 13 - 39 [facility] Comment on above: Performed By: #### 2 28642 #### [facility],[address] [place] [address]96 B/C RATIO 19 ratio Normal 0 - 30 [facility] Comment on above: Performed By: #### 2 37250 #### [facility],[address] [place], [place] [id number] Bilirubin [Mass/Vol] 0.6 mg/dL Normal 0.2 - 1.0 [facility] Comment on above: Performed By: #### 2 38183 #### [facility],[address] [place] [address]000 Calcium [Mass/Vol] 9.2 mg/dL Normal 8.5 - 10.1 [facility] Comment on above: Performed By: #### 2 70566 #### [facility],[address] [place] [address]751 Chloride [Moles/Vol] 103 mmol/L Normal 98 - 107 [facility] Comment on above: Performed By: #### 2 05625 #### [facility],[address] [place], [place] [id number] CMP with eGFR Normal [facility] Comment on above: Result Comment: COMP REHENSIVE METABOLIC PANEL Performed By: #### 2 98805 #### [facility],[address] [place] [address] 15079 CO2 [Moles/Vol] 24.3 mmol/L Normal 21.0 - 32.0 [facility] Comment on above: Performed By: #### 2 72223 #### [facility],[address] [place] [address]806 Creatinine [Mass/Vol] 0.72 mg/dL Normal 0.55 - 1.02 [facility] Comment on above: Performed By: #### 2 38004 #### [facility],[address] [place] [address] 14267 GFR/1.73 sq M.predicted among non-blacks MDRD (S/P/Bld) [Vol rate/Area] mL/min/{1.73_m2} Normal 60 - 999 [facility] Comment on above: Performed By: #### 2 19434 #### [facility],[address] [place] [address] Result Comment: ACCO RDING TO THE NATIONAL KIDNEY DISEASE EDUCATION PROGRAM(NKDE), A NORMAL eGFR IS A VALUE GREATER THAN OR EQUAL TO 60 ML/MIN/1.73 SQ METERS. CHRONIC KIDNEY DISEASE: <60mL/MIN/1.73 SQ METERS KIDNEY FAILURE: <15mL/MIN/1.73 SQ METERS THIS TEST SHOULD ONLY BE USED FOR PATIENTS 18 YEARS OF AGE AND OLDER. Globulin (S) [Mass/Vol] 3.6 g/dL Normal 1.5 - 3.8 [facility] Comment on above: Performed By: #### 2 10958 #### [facility],[address] [place] [address] 48263 Glucose [Mass/Vol] 82 mg/dL Normal 74 - 106 [facility] Comment on above: Performed By: #### 2 47921 #### [facility],[address] [place] [address] 67942 Potassium [Moles/Vol] 3.9 mmol/L Normal 3.5 - 5.1 [facility] Comment on above: Performed By: #### 2 99113 #### [facility],[address] [place] [address] 33011 Protein [Mass/Vol] 7.8 g/dL Normal 6.4 - 8.2 [facility] Comment on above: Performed By: #### 2 21102 #### [facility],[address] [place] [address]11 Sodium [Moles/Vol] 140 mmol/L Normal 136 - 145 [facility] Comment on above: Performed By: #### 2 92243 #### [facility],[address] [place] [address] 39025 Urea nitrogen [Mass/Vol] 14 mg/dL Normal 7 - 18 [facility] Comment on above: Performed By: #### 2 90998 #### [facility],[address] [place] [address] 06267 LIPID PROFILEon 02-03-2021 Cholesterol [Mass/Vol] 181 mg/dL Normal 0 - 240 [facility] Comment on above: Performed By: #### 2 [id number] #### [facility],[address] [place] [address] 87224 Cholesterol in HDL [Mass/Vol] 76 mg/dL High 40 - 60 [facility] Comment on above: Performed By: #### 2 88305 #### [facility],[address] [place] [address] 09653 Cholesterol in LDL [Mass/Vol] 97 mg/dL Normal 0 - 129 [facility] Comment on above: Performed By: #### 2 57487 #### [facility],[address] [place] [address] 80317 Cholesterol.total/Chol esterol in HDL [Mass ratio] 2.4 {ratio} Normal 0.0 - 5.0 [facility] Comment on above: Performed By: #### 2 60503 #### [facility],[address] [place] [address] 48178 Lipid 1996 panel Normal [facility] Comment on above: Result Comment: LIPI D PROFILE Performed By: #### 2 56837 #### [facility],[address] [place] [address] 88004 Triglyceride [Mass/Vol] 41 mg/dL Normal 0 - 150 [facility] Comment on above: Performed By: #### 2 96171 #### [facility],[address] [place] [address] 75767 T4 (THYROXINE) TOTALon 02-03 T4 (THYROXINE) TOTAL Normal [facility] Comment on above: Result Comment: THYR OXINE(T4) Performed By: #### 2 61788 #### [facility],[address] [place] [address] 81381 T4 [Mass/Vol] 6.7 ug/dL Normal 4.7 - 13.3 [facility] Comment on above: Performed By: #### 2 97632 #### [facility],[address] [place] [address] 56341 TSHon 02-03-2021 TSH Qn 2.50 m[IU]/L Normal 0.35 - 3.74 [facility] Comment on above: Performed By: #### 2 43429 #### [facility],[address] [place] [address] 64291 CORONAVIRUS PCR - [facility] 12-03-2020 SARS-CoV-2 (COVID-19) RNA SHAJI+probe Ql (Unsp spec) Negative Normal NORMAL: NEGATIVE [facility] Comment on above: Performed By: #### 2 02679 #### [facility],[address] [place] [address] 30579 SEND TO IC? YES Normal [facility] Comment on above: Result Comment: RESU LTS FAXED TO INFECTION CONTROL. SARS-CoV-2 THIS TEST IS BEING USED UNDER THE FDA EUA PROCEDURE. THIS ASSAY HAS BEEN VALIDATED IN THE [facility] FOR USE WITH NASOPHARYNGEAL SPECIMENS IN [facility]. INTERPRETIVE DATA LABORATORY TEST RESULTS SHOULD [...] PUBLIC HEALTH AUTHORITIES. Performed By: #### 2 60581 #### [facility],[address] [place] [address] CORONAVIRUS PCR - [facility] 11-07-2020 SARS-CoV-2 (COVID-19) RNA SHAJI+probe Ql (Unsp spec) Negative Normal NORMAL: NEGATIVE [facility] Comment on above: Performed By: #### 2 11620 #### [facility],[address] [place] [address] SEND TO ? YES Normal [facility] Comment on above: Result Comment: RESU LTS FAXED TO INFECTION CONTROL. SARS-CoV-2 THIS TEST IS BEING USED UNDER THE FDA EUA PROCEDURE. THIS ASSAY HAS BEEN VALIDATED IN THE [facility] FOR USE WITH NASOPHARYNGEAL SPECIMENS IN [facility]. INTERPRETIVE DATA LABORATORY TEST RESULTS SHOULD [...] PUBLIC HEALTH AUTHORITIES. Performed By: #### 2 82138 #### [facility],[address] [place] [address] EMERGENCY REPORTon 07-01-202 1 EMERGENCY REPORT [facility] EMERGENCY ROOM REPORT NAME ACCOUNT SEX AGE ADMIT DISCHARGE PT MED. RECORD# NUMBER DATE DATE TYPE ANGIE [id number] F 20 09/03/20 09/03/20 3 RANJAN [address] ROOM: ER DATE OF : 2000 DICTATING [...] Report RANJAN TAN : 2000 JOB #: [id number] Transcribed By: rut 09/04/20 08:33 Electronically signed by: E-SIGN: Morro Juárez D.O. 07/01/21 09:41 Page 2 of 2 RANJAN TAN Emergency Room Report Normal [facility] T3, FREE [CCL]on 06-30-2020 Free T3 [Mass/Vol] 2.8 pg/mL Normal 2.3-4.1 [facility] Comment on above: Result Comment: [facility] [address] [place] [address] Wayne Andrade III, M.D. [id number] Performed By: #### 2 95956 #### [facility],[address] [place] [address] 91770 THYROGLOBULIN AB [CCL]on Thyroglobulin Ab Qn 2.4 [IU]/mL Normal <14.4 [facility] Comment on above: Result Comment: [facility] [place] [address] Wayne Andrade III, M.D. [id number] Performed By: #### 2 86523 #### [facility],[address] [place] [address] 90591 THYROID PEROXIDASE AB [CCL]o n 06-30-2020 TPO Antibody <1.0 Normal <5.6 [facility] Comment on above: Result Comment: [address] [address] Wayne Andrade III, M.D. [id number] Performed By: #### 2 60493 #### [facility],[address] [place] [address] 86496 TPO Antibodyon 06-30-2020 TPO Antibody <1.0 Normal <5.6 [facility] Comment on above: Performed By: #### F REET3, TGAB, MICRO #### [facility] Routine Lab [facility] [place] [phone] Thyroglobulin Abon Thyroglobulin Ab Qn 2.4 [IU]/mL Normal <14.4 [facility] Comment on above: Performed By: #### F REET3, TGAB, MICRO #### [facility] Routine Lab [address] [place], [place] [id number] Free T3on 06-28-2020 Free T3 [Mass/Vol] 2.8 pg/mL Normal 2.3-4.1 [facility] Comment on above: Performed By: #### F REET3, TGAB, MICRO #### [facility] Routine Lab [address] [place], [place] [address] T4-FREE (FREE THYROXINE)on 0 06-27-2020 Free T4 [Mass/Vol] 0.93 ng/dL Normal 0.76 - 1.46 [facility] Comment on above: Result Comment: P otential of falsely elevated results when biotin concentrations are > 10 ng/mL. Performed By: #### 2 30111 #### [facility],[address] [place] [address] TSHon 06-27-2020 TSH Qn 2.78 m[IU]/L Normal 0.35 - 3.74 [facility] Comment on above: Performed By: #### 2 56526 #### [facility],[address] [place] [address] Vital Signs Date Time Vital Sign Value Performing Clinician Elena ahrry 10-09-2024 13:51-0400 Body height 162.56 cm No Primary Care Physician [facility] 10-09-2024 13:51-0400 Body mass index (BMI) [Ratio] 48.6 kg/m2 No Primary Care Physician [facility] 10-09-2024 13:51-0400 Body weight 128.42 kg No Primary Care Physician [facility] 10-09-2024 13:51-0400 Diastolic blood pressure 70 mm[Hg] No Primary Care Physician [facility] 10-09-2024 13:51-0400 Systolic blood pressure 108 mm[Hg] No Primary Care Physician [facility] 09-25-2024 13:49-0400 Body height 162.56 cm No Primary Care Physician [facility] 09-25-2024 13:49-0400 Body mass index (BMI) [Ratio] 47.5 kg/m2 No Primary Care Physician [facility] 09-25-2024 13:49-0400 Body weight 125.64 kg No Primary Care Physician [facility] 09-25-2024 13:49-0400 Diastolic blood pressure 76 mm[Hg] No Primary Care Physician [facility] 09-25-2024 13:49-0400 Systolic blood pressure 117 mm[Hg] No Primary Care Physician [facility] 09-04-2024 12:57-0400 Body height 162.56 cm No Primary Care Physician [facility] 09-04-2024 12:57-0400 Body mass index (BMI) [Ratio] 46.3 kg/m2 No Primary Care Physician [facility] 09-04-2024 12:57-0400 Body weight 122.52 kg No Primary Care Physician [facility] 09-04-2024 12:57-0400 Diastolic blood pressure 78 mm[Hg] No Primary Care Physician [facility] 09-04-2024 12:57-0400 Systolic blood pressure 116 mm[Hg] No Primary Care Physician [facility] 08-09-2024 14:43-0400 Body height 162.56 cm No Primary Care Physician [facility] 08-09-2024 14:43-0400 Body mass index (BMI) [Ratio] 44.9 kg/m2 No Primary Care Physician [facility] 08-09-2024 14:43-0400 Body weight 118.55 kg No Primary Care Physician [facility] 08-09-2024 14:43-0400 Diastolic blood pressure 80 mm[Hg] No Primary Care Physician [facility] 08-09-2024 14:43-0400 Systolic blood pressure 121 mm[Hg] No Primary Care Physician [facility] 07-10-2024 13:03-0400 Body mass index (BMI) [Ratio] 43.3 kg/m2 No Primary Care Physician [facility] 07-10-2024 13:03-0400 Body weight 114.47 kg No Primary Care Physician [facility] 07-10-2024 13:03-0400 Diastolic blood pressure 71 mm[Hg] No Primary Care Physician [facility] 07-10-2024 13:03-0400 Systolic blood pressure 109 mm[Hg] No Primary Care Physician [facility] 06-29-2024 13:55-0400 Body mass index (BMI) [Ratio] 42.4 kg/m2 No Primary Care Physician [facility] 06-29-2024 13:55-0400 Body weight 112.15 kg No Primary Care Physician [facility] 06-29-2024 13:55-0400 Diastolic blood pressure 73 mm[Hg] No Primary Care Physician [facility] 06-29-2024 13:55-0400 Systolic blood pressure 116 mm[Hg] No Primary Care Physician [facility] 06-29-2024 07:21-0400 Body temperature 97.9 [degF] No Primary Care Physician [facility] 06-29-2024 07:21-0400 Diastolic blood pressure 85 mm[Hg] No Primary Care Physician [facility] 06-29-2024 07:21-0400 Heart rate 72 /min No Primary Care Physician [facility] 06-29-2024 07:21-0400 Respiratory rate 16 /min No Primary Care Physician [facility] 06-29-2024 07:21-0400 SaO2% (BldA) [Mass fraction] 99 % No Primary Care Physician [facility] 06-29-2024 07:21-0400 Systolic blood pressure 148 mm[Hg] No Primary Care Physician [facility] 06-29-2024 03:06-0400 Body height 162.56 cm No Primary Care Physician [facility] 06-29-2024 03:06-0400 Body mass index (BMI) [Ratio] 42.5 kg/m2 No Primary Care Physician [facility] 06-29-2024 03:06-0400 Body weight 112.3 kg No Primary Care Physician [facility] 05-28-2024 14:19-0400 Body height 162.56 cm No Primary Care Physician [facility] 05-28-2024 14:19-0400 Body mass index (BMI) [Ratio] 42.4 kg/m2 No Primary Care Physician [facility] 05-28-2024 14:19-0400 Body weight 112.15 kg No Primary Care Physician [facility] 05-28-2024 14:19-0400 Diastolic blood pressure 73 mm[Hg] No Primary Care Physician [facility] 05-28-2024 14:19-0400 Systolic blood pressure 108 mm[Hg] No Primary Care Physician [facility] 07-05-2023 11:00-0400 Body height 162.[address] Christy Lao Work Phone: [facility] 07-05-2023 11:00-0400 Body mass index (BMI) [Ratio] 42.2 kg/m2 Dr. Christy Lao Work Phone: [facility] 07-05-2023 11:00-0400 Body weight 111.[address] Christy Lao Work Phone: [facility] 07-05-2023 11:00-0400 Diastolic blood pressure 78 mm[Hg] Dr. Christy Lao Work Phone: [facility] 07-05-2023 11:00-0400 Systolic blood pressure 118 mm[Hg] Dr. Christy Lao Work Phone: [facility] 06-27-2023 09:59-0400 Body mass index (BMI) [Ratio] 42.3 kg/m2 Dr. Christy Lao Work Phone: [facility] 06-27-2023 09:59-0400 Body weight 111.[address] Christy Lao Work Phone: [facility] 06-27-2023 09:59-0400 Diastolic blood pressure 72 mm[Hg] Dr. Christy Lao Work Phone: [facility] 06-27-2023 09:59-0400 Systolic blood pressure 118 mm[Hg] Dr. Christy Lao Work Phone: [facility] 05-30-2023 08:21-0400 Body mass index (BMI) [Ratio] 40.1 kg/m2 Dr. Christy Lao Work Phone: [facility] 05-30-2023 08:21-0400 Body weight 106.[address] Christy Lao Work Phone: [facility] 05-30-2023 08:21-0400 Diastolic blood pressure 84 mm[Hg] Dr. Christy Lao Work Phone: [facility] 05-30-2023 08:21-0400 Systolic blood pressure 124 mm[Hg] Dr. Christy Lao Work Phone: [facility] 05-18-2023 10:40-0400 Body height 162.[address] Christy Lao Work Phone: [facility] 05-18-2023 10:39-0400 Body mass index (BMI) [Ratio] 39.6 kg/m2 Dr. Christy Lao Work Phone: [facility] 05-18-2023 10:39-0400 Body weight 104.[address] Christy Lao Work Phone: [facility] 05-18-2023 10:39-0400 Diastolic blood pressure 69 mm[Hg] Dr. Christy Lao Work Phone: [facility] 05-18-2023 10:39-0400 Systolic blood pressure 106 mm[Hg] Dr. Christy Lao Work Phone: [facility] 05-06-2023 12:01-0500 Body height 162.[address] Christy Lao Work Phone: [facility] 05-06-2023 12:01-0500 Body mass index (BMI) [Ratio] 38.2 kg/m2 Dr. Christy Lao Work Phone: [facility] 05-06-2023 12:01-0500 Body weight 101.[address] Christy Lao Work Phone: [facility] 05-06-2023 11:54-0500 Body temperature 98 [degF] Dr. Christy Lao Work Phone: [facility] 05-06-2023 11:54-0500 Diastolic blood pressure 61 mm[Hg] Dr. Christy Lao Work Phone: [facility] 05-06-2023 11:54-0500 Heart rate 81 /min Dr. Christy Lao Work Phone: [facility] 05-06-2023 11:54-0500 Systolic blood pressure 111 mm[Hg] Dr. Christy Lao Work Phone: [facility] 04-21-2023 15:53-0500 Body mass index (BMI) [Ratio] 39.1 kg/m2 Dr. Christy Lao Work Phone: [facility] 04-21-2023 15:53-0500 Body weight 103.[address] Christy Lao Work Phone: [facility] 04-21-2023 15:53-0500 Diastolic blood pressure 73 mm[Hg] Dr. Crhisty Lao Work Phone: [facility] 04-21-2023 15:53-0500 Systolic blood pressure 114 mm[Hg] Dr. Christy Lao Work Phone: [facility] 03-23-2023 09:31-0500 Body mass index (BMI) [Ratio] 37.8 kg/m2 Dr. Christy Lao Work Phone: [facility] 03-23-2023 09:31-0500 Body weight 99.[address] Christy Lao Work Phone: [facility] 03-23-2023 09:31-0500 Diastolic blood pressure 68 mm[Hg] Dr. Christy Lao Work Phone: [facility] 03-23-2023 09:31-0500 Systolic blood pressure 110 mm[Hg] Dr. Christy Lao Work Phone: [facility] 02-21-2023 10:38-0500 Body mass index (BMI) [Ratio] 37.3 kg/m2 Dr. Christy Lao Work Phone: [facility] 02-21-2023 10:38-0500 Body weight 98.[address] Christy Lao Work Phone: [facility] 02-21-2023 10:38-0500 Diastolic blood pressure 76 mm[Hg] Dr. Christy Lao Work Phone: [facility] 02-21-2023 10:38-0500 Systolic blood pressure 123 mm[Hg] Dr. Christy Lao Work Phone: [facility] 01-26-2023 14:34-0500 Body height 162.[address] Christy Lao Work Phone: [facility] 01-26-2023 14:23-0500 Body mass index (BMI) [Ratio] 36.2 kg/m2 Dr. Christy Lao Work Phone: [facility] 01-26-2023 14:23-0500 Body weight 95.[address] Christy Lao Work Phone: [facility] 01-26-2023 14:23-0500 Diastolic blood pressure 72 mm[Hg] Dr. Christy Lao Work Phone: [facility] 01-26-2023 14:23-0500 Systolic blood pressure 112 mm[Hg] Dr. Christy Lao Work Phone: [facility] 01-02-2023 20:35-0400 Diastolic blood pressure 78 mm[Hg] [facility] 01-02-2023 20:35-0400 Heart rate 88 /min [facility] 01-02-2023 20:35-0400 Respiratory rate 16 /min [facility] 01-02-2023 20:35-0400 Systolic blood pressure 125 mm[Hg] [facility] 01-02-2023 18:22-0400 Body height 162.56 cm [facility] 01-02-2023 18:22-0400 Body mass index (BMI) [Ratio] 35.2 kg/m2 [facility] 01-02-2023 18:22-0400 Body temperature 98.8 [degF] [facility] 01-02-2023 18:22-0400 Body weight 92.94 kg [facility] 01-02-2023 18:22-0400 SaO2% (BldA) [Mass fraction] 100 % [facility] Encounters Encounter Date Encounter Type Care Provider Facility Start: 10-11-2024 End: 10-11-2024 ambulatory [facility] Start: 10-09-2024 End: 10-09-2024 ambulatory Amira Underwood Facility:[facility] Start: 10-09-2024 End: 10-09-[address] Amira Underwood DO -[facility] Work Phone: Start: 09-25-2024 End: 09-25-2024 ambulatory No Primary Care Physician -Laboratory Specimen Start: 09-25-2024 End: 09-25-[address] Nallely Barksdale MD -Laboratory Specimen Work Phone: Start: 09-25-2024 End: 09-25-[address] Nallely Barksdale MD -[facility] Work Phone: Start: 09-25-2024 End: 09-25-2024 ambulatory No Primary Care Physician -[facility] Start: 09-25-2024 End: 09-25-2024 ambulatory Nallely Barksdale Facility:[facility] Start: 09-10-2024 End: 09-10-2024 ambulatory [facility] Start: 09-04-2024 End: 09-04-2024 ambulatory No Primary Care Physician -[facility] Start: 09-04-2024 End: 09-04-2024 Patient encounter procedure Adrien WHITE -[facility] Work Phone: Start: 09-04-2024 End: 09-04-2024 ambulatory Nallely Barksdale Facility:[facility] Start: 08-09-2024 End: 08-09-[address] Nallely Barksdale MD -[facility] Work Phone: Start: 08-09-2024 End: 08-09-2024 ambulatory No Primary Care Physician [facility] Work Phone: Start: 08-09-2024 End: 08-09-2024 ambulatory No Primary Care Physician Facility:[facility] Start: 08-07-2024 End: 08-07-2024 ambulatory [facility] Start: 07-10-2024 End: 07-10-2024 Patient encounter procedure Simi Lara [facility] -[facility] Work Phone: Start: 07-10-2024 End: 07-10-2024 ambulatory No Primary Care Physician Facility:[facility] Start: 06-29-2024 End: 06-29-[address] Amira Underwood DO -[facility] Work Phone: Start: 06-29-2024 End: 06-29-2024 ambulatory No Primary Care Physician Facility:[facility] Start: 06-29-2024 End: 06-29-2024 Emergency department patient visit No Primary Care Physician -Emergency Department Work Phone: Start: 05-28-2024 End: 05-28-2024 Patient encounter procedure Simi Lara CNM -[facility] Work Phone: Start: 05-28-2024 End: 05-28-2024 ambulatory No Primary Care Physician [facility] Work Phone: Start: 05-28-2024 End: 05-28-2024 ambulatory Simi Lara Facility:[facility] Start: 07-05-2023 End: 07-05-[address] [facility] Start: 06-30-2023 End: 06-30-[address] Christy Lao Work Phone: [facility] Work Phone: Start: 06-30-2023 End: 06-30-[address] [facility] Start: 06-27-2023 End: 06-27-[address] Christy Lao Work Phone: [facility] Work Phone: Start: 06-15-[address] Christy Lao Work Phone: [facility] Work Phone: Start: 06-15-2023 End: 06-15-[address] Christy Lao Work Phone: [facility] Work Phone: Start: 05-30-2023 End: 05-30-[address] Christy Lao Work Phone: [facility] Work Phone: Start: 05-18-2023 End: 05-18-[address] Christy Lao Work Phone: [facility] Work Phone: Start: 05-18-2023 End: 05-18-[address] Christy Lao Work Phone: [facility] Work Phone: Start: 05-06-2023 Non-patient / Non-visit Dr. Antonio Lao Work Phone: [facility] Start: 05-06-2023 End: 05-06-[address] Christy Lao Work Phone: [facility] Work Phone: Start: 05-06-2023 End: 05-06-[address] Christy Lao Work Phone: [facility] Work Phone: Start: 04-21-2023 End: 04-21-[address] Christy Lao Work Phone: [facility] Work Phone: Start: 04-11-2023 End: 04-11-2023 Subsequent [...] encounter procedure Dr. Christy Lao Work Phone: [facility] Work Phone: Start: 02-21-2023 End: 02-21-[address] Christy Lao Work Phone: [facility] Work Phone: Start: 02-08-2023 End: 02-08-[address] Christy Lao Work Phone: [facility] Work Phone: Start: 02-08-2023 End: 02-08-[address] Christy Lao Work Phone: [facility]-Laboratory, OP Pavilion Start: 01-26-2023 End: 01-26-[address] Christy Lao Work Phone: [facility]Laboratory, Specimen Work Phone: Start: 01-26-2023 End: 01-26-[address] Christy Lao Work Phone: [facility] Work Phone: Start: 01-19-2023 Telephone encounter Melissa monaco APRN.CNM Work Phone: OB/Gynecology Comment on above: Care Start: 01-19-2023 End: 01-19-2023 ambulatory Facility:[facility] Start: 01-19-2023 End: 01-19-2023 Nursing evaluation of patient and report Nurse Pnob [facility] Work Phone: OB/Gynecology Comment on above: [...] Patient requested procedure Nurse Lupe [facility] Work Phone: [facility] Work Phone: Start: 01-02-2023 End: 01-02-2023 Emergency department patient visit [facility]-Emergency Department Work Phone: Start: 12-27-2022 End: 12-27-2022 ambulatory [facility] Work Phone: Start: 12-27-2022 End: 12-27-2022 Patient encounter procedure [facility]-Laboratory Work Phone: Start: 10-20-2023 Telephone encounter Farida olivares APRN.CNM Work Phone: OB/Gynecology Comment on above: Patient Question Start: 02-03-2021 End: 02-03-2021 ambulatory MELISSA BELL [facility] Start: 12-02-2020 End: 12-02-2020 ambulatory EDUARDO Harriet LISA [facility] Start: 11-06-2020 End: 11-06-2020 ambulatory DR DOUGIE VITAL [place] Start: 09-03-2020 End: 09-03-2020 Emergency department patient visit MORROAbhi JUÁREZ [facility] Start: 06-27-2020 End: 06-27-2020 ambulatory OTONIEL BONE [facility] Start: 03-28-2020 ambulatory CHRISTY [facility] Procedures Date Procedure Procedure Detail Performing Clinician Start: 09-25-2024 Methadone measurement, urine No Primary Care Physician Start: 09-04-2024 Serologic test for syphilis No [...] therefore, no HPV testing was performed.Performed at: [facility] Level [facility] [place], [place] [id number] Director: Radha Lau PhD, Phone: [phone] at: [facility] [address] [id number] Director: Tomeka Brandt MD, Phone: [phone] Start: 05-28-2024 Hepatitis C antibody measurement No [...] HCV Quant by PCR testing - HCVPCR #[id number] Non Reactive: < 0.8 Equivocal: >/= 0.8 to < 1.0 Reactive: >/= 1.0The CDC requires that a reactive/equivocal HCV antibody result be sent out for confirmation. HCV Quant by PCR testing. Start: 05-28-2024 Procedure No Primary Care Physician Start: 05-28-2024 Rubella IgG measurement No Primary Care Physician Comment on above: Antibody Result: Int erpretationNon-Reactive: Non- ImmuneReactive: ImmuneThe following results were obtained with the [employer] Rubella IgG assay. Results from assays of [...] Treatment Date Care Activity Detail Author Start: 10-09-2024 T4 free measurement [facility] Start: 10-09-2024 Thyroid stimulating hormone measurement [facility] Start: 09-04-2024 Measurement of gluco se 2 hours after glucose challenge for glucose tolerance test [facility] Start: 09-04-2024 Serologic test for syphilis [facility] Start: 09-04-2024 [facility] Start: 06-29-2024 [facility] Start: 05-28-2024 Liquid based cervica l cytology screening [facility] Start: 05-06-2023 Iv infusion therapy/prophylaxis /dx 1st to 1 hr THER/PROPH/DIAG IV INF INIT [facility] Start: 05-06-2023 Insertion of cathete r into peripheral vein [facility] Start: 05-06-2023 Nonstress test [facility] Start: 05-06-2023 Obstetric monitoring [facility] Start: 05-06-2023 Vital signs measurements [facility] Start: 05-06-2023 [facility] Start: 05-06-2023 Patient discharge [facility] Start: 04-11-2023 End: 04-11-2023 Patient encounter procedure 04/11/2023 10:15 AM EST Office Visit Maternal Medicine [address] [place], [place] [id number] Dez Olmstead MD [address] [place], [place] [id number] Hedy Hinojosa [facility] [address] [place], [place] [id number] [facility] Start: 01-19-2023 End: 01-20-2024 NUCHAL TRANSLUCENCY WHI NUCHAL TRANSLUCENCY WHI Anc Imaging Routine Encounter for screening of mother Expected: 01/19/2023, Expires: 01/20/2024 [facility] Work Phone: Comment on above: Expected: 01/19/2023 , Expires: 01/20/2024 Start: 01-02-2023 [facility] Start: 11-05-2022 COVID-19 (2022-04 4 season) COVID-19 ( season) [facility] Start: 11-05-2022 Covid-19 Vaccine ( season) Covid-19 Vaccine ( season) [facility] Start: 11-05-2022 Influenza vaccination Influenza Vacc ine (#1) [facility] Start: 03-07-2022 Depression Assessment Depression Ass essment [facility] Start: 04-23-2021 Urine microalbumin profile DTaP,Tdap,Td Vaccine (4 - Td or Tdap) [facility] Start: 06-22-2019 Microscopic observat ion [Identifier] in Cervix by Cyto stain Pap Smear [facility] Start: 06-22-2019 Pap Testing Pap Testing [facility] Start: 2017 Urine microalbumin profile DTaP,Tdap,Td Vaccine (1 - Tdap) [facility] Start: 2016 Hepatitis C Screening Hepatitis C Sc zackning [facility] Start: 2016 HIV Screening HIV Screening [facility] Start: 2014 MenB (1 of 2 - MenB 2-Dose Series Bexsero) MenB (1 of 2 - MenB 2-Dose Series Bexsero) [facility] Start: 2012 Peds To Adult Transi tion Annual Assessment Peds To Adult Transition Annual Assessment [facility] Start: 2010 Peds To Adult Transi tion Initial Discussion Peds To Adult Transition Initial Discussion [facility] Start: 2009 HPV (1 - 2-dose series) HPV (1 - 2-d ose series) [facility] Start: 06-22-2007 HPV Vaccine (1 - 2-d ose series) HPV Vaccine (1 - 2-dose series) [facility] Start: 2005 Tetanus Diphtheria a nd Pertussis Vaccines (1 - Tdap) Tetanus Diphtheria and Pertussis Vaccines (1 - Tdap) [facility] Start: 2004 Pneumococcal vaccination Pneum ococcal Vaccine (1 - PCV) [facility] Start: 06-22-1999 MMR (1 of 1 - Standa rd series) MMR (1 of 1 - Standard series) [facility] Start: 06-22-1999 Varicella (1 of 2 - 2-dose childhood series) Varicella (1 of 2 - 2-dose childhood series) [facility] Start: 1998 Covid-19 Vaccine (#1) Covid-19 Vacci ne (#1) [facility] Start: 1998 Hepatitis B (1 of 3 - 3-dose series) Hepatitis B (1 of 3 - 3-dose series) [facility] Start: 1998 Hepatitis B Vaccine (1 of 3 - 3-dose series) Hepatitis B Vaccine (1 of 3 - 3-dose series) [facility] CBC W Auto Different ial panel - Blood [facility] CMV IgG Ab CMV IgG Ab Lab R outine Agenesis of corpus callosum 04/11/2023 12:35 PM EST [facility] CMV IgM Ab CMV IgM Ab Lab R outine Agenesis of corpus callosum 04/11/2023 12:35 PM [facility] CMV PCR Quantitative CMV PCR Ronaldo ntitative Microbiology Routine Agenesis of corpus callosum 04/11/2023 12:35 PM [facility] Drugs identified in Urine by Screen method [facility] Measurement of gluco se 2 hours after glucose challenge for glucose tolerance test [facility] Miscellaneous sendou t: [facility] Work Phone: Path report.final Dx Spec [facility] Patient Education [facility] Work Phone: Patient referral [facility] Work Phone: Serologic test for syphilis [facility] Immunizations Immunization Date Immunization Notes Care Provider Fa cility 10-09-2024 tetanus toxoid, redu yuri diphtheria toxoid, and acellular pertussis vaccine, adsorbed No Primary Care Physician [facility] 05-30-2023 tetanus toxoid, redu yuri diphtheria toxoid, and acellular pertussis vaccine, adsorbed Dr. Christy Lao Work Phone: [facility] 03-23-2023 influenza, injectabl e, quadrivalent, preservative free Dr. Christy Lao Work Phone: [facility] Payers Date Payer Category Payer Self-pay [id number] 2022 Medicaid [facility] MEDICAID [facility] MEDICAID [facility] [id number] 2022-Present [phone] [address] [place] [address] Medicaid [id number] 2022 Unknown [id number] 2022 Private Health Insurance [facility] MEDICAID [facility] [id number] 2022-Present [address] [place] [address] [id number] 1998 Unknown [id number] 2.16.840.1.318932.3.579.2. 651 1998 Unknown [id number] 2.16.840.1.407168.3.579.2. 651 1998 Unknown [id number] 2.16.840.1.963368.3.579.2. 651 1998 Unknown [id number] 2.16.840.1.895343.3.579.2.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 No endocervical component is identified.An endocervical component is not commonly seen in the patient.[facility] INTER[facility]ED A#[id number] University Of Toledo Medical CenterComment on above: Satisfactory for evaluation. No endocervical component is identified.An endocervical component is not commonly seen in the patient.01-26-2023 NotePap Smear Specimen AdequacyNovember 2022 5:04pmComment.Satisfactory for evaluation. No endocervical component is identified.An endocervical component is not commonly seen in the patient.[facility] INTER[facility]ACED A#[id number] University Of [facility] Medical CenterComment on above:Satisfactory for evaluation. No endocervical component is identified.An endocervical component is not commonly seen in the patient.01-26-2023 NotePap Smear Specimen AdequacyNovember 2022 6:04pmComment.Satisfactory for evaluation. No endocervical component is identified.An endocervical component is not commonly seen in the patient.[facility] INTERFACED A#[id number] [facility] Of [facility] Medical CenterComsheridan community hospital on above:Satisfactory for evaluation. No endocervical [...] ultrasound a few weeks ago at the [facility] [place] and due date was confirmed at that [...] Tuesday before. Please advise documented [facility]23 Miscellaneous Notes* Quick Notes - Angelica Angeles [...] Patient had her previous 2 deliveries at [facility].Pt has a history of depression diagnosed at [...] was transferred to a psychiatric facility in [place]. She states she did do cutting at that time. Denies any suicidal thoughts since then. She sees a counselor Mac Galeano at [facility]. Patient was seen at [facility] on December 27 for nausea [...] quantitative hCG done December 27 at [facility] her where she was seen [...] testing. Angelica Angeles RN documented in this encounterKindred [facility]11-15-2023 NoteHNO ID: [id number] Author: Angelica Angeles RN Service: ? 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 documented in this encounterKindred [facility]10-29-2023 Discharge summary Author Jarad Hilton [facility] January 02, 2023 8:21pm Note Date/Time January 02, 2023 7 :20pm [facility] Medical Records Department [address] [place] [address] Emergency Department Summary 01/02/23 MR#: [id number] Acct: [id number] Name: RANJAN TAN Rep #:[id number] : [...] by Dr. Valerio Cardenas for her . [facility] Medical History Depression Home Medications ondansetron 4 mg disintegrating tablet 4 mg PO Q8H PRN PRN Nausea #10 tabs 01/02/23 [Rx Last Taken Unknown] pnv #70-fhet-nhklu acid-dha 28 mg-975 mcg-200 mg oral powder efferv pk 1 ea PO DAILY 01/02/23 [History Last Taken Unknown] Allergy/AdvReac Type Severity Reaction Status Date / Time Penicillins Allergy Hives Verified 01/02/23 18:22 Social History household members: children housing: 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 Nallely Cardenas Discharge Plan Triage Chief Complaint: Nausea/Vomiting ED Provider: Jarad Hilton Dx/Rx/DC Orders Clinical Impression: Hyperemesis gravidarum, First trimester Prescriptions: New ondansetron [ondansetron] 4 mg tablet,disintegrating 4 mg PO Q8H PRN PRN (Reason: Nausea) Qty: 10 0RF No Action pnv #78-lbww-ZK-dha 28-975-200 mg-mcg-mg powder effervescent in packet 1 [...] your Primary Care Provider. Call [facility] ([phone]) or report to the closest Emergency Room. Call 911 if necessary. 01/02/232020 <Electronically signed by Jarad Hilton MD> Cosigner Signature (if applicable): CC: Dr. Christy Lao MD ~ Signed [facility] Work Phone: 1(694) 858-439110-20-2023 Miscellaneous Notes* Telephone Encounter - [facility] [...] advise. Laura Norris LPN documented in this encounterNew Hampshire ClinicDischar summary Author Vaughn Tan [facility] Note Date/Time June 29, 2024 7:1 9am [facility] Medical Records Department [address] [place] [address] Emergency Department Summary 06/29/24 MR#: [id number] Acct: [id number] Name: RANJAN TAN Rep #:[id number] : [...] Denies any alcohol use. She follows with [facility]. 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 Denies any vaginal bleeding. Follows with [facility] [facility]. On presentation, patient is hypertensive with a [...] with blood pressure 155/71. Given this finding, [facility] MORTGAGE LOAN INTERVIEWER was consulted and patient was discussed with [...] % (Auto) 68.7 Lymph % (Auto) 19.7 [place] % (Auto) 9.3 Eos % (Auto) 1.1 [...] Clarity Clear Urine pH 5.0 Ur Specific [place] 1.025 Urine Protein 30 H Urine Glucose [...] gestation. No abnormality is noted. Reading Location: [place] [address] Discharge Plan Triage Chief Complaint: Nausea/Vomiting ED Provider: Vaughn Tan Dx/Rx/DC Orders Clinical Impression: Nausea & vomiting, Hypertension, Instructions: ED Diet Vomiting Diarrhea, ED Hypertension, To Be Confirmed, ED Prescriptions: New cephalexin 500 mg capsule 500 mg PO Q6H 7 Days Qty: 28 0RF No Action PNV no.504-CL-kh4-ptz-wwy-vjca 180 mcg-35 mg- 25 mg-5 mg tablet,chewable [...] have your blood pressure repeated at your MORTGAGE LOAN INTERVIEWER office this afternoon. Call them when you [...] polyp. Follow-up with general surgery. Print Language: Trinidadian Disposition Disposition: Home, Self Care What to do if you have Problems For any increased pain, shortness of breath, bleeding, nausea or vomiting, chestpain, or any unexpected problems, contact your Primary Care Provider. Call [facility] ([phone]) or report to the closest Emergency Room. Call 911 if necessary. 06/29/24 0719 <Electronically signed by Vaughn Tan DO> Cosigner Signature (if applicable): CC: No Primary Care Physician ~ Signed [facility] Work Phone: evaluation note* Diagnosis Bleeding in early - Primary Unspecified hemorrhage in early , unspecified as to episode of care documented in this encounter [facility] noteNo assessment information availableWOhioHealth Southeastern Medical Center Work Phone: evaluation note* Diagnosis Supervision of high risk , [...] Other specified examination documented in this encounter [facility] note* Diagnosis Encounter for screening of mother- Primary Unspecified screening documented in this encounter [facility] note* Diagnosis Onset Date Resolution Status Anxiety and depression acute Cigarette smoker 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 Marijuana use acute Obesity (BMI 30-39.9) acute acute Seasonal allergies acute Supervision of high-risk acute [facility] Work Phone: evaluation note* Diagnosis Screening, , for malformation by ultrasound Encounter for routine screening for malformation using ultrasonics 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 care, single or unspecified fetus documented in this encounter [facility] note* 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 documented in this encounter [facility] note* Diagnosis Onset Date Resolution Status [...] 30-39.9) acute acute Supervision of high-risk acute [id number] acute Anxiety and depression acute Cigarette smoker acute 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 acute Obesity (BMI 30-39.9) acute acute Seasonal allergies acute Supervision of high-risk acute [facility] Work Phone: Evaluation note* Diagnosis Onset Date [...] 30-39.9) acute acute Supervision of high-risk acute [id number] acute Anxiety and depression acute Cigarette smoker acute 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 acute Obesity (BMI 30-39.9) acute acute Seasonal allergies acute Supervision of high-risk acute Supervision of high-risk acute Elevated AST (SGOT) resolved [id number] acute Anxiety and depression acute Cigarette smoker acute 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 acute Obesity (BMI 30-39.9) acute acute Seasonal allergies acute Supervision of high-risk acute Elevated AST (SGOT) resolved [facility] Work Phone: Evaluation note* Diagnosis Onset Date Resolution Status Anxiety and depression acute Cigarette smoker acute 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 Obesity (BMI 30-39.9) acute acute Supervision of high-risk acute [id number] acute Anxiety and depression acute Cigarette smoker acute 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 acute Obesity (BMI 30-39.9) acute acute Seasonal allergies acute Supervision of high-risk acute Supervision of high-risk acute Elevated AST (SGOT) resolved [id number] acute Anxiety and depression acute Cigarette smoker acute 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 acute Obesity (BMI 30-39.9) acute acute Seasonal allergies acute Supervision of high-risk acute Elevated AST (SGOT) resolved [id number] acute Anemia affecting a cute Anxiety and depression acute Cigarette smoker acute 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 Obesity (BMI 30-39.9) acute acute Supervision of high-risk acute [id number] acute Anemia affecting a cute Anxiety and depression acute Cigarette smoker acute 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 Obesity (BMI 30-39.9) acute acute Supervision of high-risk acute [id number] acute Anemia affecting a cute Anxiety and depression acute Cigarette smoker acute 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 Call them when you [...] possible gallbladder polyp. Follow-up with general surgery.[facility] Work Phone: Reason for referral (narrative)* Diagnostic Procedure Only (Routine) - Pending Review Specialty Diagnoses / Procedures Referred By Vidal churchill [facility] Diagnoses Encounter for screening of mother Procedures NUCHAL TRANSLUCENCY WHI US NUCHAL TRANSLUCENCY 1ST GESTATION Melissa Mcclellan APRN.CNM [address] [place] [address] [place] [id number] [place] [address] Referral ID Status Reason Start Date Expiration Date Visits Requested Visits Authorized [id number] Pending Review Auto-Generat ed Referral 3 01/19/[address] [facility] for referral (narrative)No reason for referral information availableWOhioHealth Southeastern Medical Center Work Phone: Summary Purpose Family History No Family History Records Found Relationship Condition Age at Onset Recorded Date/T winsome grandmother Malignant neoplasm of breast 74 aunt Family history of liver cancer 51 aunt Family history of liver cancer 61 Advance Directives No Advanced Directives Records Found Advance Directive Response Recorded Date/ Time Living Will No May 12, 2019 11:56pm Power of Educational Program Assistant No May 11 11:56pm Advance Directive Response Recorded Date/ Time Living Will No January 02 6:29pm Power of Educational Program Assistant No January 02, 2023 6:29pm Advance Directive Response Recorded Date/ Time Living Will No January 02 5:29pm Power of Educational Program Assistant No January 02, 2023 5:29pm Advance Directive Response Recorded Date/ Time Do you have a Healthcare Power of Educational Program Assistant? 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) Marijuana use Obesity (BMI 30-39.9) Seasonal allergies Supervision of high-risk Elevated AST (SGOT) Chief Complaint 19 WK OB 24 WK OB R/O LABOR R/O LABOR 28 WK OB/GLUCOSE *pt to see per phone note 30 WK OB 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/tb BD/ FIT TEST- [facility] 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 34 WK OB 36 WK OB Reason for Visit Anxiety and depressi on Cigarette smoker 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 Obesity (BMI 30-39.9) Supervision of high-risk [id number] Anxiety and depression Cigarette smoker 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) Marijuana use Obesity (BMI 30-39.9) Seasonal allergies Supervision of high-risk Supervision of high-risk Elevated AST (SGOT) [id number] Anxiety and depression Cigarette smoker 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) Marijuana use Obesity (BMI 30-39.9) Seasonal allergies Supervision of high-risk Elevated AST (SGOT) [id number] Anemia affecting Anxiety and depression Cigarette smoker 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 Obesity (BMI 30-39.9) Supervision of high-risk [id number] Anemia affecting Anxiety and depression Cigarette smoker 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 Obesity (BMI 30-39.9) Supervision of high-risk [id number] Anemia affecting Anxiety and depression Cigarette smoker [...] of umbilical cord September 25, 2024 1:44pm Chief Complaint Admit Date n/v 17 weeks June 29, 2024 3 [...] for Visit Admit Date Anxiety and depression June 29, 2024 1:54pm [...] of umbilical cord September 25, 2024 1:44pm Chief Complaint Admit Date n/v 17 weeks June 29, 2024 3 :05am BP check after ER June 29, 2024 1:5 4pm 18w 6d ob (this day per pt) July 10 12:38pm 23 wk ob August 09, 2024 2:39p m INT LAB ORDER September 04, 2024 12:20 pm 27 wk ob/glucose September 04, 2024 12:44 pm 30 WK OB September 25, 2024 1:44 pm 32 WK OB October 09, 2024 1:3 4pm Reason for Visit Admit Date Anxiety and depression June 29, 2024 1:54pm [...] of umbilical cord September 25, 2024 1:44pm Anxiety and depression October 09, 2024 1:34pm Cigarette smoker October 09, 2024 1:3 4pm Contraception management October 09 1:34pm Brandon's disease October 09, 2024 1:3 4pm LGSIL (low grade squamous intraepithelia l dysplasia) October 09, 2024 1:34pm Marijuana use October 09, 2024 1:3 4pm Obesity affecting October 09, 2024 1:34pm October 09, 2024 1:3 4pm Supervision of high-risk Augus t 2024 1:34pm Velamentous insertion of umbilical cord October 09, 2024 1:34pm Reason for Referral Specialty Diagnoses / Procedures Referred By Contac t Referred To Contact Radiology Diagnoses Screening, , for malformation by ultrasound 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 [address] [place] [address] Referral ID Status Reason Start Date Expiration Date Visits Re quested Visits Authorized [id number] Closed 03/28/2023 03/27/2024 1 1 Additional Source Comments INFORMATION SOURCE (unrecogn ized section and content) DATE CREATED AUTHOR 02/10/2021 [facility] DATE CREATED AUTHOR AUTHOR'S ORGANIZ ATION 02/10/2021 [facility] DATE CREATED AUTHOR AUTHOR'S ORGANIZ ATION 02/07/2023 [facility] DATE CREATED AUTHOR AUTHOR'S ORGANIZ ATION 10/04/2024 [facility] DATE CREATED AUTHOR AUTHOR'S ORGANIZ ATION 10/13/2024 [facility] Source Comments (unrecognize d section and content) In the event this informatio n is protected by the Federal Confidentiality of Alcohol and Drug Abuse Patient Records regulations: The Federal rules restrict any use of the information to criminally investigate or prosecute any alcohol or drug abuse patient.[facility] the event this information is protected by the Federal Confidentiality of Alcohol and Drug Abuse Patient Records regulations: The Federal rules restrict any use of the information to criminally investigate or prosecute any alcohol or drug abuse patient.[facility] the event this information is protected by the Federal Confidentiality of Alcohol and Drug Abuse Patient Records regulations: The Federal rules restrict any use of the information to criminally investigate or prosecute any alcohol or drug abuse patient.[facility] Reason for Visit (unrecogniz ed section and content) Reason Comments Patient Question Reason Comments Care Reason Comments Care Specialty Diagnoses / Procedures Referred By Contac t Referred To Contact Radiology Diagnoses Screening, , for malformation by ultrasound 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 [address] [place] [address] Referral ID Status Reason Start Date Expiration Date Visits Re quested Visits Authorized [id number] Closed 03/28/2023 03/27/2024 1 1 Care Teams [...] CNM Attending Provider, Referring Pr ovider Active Senior Water Resources Engineer Relationship Specialty Start Date End Date No Primary Care[place] [address] PCP - General Pediatrics 03/28/23 Senior Water Resources Engineer Relationship Specialty Start Date End Date [place] [address] PCP - General Pediatrics 03/28/23 Team Status: Active Member Role Status Dates Dr. Christy Lao MD Family Provider Active No Primary Care Physician Primary Care Provider Active Team Status: Inactive Member Role Status Dates Dr. Christy Lao MD Primary Care Provider, Referrin g Provider Active Adrien Klein CHISELER HEAD, CHISELER HEAD-C Attending Provider Active Team Status: Inactive Member [...] Lao MD Referring Provider Active Dr. Amira Vande Velde , DO Attending Provider Activ e No Primary Care Physician Primary Care Provider Active Team Status: Active Member Role Status Dates No Primary Care Physician Primary Care Provider Active Darling Tabor CNM Attending Provider , Referring Provider, Other Provider Active Team Status: Inactive Member Role Status Dates No Primary Care Physician Primary Care Provider, Refer ring Provider Active Adrien Klein CHISELER HEAD, CHISELER HEAD-C Attending Provider Active Team Status: Inactive Member Role Status Dates No Primary Care Physician Primary Care Provider, Refer ring Provider Active LAURA Spicer Attending Provider Active Team Status: Inactive Member Role Status Dates No Primary Care Physician Primary Care Provider, Refer ring Provider Active Dr. Amira Underwood , DO Attending Provider Activ e Team Status: Inactive Member Role Status Dates No Primary Care Physician Primary Care Provider Active Adrien Klein CHISELER HEAD, CHISELER HEAD-C Attending Provider, Referring Provider Active Team Status: Active Member Role Status Dates No Primary Care Physician Primary Care Provider Active LAURA Spicer Attending Provider, Referring Provi bob Active Team [...] 2024 End: August 09, 2024 Dr. Nallely Braksdale MD Referring Provider Active Start: August 09, [...] September 04, 2024 End: September 04, 2024 CHRISTOPHER Pedraza NP Attending Provider Active Start: September 04, 2024 [...] September 25, 2024 End: September 25, 2024 Team Status: Inactive Member Role/Relationship Status [...] September 04, 2024 End: September 04, 2024 Adrien Klein NP, CHISELER HEAD-C Attending Provider Active Start: September 04, 2024 [...] September 25, 2024 End: September 25, 2024 Team Status: Inactive Member Role/Relationship Status Dates No Primary Care Physician Primary Care Provider Active Start: September 25, 2024 End: September 25, 2024 Dr. Nallely Barksdale MD Attending Provider Active Start: September 25, 2024 End: September 25, 2024 Dr. Nallely Barksdale MD Referring Provider Active Start: September 25, 2024 End: September 25, 2024 Team Status: Inactive Member Role/Relationship Status Dates No Primary Care Physician Primary Care Provider Active Start: October 09, 2024 End: October 09, 2024 No Primary Care Physician Referring Provider Active Start: October 09, 2024 End: October 09, 2024 Dr. Amira Underwood , DO Attending Provider Activ e Start: October 09, 2024 End: October 09, 2024 Team Status: Active Member Role/Relationship Status Dates No Primary Care Physician Primary Care Provider Active Start: October 09, 2024 Dr. Amira Underwood , DO Attending Provider Activ e Start: October 09, 2024 Goals (unrecognized section and content) Goals [...] BE BASED ON THE PRIMARY CLINICAL RECORDS. [facility]. provides no warranty or guarantee of the accuracy or completeness of information in this document.
[2024-10-14] MEDS: Lactated Ringers 500 ML 999 ML IV (15:29)
[2024-10-14 15:44] LABS: Hematocrit 38.3 % (37-47); Hemoglobin 12.6 g/dL (12.0-15.0); Mean Corp Hgb Conc 32.9 g/dL (32-36); Mean Corpuscular Volume 82.9 fL (81-99); Mean Platelet Vol. 8.8 fl (6.2-12.0); Platelet Count 240 K/mm3 (150-450); RBC Distribution Width CV 13.4 % (11.6-14.6); RBC Distribution Width SD 40.4 fl (35.1-43.9); Red Blood Count 4.62 M/mm3 (4.2-5.4); White Blood Count 12.2 K/mm3 (4.4-11.0)
[2024-10-14 15:46] LABS: Color, Urine Yellow (Yellow); Glucose, Dipstick Normal (Normal); Leukocyte Esterase-Dipstick 25 /ul (Negative); Nitrite-Dipstick Negative (Negative); Occult Blood-Urine Negative /ul (Negative); Protein-Dipstick 30 mg/dl (Negative); Specific Gravity, Urine 1.025 (1.002-1.030)
[2024-10-14 15:48] LABS: Urine Bilirubin Dipstick 1 mg/dL (Negative)
[2024-10-14 15:50] LABS: Ketone-Dipstick 150 mg/dl (Negative)
[2024-10-14 16:16] LABS: AST(SGOT) 19 U/L (<=31); Alanine Aminotransfer ALT/SGPT 15 U/L (<=34); Estimated Creatinine Clearance 211.32 ml/min (50-250)
[2024-10-14 16:21] LABS: Creatinine, Urine (random) 422.00 mg/dL (28.00-217.00); Protein, Urine (Random) 51.5 mg/dL (0.0-12.0); Protein:Creat Ratio 122 mg/g CRE (0-200)
[2024-10-14 16:31] LABS: Uric Acid 5.1 mg/dL (2.6-6.0)
--- NOTE | 2024-10-14 18:03 | OB.TRI.PN_ITS ---
Progress Notes Date of Service: 10/14/24 Progress Note: Patient presents for triage evaluation secondary to presenting to ER with N/V/D at 32.4 weeks gestation for the last couple days. she had one elevated BP in the ER and was sent to L&D for evaluation. Her has also been sick with similar sx. FHT: 140 Moderate variability reactive no decelerations category I tracing [place]: no Contractions Assessment and plan: IV hydration and Zofran, pre e labs nl, urine shows possible UTI and sent for culture. Rx for Macrobid and zofran sent. Reactive NST, reassuring maternal and status patient discharged to home to follow- up in office. See problem list details for additional plan information. Laboratory Studies: Laboratory Tests 10/14/24 Range/Units 14:55 WBC 12.2 H (4.4-11.0) K/mm3 RBC 4.62 (4.2-5.4) M/mm3 Hgb 12.6 (12.0-15.0) g/dL Hct 38.3 (37-47) % MCV 82.9 (81-99) fL MCH 27.3 (27.0-32.0) pg MCHC 32.9 (32-36) g/dL RDW Std Deviation 40.4 (35.1-43.9) fl RDW Coeff of Juni 13.4 (11.6-14.6) % Plt Count 240 (150-450) K/mm3 MPV 8.8 (6.2-12.0) fl Creatinine 0.53 L (0.70-1.20) mg/dL Estim Creat Clear Calc 211.32 (50-250) ml/min Est GFR (MDRD) Non-Af 131 (>60) Uric Acid 5.1 (2.6-6.0) mg/dL AST 19 (<=31) U/L ALT 15 (<=34) U/L Urine Color Yellow (Yellow) Urine Clarity Sl. Cloudy (Clear) Urine pH 6.0 (5.0 - 8.0) Ur Specific [place] 1.025 (1.002-1.030) Urine Protein 30 H (Negative) mg/dl Urine Glucose (UA) Normal (Normal) mg/dl Urine Ketones 150 A* (Negative) mg/dl Urine Occult Blood Negative (Negative) /ul Urine Nitrite Negative (Negative) Urine Bilirubin 1 H (Negative) mg/dL Urine Urobilinogen 1 H (Normal) mg/dl Ur Leukocyte Esterase 25 H (Negative) /ul U Random Total Protein 51.5 H (0.0-12.0) mg/dL Urine Creatinine 422.00 H (28.00-217.00) mg/dL Protein/Creatinin Ratio 122 (0-200) mg/g CRE Charges/Coding Multi Select Codes Urinary/Genital Urinary/Genital CPT Codes: 09570-12 non-stress test Interp Assessment & Plan (1) Nausea and vomiting during : COMMENT: likely viral illness- zostar (2) Contraception management: COMMENT: IUD 8wk pp (3) Velamentous insertion of umbilical cord: QUALIFIERS: Trimester: second trimester Qualified Code(s): O43.122 - Velamentous insertion of umbilical cord, second trimester COMMENT: growth at 28+ 32+36 weeks. weekly BPP at 34w [facility] 09[facility]: (4) Supervision of high-risk : QUALIFIERS: Trimester: second trimester Qualified Code(s): O09.92 - Supervision of high risk , unspecified, second trimester COMMENT: PRR, , JORJE 12/05/24, PC Azam Valadez Oaklynn, Myrna Mendoza (5) : QUALIFIERS: Weeks of gestation: 31 weeks Qualified Code(s): Z3A.31 - 31 weeks gestation of COMMENT: NIPT low risk, nl anatomy-more views in 2 weeks (6) Obesity affecting : QUALIFIERS: Trimester: second trimester Obesity type affecting : unspecified obesity Qualified Code(s): O99.212 - Obesity complicating , second trimester COMMENT: [id number]'s at 34 weeks (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 AB collected on NOB. not currently on thyroid medications. (8) Anxiety and depression: COMMENT: counseling encouraged. Stable (9) UTI (urinary tract infection) during : COMMENT: macrobid sent. culture pending
== END 2024-10-14 16:50 | disposition home or self-care (01) ==
LOC: WPOUT 13:17 → WP 13:17
PROVIDERS: Visit Provider Advanced Practice Midwife
DX: O21.2 Late vomiting of pregnancy (principal); O43.123 Velamentous insertion of umbilical cord, third trimester; O99.891 Other specified diseases and conditions complicating pregnancy; R82.90 Unspecified abnormal findings in urine; O09.93 Supervision of high risk pregnancy, unspecified, third trimester; O99.213 Obesity complicating pregnancy, third trimester; O99.343 Other mental disorders complicating pregnancy, third trimester; F32.A Depression, unspecified; F41.9 Anxiety disorder, unspecified; Z3A.32 32 weeks gestation of pregnancy; Z86.39 Personal history of other endocrine, nutritional and metabolic disease
CPT/HCPCS: 96361; 96374; 59025; 59050; 81002; 82565; 82570; 84156; 84450; 84460; 84550; 85027; 87086; 87088; 99221; G0378; J2405

== ENCOUNTER → 2024-10-23 | Outpatient (CLI) | payer MEDICAID, SELFPAY ==
[2024-10-23 13:17] LABS: Barbiturate Urine NEGATIVE (< 200 ng/mL); Benzodiazepine Urine NEGATIVE (< 200 ng/mL); PCP Urine NEGATIVE (< 25 ng/mL); THC Urine PRESUMPTIVE POSITIVE (< 50 ng/mL)
== END | disposition home or self-care (01) ==
LOC: LABSPEC 12:11
PROVIDERS: Visit Provider Nurse Practitioner Women's Health
DX: F12.90 Cannabis use, unspecified, uncomplicated (principal)
CPT/HCPCS: 80307

== ENCOUNTER → 2024-11-13 | Outpatient (CLI) | payer MEDICAID, SELFPAY | END | disposition home or self-care (01) | LOC: LABSPEC 15:53 | PROVIDERS: Referring Provider Obstetrics & Gynecology; Visit Provider Obstetrics & Gynecology | DX: O09.93 Supervision of high risk pregnancy, unspecified, third trimester (principal); Z3A.00 Weeks of gestation of pregnancy not specified | CPT/HCPCS: 87081 ==

== ENCOUNTER 2024-11-28 05:27 | Inpatient (IN) | payer MEDICAID, SELFPAY ==
[2024-11-28] VITALS (16 sets, daily range): BP systolic 97–139; BP diastolic 54–92; PULSE 61–75; RESP 14–18; TEMP 36.1–36.7; O2SAT 96–100; BMI 50.3
--- OUTSIDE RECORDS SUMMARY | 2024-11-28 05:39 | XMS RPT_ITS | CCD ---
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 Darling Tabor on 05-06-2023 Leukocyte esterase Test strip Ql (U) 25 /ul Negative Urine pHOrdered By: Darling Tabor on 05-06-2023 pH (U) 6.0 [pH] 5.0 - 8.0 Urine sediment bacteria coun t by microscopy (number/high power field)Ordered By: Darling Tabor on 05-06-2023 Bacteria LM.HPF (Urine sed) [#/Area] 2 /[HPF] None Seen Urine specific gravity measu rementOrdered By: Darling Tabor on 05-06-2023 Specific gravity (U) [Rel density] 1.025 1.002-1.030 Urine urobilinogen measureme ntOrdered By: Darling Tabor on 05-06-2023 Urobilinogen Ql (U) Normal mg/dl Normal [facility] Laboratory - Chemistry and C hemistry - challengeon 04-21-2023 Glucose Ql (U) Negative Laboratory - Urinalysison Protein Ql (U) Negative MR Fetalon 04-06-2023 IMPRESSION: The study is significantly limited by motion. 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 No other obvious MINERAL SURVEYOR abnormality is identified This report has been created using voice recognition software [facility] MRI (SINGLE) CLINICAL HISTORY: agnesis [...] are unremarkable. Visible maternal spine is unremarkable. [facility] Fidencio Coley MD - 04/06/2023 [...] configuration of the ventricles. No other obvious MINERAL SURVEYOR abnormality is identified This report has been created using voice recognition software [facility] Rad[facility] Study observation (narrative) [facility] MR FetalOrdered By: Fidencio Coley on 04-06-2023 [facility] Work Phone: Laboratory - Chemistry and C hemistry - challengeon 03-23-2023 Glucose Ql (U) Negative Laboratory - Urinalysison Protein Ql (U) Negative Laboratory - Chemistry and C hemistry - challengeon 02-21-2023 Glucose Ql (U) Negative Laboratory - Urinalysison Protein Ql (U) Negative Absolute lymphocyte countOrd ered By: Darling Tabor on 02-08-2023 Lymphocytes Auto (Unsp spec) [#/Vol] 2.86 10*3/uL 0.83-4.51 Basophil percentageOrdered B y: Darling Tabor on 02-08-2023 Basophils/100 WBC (Bld) 0.8 % 0-1 Eosinophils/100 WBC (Bld) 3.3 % 0-5 Neutrophils (Bld) [#/Vol] 5.9 10*3/uL 2.0-7.7 Neutrophils/100 WBC (Bld) 59.6 % 47-70 WBC (Bld) [#/Vol] 9.8 10*3/uL 4.4-11.0 [facility] Blood erythrocytes count (nu mber/volume)Ordered By: Darling Tabor on 02-08-2023 RBC (Bld) [#/Vol] 4.38 10*6/uL 4.2-5.4 [facility] Blood hemoglobin measurement (mass/volume)Ordered By: Darling Tabor on 02-08-2023 Hemoglobin (Bld) [Mass/Vol] 12.2 g/dL 12.0-15.0 Blood lymphocytes/100 leukoc ytesOrdered By: Darling Tabor on 02-08-2023 Lymphocytes/100 WBC (Bld) 29.1 % 19-41 Blood monocytes/100 leukocyt esOrdered By: Darling Tabor on 02-08-2023 Monocytes/100 WBC (Bld) 6.7 % 0-10 Blood platelet mean volumeOr dered By: Darling Tabor on 02-08-2023 Platelet mean volume (Bld) [Entitic vol] 8.7 fL 6.2-12.0 Determination of erythrocyte mean corpuscular volume (MCV)Ordered By: Darling Tabor on 02-08-2023 MCV (RBC) [Entitic vol] 84.7 fL 81-99 HIV 1 and HIV-2 antibody ass ay with HIV-1 p24 antigen detectionOrdered By: Darling Tabor on 02-08-2023 HIV 1+2 Ab+HIV1 p24 Ag IA Ql Non-Reactive Nonreactive Hematocrit Auto (Bld) [Volum e fraction]Ordered By: Darling Tabor on 02-08-2023 Hematocrit (Bld) [Volume fraction] 37.1 % 37-47 Laboratory - Chemistry and C hemistry - challengeOrdered By: Darling Tabor on 02-08-2023 Free T4 [Mass/Vol] 0.95 ng/dL 0.76-1.46 [facility] Laboratory - Hematology and Cell countsOrdered By: Darling Tabor on 02-08-2023 Erythrocyte distribution width (RBC) [Entitic vol] 43.7 fL 35.1-43.9 Erythrocyte distribution width (RBC) [Ratio] 14.1 % 11.6-14.6 Immature granulocytes/100 WBC (Bld) 0.500 % 0.0-0.9 Comment on above: IG% - Immature Granu locytes (promyelocytes, myelocytes and metamyelocytes) > 1% indicates that a LEFT SHIFT is Present. MCH (RBC) [Entitic mass] 27.9 pg 27.0-32.0 Nucleated RBC/100 WBC (Bld) [Ratio] 0 % 0-5 MCHC Auto (RBC) [Mass/Vol]Or dered By: Darling Tabor on 02-08-2023 MCHC (RBC) [Mass/Vol] 32.9 g/dL 32-36 [facility] No Panel InformationOrdered By: Darling Tabor on 02-08-2023 Free Triiodothyronine (T3) pg/dL 1.5 pg/mL 2.18-3.98 Hepatitis B Surface Antigen Non-Reactive Nonreactive Hepatitis C Antibody Non-Reactive Nonreactive [facility] Comment on above: Non Reactive: < 0.8 Equivocal: >/= 0.8 to < 1.0 Reactive: >/= 1.0The CDC recommends that a reactive/equivocal HCV antibody result be followed up by the HCV Nucleic Acid Amplificationtest (643954) Miscellaneous Test Comment MAILED SPECIMEN Rubella IgG Antibody Reactive Nonreactive [facility] Comment on above: Antibody Results Int erpretation of Immune Status Non Reactive Presumed Non-Immune Equivocal Equivocal Reactive Presumed Immune Thyroid Stimulating Hormone (TSH) 1.07 uIU/mL 0.358-3.74 Platelets bldOrdered By: Yuli Tabor on 02-08-2023 Platelets (Bld) [#/Vol] 250 10*3/uL 150-450 Serum Treponema species anti body detectionOrdered By: Darling Tabor on 02-08-2023 Treponema sp Ab Ql (S) Non-Reactive Serum or plasma thyroperoxid ase antibody assay (units/volume)Ordered By: Darling Tabor on 02-08-2023 TPO Ab Qn 19 [IU]/mL 0-34 Comment on above: Performed at: [place] [id number] Director: Brian Alvarado PhD, Phone: [phone] Whole blood hemoglobin A1c/t otal hemoglobin ratio (mass fraction)Ordered By: Darling Tabor on 02-08-2023 HbA1c (Bld) [Mass fraction] 5.0 % 3.8-5.6 Comment on above: Normal < 5.7 % Predi abetic 5.7 - 6.4 % Diabetic >or= 6.5 % Please note range changes. Cervical or vagninal specime n microscopic examination by cytology stain (reported asOrdered By: Darling Tabor on 01-26-2023 Cytology report Cyto stain Doc (Cvx/Vag) Comment . Comment on above: The Pap smear is [...] rRNA SHAJI+probe Ql (Unsp spec) Negative Negative Culture, urineOrdered By: Kim Tabor on 01-26-2023 Bacteria identified Cx Nom (U) Positive Bacteria identified Cx Nom (U) Positive Laboratory - CytologyOrdered By: Darling Tabor on 01-26-2023 Photocomposing Machine Operator Cyto stain Nom (Cvx/Vag) [ID] Comment . Comment on above: Eric Worrell otechnologist (ASCP) Pathologist Cyto stain Nom (Cvx/Vag) [ID] Comment . Comment on above: Brooklyn Murillo MD, Pa thologist Recommended follow-up Cyto stain Nom (Cvx/Vag) Comment . Comment on above: Suggest follow up as clinically appropriate. Laboratory - Drug toxicology Ordered By: Darling Tabor on 01-26-2023 Amphetamines Ql (U) Negative <1000 ng/mL [facility] Benzodiazepines Ql (U) Negative < 200 ng/mL [facility] Cannabinoids Screen Ql (U) Positive < 50 ng/mL Cocaine Ql (U) Negative < 300 ng/mL Opiates Ql (U) Negative < 300 ng/mL Laboratory - Microbiology an d Antimicrobial susceptibilityOrdered By: Darling Tabor on 01-26-2023 N. gonorrhoeae DNA SHAJI+probe Ql (Unsp spec) Negative Negative Comment on above: Performed at: =[address] [id number] Director: Tomeka Brandt MD, Phone: [phone] Laboratory - Miscellaneous t estsOrdered By: Darling Tabor on 01-26-2023 Service comment (Unsp spec) [Interp] Comment . Comment on above: This liquid based Th inPrep(R) pap test was screened withthe use of an image guided system. Service comment (Unsp spec) [Interp] . . No Panel InformationOrdered By: Darling Tabor on 01-26-2023 Human Papillomavirus Screen Comment . Comment on above: See below for HPV te sting results. MDMA (Ecstasy) Screen Negative < 500 ng/mL [facility] Pathology report final diagnosis Narrative Comment . Comment on above: EPITHELIAL CELL ABNO RMALITY.ATYPICAL SQUAMOUS CELLS OF UNDETERMINED SIGNIFICANCE (ASC-US). R87.610 Urine Barbiturates Screen Negative < 200 ng/mL Urine Drug Screen Comment Comment on above: CONFIRMATORY TESTING FOR ALL [...] TESTING MUST BE ORDERED SEPARATELY. USE TESTMNEMONIC: [facility] Urine Methadone Screen Negative < 300 ng/mL [facility] Urine phencyclidine (PCP) de tectionOrdered By: Darling Tabor on 01-26-2023 Phencyclidine Ql (U) Negative < 25 ng/mL [facility] CNNURSEon 01-19-2023 CNNURSE Nurse Visit (OBGYWM) -- RANJAN TAN ([id number]) 2000 F Date Time Provider Department 01/19/23 9:00 AM NURSE PNOB [facility] WSTR OBGYWM During your visit today, [...] use: No Multivitamin with Folic acid: Yes Oriental Orthodox or heritage: No Would refuse blood transfusion if medically necessary: No Are 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 Normal [facility] Jace 01-19-2023 ONESIMON Telephone (OBGYWM) -- RANJAN TAN ([id number]) 2000 F Date Time Provider Department 01/19/23 MCCLELLAN, MELISSA OBGYWM During your visit today, we recorded [...] screening of mother [Z36.9] Order(s):NUCHAL TRANSLUCENCY WHI [[id number]] Order #: [id number]: 1 FUTURE Prescriptions as of 02/04/2023 - vit [id number]-[id number]-dha (SELECT-OB+DHA) 29 mg iron-1 mg -250 mg [...] Status:Closed by CAT DOUGLASS RN on 02/04/23 [facility] CNCOon 01-14-2023 CNCO Letter Text [facility] CNPNon 01-11-2023 CNPN Telephone (OBGYWM) -- RANJAN TAN ([id number]) 2000 F Date Time Provider Department 01/11/23 FARIDA RANGEL OBGYWM During your visit today, we recorded the following information about you: Angelica Angeles RN 01/11/2023 5:05 PM Signed Left message for patient to return phone call. Patient has PNOB appt 01/19. Please ask her if she has delivered elsewhere or if this is her [facility] . Please assist her in getting records sent here is applicable. Amira Damon RN 01/14/2023 11:31 AM Addendum LMP 9/ Patient returned call. 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 Asked that patient request her delivery records. Also, faxed a request to [place]. CP- patient has gone to ER for antiemetics. She is almost out. Asking if she could have another RX. Currently taking Zofran 4 MG ODT. Pharmacy added. Allergies updated. Please advise. Thank you. Silvina Quintanilla RN, RN 01/14/2023 11:56 AM Signed Delivery records from 2016 and 2019 received from [facility]. Please also see patients question about Zofran. Scan on 01/14/2023 11:35 AM by Provider, External, PA-C: METAL FRAMER Farida Rangel APRN.CNM 01/14/2023 1:38 PM Signed Rx sent. FABIOLA Marlow Lindsey RN 01/14/2023 1:40 PM Signed Patient notified [...] Status:Closed by FARIDA RANGEL on 01/14/23 Normal [facility] Amorphous sediment detection in urine sediment by light microscopyOrdered By: Jarad Hilton on 01-02-2023 Amorphous sediment LM Ql (Urine sed) 2+ Basophil percentageOrdered B y: Jarad Hilton on 01-02-2023 Basophil percentage 0-5 SEEN /hpf 0-5 [facility] Chloride [Moles/Vol] 105 mmol/L 98-107 [facility] Glucose [Mass/Vol] 120 mg/dL 74-106 [facility] Comment on above: Fasting Glucose resu lt from 100 to 125 mg/dL suggests IMPAIRED HOMEOSTASIS per A.D.A. criteria. Potassium [Moles/Vol] 3.5 mmol/L 3.5-5.1 [facility] Sodium [Moles/Vol] 134 mmol/L 136-145 [facility] Bilirubin Test strip Ql (U)O rdered By: Jarad Hilton on 01-02-2023 Bilirubin Ql (U) Negative Negative Ketones Test strip Ql (U)Ord ered By: Jarad Hilton on 01-02-2023 Ketones Ql (U) Negative Negative Laboratory - Chemistry and C hemistry - challengeOrdered By: Jarad Hilton on 01-02-2023 CO2 [Moles/Vol] 25.0 mmol/L 21.0-32.0 Urea nitrogen/Creatinine [Mass ratio] 17.4 mg/mg 10-20 Mucus LM Ql (Urine sed)Order ed By: Jarad Hilton on 01-02-2023 Mucus Ql (Urine sed) 0 SEEN /hpf [facility] Nitrite Test strip Ql (U)Ord ered By: Jarad Hilton on 01-02-2023 Nitrite Ql (U) Negative Negative No Panel InformationOrdered By: Jarad Hilton on 01-02-2023 Estimated Creatinine Clearance Calc 129.15 ml/min Estimated GFR (MDRD) Amer 165 mL/min >60 Comment on above: GFR Calc Estimated GFR (MDRD) Non-Af Amer 137 mL/min >60 Comment on above: Non- GFR Calc Protein Test strip Ql (U)Ord ered By: Jarad Hilton on 01-02-2023 Protein Ql (U) Negative Negative Serum or plasma calcium hudson urement (mass/volume)Ordered By: Jarad Hilton on 01-02-2023 Calcium [Mass/Vol] 8.4 mg/dL 8.5-10.1 [facility] Serum or plasma creatinine m easurement (mass/volume)Ordered By: Jarad Hilton on 01-02-2023 Creatinine [Mass/Vol] 0.58 mg/dL 0.55-1.02 [facility] Comment on above: The validity of the calculated GFR & GFRAA in patients over 70 years has not been determined. Clinical correlation is essential. Serum or plasma urea nitroge n measurement (mass/volume)Ordered By: Jarad Hilton on 01-02-2023 Urea nitrogen [Mass/Vol] 10 mg/dL 7-18 Squamous epithelial cells de tection in urine sediment by light microscopyOrdered By: Jarad Hilton on 01-02-2023 Epithelial cells.squamous LM Ql (Urine sed) 0-5 SEEN /hpf 5-10 Thin prep Papanicolaou smear with manual screeningOrdered By: Jarad Hilton on 01-02-2023 Thin prep Papanicolaou smear with manual screening 4 5-15 Urine blood detectionOrdered By: Jarad Hilton on 01-02-2023 RBC Ql (U) Negative Negative RBC Ql (U) 0 SEEN /hpf 0-5 Urine clarityOrdered By: Jarad Hilton on 01-02-2023 Clarity (U) Cloudy Clear Urine color determinationOrd ered By: Jarad Hilton on 01-02-2023 Color (U) Yellow Yellow Urine glucose detectionOrder ed By: Jarad Hilton on 01-02-2023 Glucose Ql (U) Normal mg/dl Normal Urine leukocyte esterase det ection by dipstickOrdered By: Jarad Hilton on 01-02-2023 Leukocyte esterase Test strip Ql (U) 25 /ul Negative Urine pHOrdered By: Jarad kauffman on 01-02-2023 pH (U) 8.0 [pH] 5.0 - 8.0 Urine sediment bacteria coun t by microscopy (number/high power field)Ordered By: Jarad Hilton on 01-02-2023 Bacteria LM.HPF (Urine sed) [#/Area] RARE /hpf None Seen Urine specific gravity measu rementOrdered By: Jarad Hilton on 01-02-2023 Specific gravity (U) [Rel density] 1.015 1.002-1.030 Urobilinogen Auto test strip Ql (U)Ordered By: Jarad Hilton on 01-02-2023 Urobilinogen Ql (U) Normal mg/dl Normal [facility] Serum or plasma choriogonado tropin detectionOrdered By: Nallely Doherty on 12-27-2022 HCG ( test) Ql [address]28 mIU/mL <4 Comment on above: hCG levels with Gest ational AgeGestational Age hCG mIU/mL (IU/L)0.2 - 1 week 5 - 501-2 weeks 50 - 5002-3 weeks 100 - 92016-5 weeks 500 - 422383-9 weeks 1000 - 320159-3 weeks 42044 - 100,0006-8 weeks 28408 - 200,0002-3 months 71407 - 100,000 CNPNon 12-24-2022 CNPN Telephone (OBGYWM) -- RANJAN TAN ([id number]) 2000 F Date Time Provider Department 12/24/22 [...] denies any further issues with bleeding. Laura Myrna IT TECHNICAL ARCHITECT Allergies As of Date: 12/24/2022 (Not on File) Date Reviewed: Never Reviewed Reason for Visit: Patient Question [1477] Primary Visit Diagnosis:Bleeding in early [O20.9] Problem List As Of Date: 12/24/2022 (None) Encounter Status:Closed by FARIDA RANGEL on 12/24/22 Normal [facility] B TESTO SHBG, FEM, CHIL [CCL ]on 02-09-2021 Sex Hormon Bind Glb 80 Normal [facility] Comment on above: Result Comment: Refe rence range: 30 to 135 Unit: nmol/L (NOTE) REFERENCE INTERVAL: Sex Hormone Binding Globulin Access complete set of age- and/or gender-specific reference intervals for this test in the [facility] Test Directory ([employer]). Performed By: #### 2 [id number] #### [place] [address] Testos Bioavail 3.1 Normal [facility] Comment on above: Result Comment: Refe rence range: 2.2 to 20.6 Unit: ng/dL (NOTE) Testosterone LC-MS, Bioavailable Reference Interval Females, 18 years and older Postmenopausal: 1.5 - 9.4 ng/dL REFERENCE INTERVAL: Testosterone LC-MS, Bioavailable Access complete set of age- and/or gender-specific reference intervals for this test in the [facility] Test Directory ([employer]). [place] [id number] [place] [address] Wayne Andrade III, M.D. [id number] Performed By: #### 2 [id number] #### [place] [id number] Testosterone [Mass/Vol] 11 ng/dL Normal [facility] Comment on above: Result Comment: Refe rence range: 9 to 55 Unit: ng/dL (NOTE) Total Testosterone, Females 18 years and older Premenopausal 9-55 ng/dL Postmenopausal 5-32 ng/dL REFERENCE INTERVAL: Testosterone, LC-MS/MS Access complete set of age- and/or gender-specific reference intervals for this test in the [facility] Test Directory ([employer]). This test was developed and its performance characteristics determined by [facility]. It has not been cleared or approved by the [place] Food and Drug Administration. This test was performed in a CLIA certified laboratory and is intended for clinical purposes. Performed By: #### 2 [id number] #### [facility],[address] [place] [address] Testosterone Free 1.0 Normal [facility] Comment on above: Result Comment: Refe renkristel range: 0.8 to 7.4 Unit: pg/mL (NOTE) [...] reference intervals for this test in the [facility] Test Directory ([employer]). This test was developed and its performance characteristics determined by [facility]. It has not been cleared or approved by the US Food and Drug Administration. This test was performed in a CLIA certified laboratory and is intended for clinical purposes. Performed by [facility], [address] [place] [id number] www.[employer], Jillian Metzger MD, Lab. Director Performed By: #### 2 [id number] #### [facility],[address] [place] [address] B TestoSHBG,fem,chilon 02-09 Sex Hormon Bind Glb 80 nmol/L Normal 30-135 [facility] Lab Testos Bioavail 3.1 ng/dL Normal 2.2-20.6 [facility] Lab Testosterone [Mass/Vol] 11 ng/dL Normal 9-55 [facility] Testosterone Free 1.0 pg/mL Normal 0.8-7.4 [facility] CBC + DIFFon 02-03-2021 Baso # 0.10 x10EE3/UL Normal 0.00 - 0.10 [facility] Comment on above: Performed By: #### 2 [id number] #### [facility],[address] [place] [address] Basophils/100 WBC (Bld) 1.0 % Normal 0.0 - 2.0 [facility] Comment on above: Performed By: #### 2 [id number] #### [facility],[address] [place] [address]233 CBC + DIFF Normal [facility] Comment on above: Result Comment: CBC- COMPLETE BLOOD COUNT Performed By: #### 2 [id number] #### [facility],[address] [place] [address] EO # 0.30 x10EE3/UL Normal 0.00 - 0.50 [facility] Comment on above: Performed By: #### 2 [id number] #### [facility],[address] [place] [address] Eosinophils/100 WBC (Bld) 6.2 % Normal 0.0 - 7.0 [facility] Comment on above: Performed By: #### 2 [id number] #### [facility],[address] [place] [address] Erythrocyte distribution width (RBC) [Ratio] 14.1 % Normal 12.0 - 15.6 [facility] Comment on above: Performed By: #### 2 [id number] #### [facility],[address] [place] [address] 32624 Hematocrit (Bld) [Volume fraction] 40.0 % Normal 34.0 - 46.0 [facility] Comment on above: Performed By: #### 2 43293 #### [facility],[address] [place] [address] 53585 Hemoglobin (Bld) [Mass/Vol] 13.2 g/dL Normal 12.0 - 16.0 [facility] Comment on above: Performed By: #### 2 03467 #### [facility],[address] [place] [address] Lymph # 1.70 x10EE3/UL Normal 0.80 - 2.80 [facility] Comment on above: Performed By: #### 2 25896 #### [facility],[address] [place] [address] Lymphocytes/100 WBC (Bld) 32.7 % Normal 20.0 - 45.0 [facility] Comment on above: Performed By: #### 2 45053 #### [facility],[address] [place] [address] MANUAL DIFF N/A Normal [facility] Comment on above: Performed By: #### 2 56205 #### [place] [address] MCH (RBC) [Entitic mass] 26 pg Low 27 - 33 [facility] Comment on above: Performed By: #### 2 03763 #### [place] [address] MCHC 33 X10 3 Normal 32 - 36 [facility] Comment on above: Performed By: #### 2 77710 #### [place] [address] MCV (RBC) [Entitic vol] 78 fL Low 80 - 99 [facility] Comment on above: Performed By: #### 2 78130 #### [place] [address] Rooks # 0.30 x10EE3/UL Normal 0.20 - 1.00 [facility] Comment on above: Performed By: #### 2 21001 #### [place] [address] MONOS % 6.7 % Normal 0.0 - 10.0 [facility] Comment on above: Performed By: #### 2 53019 #### [facility],[address] [place], [place] [id number] Morphology González (Bld) [Interp] N/A Normal [facility] Comment on above: Result Comment: {CD] Performed By: #### 2 50946 #### [facility],[address] [place] [address] Neut # 2.70 x10EE3/UL Normal 1.50 - 7.10 [facility] Comment on above: Performed By: #### 2 49439 #### [place] [address] Neutrophils/100 WBC (Bld) 53.4 % Normal 46.0 - 76.0 [facility] Comment on above: Performed By: #### 2 51870 #### [place] [address] PLATELET 216 x10EE3/UL Normal 150 - 450 [facility] Comment on above: Performed By: #### 2 97488 #### [place] [address] Platelet mean volume (Bld) [Entitic vol] 7.9 fL Normal 6.6 - 10.5 [facility] Comment on above: Result Comment: AUTO MATED DIFFERENTIAL Performed By: #### 2 07663 #### [facility],[address] [place] [address] RBC 5.10 x 10EE6/UL Normal 4.10 - 5.30 [facility] Comment on above: Performed By: #### 2 19625 #### [place] [address] WBC 5.1 x 10EE3/UL Normal 4.5 - 10.8 [facility] Comment on above: Performed By: #### 2 98902 #### [facility],[address] [place] [address] CMP with eGFRon 02-03-2021 AGE 20 years Normal [facility] Comment on above: Performed By: #### 2 46874 #### [facility],[address] [place] [address] 65264 Albumin [Mass/Vol] 4.2 g/dL Normal 3.4 - 5.0 [facility] Comment on above: Performed By: #### 2 43084 #### [facility],[address] [place] [address] 96228 Albumin/Globulin [Mass ratio] 1.2 {ratio} Normal 0.9 - 1.6 [facility] Comment on above: Performed By: #### 2 56924 #### [facility],[address] [place] [address] 99768 ALK PHOS 58 U/L Normal 46 - 116 [facility] Comment on above: Performed By: #### 2 20495 #### [facility],[address] [place] [address] 21077 ALT [Catalytic activity/Vol] 21 U/L Normal 14 - 59 [facility] Comment on above: Performed By: #### 2 30824 #### [facility],[address] [place] [address] 10574 Anion gap [Moles/Vol] 17 mmol/L Normal 10 - 20 [facility] Comment on above: Performed By: #### 2 47299 #### [facility],[address] [place] [address] 26822 AST [Catalytic activity/Vol] 16 U/L Normal 13 - 39 [facility] Comment on above: Performed By: #### 2 68161 #### [facility],[address] [place] [address] 06799 B/C RATIO 19 ratio Normal 0 - 30 [facility] Comment on above: Performed By: #### 2 07425 #### [facility],[address] [place] [address] 27099 Bilirubin [Mass/Vol] 0.6 mg/dL Normal 0.2 - 1.0 [facility] Comment on above: Performed By: #### 2 63972 #### [facility],[address] [place] [address] 61930 Calcium [Mass/Vol] 9.2 mg/dL Normal 8.5 - 10.1 [facility] Comment on above: Performed By: #### 2 38915 #### [facility],[address] [place] [address] 43186 Chloride [Moles/Vol] 103 mmol/L Normal 98 - 107 [facility] Comment on above: Performed By: #### 2 52013 #### [facility],[address] [place] [address] 13506 CMP with eGFR Normal [facility] Comment on above: Result Comment: COMP REHENSIVE METABOLIC PANEL Performed By: #### 2 99408 #### [facility],[address] [place] [address] 12248 CO2 [Moles/Vol] 24.3 mmol/L Normal 21.0 - 32.0 [facility] Comment on above: Performed By: #### 2 51118 #### [facility],[address] [place] [address] 07798 Creatinine [Mass/Vol] 0.72 mg/dL Normal 0.55 - 1.02 [facility] Comment on above: Performed By: #### 2 23415 #### [facility],[address] [place] [address] 49058 GFR/1.73 sq M.predicted among non-blacks MDRD (S/P/Bld) [Vol rate/Area] mL/min/{1.73_m2} Normal 60 - 999 [facility] Comment on above: Performed By: #### 2 55057 #### [facility],[address] [place] [address] 18810 Result Comment: ACCO RDING TO THE NATIONAL KIDNEY DISEASE EDUCATION PROGRAM(NKDE), A NORMAL eGFR IS A VALUE GREATER THAN OR EQUAL TO 60 ML/MIN/1.73 SQ METERS. CHRONIC KIDNEY DISEASE: <60mL/MIN/1.73 SQ METERS KIDNEY FAILURE: <15mL/MIN/1.73 SQ METERS THIS TEST SHOULD ONLY BE USED FOR PATIENTS 18 YEARS OF AGE AND OLDER. Globulin (S) [Mass/Vol] 3.6 g/dL Normal 1.5 - 3.8 [facility] Comment on above: Performed By: #### 2 36956 #### [facility],[address] [place] [address] 86166 Glucose [Mass/Vol] 82 mg/dL Normal 74 - 106 [facility] Comment on above: Performed By: #### 2 19512 #### [facility],[address] [place] [address] 24064 Potassium [Moles/Vol] 3.9 mmol/L Normal 3.5 - 5.1 [facility] Comment on above: Performed By: #### 2 29459 #### [facility],[address] [place] [address] 71937 Protein [Mass/Vol] 7.8 g/dL Normal 6.4 - 8.2 [facility] Comment on above: Performed By: #### 2 50111 #### [facility],[address] [place] [address] 76403 Sodium [Moles/Vol] 140 mmol/L Normal 136 - 145 [facility] Comment on above: Performed By: #### 2 54072 #### [facility],[address] [place] [address] 21794 Urea nitrogen [Mass/Vol] 14 mg/dL Normal 7 - 18 [facility] Comment on above: Performed By: #### 2 34802 #### [facility],[address] [place] [address] 07754 LIPID PROFILEon 02-03-2021 Cholesterol [Mass/Vol] 181 mg/dL Normal 0 - 240 [facility] Comment on above: Performed By: #### 2 39037 #### [facility],[address] [place] [address] 08941 Cholesterol in HDL [Mass/Vol] 76 mg/dL High 40 - 60 [facility] Comment on above: Performed By: #### 2 53886 #### [facility],[address] [place] [address] 28587 Cholesterol in LDL [Mass/Vol] 97 mg/dL Normal 0 - 129 [facility] Comment on above: Performed By: #### 2 21807 #### [facility],[address] [place] [address] 97665 Cholesterol.total/Chol esterol in HDL [Mass ratio] 2.4 {ratio} Normal 0.0 - 5.0 [facility] Comment on above: Performed By: #### 2 30132 #### [facility],[address] [place] [address] 53198 Lipid 1996 panel Normal [facility] Comment on above: Result Comment: LIPI D PROFILE Performed By: #### 2 89033 #### [facility],[address] [place] [address] 14371 Triglyceride [Mass/Vol] 41 mg/dL Normal 0 - 150 [facility] Comment on above: Performed By: #### 2 04214 #### [facility],[address] [place] [address] 91495 T4 (THYROXINE) TOTALon 02-03 T4 (THYROXINE) TOTAL Normal [facility] Comment on above: Result Comment: THYR OXINE(T4) Performed By: #### 2 06033 #### [facility],[address] [place] [address] 74250 T4 [Mass/Vol] 6.7 ug/dL Normal 4.7 - 13.3 [facility] Comment on above: Performed By: #### 2 98570 #### [facility],[address] [place] [address] 70019 TSHon 11-30-2021 TSH Qn 2.50 m[IU]/L Normal 0.35 - 3.74 [facility] Comment on above: Performed By: #### 2 75219 #### [facility],[address] [place] [address] 27140 CORONAVIRUS PCR - [facility] 12-03-2020 SARS-CoV-2 (COVID-19) RNA SHAJI+probe Ql (Unsp spec) Negative Normal NORMAL: NEGATIVE [facility] Comment on above: Performed By: #### 2 66263 #### [facility],[address] [place] [address] 46438 SEND TO IC? YES Normal [facility] Comment on above: Result Comment: RESU LTS FAXED TO INFECTION CONTROL. SARS-CoV-2 THIS TEST IS BEING USED UNDER THE FDA EUA PROCEDURE. THIS ASSAY HAS BEEN VALIDATED IN THE [facility] FOR USE WITH NASOPHARYNGEAL SPECIMENS IN [facility]. INTERPRETIVE DATA LABORATORY TEST RESULTS SHOULD [...] PUBLIC HEALTH AUTHORITIES. Performed By: #### 2 43186 #### [facility],[address] [place] [address] CORONAVIRUS PCR - [facility] 11-07-2020 SARS-CoV-2 (COVID-19) RNA SHAJI+probe Ql (Unsp spec) Negative Normal NORMAL: NEGATIVE [facility] Comment on above: Performed By: #### 2 42813 #### [facility],[address] [place] [address] SEND TO ? YES Normal [facility] Comment on above: Result Comment: RESU LTS FAXED TO INFECTION CONTROL. SARS-CoV-2 THIS TEST IS BEING USED UNDER THE FDA EUA PROCEDURE. THIS ASSAY HAS BEEN VALIDATED IN THE [facility] FOR USE WITH NASOPHARYNGEAL SPECIMENS IN [facility]. INTERPRETIVE DATA LABORATORY TEST RESULTS SHOULD [...] PUBLIC HEALTH AUTHORITIES. Performed By: #### 2 90142 #### [facility],[address] [place], [place] [id number] EMERGENCY REPORTon 07-01-202 1 EMERGENCY REPORT [facility] EMERGENCY ROOM REPORT NAME ACCOUNT SEX AGE ADMIT DISCHARGE PT MED. RECORD# NUMBER DATE DATE TYPE ANGIE [id number] F 22 09/03/20 09/03/20 3 RANJAN [id number] ROOM: ER DATE OF : 2000 DICTATING [...] Report TANRANJAN PERALTA : 2000 JOB #: [id number] Transcribed By: rut 09/04/20 08:33 Electronically signed by: E-SIGN: Morro Juárez D.O. 09/04/20 09:41 Page 2 of 2 RANJAN TAN Emergency Room Report Normal [facility] T3, FREE [CCL]on 06-30-2020 Free T3 [Mass/Vol] 2.8 pg/mL Normal 2.3-4.1 [facility] Comment on above: Result Comment: [facility] [place] [address] Wayne Andrade III, M.D. [id number] Performed By: #### 2 60250 #### [facility],[address] [place] [address] 94613 THYROGLOBULIN AB [CCL]on Thyroglobulin Ab Qn 2.4 [IU]/mL Normal <14.4 [facility] Comment on above: Result Comment: [facility] [address] [place], [place] [id number] Wayne Andrade III, M.D. [id number] Performed By: #### 2 19978 #### [facility],[address] [place] [address] 68208 THYROID PEROXIDASE AB [CCL]o n 06-30-2020 TPO Antibody <1.0 Normal <5.6 [facility] Comment on above: Result Comment: [address] [address] Wayne Andrade III, M.D. [id number] Performed By: #### 2 46558 #### [facility],[address] [place] [address] 18951 TPO Antibodyon 06-30-2020 TPO Antibody <1.0 Normal <5.6 [facility] Comment on above: Performed By: #### F REET3, TGAB, MICRO #### [facility] Routine Lab [address] [place] [phone] Thyroglobulin Abon Thyroglobulin Ab Qn 2.4 [IU]/mL Normal <14.4 [facility] Comment on above: Performed By: #### F REET3, TGAB, MICRO #### [facility] Routine Lab [address] [place], [place] [id number] Free T3on 06-28-2020 Free T3 [Mass/Vol] 2.8 pg/mL Normal 2.3-4.1 [facility] [place] [facility] Comment on above: Performed By: #### F REET3, TGAB, MICRO #### [facility] Routine Lab [address] [place], [place] [address] T4-FREE (FREE THYROXINE)on 0 06-27-2020 Free T4 [Mass/Vol] 0.93 ng/dL Normal 0.76 - 1.46 [facility] Comment on above: Result Comment: P otential of falsely elevated results when biotin concentrations are > 10 ng/mL. Performed By: #### 2 55772 #### [facility],[address] [place] [address] TSHon 06-27-2020 TSH Qn 2.78 m[IU]/L Normal 0.35 - 3.74 [facility] Comment on above: Performed By: #### 2 36691 #### [facility],[address] [place], [place] [id number] Vital Signs Date Time Vital Sign Value Performing Clinician Elena harry 11-20-2024 10:34-0400 Diastolic blood pressure 81 mm[Hg] No Primary Care Physician 11-20-2024 10:34-0400 Systolic blood pressure 124 mm[Hg] No Primary Care Physician 11-20-2024 10:15-0400 Body height 162.56 cm No Primary Care Physician 11-20-2024 10:15-0400 Body mass index (BMI) [Ratio] 49.5 kg/m2 No Primary Care Physician 11-20-2024 10:150400 Body weight 130.88 kg No Primary Care Physician 11-13-2024 14:12-0400 Body height 162.56 cm No Primary Care Physician 11-13-2024 14:12-0400 Body mass index (BMI) [Ratio] 49.4 kg/m2 No Primary Care Physician 11-13-2024 14:12-0400 Body weight 130.69 kg No Primary Care Physician 11-13-2024 14:12-0400 Diastolic blood pressure 83 mm[Hg] No Primary Care Physician 11-13-2024 14:12-0400 Systolic blood pressure 122 mm[Hg] No Primary Care Physician 11-06-2024 13:39-0400 Body height 162.56 cm No Primary Care Physician 11-06-2024 13:35-0400 Body mass index (BMI) [Ratio] 49.4 kg/m2 No Primary Care Physician 11-06-2024 13:35-0400 Body weight 130.63 kg No Primary Care Physician 11-06-2024 13:35-0400 Diastolic blood pressure 77 mm[Hg] No Primary Care Physician 11-06-2024 13:35-0400 Systolic blood pressure 129 mm[Hg] No Primary Care Physician 10-23-2024 11:00-0400 Body weight 129 kg No Primary Care Physician 10-23-2024 11:00-0400 Diastolic blood pressure 70 mm[Hg] No Primary Care Physician 10-23-2024 11:00-0400 Systolic blood pressure 110 mm[Hg] No Primary Care Physician 10-23-2024 10:48-0400 Body height 162.56 cm No Primary Care Physician 10-23-2024 10:48-0400 Body mass index (BMI) [Ratio] 48.7 kg/m2 No Primary Care Physician 10-14-2024 15:03-0400 Diastolic blood pressure 65 mm[Hg] No Primary Care Physician 10-14-2024 15:03-0400 Heart rate 88 /min No Primary Care Physician 10-14-2024 15:03-0400 Systolic blood pressure 117 mm[Hg] No Primary Care Physician 10-14-2024 14:13-0400 Body height 162.56 cm No Primary Care Physician 10-14-2024 14:13-0400 Body mass index (BMI) [Ratio] 47.7 kg/m2 No Primary Care Physician 10-14-2024 14:13-0400 Body weight 126 kg No Primary Care Physician 10-14-2024 13:56-0400 Body temperature 97.8 [degF] No Primary Care Physician 10-14-2024 13:56-0400 Respiratory rate 16 /min No Primary Care Physician 10-14-2024 13:32-0400 SaO2% (BldA) [Mass fraction] 94 % No Primary Care Physician 10-09-2024 13:51-0400 Body height 162.56 cm No Primary Care Physician 10-09-2024 13:51-0400 Body mass index (BMI) [Ratio] 48.6 kg/m2 No Primary Care Physician 10-09-2024 13:51-0400 Body weight 128.42 kg No Primary Care Physician 10-09-2024 13:51-0400 Diastolic blood pressure 70 mm[Hg] No Primary Care Physician 10-09-2024 13:51-0400 Systolic blood pressure 108 mm[Hg] No Primary Care Physician 09-25-2024 13:49-0400 Body height 162.56 cm No Primary Care Physician 09-25-2024 13:49-0400 Body mass index (BMI) [Ratio] 47.5 kg/m2 No Primary Care Physician 09-25-2024 13:49-0400 Body weight 125.64 kg No Primary Care Physician 09-25-2024 13:49-0400 Diastolic blood pressure 76 mm[Hg] No Primary Care Physician 09-25-2024 13:49-0400 Systolic blood pressure 117 mm[Hg] No Primary Care Physician 09-04-2024 12:57-0400 Body height 162.56 cm No Primary Care Physician 09-04-2024 12:57-0400 Body mass index (BMI) [Ratio] 46.3 kg/m2 No Primary Care Physician 09-04-2024 12:57-0400 Body weight 122.52 kg No Primary Care Physician 09-04-2024 12:57-0400 Diastolic blood pressure 78 mm[Hg] No Primary Care Physician 09-04-2024 12:57-0400 Systolic blood pressure 116 mm[Hg] No Primary Care Physician 08-09-2024 14:43-0400 Body height 162.56 cm No Primary Care Physician 08-09-2024 14:43-0400 Body mass index (BMI) [Ratio] 44.9 kg/m2 No Primary Care Physician 08-09-2024 14:43-0400 Body weight 118.55 kg No Primary Care Physician 08-09-2024 14:43-0400 Diastolic blood pressure 80 mm[Hg] No Primary Care Physician 08-09-2024 14:43-0400 Systolic blood pressure 121 mm[Hg] No Primary Care Physician 07-10-2024 13:03-0400 Body mass index (BMI) [Ratio] 43.3 kg/m2 No Primary Care Physician 07-10-2024 13:03-0400 Body weight 114.47 kg No Primary Care Physician 07-10-2024 13:03-0400 Diastolic blood pressure 71 mm[Hg] No Primary Care Physician 07-10-2024 13:03-0400 Systolic blood pressure 109 mm[Hg] No Primary Care Physician 06-29-2024 13:55-0400 Body mass index (BMI) [Ratio] 42.4 kg/m2 No Primary Care Physician 06-29-2024 13:55-0400 Body weight 112.15 kg No Primary Care Physician 06-29-2024 13:55-0400 Diastolic blood pressure 73 mm[Hg] No Primary Care Physician 06-29-2024 13:55-0400 Systolic blood pressure 116 mm[Hg] No Primary Care Physician 06-29-2024 07:21-0400 Body temperature 97.9 [degF] No Primary Care Physician 06-29-2024 07:21-0400 Diastolic blood pressure 85 mm[Hg] No Primary Care Physician 06-29-2024 07:21-0400 Heart rate 72 /min No Primary Care Physician 06-29-2024 07:21-0400 Respiratory rate 16 /min No Primary Care Physician 06-29-2024 07:21-0400 SaO2% (BldA) [Mass fraction] 99 % No Primary Care Physician 06-29-2024 07:21-0400 Systolic blood pressure 148 mm[Hg] No Primary Care Physician 06-29-2024 03:06-0400 Body height 162.56 cm No Primary Care Physician 06-29-2024 03:06-0400 Body mass index (BMI) [Ratio] 42.5 kg/m2 No Primary Care Physician 06-29-2024 03:06-0400 Body weight 112.3 kg No Primary Care Physician 05-28-2024 14:19-0400 Body height 162.56 cm No Primary Care Physician 05-28-2024 14:19-0400 Body mass index (BMI) [Ratio] 42.4 kg/m2 No Primary Care Physician 05-28-2024 14:19-0400 Body weight 112.15 kg No Primary Care Physician 05-28-2024 14:19-0400 Diastolic blood pressure 73 mm[Hg] No Primary Care Physician 05-28-2024 14:19-0400 Systolic blood pressure 108 mm[Hg] No Primary Care Physician 07-05-2023 11:00-0400 Body height 162.[address] Christy Lao Work Phone: 07-05-2023 11:00-0400 Body mass index (BMI) [Ratio] 42.2 kg/m2 Dr. Christy Lao Work Phone: 07-05-2023 11:00-0400 Body weight 111.[address] Christy Lao Work Phone: 07-05-2023 11:00-0400 Diastolic blood pressure 78 mm[Hg] Dr. Christy Lao Work Phone: 07-05-2023 11:00-0400 Systolic blood pressure 118 mm[Hg] Dr. Christy Lao Work Phone: 06-27-2023 09:59-0400 Body mass index (BMI) [Ratio] 42.3 kg/m2 Dr. Christy Lao Work Phone: 06-27-2023 09:59-0400 Body weight 111.[address] Christy Lao Work Phone: 06-27-2023 09:59-0400 Diastolic blood pressure 72 mm[Hg] Dr. Christy Lao Work Phone: 06-27-2023 09:59-0400 Systolic blood pressure 118 mm[Hg] Dr. Christy Lao Work Phone: 05-30-2023 08:21-0400 Body mass index (BMI) [Ratio] 40.1 kg/m2 Dr. Chritsy Lao Work Phone: 05-30-2023 08:21-0400 Body weight 106.[address] Christy Lao Work Phone: 05-30-2023 08:21-0400 Diastolic blood pressure 84 mm[Hg] Dr. Christy Lao Work Phone: 05-30-2023 08:21-0400 Systolic blood pressure 124 mm[Hg] Dr. Christy Lao Work Phone: 05-18-2023 10:40-0400 Body height 162.[address] Christy Lao Work Phone: 05-18-2023 10:39-0400 Body mass index (BMI) [Ratio] 39.6 kg/m2 Dr. Christy Lao Work Phone: 05-18-2023 10:39-0400 Body weight 104.[address] Christy Lao Work Phone: 05-18-2023 10:39-0400 Diastolic blood pressure 69 mm[Hg] Dr. Christy Lao Work Phone: 05-18-2023 10:39-0400 Systolic blood pressure 106 mm[Hg] Dr. Christy Lao Work Phone: 05-06-2023 12:01-0500 Body height 162.[address] Christy Lao Work Phone: 05-06-2023 12:01-0500 Body mass index (BMI) [Ratio] 38.2 kg/m2 Dr. Christy Lao Work Phone: 05-06-2023 12:01-0500 Body weight 101.[address] Christy Lao Work Phone: 05-06-2023 11:54-0500 Body temperature 98 [degF] Dr. Christy Lao Work Phone: 05-06-2023 11:54-0500 Diastolic blood pressure 61 mm[Hg] Dr. Christy Lao Work Phone: 05-06-2023 11:54-0500 Heart rate 81 /min Dr. Christy Lao Work Phone: 05-06-2023 11:54-0500 Systolic blood pressure 111 mm[Hg] Dr. Christy Lao Work Phone: 04-21-2023 15:53-0500 Body mass index (BMI) [Ratio] 39.1 kg/m2 Dr. Christy Lao Work Phone: 04-21-2023 15:53-0500 Body weight 103.[address] Christy Lao Work Phone: 04-21-2023 15:53-0500 Diastolic blood pressure 73 mm[Hg] Dr. Christy Lao Work Phone: 04-21-2023 15:53-0500 Systolic blood pressure 114 mm[Hg] Dr. Christy Lao Work Phone: 03-23-2023 09:31-0500 Body mass index (BMI) [Ratio] 37.8 kg/m2 Dr. Christy Lao Work Phone: 03-23-2023 09:31-0500 Body weight 99.[address] Christy Lao Work Phone: 03-23-2023 09:31-0500 Diastolic blood pressure 68 mm[Hg] Dr. Christy Lao Work Phone: 03-23-2023 09:31-0500 Systolic blood pressure 110 mm[Hg] Dr. Christy Lao Work Phone: 02-21-2023 10:38-0500 Body mass index (BMI) [Ratio] 37.3 kg/m2 Dr. Christy Lao Work Phone: 02-21-2023 10:38-0500 Body weight 98.[address] Christy Lao Work Phone: 02-21-2023 10:38-0500 Diastolic blood pressure 76 mm[Hg] Dr. Christy Lao Work Phone: 02-21-2023 10:38-0500 Systolic blood pressure 123 mm[Hg] Dr. Christy Lao Work Phone: 01-26-2023 14:34-0500 Body height 162.[address] Christy Lao Work Phone: 01-26-2023 14:23-0500 Body mass index (BMI) [Ratio] 36.2 kg/m2 Dr. Christy Lao Work Phone: 01-26-2023 14:23-0500 Body weight 95.[address] Christy Lao Work Phone: 01-26-2023 14:23-0500 Diastolic blood pressure 72 mm[Hg] Dr. Christy Lao Work Phone: 01-26-2023 14:23-0500 Systolic blood pressure 112 mm[Hg] Dr. Christy Lao Work Phone: 01-02-2023 20:35-0400 Diastolic blood pressure 78 mm[Hg] 01-02-2023 20:35-0400 Heart rate 88 /min [facility] 01-02-2023 20:35-0400 Respiratory rate 16 /min [facility] 01-02-2023 20:35-0400 Systolic blood pressure 125 mm[Hg] 01-02-2023 18:22-0400 Body height 162.56 cm [facility] 01-02-2023 18:22-0400 Body mass index (BMI) [Ratio] 35.2 kg/m2 01-02-2023 18:22-0400 Body temperature 98.8 [degF] [facility] 01-02-2023 18:22-0400 Body weight 92.94 kg [facility] 01-02-2023 18:22-0400 SaO2% (BldA) [Mass fraction] 100 % Encounters Encounter Date Encounter Type Care Provider Facility Start: 11-28-2024 ambulatory Nallely Parker lity: Start: 11-27-2024 ambulatory No Primary Car e Physician Facility:[facility] Start: 11-22-2024 End: 11-22-2024 ambulatory [facility] Start: 11-20-2024 End: 11-20-2024 Patient encounter procedure Simi Joseph MAHMOOD -[facility] Work Phone: Start: 11-20-2024 End: 11-20-2024 ambulatory No Primary Care Physician -[facility] Start: 11-15-2024 End: 11-15-2024 ambulatory [facility] Start: 11-13-[address] Nallely Doherty MD -Laboratory Specimen Work Phone: Start: 11-13-2024 End: 11-13-[address] Nallely Doherty MD -[facility] Work Phone: Start: 11-13-2024 End: 11-13-2024 ambulatory No Primary Care Physician -[facility] Start: 11-13-2024 End: 11-13-2024 ambulatory Nallely Doherty Facility: Start: 11-08-2024 End: 11-08-2024 ambulatory ADRIEN KLEIN [facility] Start: 11-06-2024 End: 11-06-2024 Patient encounter procedure Adrien Klein DISPATCHER SERVICE CHIEF-C -[facility] Work Phone: Start: 11-06-2024 End: 11-06-2024 ambulatory No Primary Care Physician -[facility] Start: 11-01-2024 End: 11-01-2024 ambulatory [facility] Start: 10-25-2024 End: 10-25-2024 ambulatory [facility] Start: 10-23-2024 End: 10-23-2024 ambulatory No Primary Care Physician -Laboratory Specimen Start: 10-23-2024 End: 10-23-2024 Patient encounter procedure Adrien Klein DISPATCHER SERVICE CHIEF-C -Laboratory Specimen Work Phone: Start: 10-23-2024 End: 10-23-2024 Patient encounter procedure Adrien Klein DISPATCHER SERVICE CHIEF-C -[facility] Work Phone: Start: 10-23-2024 End: 10-23-2024 ambulatory No Primary Care Physician -[facility] Start: 10-23-2024 End: 10-23-2024 ambulatory Adrien Klein DISPATCHER SERVICE CHIEF Facility: Start: 10-14-2024 ambulatory No Primary Car e Physician Facility[place] Start: 10-14-2024 Non-patient / Non-visit Simi Brown ms CNM -[facility] Start: 10-14-2024 End: 10-14-2024 Patient encounter procedure Simi Lara CNM -[facility] Work Phone: Start: 10-14-2024 End: 10-14-2024 ambulatory No Primary Care Physician -[facility] Start: 10-11-2024 End: 10-11-2024 [facility] Start: 10-09-2024 End: 10-09-[address] Amira Underwood DO -[facility] Work Phone: Start: 10-09-2024 End: 10-09-2024 ambulatory No Primary Care Physician -[facility] Start: 10-09-2024 End: 10-09-2024 ambulatory Amira Underwood Facility: Start: 09-25-2024 End: 09-25-2024 ambulatory No Primary Care Physician -Laboratory Specimen Start: 09-25-2024 End: 09-25-[address] Nallely Doherty MD -Laboratory Specimen Work Phone: Start: 09-25-2024 End: 09-25-[address] Nallely Doherty MD -[facility] Work Phone: Start: 09-25-2024 End: 09-25-2024 ambulatory No Primary Care Physician -[facility] Start: 09-25-2024 End: 09-25-2024 ambulatory No Primary Care Physician Facility: Start: 09-10-2024 End: 09-10-2024 ambulatory REJIARPITA Ramon [facility] Start: 09-04-2024 End: 09-04-2024 ambulatory No Primary Care Physician -[facility] Start: 09-04-2024 End: 09-04-2024 Patient encounter procedure Adrien WHITE -[facility] Work Phone: Start: 09-04-2024 End: 09-04-2024 ambulatory No Primary Care Physician Facility: Start: 08-09-2024 End: 08-09-[address] Nallely Doherty MD -[facility] Work Phone: Start: 08-09-2024 End: 08-09-2024 ambulatory No Primary Care Physician [facility] Work Phone: Start: 08-09-2024 End: 08-09-2024 ambulatory No Primary Care Physician Facility: Start: 08-07-2024 End: 08-07-2024 ambulatory [facility] Start: 07-10-2024 End: 07-10-2024 Patient encounter procedure Simi Lara CNM -[facility] Work Phone: Start: 07-10-2024 End: 07-10-2024 ambulatory [facility] Start: 06-29-2024 End: 06-29-[address] Amira Underwood DO -[facility] Work Phone: Start: 06-29-2024 End: 06-29-2024 ambulatory No Primary Care Physician Facility:[facility] Start: 06-29-2024 End: 06-29-2024 Emergency department patient visit No Primary Care Physician -Emergency Department Work Phone: Start: 05-28-2024 End: 05-28-2024 Patient encounter procedure Simi Lara CNM -[facility] Work Phone: Start: 05-28-2024 End: 05-28-2024 ambulatory No Primary Care Physician Work Phone: Start: 05-28-2024 End: 05-28-2024 ambulatory Simi Lara Facility: Start: 07-05-2023 End: 07-05-[address] Christy Lao Work Phone: [facility] Work Phone: Start: 06-30-2023 End: 06-30-[address] Christy Lao Work Phone: Work Phone: Start: 06-30-2023 End: 06-30-[address] Christy Lao Work Phone: [facility] Start: 06-27-2023 End: 06-27-[address] Christy Lao Work Phone: [facility] Work Phone: Start: 06-15-[address] Christy Lao Work Phone: [facility] Work Phone: Start: 06-15-2023 End: 06-15-[address] Christy Lao Work Phone: [facility] Work Phone: Start: 05-30-2023 End: 05-30-[address] Christy Lao Work Phone: [facility] Work Phone: Start: 05-18-2023 End: 05-18-[address] Christy Lao Work Phone: Work Phone: Start: 05-18-2023 End: 05-18-[address] Christy Lao Work Phone: [facility] Work Phone: Start: 05-06-2023 Non-patient / Non-visit Dr. Antonio Lao Work Phone: [facility] Start: 05-06-2023 End: 05-06-[address] Christy Lao Work Phone: Work Phone: Start: 05-06-2023 End: 05-06-[address] Christy Lao Work Phone: [facility] Work Phone: Start: 04-21-2023 End: 04-21-[address] Christy Lao Work Phone: [facility] Work Phone: Start: 04-11-2023 End: 04-11-2023 Subsequent [...] procedure Dr. Christy Lao Work Phone: [facility] Work Phone: Start: 02-21-2023 End: 02-21-[address] Christy Lao Work Phone: [facility] Work Phone: Start: 02-08-2023 End: 02-08-[address] Christy Lao Work Phone: Work Phone: Start: 02-08-2023 End: 02-08-[address] Christy Lao Work Phone: -Laboratory, [facility] Pavilion Start: 01-26-2023 End: 01-26-[address] Christy Lao Work Phone: -Laboratory, Specimen Work Phone: Start: 01-26-2023 End: 01-26-[address] Christy Lao Work Phone: [facility] Work Phone: Start: 01-19-2023 Telephone encounter Melissa monaco APRN.CNM Work Phone: OB/Gynecology Comment on above: Care Start: 01-19-2023 End: 01-19-2023 ambulatory Facility:[facility] Start: 01-19-2023 End: 01-19-2023 Nursing evaluation of patient and report Nurse [facility] Work Phone: OB/Gynecology Comment on above: Supervision of high risk , antepartum (Primary Dx); History of depression; History of depression; Nausea and vomiting during ; Bleeding in early ; Tobacco use affecting , antepartum; Marijuana use during ; Obesity affecting , antepartum, unspecified obesity type; History of hypothyroidism; Patient request for diagnostic testing Start: 01-19-2023 End: 01-19-2023 Patient requested procedure Nurse [facility] Work Phone: [facility] Work Phone: Start: 01-02-2023 End: 01-02-2023 Emergency department patient visit -Emergency Department Work Phone: Start: 12-27-2022 End: 12-27-2022 ambulatory Work Phone: Start: 12-27-2022 End: 12-27-2022 Patient encounter procedure -Laboratory Work Phone: Start: 12-24-2022 Telephone encounter Farida olivares APRN.CNM Work Phone: OB/Gynecology Comment on above: Patient Question Start: 02-03-2021 End: 02-03-2021 ambulatory MELISSA BELL [facility] Start: 12-02-2020 End: 12-02-2020 ambulatory EDUARDO GONZALEZ [facility] Start: 11-06-2020 End: 11-06-[address] DOUGIE VITAL [facility] Start: 09-03-2020 End: 09-03-2020 Emergency department patient visit MORRO JUÁREZ [facility] Start: 06-27-2020 End: 06-27-2020 ambulatory OTONIEL BONE [facility] Start: 03-28-2020 [facility] Date Procedure Procedure Detail Performing Clinician Start: 11-13-2024 Beta-hemolytic Strep tococcus culture No Primary Care Physician Start: 10-23-2024 Methadone measurement, urine No Primary Care Physician Start: 10-14-2024 Estimated creatinine clearance No Primary Care Physician Start: 10-14-2024 Urnls dip stick/tabl et reagent auto microscopy No Primary Care Physician Start: 10-14-2024 Urine culture No Primar y Care Physician Start: 09-25-2024 Methadone measurement, urine No Primary Care Physician Start: 09-04-2024 Serologic test for syphilis No Primary Care Physician Start: 08-09-2024 Urine culture No Primar y Care Physician Start: 06-29-2024 Transvaginal obstetr ic ultrasonography No Primary Care Physician Start: 06-29-2024 Ultrasonography of abdomen No Primary Care Physician Start: 06-29-2024 Estimated creatinine clearance No Primary Care Physician Start: 04-25-2025 Urnls dip stick/tabl et reagent auto microscopy [...] HPV testing was performed.Performed at: [facility] [id number] Director: Radha Lau PhD, Phone: [phone] at: - [facility] [id number] Director: Tomeka Brandt MD, Phone: [phone] Start: 05-28-2024 Hepatitis C antibody measurement No [...] HCV Quant by PCR testing - HCVPCR lc#[id number] Non Reactive: < 0.8 Equivocal: >/= 0.8 [...] Treatment Date Care Activity Detail Author Start: 10-14-2024 End: 10-14-2024 Start: 10-14-2024 Nonstress test Start: 10-14-2024 Obstetric monitoring [facility] Start: 10-14-2024 Vital signs measurements Start: 10-14-2024 Bacteria identified in Urine by Culture Urine Culture Start: 10-14-2024 Iv infusion hydratio n each additional hour HYDRATE IV INFUSION ADD-ON Start: 10-14-2024 Ther proph/dx njx iv push single/1st sbst/drug THER/PROPH/DIAG INJ IV PUSH Start: 10-09-2024 T4 free measurement [facility] Start: 10-09-2024 Thyroid stimulating hormone measurement Start: 09-04-2024 Measurement of gluco se 2 hours after glucose challenge for glucose tolerance test Start: 09-04-2024 Serologic test for syphilis Start: 09-04-2024 [facility] Start: 06-29-2024 [facility] Start: 05-28-2024 Liquid based cervica l cytology screening Start: 05-06-2023 Iv infusion therapy/prophylaxis /dx 1st to 1 hr THER/PROPH/DIAG IV INF INIT Start: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 animals: No history of [...] 1-2 times per week duration: 15-30 minutes/day tish/faith: None seatbelt use: always do you feel safe at home: Yes additional social history: ALLISON Tabor- 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 [facility] History 4 Elective abortions Hx Para [...] live - full term 8#1oz Male epidural Macwilman Bautista 08/13/23 Frank 40 live - full term 8lbs 8oz Female epidural [facility] Darling Mendoza Delivery Date: 01/10/17 Last Updated [...] (4) Obesity affecting : Status: Acute Comment: [id number] at 34 weeks (5) Brandon's disease: Status: [...] risk , unspecified, unspecified trimester 08/09/24 1516 <Electronically signed by Nallely dorsey MD> Date _ Nalelly Doherty MD [facility] Signature: Date (if applicable) CC: ~ [facility] Work Phone: 1(798) 302-872605-06-2025 Evaluation note* Diagnosis Onset Date Resolution Status Admit Date Anxiety and depression acute Ma 2024 12:38pm Cigarette smoker acute July 10, [...] 2024 12:44pm Marijuana use acute September 04 025 12:44pm Obesity affecting acute September 04, 2024 12:44pm acute September 04, 2024 12:44pm Supervision of high-risk acute September 04, 2024 1 2:44pm Velamentous insertion of umbilical cord acute September 04, 2024 1 2:44pm Anxiety and depression acute Ju 2024 1:44pm Cigarette smoker acute September 1:44pm [...] October 09, 2024 1:34pm Brandon's disease acute Augus t 2024 1:34pm LGSIL (low grade squamous intraepithelial dysplasia) acute Octus t 2024 1:34pm Marijuana use acute October 09, 2024 1:34pm Obesity affecting acute October 09, 2024 1:34pm acute October 09 1:34pm Supervision of high-risk acute October 09, 2024 1:34pm Velamentous insertion of umbilical cord acute October 09, 2024 1:34pm Anxiety and depression acute Au mirella 2024 1:10pm Contraception management acute October 14, 2024 1:10pm Brandon's disease acute Augus t 5 1:10pm Nausea and vomiting during acute October 14 1:10pm Obesity affecting acute October 14, 2024 1:10pm acute October 14 2 025 1:10pm Supervision of high-risk acute October 14 1:10pm Velamentous insertion of umbilical cord acute October 14 1:10pm UTI (urinary tract infection ) during deleted October 14 1:10pm Anxiety and depression acute Au 2024 10:45am Cigarette smoker acute October 052024 10:45am Contraception management acute October 23, 2024 10:45am Brandon's disease acute 2024 10:45am LGSIL (low grade squamous intraepithelial dysplasia) acute 2024 10:45am Marijuana use acute October 10:45am Obesity affecting acute October 23, 2024 10:45am acute October 23 10:45am Supervision of high-risk acute October 23 10:45am Velamentous insertion of umbilical cord acute October 23 10:45am Work Phone: 1(864) 255-941705-06-2025 Evaluation note* Diagnosis Onset Date Resolution Status Admit Date Anxiety and depression acute 2024 12:38pm Cigarette [...] 2 :39pm Anxiety and depression acute Ju ly 2024 12:44pm Cigarette smoker acute September [...] 2024 1:44pm Anxiety and depression acute Au mirella 2024 1:34pm Cigarette smoker acute October 092024 1:34pm Contraception management acute October 09, 2024 1:34pm Brandon's disease acute Augus t 2024 1:34pm LGSIL (low grade squamous intraepithelial dysplasia) acute Augus t 2024 1:34pm Marijuana use acute October 09, 2024 1:34pm Obesity affecting acute October 09, 2024 1:34pm acute October 09 1:34pm Supervision of high-risk acute October 09, 2024 1:34pm Velamentous insertion of umbilical cord acute October 09, 2024 1:34pm Anxiety and depression acute Au mirella 2024 1:10pm Contraception management acute October 14, 2024 1:10pm Brandon's disease acute Augus t 2024 1:10pm Nausea and vomiting during acute October 14 1:10pm Obesity affecting acute October 14, 2024 1:10pm acute October 14 1:10pm Supervision of high-risk acute October 14 1:10pm Velamentous insertion of umbilical cord acute October 14 1:10pm UTI (urinary tract infection ) during deleted October 14 1:10pm Anxiety and depression acute Au mirella 2024 10:45am Cigarette smoker acute October 052024 10:45am Contraception management acute October 23, 2024 10:45am Brandon's disease acute Augus t 2024 10:45am LGSIL (low grade squamous intraepithelial dysplasia) acute Augus t 2024 10:45am Marijuana use acute October 10:45am Obesity affecting acute October 23, 2024 10:45am acute October 23 10:45am Supervision of high-risk acute October 23 10:45am Velamentous insertion of umbilical cord acute October 23 10:45am Anxiety and depression acute Se pt2024 1:29pm Cigarette smoker acute Septembe r 2024 1:29pm Contraception management acute November 06, 2024 1:29pm Brandon's disease acute Sept mb2024 1:29pm Marijuana use acute November 062024 1:29pm Nausea and vomiting during acute November 06 1:29pm Obesity affecting acute November 06, 2024 1:29pm acute November 06, 2024 1:29pm Supervision of high-risk acute November 06 1:29pm Velamentous insertion of umbilical cord acute November 06 1:29pm [facility] Work Phone: 1([phone]) 771-836804-25-2025 Evaluation note* Diagnosis Onset Date Resolution Status [...] 2 :39pm Anxiety and depression acute Ju ly 2024 12:44pm Cigarette smoker acute September [...] umbilical cord acute September 25, 2024 1:44pm Work Phone: 1([phone]) 442-923304-25-2025 Evaluation note* Diagnosis Onset Date Resolution Status [...] 1 2:44pm Anxiety and depression acute Ju 2024 1:44pm Cigarette smoker acute September 1:44pm [...] October 09, 2024 1:34pm Brandon's disease acute 2024 1:34pm LGSIL (low grade squamous intraepithelial dysplasia) acute 2024 1:34pm Marijuana use acute October 09, 2024 1:34pm Obesity affecting acute October 09, 2024 1:34pm acute October 09 1:34pm Supervision of high-risk acute October 09, 2024 1:34pm Velamentous insertion of umbilical cord acute October 09, 2024 1:34pm [facility] Work Phone: [phone]) 678-477404-25-2025 Evaluation note* Diagnosis Onset Date Resolution Status [...] 2 :39pm Anxiety and depression acute Ju ly 2024 12:44pm Cigarette smoker acute September [...] October 09, 2024 1:34pm Brandon's disease acute 2024 1:34pm LGSIL (low grade squamous intraepithelial dysplasia) acute 2024 1:34pm Marijuana use acute October 09, 2024 1:34pm Obesity affecting acute October 09, 2024 1:34pm acute October 09 1:34pm Supervision of high-risk acute October 09, 2024 1:34pm Velamentous insertion of umbilical cord acute October 09, 2024 1:34pm Anxiety and depression acute 2024 1:10pm Contraception management acute October 14, 2024 1:10pm Brandon's disease acute 2024 1:10pm Nausea and vomiting during acute October 14 1:10pm Obesity affecting acute October 14, 2024 1:10pm acute October 14, 1:10pm Supervision of high-risk acute October 14 1:10pm UTI (urinary tract infection ) during acute October 14 1:10pm Velamentous insertion of umbilical cord acute October 14 1:10pm Work Phone: 1([phone]) 835-579004-25-2025 Evaluation note* Diagnosis Onset Date Resolution Status [...] October 09, 2024 1:34pm Brandon's disease acute Aug2024 1:34pm LGSIL (low grade squamous intraepithelial dysplasia) acute 2024 1:34pm Marijuana use acute October 09, 2024 1:34pm Obesity affecting acute October 09, 2024 1:34pm acute October 09 1:34pm Supervision of high-risk acute October 09, 2024 1:34pm Velamentous insertion of umbilical cord acute October 09, 2024 1:34pm Anxiety and depression acute Au 2024 1:10pm Contraception management acute October 14, 2024 1:10pm Brandon's disease acute 2024 1:10pm Nausea and vomiting during acute October 14 1:10pm Obesity affecting acute October 14, 2024 1:10pm acute October 14 1:10pm Supervision of high-risk acute October 14 1:10pm Velamentous insertion of umbilical cord acute October 14 1:10pm UTI (urinary tract infection ) during deleted October 14 1:10pm Anxiety and depression acute Au 2024 10:45am Cigarette smoker acute October 052024 10:45am Contraception management acute October 23, 2024 10:45am Brandon's disease acute Aug t 2024 10:45am LGSIL (low grade squamous intraepithelial dysplasia) acute Aug t 2024 10:45am Marijuana use acute October 10:45am Nausea and vomiting during acute October 23 10:45am Obesity affecting acute October 23, 2024 10:45am acute October 23, 2 025 10:45am Supervision of high-risk acute October 23 10:45am Velamentous insertion of umbilical cord acute October 23 10:45am [facility] Work Phone: 1([phone]) 860-926004-25-2025 Discharge summary [facility] Medical Records Department [address] [place] [address] Emergency Department Summary 06/29/24 MR#: [id number] Acct: [id number] Name: RANJAN TAN Rep #:[id number] : 2000 24 From: Vaughn crisostomoett DO PCP: Care Physician,No Primary Status :REG [...] Denies any alcohol use. She follows with [facility]. 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 Denies any vaginal bleeding. Follows with [facility]. On presentation, patient is hypertensive with a [...] with blood pressure 155/71. Given this finding, [facility] was consulted and patient was discussed with [...] % (Auto) 68.7 Lymph % (Auto) 19.7 Rooks % (Auto) 9.3 Eos % (Auto) 1.1 [...] Clarity Clear Urine pH 5.0 Ur Specific Eugene 1.025 Urine Protein 30 H Urine Glucose [...] polyp versus adherent tumefactive sludge Reading Location: [id number] Obstetrics Ultrasound 06/29/24 03:37 IMPRESSION: Single, live intrauterine gestation. No abnormality is noted. Reading Location: [place] [address] Discharge Plan Triage Chief Complaint: Nausea/Vomiting ED Provider: Vaughn Tan Dx/Rx/DC Orders Clinical Impression: Nausea & vomiting, Hypertension, Instructions: ED Diet Vomiting Diarrhea, ED Hypertension, To Be Confirmed, ED Prescriptions: New cephalexin 500 mg capsule 500 mg PO Q6H 7 Days Qty: 28 0RF No Action PNV no.[id number] mcg-35 mg- 25 mg-5 mg tablet,chewable [...] have your blood pressure repeated at your [facility] office this afternoon. Call them when you [...] polyp. Follow-up with general surgery. Print Language: Moroccan Disposition Disposition: Home, Self Care What to do if you have Problems For any increased pain, shortness of breath, bleeding, nausea or vomiting, chestpain, or any unexpected problems, contact your Primary Care Provider. Call [facility] ([phone]) or report tothe closest Emergency Room. Call 911 if necessary. 06/29/24 07 Cosigner Signature (if applicable): CC: No Primary Care Physician ~ Signed 04-25-2025 Radiology Diagnostic study note [facility] Imaging Services [address], [place] [id number] Transvaginal w/Preg US MR#: [id number] Acct: [id number] Name: RANJAN TAN Rep #: [id number] : 2000 F 24 From: Katerin Walton MD PCP: Dagoberto Physician,No Primary Status: REG ER Study:Transvaginal w/Preg US Date of Exam: 06/29/24 Exam# [id number] Ordering Dr: Vaughn Guzman DO PROCEDURE: TRANSVAGINAL [...] gestation. No abnormality is noted. Reading Location: [place] [address] CC: Dr. 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 Endocervical and/or squamous metaplasticcells (endocervical component)are present.[facility] INTERFACED A#[id number] on above:Satisfactory for evaluation. Endocervical and/or squamous metaplasticcells (endocervical component)are present.05-28-2024 Evaluation note* Diagnosis Onset Date Resolution Status Admit Date Anxiety and depression acute [facility] 2024 2:14pm Cigarette smoker acute May 282024 2:14pm Brandon's disease acute May 28, 2024 2:14pm LGSIL (low grade squamous intraepithelial dysplasia) acute May 28, 2024 2:14pm Marijuana use acute May 28, 2024 2:14pm Obesity affecting acute May 28, 2024 2:14pm acute May 28 2:14pm Supervision of high-risk acute May 28, 2024 2:14pm Work Phone: 1(355) 586-938603-24-2025 Evaluation note* Diagnosis Onset Date Resolution Status Admit Date Anxiety and depression acute [facility] 2024 2:14pm Cigarette smoker [...] cord acute August 09, 2024 2 :39pm [facility] Work Phone: 1(419) 627-711503-24-2025 Evaluation note* Diagnosis Onset Date Resolution Status Admit Date Anxiety and depression acute [facility] 2024 2:14pm Cigarette smoker acute May 282024 [...] cord acute September 04, 2024 1 2:44pm [facility] Work Phone: 1(332) 633-937203-24-2025 Evaluation note* Diagnosis Onset Date Resolution Status Admit Date Anxiety and depression acute [facility] 2024 2:14pm Cigarette smoker acute May 282024 [...] 2024 12 :38pm Anxiety and depression acute [facility] 2024 2:39pm Cigarette smoker acute August 2:39pm [...] cord acute September 04, 2024 1 2:44pm Work Phone: 1(658) 699-264703-24-2025 Evaluation note* Diagnosis Onset Date Resolution Status Admit Date Anxiety and depression acute [facility] 2024 2:14pm Cigarette smoker [...] umbilical cord acute September 25, 2024 1:44pm [facility] Work Phone: [phone]) [phone] NotePap Smear Specimen AdequacyNovember 2022 5:04pmComment.Satisfactory for evaluation. No endocervical component is identified.An endocervical component is not commonly seen in the patient.[facility] INTER[facility]ACED A#[id number] on above: Satisfactory for evaluation. No endocervical component is identified.An endocervical component is not commonly seen in the patient.01-26-2023 NotePap Smear Specimen AdequacyNovember 2022 5:04pmComment.Satisfactory for evaluation. No endocervical component is identified.An endocervical component is not commonly seen in the patient.[facility] INTERFACED A#[id number] healthcare [facility] on above:Satisfactory for evaluation. No endocervical component is identified.An endocervical component is not commonly seen in the patient.01-26-2023 NotePap Smear Specimen AdequacyNovember 2022 6:04pmComment.Satisfactory for evaluation. No endocervical component is identified.An endocervical component is not commonly seen in the patient.[facility] INTER[facility]ACED A#[id number] healthcare [facility] on above:Satisfactory for evaluation. No endocervical component is identified.An endocervical component is not commonly seen in the patient.01-26-2023 Miscellaneous Notes* Telephone Encounter - Robby Live, JEFFREY - 01/26/2023 3:37 PM EST Left message for patient to call office. No openings on 02/07 for NT anymore. Was going to see if patient would move to 02/04 for nuchal and visit with . ROBBY LIVE, RN * Telephone Encounter - Silvina Alvarado [...] Tuesday before. Please advise documented in this encounterFirelands [facility] Center11-15-2023 Miscellaneous Notes* Quick Notes - Angelica Angeles [...] Patient had her previous 2 deliveries at [facility].Pt has a history of depression diagnosed [...] was transferred to a psychiatric facility in [place]. She states she did do cutting at that time. Denies any suicidal thoughts since then. She sees a counselor Mac Galeano at [facility]. Patient was seen at on December 27 for nausea and vomiting. [...] a quantitative hCG done December 27 at her where she was seen for nausea [...] testing. Angelica Angeles RN documented in this encounterFirelands Regional Medical Center11-15-2023 NoteHNO ID: [id number] Author: Angelica Angeles RN Service: ? 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 documented in this encounterFirelands Regional Medical Center10-29-2023 Discharge summary Author Jarad Hilton January 02, 2023 8:21pm Note Date/Time January 02, 2023 7 :20pm [facility] Medical Records Department [address] [place] [address] Emergency Department Summary 01/02/23 MR#: [id number] Acct: [id number] Name: RANJAN TAN Rep #:[id number] : [...] by Dr. Valerio Cardenas for her . 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 Nallely Cardenas Discharge Plan Triage Chief Complaint: Nausea/Vomiting ED Provider: Jarad Hilton Dx/Rx/DC Orders Clinical Impression: Hyperemesis gravidarum, First trimester Prescriptions: New ondansetron [ondansetron] 4 mg tablet,disintegrating 4 mg PO Q8H PRN PRN (Reason: Nausea) Qty: 10 0RF No Action pnv #79-wcga-JC-dha 28-975-200 mg-mcg-mg powder effervescent in packet 1 ea PO DAILY Primary Care Provider: Christy Lao Referrals: Christy Lao MD [Primary Care Provider] - Nallely Doherty MD [Med Staff - Active Staff] - 1-2 Days if not improving Disposition Disposition: Home, Self Care What to do if you have Problems For any increased pain, shortness of breath, bleeding, nausea or vomiting, chestpain, or any unexpected problems, contact your Primary Care Provider. Call [facility] ([phone]) or report to the closest Emergency Room. Call 911 if necessary. 01/02/232020 <Electronically signed by Jarad Hilton MD> Cosigner Signature (if applicable): CC: Dr. Christy Lao MD ~ Signed Work Phone: 1(755) 153-173010-20-2023 Miscellaneous Notes* Telephone Encounter - Robby Live [...] Farida Rangel APRN.CNM * Telephone Encounter - MyrnaCamilaLaura IT TECHNICAL ARCHITECT - 12/24/2022 1:52 PM EDT Pt just got positive test, LMP 11/06/22, 6w 6d. She is c/o dark brown vaginal bleeding thatshe notes with wiping. No cramping or LOF. Pt was given bleeding precautions and voiced understanding. Pt did report intercourse about 2 days ago. Please see pended order below and advise. Laura Norris LPN documented in this encounterPaauilo ClinicDischar summary Author Vaughn Quintanillagett Note Date/Time June 29, 2024 7:1 9am [facility] Medical Records Department [address] [place] [id number] Emergency Department Summary 06/29/24 MR#: [id number] Acct: [id number] Name: RANJAN TAN Rep #:[id number] : [...] Denies any alcohol use. She follows with [facility]. 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 Denies any vaginal bleeding. Follows with [facility]. On presentation, patient is hypertensive with a [...] with blood pressure 155/71. Given this finding, [facility] was consulted and patient was discussed with [...] % (Auto) 68.7 Lymph % (Auto) 19.7 Rooks % (Auto) 9.3 Eos % (Auto) 1.1 [...] Clarity Clear Urine pH 5.0 Ur Specific Eugene 1.025 Urine Protein 30 H Urine Glucose [...] polyp versus adherent tumefactive sludge Reading Location: [id number] Obstetrics Ultrasound 06/29/24 03:37 IMPRESSION: Single, live intrauterine gestation. No abnormality is noted. Reading Location: [place] [address] Discharge Plan Triage Chief Complaint: Nausea/Vomiting ED Provider: Vaughn Tan Dx/Rx/DC Orders Clinical Impression: Nausea & vomiting, Hypertension, Instructions: ED Diet Vomiting Diarrhea, ED Hypertension, To Be Confirmed, ED Prescriptions: New cephalexin 500 mg capsule 500 mg PO Q6H 7 Days Qty: 28 0RF No Action PNV no.863-RJ-rp1-ivb-ddu-fpdj 180 mcg-35 mg- 25 mg-5 mg tablet,chewable [...] have your blood pressure repeated at your [employer] office this afternoon. Call them when you [...] polyp. Follow-up with general surgery. Print Language: Moroccan Disposition Disposition: Home, Self Care What to do if you have Problems For any increased pain, shortness of breath, bleeding, nausea or vomiting, chestpain, or any unexpected problems, contact your Primary Care Provider. Call [facility] ([phone]) or report to the closest Emergency Room. Call 911 if necessary. 06/29/24 0719 <Electronically signed by Vaughn Tan DO> Cosigner Signature (if applicable): CC: No Primary Care Physician ~ Signed Work Phone: Evaluation note* Diagnosis Bleeding in early - Primary Unspecified hemorrhage in early , unspecified as to episode of care documented in this encounter [facility] noteNo assessment information availableWOhioHealth Mansfield Hospital Work Phone: Evaluation note* Diagnosis Supervision [...] Other specified examination documented in this encounter [facility] note* Diagnosis Encounter for screening of mother- Primary Unspecified screening documented in this encounter [facility] note* Diagnosis Onset Date Resolution Status Anxiety and depression acute Cigarette smoker 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 Marijuana use acute Obesity (BMI 30-39.9) acute acute Seasonal allergies acute Supervision of high-risk acute Work Phone: Evaluation note* Diagnosis Screening, , for malformation by ultrasound Encounter for routine screening for malformation using ultrasonics 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 care, single or unspecified fetus documented [facility] this encounter [facility]* 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 [facility]* Diagnosis Onset Date Resolution Status Anxiety [...] 30-39.9) acute acute Supervision of high-risk acute [id number] acute Anxiety and depression acute Cigarette smoker acute 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 acute Obesity (BMI 30-39.9) acute acute Seasonal allergies acute Supervision of high-risk acute Work Phone: Evaluation note* Diagnosis Onset Date [...] 30-39.9) acute acute Supervision of high-risk acute [id number] acute Anxiety and depression acute Cigarette smoker acute 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 acute Obesity (BMI 30-39.9) acute acute Seasonal allergies acute Supervision of high-risk acute Supervision of high-risk acute Elevated AST (SGOT) resolved [id number] acute Anxiety and depression acute Cigarette smoker acute 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 acute Obesity (BMI 30-39.9) acute acute Seasonal allergies acute Supervision of high-risk acute Elevated AST (SGOT) resolved Work Phone: Evaluation note* Diagnosis Onset Date Resolution Status Anxiety and depression acute Cigarette smoker acute 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 Obesity (BMI 30-39.9) acute acute Supervision of high-risk acute [id number] acute Anxiety and depression acute Cigarette smoker acute 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 acute Obesity (BMI 30-39.9) acute acute Seasonal allergies acute Supervision of high-risk acute Supervision of high-risk acute Elevated AST (SGOT) resolved [id number] acute Anxiety and depression acute Cigarette smoker acute 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 acute Obesity (BMI 30-39.9) acute acute Seasonal allergies acute Supervision of high-risk acute Elevated AST (SGOT) resolved [id number] acute Anemia affecting a cute Anxiety and depression acute Cigarette smoker acute 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 Obesity (BMI 30-39.9) acute acute Supervision of high-risk acute [id number] acute Anemia affecting a cute Anxiety and depression acute Cigarette smoker acute 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 Call them when you [...] possible gallbladder polyp. Follow-up with general surgery. Work Phone: Hospital Discharge instructionsAdditional Instructions Keep next office appointment. Macrobid prescription sent to pharmacy. Take twice daily. Work Phone: Reason for referral (narrative)* Diagnostic Procedure Only (Routine) - Pending Review Specialty Diagnoses / Procedures Referred By Vidal churchill Referred To Contact [facility] Diagnoses Encounter for screening of mother Procedures NUCHAL TRANSLUCENCY WHI US NUCHAL TRANSLUCENCY 1ST GESTATION Melissa Mcclellan APRN.CNM [address] [place] [address] [facility] [address] [place] [address] Referral ID Status Reason Start Date Expiration Date Visits Requested Visits Authorized [id number] Pending Review Auto-Generat ed Referral 3 01/19/2024 1 1 [facility] (narrative)No reason for referral information availableWOhioHealth Mansfield Hospital Work Phone: Summary Purpose Family History No Family History Records Found Relationship Condition Age at Onset Recorded Date/T winsome grandmother Malignant neoplasm of breast 74 aunt Family history of liver cancer 51 aunt Family history of liver cancer 61 Advance Directives No Advanced Directives Records Found Advance Directive Response Recorded Date/ Time Living Will No May 12, 2019 11:56pm Power of Bottling Room Worker No May 11 11:56pm Advance Directive Response Recorded Date/ Time Living Will No January 02 6:29pm Power of Bottling Room Worker No January 02, 2023 6:29pm Advance Directive Response Recorded Date/ Time Living Will No January 02 5:29pm Power of Bottling Room Worker No January 02, 2023 5:29pm Advance Directive Response Recorded Date/ Time Do you have a Healthcare Power of Bottling Room Worker? 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) Marijuana use Obesity (BMI 30-39.9) Seasonal allergies Supervision of high-risk Elevated AST (SGOT) Chief Complaint 19 WK OB 24 WK OB R/O LABOR R/O LABOR 28 WK OB/GLUCOSE *pt to see Dr per phone note 30 WK OB 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/tb BD/ FIT TEST- [place] 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 34 WK OB 36 WK OB Reason for Visit Anxiety and depressi on Cigarette smoker 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 Obesity (BMI 30-39.9) Supervision of high-risk [id number] Anxiety and depression Cigarette smoker 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) Marijuana use Obesity (BMI 30-39.9) Seasonal allergies Supervision of high-risk Supervision of high-risk Elevated AST (SGOT) [id number] Anxiety and depression Cigarette smoker 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) Marijuana use Obesity (BMI 30-39.9) Seasonal allergies Supervision of high-risk Elevated AST (SGOT) [id number] Anemia affecting Anxiety and depression Cigarette smoker 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 Obesity (BMI 30-39.9) Supervision of high-risk [id number] Anemia affecting Anxiety and depression Cigarette smoker 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 Obesity (BMI 30-39.9) Supervision of high-risk [id number] Anemia affecting Anxiety and depression Cigarette smoker [...] 25, 2024 1:44 pm Obesity affecting September 25 1:44pm September 25, 2024 1:44 pm Supervision [...] 2024 1:44 pm Obesity affecting September 25, 2 025 1:44pm September 25, 2024 1:44 pm [...] 2024 1:3 4pm Supervision of high-risk Augus 2024 1:34pm Velamentous insertion of umbilical cord October 09, 2024 1:34pm Chief Complaint Admit Date n/v 17 weeks [...] WK OB October 09, 2024 1:3 4pm R/O PRE-E October 14, 2024 1: 10pm Chief Complaint Admit Date n/v 17 weeks [...] WK OB October 09, 2024 1:3 4pm R/O PRE-E October 14, 2024 1: 10pm R/O PRE-E October 14, 2024 6: 03pm Reason for Visit Admit Date Anxiety and [...] 25, 2024 1:44 pm Obesity affecting September 25 1:44pm September 25, 2024 1:44 pm Supervision [...] 2024 1:3 4pm Supervision of high-risk Augus 2024 1:34pm Velamentous insertion of umbilical cord October 09, 2024 1:34pm Anxiety and depression October 14, 2024 1:10pm Contraception management October 14 1:10pm Brandon's disease October 14, 2024 1: 10pm Nausea and vomiting during Oct us2024 1:10pm Obesity affecting October 14, 2024 1:10pm October 14, 2024 1: 10pm Supervision of high-risk Augus t 2024 1:10pm UTI (urinary tract infection) during pre gnancy October 14, 2024 1:10pm Velamentous insertion of umbilical cord October 14, 2024 1:10pm Chief Complaint Admit Date n/v 17 weeks [...] WK OB October 09, 2024 1:3 4pm R/O PRE-E October 14, 2024 1: 10pm R/O PRE-E October 14, 2024 6: 03pm 34 wk ob October 23, 2024 10 :45am Reason for Visit Admit Date Anxiety and [...] 25, 2024 1:44 pm Obesity affecting September 25 1:44pm September 25, 2024 1:44 pm Supervision [...] 2024 1:3 4pm Supervision of high-risk Augus 2024 1:34pm Velamentous insertion of umbilical cord October 09, 2024 1:34pm Anxiety and depression October 14, 2024 1:10pm Contraception management October 14 1:10pm Brandon's disease October 14, 2024 1: 10pm Nausea and vomiting during Oct us2024 1:10pm Obesity affecting October 14, 2024 1:10pm October 14, 2024 1: 10pm Supervision of high-risk Augus t 2024 1:10pm Velamentous insertion of umbilical cord October 14, 2024 1:10pm UTI (urinary tract infection) during pre gnancy October 14, 2024 1:10pm Anxiety and depression October 23, 2024 10:45am Cigarette smoker October 23, 2024 10 :45am Contraception management October 23 10:45am Brandon's disease October 23, 2024 10 :45am LGSIL (low grade squamous intraepithelia l dysplasia) October 23, 2024 10:45am Marijuana use October 23, 2024 10 :45am Nausea and vomiting during Oct ust 2024 10:45am Obesity affecting October 23, 2024 10:45am October 23, 2024 10 :45am Supervision of high-risk Augus t 2024 10:45am Velamentous insertion of umbilical cord October 23, 2024 10:45am Chief Complaint Admit Date 18w 6d ob (this day per pt) July 10 12:38pm 23 wk ob August 09, 2024 2:39p m INT LAB ORDER September 04, 2024 12:20 pm 27 wk ob/glucose September 04, 2024 12:44 pm 30 WK OB September 25, 2024 1:44 pm 32 WK OB October 09, 2024 1:3 4pm R/O PRE-E October 14, 2024 1: 10pm R/O PRE-E October 14, 2024 6: 03pm 34 wk ob October 23, 2024 10 :45am Reason for Visit Admit Date Anxiety and depression July 10, 2024 12: [...] 2024 1:44 pm Obesity affecting September 25, 1:44pm September 25, 2024 1:44 pm Supervision [...] 2024 1:3 4pm Supervision of high-risk Augus 2024 1:34pm Velamentous insertion of umbilical cord October 09, 2024 1:34pm Anxiety and depression October 14, 2024 1:10pm Contraception management October 14 1:10pm Brandon's disease October 14, 2024 1: 10pm Nausea and vomiting during Oct us2024 1:10pm Obesity affecting October 14, 2024 1:10pm October 14, 2024 1: 10pm Supervision of high-risk Augus t 2024 1:10pm Velamentous insertion of umbilical cord October 14, 2024 1:10pm UTI (urinary tract infection) during pre gnancy October 14, 2024 1:10pm Anxiety and depression October 23, 2024 10:45am Cigarette smoker October 23, 2024 10 :45am Contraception management October 23 10:45am Brandon's disease October 23, 2024 10 :45am LGSIL (low grade squamous intraepithelia l dysplasia) October 23, 2024 10:45am Marijuana use October 23, 2024 10 :45am Obesity affecting October 23, 2024 10:45am October 23, 2024 10 :45am Supervision of high-risk Augus t 2024 10:45am Velamentous insertion of umbilical cord October 23, 2024 10:45am Chief Complaint Admit Date 18w 6d ob (this day per pt) July 10 12:38pm 23 wk ob August 09, 2024 2:39p m INT LAB ORDER September 04, 2024 12:20 pm 27 wk ob/glucose September 04, 2024 12:44 pm 30 WK OB September 25, 2024 1:44 pm 32 WK OB October 09, 2024 1:3 4pm R/O PRE-E October 14, 2024 1: 10pm R/O PRE-E October 14, 2024 6: 03pm 34 wk ob October 23, 2024 10 :45am 36 wk ob November 06, 2024 1:29pm Reason for Visit Admit Date Anxiety and depression July 10, 2024 12: [...] 2024 1:44 pm Obesity affecting September 25, 1:44pm September 25, 2024 1:44 pm Supervision [...] 2024 1:3 4pm Supervision of high-risk Augus 2024 1:34pm Velamentous insertion of umbilical cord October 09, 2024 1:34pm Anxiety and depression October 14, 2024 1:10pm Contraception management October 14 1:10pm Brandon's disease October 14, 2024 1: 10pm Nausea and vomiting during Aug ust 2024 1:10pm Obesity affecting October 14, 2024 1:10pm October 14, 2024 1: 10pm Supervision of high-risk Augus t 2024 1:10pm Velamentous insertion of umbilical cord October 14, 2024 1:10pm UTI (urinary tract infection) during pre gnancy October 14, 2024 1:10pm Anxiety and depression October 23, 2024 10:45am Cigarette smoker October 23, 2024 10 :45am Contraception management October 23 10:45am Brandon's disease October 23, 2024 10 :45am LGSIL (low grade squamous intraepithelia l dysplasia) October 23, 2024 10:45am Marijuana use October 23, 2024 10 :45am Obesity affecting October 23, 2024 10:45am October 23, 2024 10 :45am Supervision of high-risk Augus t 2024 10:45am Velamentous insertion of umbilical cord October 23, 2024 10:45am Anxiety and depression November 06 1:29pm Cigarette smoker November 06, 2024 1:29pm Contraception management November 06, 2024 1:29pm Brandon's disease November 06, 2024 1:29pm Marijuana use November 06, 2024 1:29pm Nausea and vomiting during Sep tember 2024 1:29pm Obesity affecting November 1:29pm November 06, 2024 1:29pm Supervision of high-risk Septe mber 2024 1:29pm Velamentous insertion of umbilical cord November 06, 2024 1:29pm Chief Complaint Admit Date 23 wk ob August 09, 2024 2:39p m INT LAB ORDER September 04, 2024 12:20 pm 27 wk ob/glucose September 04, 2024 12:44 pm 30 WK OB September 25, 2024 1:44 pm 32 WK OB October 09, 2024 1:3 4pm R/O PRE-E October 14, 2024 1: 10pm R/O PRE-E October 14, 2024 6: 03pm 34 wk ob October 23, 2024 10 :45am 36 wk ob November 06, 2024 1:29pm 37 wk ob November 13, 2024 1:55pm Reason for Visit Admit Date Anxiety and depression August 09, 2024 2: [...] of umbilical cord October 09, 2024 1:34pm Anxiety and depression October 14, 2024 1:10pm Contraception management October 14 1:10pm Brandon's disease October 14, 2024 1: 10pm Obesity affecting October 14, 2024 1:10pm October 14, 2024 1: 10pm Supervision of high-risk Augus t 2024 1:10pm Velamentous insertion of umbilical cord October 14, 2024 1:10pm Nausea and vomiting during Oct us2024 1:10pm UTI (urinary tract infection) during pre gnancy October 14, 2024 1:10pm Anxiety and depression October 23, 2024 10:45am Cigarette smoker October 23, 2024 10 :45am Contraception management October 23 10:45am Brandon's disease October 23, 2024 10 :45am LGSIL (low grade squamous intraepithelia l dysplasia) October 23, 2024 10:45am Marijuana use October 23, 2024 10 :45am Obesity affecting October 23, 2024 10:45am October 23, 2024 10 :45am Supervision of high-risk Augus t 2024 10:45am Velamentous insertion of umbilical cord October 23, 2024 10:45am Anxiety and depression November 06 1:29pm Cigarette smoker November 06, 2024 1:29pm Contraception management November 06, 2024 1:29pm Brandon's disease November 06, 2024 1:29pm Marijuana use November 06, 2024 1:29pm Obesity affecting November 1:29pm November 06, 2024 1:29pm Supervision of high-risk Septe mber 2024 1:29pm Velamentous insertion of umbilical cord November 06, 2024 1:29pm Anxiety and depression November 13 1:55pm Breech presentation November 13, 2024 1:55pm Cigarette smoker November 13, 2024 1:55pm Contraception management November 13, 2024 1:55pm Brandon's disease November 13, 2024 1:55pm LGSIL (low grade squamous intraepithelia l dysplasia) November 13, 2024 1:55pm Marijuana use November 13, 2024 1:55pm Obesity affecting November 1:55pm November 13, 2024 1:55pm Supervision of high-risk Azame mber 2024 1:55pm Velamentous insertion of umbilical cord November 13, 2024 1:55pm Chief Complaint Admit Date 23 wk ob August 09, 2024 2:39p m INT LAB ORDER September 04, 2024 12:20 pm 27 wk ob/glucose September 04, 2024 12:44 pm 30 WK OB September 25, 2024 1:44 pm 32 WK OB October 09, 2024 1:3 4pm R/O PRE-E October 14, 2024 1: 10pm R/O PRE-E October 14, 2024 6: 03pm 34 wk ob October 23, 2024 10 :45am 36 wk ob November 06, 2024 1:29pm 37 wk ob November 13, 2024 1:55pm 38 wk ob November 20, 2024 10:07am Reason for Visit Admit Date Anxiety and depression August 09, 2024 2: [...] 25, 2024 1:44 pm Obesity affecting September 25 025 1:44pm September 25, 2024 1:44 pm [...] of umbilical cord October 09, 2024 1:34pm Anxiety and depression October 14, 2024 1:10pm Contraception management October 14 1:10pm Brandon's disease October 14, 2024 1: 10pm Obesity affecting October 14, 2024 1:10pm October 14, 2024 1: 10pm Supervision of high-risk Augus t 2024 1:10pm Velamentous insertion of umbilical cord October 14, 2024 1:10pm Nausea and vomiting during Oct us2024 1:10pm UTI (urinary tract infection) during pre gnancy October 14, 2024 1:10pm Anxiety and depression October 23, 2024 10:45am Cigarette smoker October 23, 2024 10 :45am Contraception management October 23 10:45am Brandon's disease October 23, 2024 10 :45am LGSIL (low grade squamous intraepithelia l dysplasia) October 23, 2024 10:45am Marijuana use October 23, 2024 10 :45am Obesity affecting October 23, 2024 10:45am October 23, 2024 10 :45am Supervision of high-risk Augus t 2024 10:45am Velamentous insertion of umbilical cord October 23, 2024 10:45am Anxiety and depression November 06 1:29pm Cigarette smoker November 06, 2024 1:29pm Contraception management November 06, 2024 1:29pm Brandon's disease November 06, 2024 1:29pm Marijuana use November 06, 2024 1:29pm Obesity affecting November 1:29pm November 06, 2024 1:29pm Supervision of high-risk Azame [facility] 2024 1:29pm Velamentous insertion of umbilical cord November 06, 2024 1:29pm Anxiety and depression November 13 1:55pm Breech presentation November 13, 2024 1:55pm Cigarette smoker November 13, 2024 1:55pm Contraception management November 13, 2024 1:55pm Brandon's disease November 13, 2024 1:55pm LGSIL (low grade squamous intraepithelia l dysplasia) November 13, 2024 1:55pm Marijuana use November 13, 2024 1:55pm Obesity affecting November 1:55pm November 13, 2024 1:55pm Supervision of high-risk Azame [facility] 2024 1:55pm Velamentous insertion of umbilical cord November 13, 2024 1:55pm Anxiety and depression November 20, 025 10:07am Breech presentation November 20, 2024 10:07am Cigarette smoker November 20, 2024 10:07am Contraception management November 20, 2024 10:07am Brandon's disease November 20, 2024 10:07am LGSIL (low grade squamous intraepithelia l dysplasia) November 20, 2024 10:07am Marijuana use November 20, 2024 10:07am Obesity affecting November 202024 10:07am November 20, 2024 10:07am Supervision of high-risk Azame [facility] 2024 10:07am Velamentous insertion of umbilical cord November 20, 2024 10:07am Reason for Referral Specialty Diagnoses / Procedures Referred By Contac t Referred To Contact Radiology Diagnoses Screening, , for malformation by ultrasound 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 care, single or unspecified fetus Procedures MRI (single) Dez Olmstead MD [address] [facility] [address] [place] [address] Referral ID Status Reason Start Date Expiration Date Visits Re quested Visits Authorized [id number] Closed 03/28/2023 03/27/2024 1 1 Additional Source Comments INFORMATION SOURCE (unrecogn ized section and content) DATE CREATED AUTHOR 02/10/2021 [facility] DATE CREATED AUTHOR AUTHOR'S ORGANIZ ATION 02/10/2021 [facility] DATE CREATED AUTHOR AUTHOR'S ORGANIZ ATION 02/07/2023 [facility] DATE CREATED AUTHOR AUTHOR'S ORGANIZ ATION 11/23/2024 [facility] DATE CREATED AUTHOR AUTHOR'S ORGANIZ ATION 11/25/2024 [facility] Source Comments (unrecognize d section and content) In the event this informatio n is protected by the Federal Confidentiality of Alcohol and Drug Abuse Patient Records regulations: The Federal rules restrict any use of the information to criminally investigate or prosecute any alcohol or drug abuse patient.[facility] the event this information is protected by the Federal Confidentiality of Alcohol and Drug Abuse Patient Records regulations: The Federal rules restrict any use of the information to criminally investigate or prosecute any alcohol or drug abuse patient.[facility] the event this information is protected by the Federal Confidentiality of Alcohol and Drug Abuse Patient Records regulations: The Federal rules restrict any use of the information to criminally investigate or prosecute any alcohol or drug abuse patient.[facility] Reason for Visit (unrecogniz ed section and content) Reason Comments Patient Question Reason Comments Care Reason Comments Care Specialty Diagnoses / Procedures Referred By Contac t Referred To Contact Radiology Diagnoses Screening, , for malformation by ultrasound 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 care, single or unspecified fetus Procedures MRI (single) Dez Olmstead MD [address] [facility] [address] [place] [address] Referral ID Status Reason Start Date Expiration Date Visits Re quested Visits Authorized [id number] Closed 03/28/2023 03/27/2024 1 1 Care Teams (unrecognized sec tion and content) Team Status: Active Member Role Status Dates Dr. Christy Lao MD Family Provider Active Dr. Christy Lao MD Primary Care Provider Active Team Status: Inactive Member Role Status Dates Dr. Christy Lao MD Primary Care Provider Active Dr. Nallely Doherty MD Attending Provider, Referr ing Provider Active [...] CNM Attending Provider, Referring Pr ovider Active Party Bus Driver Relationship Specialty Start Date End Date No Primary Care[place] [address] PCP - General Pediatrics 03/28/23 Party Bus Driver Relationship Specialty Start Date End Date No Primary [place] [address] PCP - General Pediatrics 03/28/23 Team Status: Active Member Role Status Dates Dr. Christy Lao MD Family Provider Active No Primary Care Physician Primary Care Provider Active Team Status: Inactive Member Role Status Dates Dr. Christy Lao MD Primary Care Provider, Referrin g Provider Active Adrien Klein DISPATCHER SERVICE CHIEF, DISPATCHER SERVICE CHIEF-C Attending Provider Active Team Status: Inactive Member [...] Provider, Refer ring Provider Active Adrien Klein DISPATCHER SERVICE CHIEF, DISPATCHER SERVICE CHIEF-C Attending Provider Active Team Status: Inactive Member [...] Physician Primary Care Provider Active Adrien Klein DISPATCHER SERVICE CHIEF, DISPATCHER SERVICE CHIEF-C Attending Provider, Referring Provider Active Team Status: Active Member Role Status Dates No Primary Care Physician Primary Care Provider Active Pablito SANCHEZ PA Attending Provider, Referring Provi bob Active [...] 2024 End: August 09, 2024 Dr. Nallely Doherty MD Attending Provider Active Start: August 09, 2024 End: August 09, 2024 Team Status: Inactive Member Role Status Dates No Primary Care Physician Primary Care Provider Active Start: August 09, 2024 End: August 09, 2024 Dr. Nallely Doherty MD Attending Provider Active Start: August 09, 2024 End: August 09, 2024 Dr. Nallely Doherty MD Referring Provider Active Start: August 09, [...] 2024 End: August 09, 2024 Dr. Nallely Doherty MD Attending Provider Active Start: August 09, 2024 End: August 09, 2024 Team Status: Inactive Member Role/Relationship Status Dates No Primary Care Physician Primary Care Provider Active Start: August 09, 2024 End: August 09, 2024 Dr. Nallely Doherty MD Attending Provider Active Start: August 09, 2024 End: August 09, 2024 Dr. Nallely Doherty MD Referring Provider Active Start: August 09, 2024 End: August 09, 2024 Team Status: Active Member Role/Relationship Status Dates No Primary Care Physician Primary Care Provider Active Start: September 04, 2024 Dr. Nallely Doherty MD Attending Provider Active Start: September 04, 2024 Dr. Nallely Doherty MD Referring Provider Active Start: September 04, 2024 Team Status: Inactive Member Role/Relationship Status Dates No Primary Care Physician Primary Care Provider Active Start: September 04, 2024 End: September 04, 2024 No Primary Care Physician Referring Provider Active Start: September 04, 2024 End: September 04, 2024 Adrien Klein NP, DISPATCHER SERVICE CHIEF-C Attending Provider Active Start: September 04, 2024 End: September 04, 2024 Team Status: Inactive Member Role/Relationship Status Dates No Primary Care Physician Primary Care Provider Active Start: September 04, 2024 End: September 04, 2024 Dr. Nallely Doherty MD Attending Provider Active Start: September 04, 2024 End: September 04, 2024 Dr. Nallely Doherty MD Referring Provider Active Start: September 04, 2024 End: September 04, 2024 Team Status: Inactive Member Role/Relationship Status Dates No Primary Care Physician Primary Care Provider Active Start: September 25, 2024 End: September 25, 2024 No Primary Care Physician Referring Provider Active Start: September 25, 2024 End: September 25, 2024 Dr. Nallely Doherty MD Attending Provider Active Start: September 25, [...] 2024 End: August 09, 2024 Dr. Nallely Doherty MD Attending Provider Active Start: August 09, 2024 End: August 09, 2024 Team Status: Inactive Member Role/Relationship Status Dates No Primary Care Physician Primary Care Provider Active Start: August 09, 2024 End: August 09, 2024 Dr. Nallely Doherty MD Attending Provider Active Start: August 09, 2024 End: August 09, 2024 Dr. Nallely Doherty MD Referring Provider Active Start: August 09, 2024 End: August 09, 2024 Team Status: Inactive Member Role/Relationship Status Dates No Primary Care Physician Primary Care Provider Active Start: September 04, 2024 End: September 04, 2024 Dr. Nallely Doherty MD Attending Provider Active Start: September 04, 2024 End: September 04, 2024 Dr. Nallely Doherty MD Referring Provider Active Start: September 04, 2024 End: September 04, 2024 Team Status: Inactive Member Role/Relationship Status Dates No Primary Care Physician Primary Care Provider Active Start: September 04, 2024 End: September 04, 2024 No Primary Care Physician Referring Provider Active Start: September 04, 2024 End: September 04, 2024 Adrien Klein NP, DISPATCHER SERVICE CHIEF-C Attending Provider Active Start: September 04, 2024 End: September 04, 2024 Team Status: Inactive Member Role/Relationship Status Dates No Primary Care Physician Primary Care Provider Active Start: September 25, 2024 End: September 25, 2024 No Primary Care Physician Referring Provider Active Start: September 25, 2024 End: September 25, 2024 Dr. Nallely Doherty MD Attending Provider Active Start: September 25, 2024 End: September 25, 2024 Team Status: Inactive Member Role/Relationship Status Dates No Primary Care Physician Primary Care Provider Active Start: September 25, 2024 End: September 25, 2024 Dr. Nallely Doherty MD Attending Provider Active Start: September 25, 2024 End: September 25, 2024 Dr. Nallely Doherty MD Referring Provider Active Start: September 25, 2024 End: September 25, 2024 Team Status: Inactive Member Role/Relationship Status Dates No Primary Care Physician Primary Care Provider Active Start: October 09, 2024 End: October 09, 2024 No Primary Care Physician Referring Provider Active Start: October 09, 2024 End: October 09, 2024 Dr. Amira Underwood DO Attending Provider Activ e Start: October 09, 2024 End: October 09, 2024 Team Status: Active Member Role/Relationship Status Dates No Primary Care Physician Primary Care Provider Active Start: October 09, 2024 Dr. Amira Underwood DO Attending Provider Activ e Start: October 09, 2024 Team Status: Inactive Member Role/Relationship Status Dates No Primary Care Physician Primary Care Provider Active Start: October 14, 2024 End: October 14, 2024 Simi Lara CNM Attending Provider Active S tart: October 14, 2024 End: October 14, 2024 Team Status: Inactive Member Role/Relationship Status Dates No Primary Care Physician Primary Care Provider Active Start: October 09, 2024 End: October 09, 2024 Dr. Amira Underwood DO Attending Provider Activ e Start: October 09, 2024 End: October 09, 2024 Team Status: Active Member Role/Relationship Status Dates No Primary Care Physician Primary Care Provider Active Start: October 14, 2024 Simi Lara CNM Attending Provider Active S tart: October 14, 2024 Simi Lara CNM Other Provider Active Start : October 14, 2024 Team Status: Inactive Member Role/Relationship Status Dates No Primary Care Physician Primary Care Provider Active Start: October 23, 2024 End: October 23, 2024 No Primary Care Physician Referring Provider Active Start: October 23, 2024 End: October 23, 2024 Adrien Klein NP, DISPATCHER SERVICE CHIEF-C Attending Provider Active Start: October 23, 2024 End: October 23, 2024 Team Status: Inactive Member Role/Relationship Status [...] 2024 End: August 09, 2024 Dr. Nallely Doherty MD Attending Provider Active Start: August 09, 2024 End: August 09, 2024 Team Status: Inactive Member Role/Relationship Status Dates No Primary Care Physician Primary Care Provider Active Start: August 09, 2024 End: August 09, 2024 Dr. Nallely Doherty MD Attending Provider Active Start: August 09, 2024 End: August 09, 2024 Dr. Nallely Doherty MD Referring Provider Active Start: August 09, 2024 End: August 09, 2024 Team Status: Inactive Member Role/Relationship Status Dates No Primary Care Physician Primary Care Provider Active Start: September 04, 2024 End: September 04, 2024 Dr. Nallely Doherty MD Attending Provider Active Start: September 04, 2024 End: September 04, 2024 Dr. Nallely Doherty MD Referring Provider Active Start: September 04, 2024 End: September 04, 2024 Team Status: Inactive Member Role/Relationship Status Dates No Primary Care Physician Primary Care Provider Active Start: September 04, 2024 End: September 04, 2024 No Primary Care Physician Referring Provider Active Start: September 04, 2024 End: September 04, 2024 Adrien Klein NP, DISPATCHER SERVICE CHIEF-C Attending Provider Active Start: September 04, 2024 End: September 04, 2024 Team Status: Inactive Member Role/Relationship Status Dates No Primary Care Physician Primary Care Provider Active Start: September 25, 2024 End: September 25, 2024 No Primary Care Physician Referring Provider Active Start: September 25, 2024 End: September 25, 2024 Dr. Nallely Doherty MD Attending Provider Active Start: September 25, 2024 End: September 25, 2024 Team Status: Inactive Member Role/Relationship Status Dates No Primary Care Physician Primary Care Provider Active Start: September 25, 2024 End: September 25, 2024 Dr. Nallely Doherty MD Attending Provider Active Start: September 25, 2024 End: September 25, 2024 Dr. Nallely Doherty MD Referring Provider Active Start: September 25, 2024 End: September 25, 2024 Team Status: Inactive Member Role/Relationship Status Dates No Primary Care Physician Primary Care Provider Active Start: October 09, 2024 End: October 09, 2024 No Primary Care Physician Referring Provider Active Start: October 09, 2024 End: October 09, 2024 Dr. Amira Underwood DO Attending Provider Activ e Start: October 09, 2024 End: October 09, 2024 Team Status: Inactive Member Role/Relationship Status Dates No Primary Care Physician Primary Care Provider Active Start: October 09, 2024 End: October 09, 2024 Dr. Amira Underwood DO Attending Provider Activ e Start: October 09, 2024 End: October 09, 2024 Team Status: Inactive Member Role/Relationship Status Dates No Primary Care Physician Primary Care Provider Active Start: October 14, 2024 End: October 14, 2024 Simi Lara CNM Attending Provider Active S tart: October 14, 2024 End: October 14, 2024 Team Status: Active Member Role/Relationship Status Dates No Primary Care Physician Primary Care Provider Active Start: October 14, 2024 Simi Lara CNM Attending Provider Active S tart: October 14, 2024 Simi Lara CNM Other Provider Active Start : October 14, 2024 Team Status: Inactive Member Role/Relationship Status Dates No Primary Care Physician Primary Care Provider Active Start: October 23, 2024 End: October 23, 2024 No Primary Care Physician Referring Provider Active Start: October 23, 2024 End: October 23, 2024 Adrien Klein DISPATCHER SERVICE CHIEF, DISPATCHER SERVICE CHIEF-C Attending Provider Active Start: October 23, 2024 End: October 23, 2024 Team Status: Inactive Member Role/Relationship Status Dates No Primary Care Physician Primary Care Provider Active Start: October 23, 2024 End: October 23, 2024 Adrien Klein DISPATCHER SERVICE CHIEF, DISPATCHER SERVICE CHIEF-C Attending Provider Active Start: October 23, 2024 End: October 23, 2024 Team Status: Inactive Member Role/Relationship Status Dates No Primary Care Physician Primary Care Provider Active Start: November 06, 2024 End: November 06, 2024 No Primary Care Physician Referring Provider Active Start: November 06, 2024 End: November 06, 2024 Adrien Klein DISPATCHER SERVICE CHIEF, DISPATCHER SERVICE CHIEF-C Attending Provider Active Start: November 06, 2024 End: November 06, 2024 Team Status: Inactive Member Role/Relationship Status Dates No Primary Care Physician Primary Care Provider Active Start: August 09, 2024 End: August 09, 2024 No Primary Care Physician Referring Provider Active Start: August 09, 2024 End: August 09, 2024 Dr. Nallely Doherty MD Attending Provider Active Start: August 09, 2024 End: August 09, 2024 Team Status: Inactive Member Role/Relationship Status Dates No Primary Care Physician Primary Care Provider Active Start: August 09, 2024 End: August 09, 2024 Dr. Nallely Doherty MD Attending Provider Active Start: August 09, 2024 End: August 09, 2024 Dr. Nallely Doherty MD Referring Provider Active Start: August 09, 2024 End: August 09, 2024 Team Status: Inactive Member Role/Relationship Status Dates No Primary Care Physician Primary Care Provider Active Start: September 04, 2024 End: September 04, 2024 Dr. Nallely Doherty MD Attending Provider Active Start: September 04, 2024 End: September 04, 2024 Dr. Nallely Doherty MD Referring Provider Active Start: September 04, 2024 End: September 04, 2024 Team Status: Inactive Member Role/Relationship Status Dates No Primary Care Physician Primary Care Provider Active Start: September 04, 2024 End: September 04, 2024 No Primary Care Physician Referring Provider Active Start: September 04, 2024 End: September 04, 2024 Adrien Klein NP, DISPATCHER SERVICE CHIEF-C Attending Provider Active Start: September 04, 2024 End: September 04, 2024 Team Status: Inactive Member Role/Relationship Status Dates No Primary Care Physician Primary Care Provider Active Start: September 25, 2024 End: September 25, 2024 No Primary Care Physician Referring Provider Active Start: September 25, 2024 End: September 25, 2024 Dr. Nallely Doherty MD Attending Provider Active Start: September 25, 2024 End: September 25, 2024 Team Status: Inactive Member Role/Relationship Status Dates No Primary Care Physician Primary Care Provider Active Start: September 25, 2024 End: September 25, 2024 Dr. Nallely Doherty MD Attending Provider Active Start: September 25, 2024 End: September 25, 2024 Dr. Nallely Doherty MD Referring Provider Active Start: September 25, 2024 End: September 25, 2024 Team Status: Inactive Member Role/Relationship Status Dates No Primary Care Physician Primary Care Provider Active Start: October 09, 2024 End: October 09, 2024 No Primary Care Physician Referring Provider Active Start: October 09, 2024 End: October 09, 2024 Dr. Amira Underwood DO Attending Provider Activ e Start: October 09, 2024 End: October 09, 2024 Team Status: Inactive Member Role/Relationship Status Dates No Primary Care Physician Primary Care Provider Active Start: October 09, 2024 End: October 09, 2024 Dr. Amira Underwood DO Attending Provider Activ e Start: October 09, 2024 End: October 09, 2024 Team Status: Inactive Member Role/Relationship Status Dates No Primary Care Physician Primary Care Provider Active Start: October 14, 2024 End: October 14, 2024 Simi Lara CNM Attending Provider Active S tart: October 14, 2024 End: October 14, 2024 Team Status: Active Member Role/Relationship Status Dates No Primary Care Physician Primary Care Provider Active Start: October 14, 2024 Simi Lara CNM Attending Provider Active S tart: October 14, 2024 Simi Lara CNM Other Provider Active Start : October 14, 2024 Team Status: Inactive Member Role/Relationship Status Dates No Primary Care Physician Primary Care Provider Active Start: October 23, 2024 End: October 23, 2024 No Primary Care Physician Referring Provider Active Start: October 23, 2024 End: October 23, 2024 Adrien Klein NP, DISPATCHER SERVICE CHIEF-C Attending Provider Active Start: October 23, 2024 End: October 23, 2024 Team Status: Inactive Member Role/Relationship Status Dates No Primary Care Physician Primary Care Provider Active Start: October 23, 2024 End: October 23, 2024 Adrien Klein DISPATCHER SERVICE CHIEF, DISPATCHER SERVICE CHIEF-C Attending Provider Active Start: October 23, 2024 End: October 23, 2024 Team Status: Inactive Member Role/Relationship Status Dates No Primary Care Physician Primary Care Provider Active Start: November 06, 2024 End: November 06, 2024 No Primary Care Physician Referring Provider Active Start: November 06, 2024 End: November 06, 2024 Adrien Klein NP, DISPATCHER SERVICE CHIEF-C Attending Provider Active Start: November 06, 2024 End: November 06, 2024 Team Status: Inactive Member Role/Relationship Status Dates No Primary Care Physician Primary Care Provider Active Start: November 13, 2024 End: November 13, 2024 No Primary Care Physician Referring Provider Active Start: November 13, 2024 End: November 13, 2024 Dr. Nallely Doherty MD Attending Provider Active Start: November 13, 2024 End: November 13, 2024 Team Status: Active Member Role/Relationship Status Dates No Primary Care Physician Primary Care Provider Active Start: November 13, 2024 Dr. Nallely Doherty MD Attending Provider Active Start: November 13, 2024 Dr. Nallely Doherty MD Referring Provider Active Start: November 13, 2024 Team Status: Inactive Member Role/Relationship Status Dates No Primary Care Physician Primary Care Provider Active Start: November 20, 2024 End: November 20, 2024 No Primary Care Physician Referring Provider Active Start: November 20, 2024 End: November 20, 2024 Simi Lara CNM Attending Provider Active S tart: November 20, 2024 End: November 20, 2024 Goals (unrecognized section and content) Goals [...] BE BASED ON THE PRIMARY CLINICAL RECORDS. [facility] [facility]. provides no warranty or guarantee of the accuracy or completeness of information in this document.
--- OUTSIDE RECORDS SUMMARY | 2024-11-28 05:41 | XMS RPT_ITS | CCD ---
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 65 U/L 45-117 [facility] ALT [Catalytic activity/Vol] 21 U/L 13-56 [facility] CO2 [Moles/Vol] 24.0 mmol/L 21.0-32.0 [facility] Globulin (S) [Mass/Vol] 4.0 g/dL 2.2-4.2 [facility] Urea nitrogen/Creatinine [Mass ratio] 18.5 mg/mg 10-20 [facility] Laboratory - Hematology and Cell countsOrdered By: Simi Lara on 05-18-2023 MCH (RBC) [Entitic mass] 26.0 pg 27.0-32.0 [facility] MCHC (RBC) [Mass/Vol] 31.8 g/dL 32-36 [facility] Nucleated RBC/100 WBC (Bld) [Ratio] 0 % 0-5 [facility] Platelet mean volume (Bld) [Entitic vol] 8.5 fL 6.2-12.0 [facility] Platelets (Bld) [#/Vol] 246 10*3/uL 150-450 [facility] Laboratory - Urinalysison Protein Ql (U) Negative [facility] No Panel InformationOrdered By: Darling Tabor on 05-18-2023 Estimated GFR (MDRD) Amer 159 mL/min >60 [facility] Comment on above: GFR Calc Estimated GFR (MDRD) Non-Af Amer 131 mL/min >60 [facility] Comment on above: Non- GFR Calc RBC Auto (Bld) [#/Vol]Ordere d By: Simi Lara on 05-18-2023 RBC (Bld) [#/Vol] 4.00 10*6/uL 4.2-5.4 [facility] Serum Treponema species anti body detectionOrdered By: Simi Lara on 05-18-2023 Treponema sp Ab Ql (S) Non-Reactive [facility] Serum or plasma calcium hudson urement (mass/volume)Ordered By: Darling Tabor on 05-18-2023 Calcium [Mass/Vol] 8.4 mg/dL 8.5-10.1 [facility] Serum or plasma creatinine m easurement (mass/volume)Ordered By: Draling Tabor on 05-18-2023 Creatinine [Mass/Vol] 0.59 mg/dL 0.55-1.02 [facility] Comment on above: The validity of the calculated GFR & GFRAA in patients over 70 years has not been determined. Clinical correlation is essential. Serum or plasma urea nitroge n measurement (mass/volume)Ordered By: Darling Tabor on 05-18-2023 Urea nitrogen [Mass/Vol] 11 mg/dL 7-18 [facility] Thin prep Papanicolaou smear with manual screeningOrdered By: Darling Tabor on 05-18-2023 Thin prep Papanicolaou smear with manual screening 2.5 g/dL 3.2-5.0 [facility] Thin prep Papanicolaou smear with manual screening 15 U/L 15-37 [facility] Thin prep Papanicolaou smear with manual screening 7 5-15 [facility] Basophil percentageOrdered B y: Darling Tabor on 05-06-2023 Basophil percentage 5-10 SEEN /hpf 0-5 [facility] Bilirubin [Mass/Vol] 0.30 mg/dL 0.20-1.00 [facility] Comment on above: For patients on eltr ombopag therapy, use of Dimension [place] TBIL is not recommended. Chloride [Moles/Vol] 108 mmol/L 98-107 [facility] Glucose [Mass/Vol] 92 mg/dL 74-106 [facility] Potassium [Moles/Vol] 3.4 mmol/L 3.5-5.1 [facility] Protein [Mass/Vol] 6.5 g/dL 6.4-8.2 [facility] Sodium [Moles/Vol] 135 mmol/L 136-145 [facility] Bilirubin Test strip Ql (U)O rdered By: Darling Tabor on 05-06-2023 Bilirubin Ql (U) 1 mg/dL Negative [facility] Comment on above: COLOR OF URINE MAY A FFECT DIPSTICK RESULTS. Ketones Test strip Ql (U)Ord ered By: Darling Tabor on 05-06-2023 Ketones Ql (U) 150 mg/dl Negative [facility] Comment on above: CRITICAL VALUE *HCRI TICAL VALUE VERIFIED. CALLED TO PAYAM MURPHY (WP)05/06/23 1318 Eber Fong.RESULTS READ BACK BY SAME. Laboratory - Chemistry and C hemistry - challengeOrdered By: Darling Tabor on 05-06-2023 Albumin/Globulin [Mass ratio] 0.6 {ratio} 0.9-2.4 [facility] ALP [Catalytic activity/Vol] 71 U/L 45-117 [facility] ALT [Catalytic activity/Vol] 37 U/L 13-56 [facility] CO2 [Moles/Vol] 20.0 mmol/L 21.0-32.0 [facility] Globulin (S) [Mass/Vol] 4.0 g/dL 2.2-4.2 [facility] Urea nitrogen/Creatinine [Mass ratio] 15.2 mg/mg 10-20 [facility] Mucus LM Ql (Urine sed)Order ed By: Darling Tabor on 05-06-2023 Mucus Ql (Urine sed) 0 SEEN /hpf [facility] Nitrite Test strip Ql (U)Ord ered By: Darling Tabor on 05-06-2023 Nitrite Ql (U) Negative Negative [facility] No Panel InformationOrdered By: Darling Tabor on 05-06-2023 Estimated Creatinine Clearance Calc 189.25 ml/min [facility] Estimated GFR (MDRD) Amer 182 mL/min >60 [facility] Comment on above: GFR Calc Estimated GFR (MDRD) Non-Af Amer 151 mL/min >60 [facility] Comment on above: Non- GFR Calc Urine RBC 0 SEEN /hpf 0-5 [facility] Protein Test strip Ql (U)Ord ered By: Darling Tabor on 05-06-2023 Protein Ql (U) 30 mg/dl Negative [facility] Serum or plasma calcium hudson urement (mass/volume)Ordered By: Darling Tabor on 05-06-2023 Calcium [Mass/Vol] 8.0 mg/dL 8.5-10.1 [facility] Serum or plasma creatinine m easurement (mass/volume)Ordered By: Darling Tabor on 05-06-2023 Creatinine [Mass/Vol] 0.53 mg/dL 0.55-1.02 [facility] Comment on above: The validity of the calculated GFR & GFRAA in patients over 70 years has not been determined. Clinical correlation is essential. Serum or plasma urea nitroge n measurement (mass/volume)Ordered By: Darling Tabor on 05-06-2023 Urea nitrogen [Mass/Vol] 8 mg/dL 7-18 [facility] Squamous epithelial cells de tection in urine sediment by light microscopyOrdered By: Darling Tabor on 05-06-2023 Epithelial cells.squamous LM Ql (Urine sed) 0-5 SEEN /hpf 5-10 [facility] Thin prep Papanicolaou smear with manual screeningOrdered By: Darling Tabor on 05-06-2023 Thin prep Papanicolaou smear with manual screening 2.5 g/dL 3.2-5.0 [facility] Thin prep Papanicolaou smear with manual screening 42 U/L 15-37 [facility] Thin prep Papanicolaou smear with manual screening 7 5-15 [facility] Urine blood detectionOrdered By: Darling Tabor on 05-06-2023 RBC Ql (U) Negative Negative [facility] Urine clarityOrdered By: Yuli Tabor on 05-06-2023 Clarity (U) Sl. Cloudy Clear [facility] Urine color determinationOrd ered By: Darling Tabor on 05-06-2023 Color (U) Yellow Yellow [facility] Urine glucose detectionOrder ed By: Darling Tabor on 05-06-2023 Glucose Ql (U) Normal mg/dl Normal [facility] Urine leukocyte esterase det ection by dipstickOrdered By: Darling Tabor on 05-06-2023 Leukocyte esterase Test strip Ql (U) 25 /ul Negative [facility] Urine pHOrdered By: Darling Tabor on 05-06-2023 pH (U) 6.0 [pH] 5.0 - 8.0 [facility] Urine sediment bacteria coun t by microscopy (number/high power field)Ordered By: Darling Tabor on 05-06-2023 Bacteria LM.HPF (Urine sed) [#/Area] 2 /[HPF] None Seen [facility] Urine specific gravity measu rementOrdered By: Darling Tabor on 05-06-2023 Specific gravity (U) [Rel density] 1.025 1.002-1.030 [facility] Urine urobilinogen measureme ntOrdered By: Darling Tabor on 05-06-2023 Urobilinogen Ql (U) Normal mg/dl Normal [facility] Laboratory - Chemistry and C hemistry - challengeon 04-21-2023 Glucose Ql (U) Negative [facility] Laboratory - Urinalysison Protein Ql (U) Negative [facility] MR Fetalon 04-06-2023 IMPRESSION: The study is significantly limited by motion. 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 No other obvious HAND SCRAPER abnormality is identified This report has been created using voice recognition software [facility] MRI (SINGLE) CLINICAL HISTORY: agnesis of [...] are unremarkable. Visible maternal spine is unremarkable. [facility] Fidencio Coley MD - 04/06/2023 MRI [...] configuration of the ventricles. No other obvious HAND SCRAPER abnormality is identified This report has been created using voice recognition software [facility] Radiology Study observation (narrative) [facility] MR FetalOrdered By: Fidencio Coley on 04-06-2023 [facility] Work Phone: Laboratory - Chemistry and C hemistry - challengeon 03-23-2023 Glucose Ql (U) Negative [facility] Laboratory - Urinalysison Protein Ql (U) Negative [facility] Laboratory - Chemistry and C hemistry - challengeon 02-21-2023 Glucose Ql (U) Negative [facility] Laboratory - Urinalysison Protein Ql (U) Negative [facility] Absolute lymphocyte countOrd ered By: Darling Tabor on 02-08-2023 Lymphocytes Auto (Unsp spec) [#/Vol] 2.86 10*3/uL 0.83-4.51 [facility] Basophil percentageOrdered B y: Darling Tabor on 02-08-2023 Basophils/100 WBC (Bld) 0.8 % 0-1 [facility] Eosinophils/100 WBC (Bld) 3.3 % 0-5 [facility] Neutrophils (Bld) [#/Vol] 5.9 10*3/uL 2.0-7.7 [facility] Neutrophils/100 WBC (Bld) 59.6 % 47-70 [facility] WBC (Bld) [#/Vol] 9.8 10*3/uL 4.4-11.0 [facility] Blood erythrocytes count (nu mber/volume)Ordered By: Darling Tabor on 02-08-2023 RBC (Bld) [#/Vol] 4.38 10*6/uL 4.2-5.4 [facility] Blood hemoglobin measurement (mass/volume)Ordered By: Darling Tabor on 02-08-2023 Hemoglobin (Bld) [Mass/Vol] 12.2 g/dL 12.0-15.0 [facility] Blood lymphocytes/100 leukoc ytesOrdered By: Darling Tabor on 02-08-2023 Lymphocytes/100 WBC (Bld) 29.1 % 19-41 [facility] Blood monocytes/100 leukocyt esOrdered By: Darling Tabor on 02-08-2023 Monocytes/100 WBC (Bld) 6.7 % 0-10 [facility] Blood platelet mean volumeOr dered By: Darling Tabor on 02-08-2023 Platelet mean volume (Bld) [Entitic vol] 8.7 fL 6.2-12.0 [facility] Determination of erythrocyte mean corpuscular volume (MCV)Ordered By: Darling Tabor on 02-08-2023 MCV (RBC) [Entitic vol] 84.7 fL 81-99 [facility] HIV 1 and HIV-2 antibody ass ay with HIV-1 p24 antigen detectionOrdered By: Darling Tabor on 02-08-2023 HIV 1+2 Ab+HIV1 p24 Ag IA Ql Non-Reactive Nonreactive [facility] Hematocrit Auto (Bld) [Volum e fraction]Ordered By: Darling Tabor on 02-08-2023 Hematocrit (Bld) [Volume fraction] 37.1 % 37-47 [facility] Laboratory - Chemistry and C hemistry - challengeOrdered By: Darling Tabor on 02-08-2023 Free T4 [Mass/Vol] 0.95 ng/dL 0.76-1.46 [facility] Laboratory - Hematology and Cell countsOrdered By: Darling Tabor on 02-08-2023 Erythrocyte distribution width (RBC) [Entitic vol] 43.7 fL 35.1-43.9 [facility] Erythrocyte distribution width (RBC) [Ratio] 14.1 % 11.6-14.6 [facility] Immature granulocytes/100 WBC (Bld) 0.500 % 0.0-0.9 [facility] Comment on above: IG% - Immature Granu locytes (promyelocytes, myelocytes and metamyelocytes) > 1% indicates that a LEFT SHIFT is Present. MCH (RBC) [Entitic mass] 27.9 pg 27.0-32.0 [facility] Nucleated RBC/100 WBC (Bld) [Ratio] 0 % 0-5 [facility] MCHC Auto (RBC) [Mass/Vol]Or dered By: Darling Tabor on 02-08-2023 MCHC (RBC) [Mass/Vol] 32.9 g/dL 32-36 [facility] No Panel InformationOrdered By: Darling Tabor on 02-08-2023 Free Triiodothyronine (T3) pg/dL 1.5 pg/mL 2.18-3.98 [facility] Hepatitis B Surface Antigen Non-Reactive Nonreactive [facility] Hepatitis C Antibody Non-Reactive Nonreactive [facility] Comment on above: Non Reactive: < 0.8 Equivocal: >/= 0.8 to < 1.0 Reactive: >/= 1.0The CDC recommends that a reactive/equivocal HCV antibody result be followed up by the HCV Nucleic Acid Amplificationtest (903331) Miscellaneous Test Comment MAILED SPECIMEN [facility] Rubella IgG Antibody Reactive Nonreactive [facility] Comment on above: Antibody Results Int erpretation of Immune Status Non Reactive Presumed Non-Immune Equivocal Equivocal Reactive Presumed Immune Thyroid Stimulating Hormone (TSH) 1.07 uIU/mL 0.358-3.74 [facility] Platelets bldOrdered By: Yuli Tabor on 02-08-2023 Platelets (Bld) [#/Vol] 250 10*3/uL 150-450 [facility] Serum Treponema species anti body detectionOrdered By: Darling Tabor on 02-08-2023 Treponema sp Ab Ql (S) Non-Reactive [facility] Serum or plasma thyroperoxid ase antibody assay (units/volume)Ordered By: Darling Tabor on 02-08-2023 TPO Ab Qn 19 [IU]/mL 0-34 [facility] Comment on above: Performed at: [place] [id number] Director: Brian Alvarado PhD, Phone: [phone] Whole blood hemoglobin A1c/t otal hemoglobin ratio (mass fraction)Ordered By: Darling Tabor on 02-08-2023 HbA1c (Bld) [Mass fraction] 5.0 % 3.8-5.6 [facility] Comment on above: Normal < 5.7 % Predi abetic 5.7 - 6.4 % Diabetic >or= 6.5 % Please note range changes. Cervical or vagninal specime n microscopic examination by cytology stain (reported asOrdered By: Darling Tabor on 01-26-2023 Cytology report Cyto stain Doc (Cvx/Vag) Comment . [facility] Comment on above: The Pap smear [...] rRNA SHAJI+probe Ql (Unsp spec) Negative Negative [facility] Culture, urineOrdered By: Kim Tabor on 01-26-2023 Bacteria identified Cx Nom (U) Positive [facility] Bacteria identified Cx Nom (U) Positive [facility] Laboratory - CytologyOrdered By: Darling Tabor on 01-26-2023 Workers Compensation Consultant Cyto stain Nom (Cvx/Vag) [ID] Comment . [facility] Comment on above: Eric Worrlel otechnologist (ASCP) Pathologist Cyto stain Nom (Cvx/Vag) [ID] Comment . [facility] Comment on above: Brooklyn Murillo MD, Pa thologist Recommended follow-up Cyto stain Nom (Cvx/Vag) Comment . [facility] Comment on above: Suggest follow up as clinically appropriate. Laboratory - Drug toxicology Ordered By: Darling Tabor on 01-26-2023 Amphetamines Ql (U) Negative <1000 ng/mL [facility] Benzodiazepines Ql (U) Negative < 200 ng/mL [facility] Cannabinoids Screen Ql (U) Positive < 50 ng/mL [facility] Cocaine Ql (U) Negative < 300 ng/mL [facility] Opiates Ql (U) Negative < 300 ng/mL [facility] Laboratory - Microbiology an d Antimicrobial susceptibilityOrdered By: Darling Tabor on 01-26-2023 N. gonorrhoeae DNA SHAJI+probe Ql (Unsp spec) Negative Negative [facility] Comment on above: Performed at: =[address] [id number] Director: Tomeka Brandt MD, Phone: [phone] Laboratory - Miscellaneous t estsOrdered By: Darling Tabor on 01-26-2023 Service comment (Unsp spec) [Interp] Comment . [facility] Comment on above: This liquid based Th inPrep(R) pap test was screened withthe use of an image guided system. Service comment (Unsp spec) [Interp] . . [facility] No Panel InformationOrdered By: Darling Tabor on 01-26-2023 Human Papillomavirus Screen Comment . [facility] Comment on above: See below for HPV te sting results. MDMA (Ecstasy) Screen Negative < 500 ng/mL [facility] Pathology report final diagnosis Narrative Comment . [facility] Comment on above: EPITHELIAL CELL ABNO RMALITY.ATYPICAL SQUAMOUS CELLS OF UNDETERMINED SIGNIFICANCE (ASC-US). R87.610 Urine Barbiturates Screen Negative < 200 ng/mL [facility] Urine Drug Screen Comment [facility] Comment on above: CONFIRMATORY TESTING FOR [...] TESTING MUST BE ORDERED SEPARATELY. USE TESTMNEMONIC: [facility] Urine Methadone Screen Negative < 300 ng/mL [facility] Urine phencyclidine (PCP) de tectionOrdered By: Darling Tabor on 01-26-2023 Phencyclidine Ql (U) Negative < 25 ng/mL [facility] CNNURSEon 01-19-2023 CNNURSE Nurse Visit (OBGYWM) -- RANJAN TAN ([id number]) 2000 F Date Time Provider Department 01/19/23 9:00 AM NURSE PNOB [facility] WSTR OBGYWM During your visit today, we recorded the following information about you: Last Period 11/06/22 Angelica Angeles RN 01/19/2023 12:36 PM Signed INITIAL OB ASSESSMENT OB Provider: Angelica Angeels RN HPI: Ranjan is a 22 year [...] use: No Multivitamin with Folic acid: Yes Jainism or heritage: No Would refuse blood transfusion if medically necessary: No 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 Normal [facility] Jace 01-19-2023 ONESIMON Telephone (OBGYWM) -- RANJAN TAN ([id number]) 2000 F Date Time Provider Department 01/19/23 [...] screening of mother [Z36.9] Order(s):NUCHAL TRANSLUCENCY WHI [[id number]] Order #: [id number]: 1 FUTURE Prescriptions as of 02/04/2023 - vit 66-hcjg-rhjgr-dha (SELECT-OB+DHA) 29 mg iron-1 mg -250 mg [...] by CAT DOUGLASS RN on 02/04/23 [facility] CNCOon 01-14-2023 CNCO Letter Text [facility] CNPNon 01-11-2023 CNPN Telephone (OBGYWM) -- RANJAN TAN ([id number]) 2000 F Date Time Provider Department 01/11/23 FARIDA RANGEL OBGYWM During your visit today, we recorded the following information about you: Angelica Angeles RN 01/11/2023 5:05 PM Signed Left message for patient to return phone call. Patient has PNOB appt 01/19. Please ask her if she has delivered elsewhere or if this is her [facility] . Please assist her in getting records sent here is applicable. Amira Damon RN 01/14/2023 11:31 AM Addendum LMP 9/ Patient returned call. 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 Asked that patient request her delivery records. Also, faxed a request to [facility]. CP- patient has gone to ER for antiemetics. She is almost out. Asking if she could have another RX. Currently taking Zofran 4 MG ODT. Pharmacy added. Allergies updated. Please advise. Thank you. Slivina Quintanilla RN, RN 01/14/2023 11:56 AM Signed Delivery records from 2016 and 2019 received from [facility]. Please also see patients question about Zofran. Scan on 01/14/2023 11:35 AM by Provider, External, PA-C: CLINICAL APPEALS RN Farida Rangel APRN.CNM 01/14/2023 1:38 PM Signed [...] Status:Closed by FARIDA RANGEL on 01/14/23 Normal [facility] Amorphous sediment detection in urine sediment by light microscopyOrdered By: Jarad Hilton on 01-02-2023 Amorphous sediment LM Ql (Urine sed) 2+ [facility] Basophil percentageOrdered B y: Jarad Hilton on 01-02-2023 Basophil percentage 0-5 SEEN /hpf 0-5 [facility] Chloride [Moles/Vol] 105 mmol/L 98-107 [facility] Glucose [Mass/Vol] 120 mg/dL 74-106 [facility] Comment on above: Fasting Glucose resu lt from 100 to 125 mg/dL suggests IMPAIRED HOMEOSTASIS per A.D.A. criteria. Potassium [Moles/Vol] 3.5 mmol/L 3.5-5.1 [facility] Sodium [Moles/Vol] 134 mmol/L 136-145 [facility] Bilirubin Test strip Ql (U)O rdered By: Jarad Hilton on 01-02-2023 Bilirubin Ql (U) Negative Negative [facility] Ketones Test strip Ql (U)Ord ered By: Jarad Hilton on 01-02-2023 Ketones Ql (U) Negative Negative [facility] Laboratory - Chemistry and C hemistry - challengeOrdered By: Jarad Hilton on 01-02-2023 CO2 [Moles/Vol] 25.0 mmol/L 21.0-32.0 [facility] Urea nitrogen/Creatinine [Mass ratio] 17.4 mg/mg 10-20 [facility] Mucus LM Ql (Urine sed)Order ed By: Jarad Hilton on 01-02-2023 Mucus Ql (Urine sed) 0 SEEN /hpf [facility] Nitrite Test strip Ql (U)Ord ered By: Jarad Hilton on 01-02-2023 Nitrite Ql (U) Negative Negative [facility] No Panel InformationOrdered By: Jarad Hilton on 01-02-2023 Estimated Creatinine Clearance Calc 129.15 ml/min [facility] Estimated GFR (MDRD) Amer 165 mL/min >60 [facility] Comment on above: GFR Calc Estimated GFR (MDRD) Non-Af Amer 137 mL/min >60 [facility] Comment on above: Non- GFR Calc Protein Test strip Ql (U)Ord ered By: Jarad Hilton on 01-02-2023 Protein Ql (U) Negative Negative [facility] Serum or plasma calcium hudson urement (mass/volume)Ordered By: Jarad Hilton on 01-02-2023 Calcium [Mass/Vol] 8.4 mg/dL 8.5-10.1 [facility] Serum or plasma creatinine m easurement (mass/volume)Ordered By: Jarad Hilton on 01-02-2023 Creatinine [Mass/Vol] 0.58 mg/dL 0.55-1.02 [facility] Comment on above: The validity of the calculated GFR & GFRAA in patients over 70 years has not been determined. Clinical correlation is essential. Serum or plasma urea nitroge n measurement (mass/volume)Ordered By: Jarad Hilton on 01-02-2023 Urea nitrogen [Mass/Vol] 10 mg/dL 7-18 [facility] Squamous epithelial cells de tection in urine sediment by light microscopyOrdered By: Jarad Hilton on 01-02-2023 Epithelial cells.squamous LM Ql (Urine sed) 0-5 SEEN /hpf 5-10 [facility] Thin prep Papanicolaou smear with manual screeningOrdered By: Jarad Hilton on 01-02-2023 Thin prep Papanicolaou smear with manual screening 4 5-15 [facility] Urine blood detectionOrdered By: Jarad Hilton on 01-02-2023 RBC Ql (U) Negative Negative [facility] RBC Ql (U) 0 SEEN /hpf 0-5 [facility] Urine clarityOrdered By: Jarad Hilton on 01-02-2023 Clarity (U) Cloudy Clear [facility] Urine color determinationOrd ered By: Jarad Hilton on 01-02-2023 Color (U) Yellow Yellow [facility] Urine glucose detectionOrder ed By: Jarad Hilton on 01-02-2023 Glucose Ql (U) Normal mg/dl Normal [facility] Urine leukocyte esterase det ection by dipstickOrdered By: Jarad Hilton on 01-02-2023 Leukocyte esterase Test strip Ql (U) 25 /ul Negative [facility] Urine pHOrdered By: Jarad kauffman on 01-02-2023 pH (U) 8.0 [pH] 5.0 - 8.0 [facility] Urine sediment bacteria coun t by microscopy (number/high power field)Ordered By: Jarad Hilton on 01-02-2023 Bacteria LM.HPF (Urine sed) [#/Area] RARE /hpf None Seen [facility] Urine specific gravity measu rementOrdered By: Jarad Hilton on 01-02-2023 Specific gravity (U) [Rel density] 1.015 1.002-1.030 [facility] Urobilinogen Auto test strip Ql (U)Ordered By: Jarad Hilton on 01-02-2023 Urobilinogen Ql (U) Normal mg/dl Normal [facility] Serum or plasma choriogonado tropin detectionOrdered By: Nallely Doherty on 12-27-2022 HCG ( test) Ql [address] mIU/mL <4 [facility] Comment on above: hCG levels with Gest ational AgeGestational Age hCG mIU/mL (IU/L)0.2 - 1 week 5 - 501-2 weeks 50 - 5002-3 weeks 100 - 18362-2 weeks 500 - 078963-7 weeks 1000 - 146794-8 weeks 30460 - 100,0006-8 weeks 44291 - 200,0002-3 months 17830 - 100,000 CNPNon 12-24-2022 CNPN Telephone (OBGYWM) -- RANJAN TAN ([id number]) 2000 F Date Time Provider Department 12/24/22 [...] any further issues with bleeding. Laura Myrna DIRECTOR OF CORPORATE SALES Allergies As of Date: 12/24/2022 (Not on File) Date Reviewed: Never Reviewed Reason for Visit: Patient Question [1477] Primary Visit Diagnosis:Bleeding in early [O20.9] Problem List As Of Date: 12/24/2022 (None) Encounter Status:Closed by FARIDA RANGEL on 12/24/22 Normal [facility] B TESTO SHBG, FEM, CHIL [CCL ]on 02-09-2021 Sex Hormon Bind Glb 80 Normal [facility] Comment on above: Result Comment: Refe rence range: 30 to 135 Unit: nmol/L (NOTE) REFERENCE INTERVAL: Sex Hormone Binding Globulin Access complete set of age- and/or gender-specific reference intervals for this test in the [facility] Test Directory (Schedulicity). Performed By: #### 2 [id number] #### [place] [address] Testos Bioavail 3.1 Normal [facility] Comment on above: Result Comment: Refe rence range: 2.2 to 20.6 Unit: ng/dL (NOTE) Testosterone LC-MS, Bioavailable Reference Interval Females, 18 years and older Postmenopausal: 1.5 - 9.4 ng/dL REFERENCE INTERVAL: Testosterone LC-MS, Bioavailable Access complete set of age- and/or gender-specific reference intervals for this test in the [facility] Test Directory (Schedulicity). [place] [id number] [place] [address] Wayne Andrade III, M.D. [id number] Performed By: #### 2 [id number] #### [place] [id number] Testosterone [Mass/Vol] 11 ng/dL Normal [facility] Comment on above: Result Comment: Refe rence range: 9 to 55 Unit: ng/dL (NOTE) Total Testosterone, Females 18 years and older Premenopausal 9-55 ng/dL Postmenopausal 5-32 ng/dL REFERENCE INTERVAL: Testosterone, LC-MS/MS Access complete set of age- and/or gender-specific reference intervals for this test in the [facility] Test Directory (Schedulicity). This test was developed and its performance characteristics determined by [facility]. It has not been cleared or approved by the [place] Food and Drug Administration. This test was performed in a CLIA certified laboratory and is intended for clinical purposes. Performed By: #### 2 [id number] #### [facility],[address] [place] [address] Testosterone Free 1.0 Normal [facility] Comment on above: Result Comment: Refe [...] reference intervals for this test in the [facility] Test Directory (Schedulicity). This test was developed and its performance characteristics determined by [facility]. It has not been cleared or approved by the [place] Food and Drug Administration. This test was performed in a CLIA certified laboratory and is intended for clinical purposes. Performed by [facility], [address] [place] [id number] [email or web address], Jillian Metzger MD, Lab. Director Performed By: #### 2 [id number] #### [facility],[address] [place] [address] B TestoSHBG,fem,chilon 02-09 Sex Hormon Bind Glb 80 nmol/L Normal 30-135 [facility] Testos Bioavail 3.1 ng/dL Normal 2.2-20.6 [facility] Testosterone [Mass/Vol] 11 ng/dL Normal 9-55 [facility] Testosterone Free 1.0 pg/mL Normal 0.8-7.4 [facility] CBC + DIFFon 02-03-2021 Baso # 0.10 x10EE3/UL Normal 0.00 - 0.10 [facility] Comment on above: Performed By: #### 2 [id number] #### [facility],[address] [place] [address] Basophils/100 WBC (Bld) 1.0 % Normal 0.0 - 2.0 [facility] Comment on above: Performed By: #### 2 [id number] #### [facility],[address] [place] [address] CBC + DIFF Normal [facility] Comment on above: Result Comment: CBC- COMPLETE BLOOD COUNT Performed By: #### 2 [id number] #### [facility],[address] [place] [address] EO # 0.30 x10EE3/UL Normal 0.00 - 0.50 [facility] Comment on above: Performed By: #### 2 [id number] #### [facility],[address] [place] [address] Eosinophils/100 WBC (Bld) 6.2 % Normal 0.0 - 7.0 [facility] Comment on above: Performed By: #### 2 [id number] #### [facility],[address] [place] [address] Erythrocyte distribution width (RBC) [Ratio] 14.1 % Normal 12.0 - 15.6 [facility] Comment on above: Performed By: #### 2 [id number] #### [facility],[address] [place] [address] 56048 Hematocrit (Bld) [Volume fraction] 40.0 % Normal 34.0 - 46.0 [facility] Comment on above: Performed By: #### 2 88633 #### [facility],[address] [place] [address] 32980 Hemoglobin (Bld) [Mass/Vol] 13.2 g/dL Normal 12.0 - 16.0 [facility] Comment on above: Performed By: #### 2 60982 #### [facility],[address] [place] [address] Lymph # 1.70 x10EE3/UL Normal 0.80 - 2.80 [facility] Comment on above: Performed By: #### 2 16656 #### [facility],[address] [place] [address] Lymphocytes/100 WBC (Bld) 32.7 % Normal 20.0 - 45.0 [facility] Comment on above: Performed By: #### 2 42424 #### [facility],[address] [place] [address] MANUAL DIFF N/A Normal [facility] Comment on above: Performed By: #### 2 95393 #### [place] [address] MCH (RBC) [Entitic mass] 26 pg Low 27 - 33 [facility] Comment on above: Performed By: #### 2 12009 #### [place] [address] MCHC 33 X10 3 Normal 32 - 36 [facility] Comment on above: Performed By: #### 2 35903 #### [place] [address] MCV (RBC) [Entitic vol] 78 fL Low 80 - 99 [facility] Comment on above: Performed By: #### 2 13101 #### [place] [address] [place] # 0.30 x10EE3/UL Normal 0.20 - 1.00 [facility] Comment on above: Performed By: #### 2 37101 #### [place] [address] MONOS % 6.7 % Normal 0.0 - 10.0 [facility] Comment on above: Performed By: #### 2 08044 #### [facility],[address] [place], [place] [id number] Morphology González (Bld) [Interp] N/A Normal [facility] Comment on above: Result Comment: {CD] Performed By: #### 2 70639 #### [facility],[address] [place] [address] Neut # 2.70 x10EE3/UL Normal 1.50 - 7.10 [facility] Comment on above: Performed By: #### 2 59361 #### [place] [address] Neutrophils/100 WBC (Bld) 53.4 % Normal 46.0 - 76.0 [facility] Comment on above: Performed By: #### 2 52254 #### [place] [address] PLATELET 216 x10EE3/UL Normal 150 - 450 [facility] Comment on above: Performed By: #### 2 50631 #### [place] [address] Platelet mean volume (Bld) [Entitic vol] 7.9 fL Normal 6.6 - 10.5 [facility] Comment on above: Result Comment: AUTO MATED DIFFERENTIAL Performed By: #### 2 02770 #### [facility],[address] [place] [address] RBC 5.10 x 10EE6/UL Normal 4.10 - 5.30 [facility] Comment on above: Performed By: #### 2 62751 #### [place] [address] WBC 5.1 x 10EE3/UL Normal 4.5 - 10.8 [facility] Comment on above: Performed By: #### 2 01337 #### [facility],[address] [place] [address] CMP with eGFRon 02-03-2021 AGE 20 years Normal [facility] Comment on above: Performed By: #### 2 88057 #### [facility],[address] [place] [address] 61107 Albumin [Mass/Vol] 4.2 g/dL Normal 3.4 - 5.0 [facility] Comment on above: Performed By: #### 2 42101 #### [facility],[address] [place] [address] 43884 Albumin/Globulin [Mass ratio] 1.2 {ratio} Normal 0.9 - 1.6 [facility] Comment on above: Performed By: #### 2 06416 #### [facility],[address] [place] [address] 16511 ALK PHOS 58 U/L Normal 46 - 116 [facility] Comment on above: Performed By: #### 2 41315 #### [facility],[address] [place] [address] 52012 ALT [Catalytic activity/Vol] 21 U/L Normal 14 - 59 [facility] Comment on above: Performed By: #### 2 23819 #### [facility],[address] [place] [address] 02216 Anion gap [Moles/Vol] 17 mmol/L Normal 10 - 20 [facility] Comment on above: Performed By: #### 2 75432 #### [facility],[address] [place] [address] 11855 AST [Catalytic activity/Vol] 16 U/L Normal 13 - 39 [facility] Comment on above: Performed By: #### 2 12800 #### [facility],[address] [place] [address] 21471 B/C RATIO 19 ratio Normal 0 - 30 [facility] Comment on above: Performed By: #### 2 08273 #### [facility],[address] [place] [address] 66023 Bilirubin [Mass/Vol] 0.6 mg/dL Normal 0.2 - 1.0 [facility] Comment on above: Performed By: #### 2 46772 #### [facility],[address] [place] [address] 80373 Calcium [Mass/Vol] 9.2 mg/dL Normal 8.5 - 10.1 [facility] Comment on above: Performed By: #### 2 30439 #### [facility],[address] [place] [address] 69276 Chloride [Moles/Vol] 103 mmol/L Normal 98 - 107 [facility] Comment on above: Performed By: #### 2 36398 #### [facility],[address] [place] [address] 55876 CMP with eGFR Normal [facility] Comment on above: Result Comment: COMP REHENSIVE METABOLIC PANEL Performed By: #### 2 82362 #### [facility],[address] [place] [address] 56886 CO2 [Moles/Vol] 24.3 mmol/L Normal 21.0 - 32.0 [facility] Comment on above: Performed By: #### 2 72328 #### [facility],[address] [place] [address] 67358 Creatinine [Mass/Vol] 0.72 mg/dL Normal 0.55 - 1.02 [facility] Comment on above: Performed By: #### 2 45270 #### [facility],[address] [place] [address] 31365 GFR/1.73 sq M.predicted among non-blacks MDRD (S/P/Bld) [Vol rate/Area] mL/min/{1.73_m2} Normal 60 - 999 [facility] Comment on above: Performed By: #### 2 61265 #### [facility],[address] [place] [address] 51732 Result Comment: ACCO RDING TO THE NATIONAL KIDNEY DISEASE EDUCATION PROGRAM(NKDE), A NORMAL eGFR IS A VALUE GREATER THAN OR EQUAL TO 60 ML/MIN/1.73 SQ METERS. CHRONIC KIDNEY DISEASE: <60mL/MIN/1.73 SQ METERS KIDNEY FAILURE: <15mL/MIN/1.73 SQ METERS THIS TEST SHOULD ONLY BE USED FOR PATIENTS 18 YEARS OF AGE AND OLDER. Globulin (S) [Mass/Vol] 3.6 g/dL Normal 1.5 - 3.8 [facility] Comment on above: Performed By: #### 2 22218 #### [facility],[address] [place] [address] 02006 Glucose [Mass/Vol] 82 mg/dL Normal 74 - 106 [facility] Comment on above: Performed By: #### 2 13916 #### [facility],[address] [place] [address] 13011 Potassium [Moles/Vol] 3.9 mmol/L Normal 3.5 - 5.1 [facility] Comment on above: Performed By: #### 2 52240 #### [facility],[address] [place] [address] 76700 Protein [Mass/Vol] 7.8 g/dL Normal 6.4 - 8.2 [facility] Comment on above: Performed By: #### 2 08100 #### [facility],[address] [place] [address] 81474 Sodium [Moles/Vol] 140 mmol/L Normal 136 - 145 [facility] Comment on above: Performed By: #### 2 79388 #### [facility],[address] [place] [address] 19655 Urea nitrogen [Mass/Vol] 14 mg/dL Normal 7 - 18 [facility] Comment on above: Performed By: #### 2 02100 #### [facility],[address] [place] [address] 39123 LIPID PROFILEon 02-03-2021 Cholesterol [Mass/Vol] 181 mg/dL Normal 0 - 240 [facility] Comment on above: Performed By: #### 2 42690 #### [facility],[address] [place] [address] 83176 Cholesterol in HDL [Mass/Vol] 76 mg/dL High 40 - 60 [facility] Comment on above: Performed By: #### 2 86751 #### [facility],[address] [place] [address] 17957 Cholesterol in LDL [Mass/Vol] 97 mg/dL Normal 0 - 129 [facility] Comment on above: Performed By: #### 2 50091 #### [facility],[address] [place] [address] 67320 Cholesterol.total/Chol esterol in HDL [Mass ratio] 2.4 {ratio} Normal 0.0 - 5.0 [facility] Comment on above: Performed By: #### 2 75749 #### [facility],[address] [place] [address] 92235 Lipid 1996 panel Normal [facility] Comment on above: Result Comment: LIPI D PROFILE Performed By: #### 2 78617 #### [facility],[address] [place] [address] 70306 Triglyceride [Mass/Vol] 41 mg/dL Normal 0 - 150 [facility] Comment on above: Performed By: #### 2 41875 #### [facility],[address] [place] [address] 02854 T4 (THYROXINE) TOTALon 02-03 T4 (THYROXINE) TOTAL Normal [facility] Comment on above: Result Comment: THYR OXINE(T4) Performed By: #### 2 85873 #### [facility],[address] [place] [address] 65462 T4 [Mass/Vol] 6.7 ug/dL Normal 4.7 - 13.3 [facility] Comment on above: Performed By: #### 2 94646 #### [facility],[address] [place] [address] 52210 TSHon 11-30-2021 TSH Qn 2.50 m[IU]/L Normal 0.35 - 3.74 [facility] Comment on above: Performed By: #### 2 60023 #### [facility],[address] [place] [address] 45881 CORONAVIRUS PCR - [facility] 12-03-2020 SARS-CoV-2 (COVID-19) RNA SHAJI+probe Ql (Unsp spec) Negative Normal NORMAL: NEGATIVE [facility] Comment on above: Performed By: #### 2 18861 #### [facility],[address] [place] [address] 46809 SEND TO IC? YES Normal [facility] Comment on above: Result Comment: RESU LTS FAXED TO INFECTION CONTROL. SARS-CoV-2 THIS TEST IS BEING USED UNDER THE FDA EUA PROCEDURE. THIS ASSAY HAS BEEN VALIDATED IN THE [facility] FOR USE WITH NASOPHARYNGEAL SPECIMENS IN THE [facility]. INTERPRETIVE DATA LABORATORY TEST RESULTS SHOULD ALWAYS [...] PUBLIC HEALTH AUTHORITIES. Performed By: #### 2 88746 #### [facility],[address] [place] [address] CORONAVIRUS PCR - [facility] 11-07-2020 SARS-CoV-2 (COVID-19) RNA SHAJI+probe Ql (Unsp spec) Negative Normal NORMAL: NEGATIVE [facility] Comment on above: Performed By: #### 2 72653 #### [facility],[address] [place] [address] SEND TO ? YES Normal [facility] Comment on above: Result Comment: RESU LTS FAXED TO INFECTION CONTROL. SARS-CoV-2 THIS TEST IS BEING USED UNDER THE FDA EUA PROCEDURE. THIS ASSAY HAS BEEN VALIDATED IN THE [facility] FOR USE WITH NASOPHARYNGEAL SPECIMENS IN THE [facility]. INTERPRETIVE DATA LABORATORY TEST RESULTS SHOULD ALWAYS [...] PUBLIC HEALTH AUTHORITIES. Performed By: #### 2 55429 #### [facility],[address] [place], [place] [id number] EMERGENCY REPORTon 07-01-202 1 EMERGENCY REPORT [facility] EMERGENCY ROOM REPORT NAME ACCOUNT SEX AGE ADMIT DISCHARGE PT MED. RECORD# NUMBER DATE DATE TYPE ANGIE [id number] F 20 09/03/20 09/03/20 3 RANJAN [id number] ROOM: ER DATE OF : 2000 DICTATING [...] Report TANRANJAN PERALTA : 2000 JOB #: [id number] Transcribed By: rut 09/04/20 08:33 Electronically signed by: E-SIGN: Morro Juárez D.O. 09/04/20 09:41 Page 2 of 2 RANJAN TAN Emergency Room Report Normal [facility] T3, FREE [CCL]on 06-30-2020 Free T3 [Mass/Vol] 2.8 pg/mL Normal 2.3-4.1 [facility] Comment on above: Result Comment: [facility] [place] [address] Wayne Andrade III, M.D. [id number] Performed By: #### 2 84681 #### [facility],[address] [place] [address] 17788 THYROGLOBULIN AB [CCL]on Thyroglobulin Ab Qn 2.4 [IU]/mL Normal <14.4 [facility] Comment on above: Result Comment: [facility] [address] [place], [place] [id number] Wayne Andrade III, M.D. [id number] Performed By: #### 2 55199 #### [facility],[address] [place] [address] 87318 THYROID PEROXIDASE AB [CCL]o n 06-30-2020 TPO Antibody <1.0 Normal <5.6 [facility] Comment on above: Result Comment: [address] [address] Wayne Andrade III, M.D. [id number] Performed By: #### 2 51478 #### [facility],[address] [place] [address] 27104 TPO Antibodyon 06-30-2020 TPO Antibody <1.0 Normal <5.6 [facility] Comment on above: Performed By: #### F REET3, TGAB, MICRO #### [facility] Routine Lab [address] [place] [id number] Thyroglobulin Abon Thyroglobulin Ab Qn 2.4 [IU]/mL Normal <14.4 [facility] Comment on above: Performed By: #### F REET3, TGAB, MICRO #### [facility] Routine Lab [address] [place], [place] [id number] Free T3on 06-28-2020 Free T3 [Mass/Vol] 2.8 pg/mL Normal 2.3-4.1 [facility] Comment on above: Performed By: #### F REET3, TGAB, MICRO #### [facility] Routine Lab [address] [place], [place] [address] T4-FREE (FREE THYROXINE)on 0 06-27-2020 Free T4 [Mass/Vol] 0.93 ng/dL Normal 0.76 - 1.46 [facility] Comment on above: Result Comment: P otential of falsely elevated results when biotin concentrations are > 10 ng/mL. Performed By: #### 2 71087 #### [facility],[address] [place] [address] TSHon 06-27-2020 TSH Qn 2.78 m[IU]/L Normal 0.35 - 3.74 [facility] Comment on above: Performed By: #### 2 92813 #### [facility],[address] [place], [place] [id number] Vital Signs Date Time Vital Sign Value Performing Clinician Elena harry 11-20-2024 10:34-0400 Diastolic blood pressure 81 mm[Hg] No Primary Care Physician [facility] 11-20-2024 10:34-0400 Systolic blood pressure 124 mm[Hg] No Primary Care Physician [facility] 11-20-2024 10:15-0400 Body height 162.56 cm No Primary Care Physician [facility] 11-20-2024 10:15-0400 Body mass index (BMI) [Ratio] 49.5 kg/m2 No Primary Care Physician [facility] 11-20-2024 10:150400 Body weight 130.88 kg No Primary Care Physician [facility] 11-13-2024 14:12-0400 Body height 162.56 cm No Primary Care Physician [facility] 11-13-2024 14:12-0400 Body mass index (BMI) [Ratio] 49.4 kg/m2 No Primary Care Physician [facility] 11-13-2024 14:12-0400 Body weight 130.69 kg No Primary Care Physician [facility] 11-13-2024 14:12-0400 Diastolic blood pressure 83 mm[Hg] No Primary Care Physician [facility] 11-13-2024 14:12-0400 Systolic blood pressure 122 mm[Hg] No Primary Care Physician [facility] 11-06-2024 13:39-0400 Body height 162.56 cm No Primary Care Physician [facility] 11-06-2024 13:35-0400 Body mass index (BMI) [Ratio] 49.4 kg/m2 No Primary Care Physician [facility] 11-06-2024 13:35-0400 Body weight 130.63 kg No Primary Care Physician [facility] 11-06-2024 13:35-0400 Diastolic blood pressure 77 mm[Hg] No Primary Care Physician [facility] 11-06-2024 13:35-0400 Systolic blood pressure 129 mm[Hg] No Primary Care Physician [facility] 10-23-2024 11:00-0400 Body weight 129 kg No Primary Care Physician [facility] 10-23-2024 11:00-0400 Diastolic blood pressure 70 mm[Hg] No Primary Care Physician [facility] 10-23-2024 11:00-0400 Systolic blood pressure 110 mm[Hg] No Primary Care Physician [facility] 10-23-2024 10:48-0400 Body height 162.56 cm No Primary Care Physician [facility] 10-23-2024 10:48-0400 Body mass index (BMI) [Ratio] 48.7 kg/m2 No Primary Care Physician [facility] 10-14-2024 15:03-0400 Diastolic blood pressure 65 mm[Hg] No Primary Care Physician [facility] 10-14-2024 15:03-0400 Heart rate 88 /min No Primary Care Physician [facility] 10-14-2024 15:03-0400 Systolic blood pressure 117 mm[Hg] No Primary Care Physician [facility] 10-14-2024 14:13-0400 Body height 162.56 cm No Primary Care Physician [facility] 10-14-2024 14:13-0400 Body mass index (BMI) [Ratio] 47.7 kg/m2 No Primary Care Physician [facility] 10-14-2024 14:13-0400 Body weight 126 kg No Primary Care Physician [facility] 10-14-2024 13:56-0400 Body temperature 97.8 [degF] No Primary Care Physician [facility] 10-14-2024 13:56-0400 Respiratory rate 16 /min No Primary Care Physician [facility] 10-14-2024 13:32-0400 SaO2% (BldA) [Mass fraction] 94 % No Primary Care Physician [facility] 10-09-2024 13:51-0400 Body height 162.56 cm No Primary Care Physician [facility] 10-09-2024 13:51-0400 Body mass index (BMI) [Ratio] 48.6 kg/m2 No Primary Care Physician [facility] 10-09-2024 13:51-0400 Body weight 128.42 kg No Primary Care Physician [facility] 10-09-2024 13:51-0400 Diastolic blood pressure 70 mm[Hg] No Primary Care Physician [facility] 10-09-2024 13:51-0400 Systolic blood pressure 108 mm[Hg] No Primary Care Physician [facility] 09-25-2024 13:49-0400 Body height 162.56 cm No Primary Care Physician [facility] 09-25-2024 13:49-0400 Body mass index (BMI) [Ratio] 47.5 kg/m2 No Primary Care Physician [facility] 09-25-2024 13:49-0400 Body weight 125.64 kg No Primary Care Physician [facility] 09-25-2024 13:49-0400 Diastolic blood pressure 76 mm[Hg] No Primary Care Physician [facility] 09-25-2024 13:49-0400 Systolic blood pressure 117 mm[Hg] No Primary Care Physician [facility] 09-04-2024 12:57-0400 Body height 162.56 cm No Primary Care Physician [facility] 09-04-2024 12:57-0400 Body mass index (BMI) [Ratio] 46.3 kg/m2 No Primary Care Physician [facility] 09-04-2024 12:57-0400 Body weight 122.52 kg No Primary Care Physician [facility] 09-04-2024 12:57-0400 Diastolic blood pressure 78 mm[Hg] No Primary Care Physician [facility] 09-04-2024 12:57-0400 Systolic blood pressure 116 mm[Hg] No Primary Care Physician [facility] 08-09-2024 14:43-0400 Body height 162.56 cm No Primary Care Physician [facility] 08-09-2024 14:43-0400 Body mass index (BMI) [Ratio] 44.9 kg/m2 No Primary Care Physician [facility] 08-09-2024 14:43-0400 Body weight 118.55 kg No Primary Care Physician [facility] 08-09-2024 14:43-0400 Diastolic blood pressure 80 mm[Hg] No Primary Care Physician [facility] 08-09-2024 14:43-0400 Systolic blood pressure 121 mm[Hg] No Primary Care Physician [facility] 07-10-2024 13:03-0400 Body mass index (BMI) [Ratio] 43.3 kg/m2 No Primary Care Physician [facility] 07-10-2024 13:03-0400 Body weight 114.47 kg No Primary Care Physician [facility] 07-10-2024 13:03-0400 Diastolic blood pressure 71 mm[Hg] No Primary Care Physician [facility] 07-10-2024 13:03-0400 Systolic blood pressure 109 mm[Hg] No Primary Care Physician [facility] 06-29-2024 13:55-0400 Body mass index (BMI) [Ratio] 42.4 kg/m2 No Primary Care Physician [facility] 06-29-2024 13:55-0400 Body weight 112.15 kg No Primary Care Physician [facility] 06-29-2024 13:55-0400 Diastolic blood pressure 73 mm[Hg] No Primary Care Physician [facility] 06-29-2024 13:55-0400 Systolic blood pressure 116 mm[Hg] No Primary Care Physician [facility] 06-29-2024 07:21-0400 Body temperature 97.9 [degF] No Primary Care Physician [facility] 06-29-2024 07:21-0400 Diastolic blood pressure 85 mm[Hg] No Primary Care Physician [facility] 06-29-2024 07:21-0400 Heart rate 72 /min No Primary Care Physician [facility] 06-29-2024 07:21-0400 Respiratory rate 16 /min No Primary Care Physician [facility] 06-29-2024 07:21-0400 SaO2% (BldA) [Mass fraction] 99 % No Primary Care Physician [facility] 06-29-2024 07:21-0400 Systolic blood pressure 148 mm[Hg] No Primary Care Physician [facility] 06-29-2024 03:06-0400 Body height 162.56 cm No Primary Care Physician [facility] 06-29-2024 03:06-0400 Body mass index (BMI) [Ratio] 42.5 kg/m2 No Primary Care Physician [facility] 06-29-2024 03:06-0400 Body weight 112.3 kg No Primary Care Physician [facility] 05-28-2024 14:19-0400 Body height 162.56 cm No Primary Care Physician [facility] 05-28-2024 14:19-0400 Body mass index (BMI) [Ratio] 42.4 kg/m2 No Primary Care Physician [facility] 05-28-2024 14:19-0400 Body weight 112.15 kg No Primary Care Physician [facility] 05-28-2024 14:19-0400 Diastolic blood pressure 73 mm[Hg] No Primary Care Physician [facility] 05-28-2024 14:19-0400 Systolic blood pressure 108 mm[Hg] No Primary Care Physician [facility] 07-05-2023 11:00-0400 Body height 162.[address] Christy Lao Work Phone: [facility] 07-05-2023 11:00-0400 Body mass index (BMI) [Ratio] 42.2 kg/m2 Dr. Christy Lao Work Phone: [facility] 07-05-2023 11:00-0400 Body weight 111.[address] Christy Lao Work Phone: [facility] 07-05-2023 11:00-0400 Diastolic blood pressure 78 mm[Hg] Dr. Christy Lao Work Phone: [facility] 07-05-2023 11:00-0400 Systolic blood pressure 118 mm[Hg] Dr. Christy Lao Work Phone: [facility] 06-27-2023 09:59-0400 Body mass index (BMI) [Ratio] 42.3 kg/m2 Dr. Christy Lao Work Phone: [facility] 06-27-2023 09:59-0400 Body weight 111.[address] Christy Lao Work Phone: [facility] 06-27-2023 09:59-0400 Diastolic blood pressure 72 mm[Hg] Dr. Christy Lao Work Phone: [facility] 06-27-2023 09:59-0400 Systolic blood pressure 118 mm[Hg] Dr. Christy Lao Work Phone: [facility] 05-30-2023 08:21-0400 Body mass index (BMI) [Ratio] 40.1 kg/m2 Dr. Christy Lao Work Phone: [facility] 05-30-2023 08:21-0400 Body weight 106.[address] Christy Lao Work Phone: [facility] 05-30-2023 08:21-0400 Diastolic blood pressure 84 mm[Hg] Dr. Christy Lao Work Phone: [facility] 05-30-2023 08:21-0400 Systolic blood pressure 124 mm[Hg] Dr. Christy Lao Work Phone: [facility] 05-18-2023 10:40-0400 Body height 162.[address] Christy Lao Work Phone: [facility] 05-18-2023 10:39-0400 Body mass index (BMI) [Ratio] 39.6 kg/m2 Dr. Christy Lao Work Phone: [facility] 05-18-2023 10:39-0400 Body weight 104.[address] Christy Lao Work Phone: [facility] 05-18-2023 10:39-0400 Diastolic blood pressure 69 mm[Hg] Dr. Christy Lao Work Phone: [facility] 05-18-2023 10:39-0400 Systolic blood pressure 106 mm[Hg] Dr. Christy Lao Work Phone: [facility] 05-06-2023 12:01-0500 Body height 162.[address] Christy Lao Work Phone: [facility] 05-06-2023 12:01-0500 Body mass index (BMI) [Ratio] 38.2 kg/m2 Dr. Christy Lao Work Phone: [facility] 05-06-2023 12:01-0500 Body weight 101.[address] Christy Lao Work Phone: [facility] 05-06-2023 11:54-0500 Body temperature 98 [degF] Dr. Chrsity Lao Work Phone: [facility] 05-06-2023 11:54-0500 Diastolic blood pressure 61 mm[Hg] Dr. Christy Lao Work Phone: [facility] 05-06-2023 11:54-0500 Heart rate 81 /min Dr. Christy Lao Work Phone: [facility] 05-06-2023 11:54-0500 Systolic blood pressure 111 mm[Hg] Dr. Christy Lao Work Phone: [facility] 04-21-2023 15:53-0500 Body mass index (BMI) [Ratio] 39.1 kg/m2 Dr. Christy Lao Work Phone: [facility] 04-21-2023 15:53-0500 Body weight 103.[address] Christy Lao Work Phone: [facility] 04-21-2023 15:53-0500 Diastolic blood pressure 73 mm[Hg] Dr. Christy Lao Work Phone: [facility] 04-21-2023 15:53-0500 Systolic blood pressure 114 mm[Hg] Dr. Christy Lao Work Phone: [facility] 03-23-2023 09:31-0500 Body mass index (BMI) [Ratio] 37.8 kg/m2 Dr. Christy aLo Work Phone: [facility] 03-23-2023 09:31-0500 Body weight 99.[address] Christy Lao Work Phone: [facility] 03-23-2023 09:31-0500 Diastolic blood pressure 68 mm[Hg] Dr. Christy Lao Work Phone: [facility] 03-23-2023 09:31-0500 Systolic blood pressure 110 mm[Hg] Dr. Christy Lao Work Phone: [facility] 02-21-2023 10:38-0500 Body mass index (BMI) [Ratio] 37.3 kg/m2 Dr. Christy Lao Work Phone: [facility] 02-21-2023 10:38-0500 Body weight 98.[address] Christy Lao Work Phone: [facility] 02-21-2023 10:38-0500 Diastolic blood pressure 76 mm[Hg] Dr. Christy Lao Work Phone: [facility] 02-21-2023 10:38-0500 Systolic blood pressure 123 mm[Hg] Dr. Christy Lao Work Phone: [facility] 01-26-2023 14:34-0500 Body height 162.[address] Christy Lao Work Phone: [facility] 01-26-2023 14:23-0500 Body mass index (BMI) [Ratio] 36.2 kg/m2 Dr. Christy Lao Work Phone: [facility] 01-26-2023 14:23-0500 Body weight 95.[address] Christy Lao Work Phone: [facility] 01-26-2023 14:23-0500 Diastolic blood pressure 72 mm[Hg] Dr. Christy Lao Work Phone: [facility] 01-26-2023 14:23-0500 Systolic blood pressure 112 mm[Hg] Dr. Christy Lao Work Phone: [facility] 01-02-2023 20:35-0400 Diastolic blood pressure 78 mm[Hg] [facility] 01-02-2023 20:35-0400 Heart rate 88 /min [facility] 01-02-2023 20:35-0400 Respiratory rate 16 /min [place] 01-02-2023 20:35-0400 Systolic blood pressure 125 mm[Hg] [facility] 01-02-2023 18:22-0400 Body height 162.56 cm [facility] 01-02-2023 18:22-0400 Body mass index (BMI) [Ratio] 35.2 kg/m2 [facility] 01-02-2023 18:22-0400 Body temperature 98.8 [degF] [place] 01-02-2023 18:22-0400 Body weight 92.94 kg [facility] 01-02-2023 18:22-0400 SaO2% (BldA) [Mass fraction] 100 % [facility] Encounters Encounter Date Encounter Type Care Provider Facility Start: 11-28-2024 ambulatory Nallely Parker lity:[facility] Start: 11-27-2024 ambulatory No Primary Car e Physician Facility:[facility] Start: 11-22-2024 End: 11-22-2024 ambulatory MISC [facility] Start: 11-20-2024 End: 11-20-2024 Patient encounter procedure Simi Joseph MAHMOOD -[facility] Work Phone: Start: 11-20-2024 End: 11-20-2024 ambulatory No Primary Care Physician -[facility] Start: 11-15-2024 End: 11-15-2024 ambulatory MISC [facility] Start: 11-13-[address] Nallely Doherty MD -[facility] Work Phone: Start: 11-13-2024 End: 11-13-[address] Nallely Doherty MD -[facility] Work Phone: Start: 11-13-2024 End: 11-13-2024 ambulatory No Primary Care Physician -[facility] Start: 11-13-2024 End: 11-13-2024 ambulatory Nallely Doherty Facility:[facility] Start: 11-08-2024 End: 11-08-2024 ambulatory ADRIEN KLEIN [facility] Start: 11-06-2024 End: 11-06-2024 Patient encounter procedure Adrien Klein GANG PUSHER-C -[facility] Work Phone: Start: 11-06-2024 End: 11-06-2024 ambulatory No Primary Care Physician -[facility] Start: 11-01-2024 End: 11-01-2024 ambulatory MISC [facility] Start: 10-25-2024 End: 10-25-2024 ambulatory MISC [facility] Start: 10-23-2024 End: 10-23-2024 ambulatory No Primary Care Physician -[facility] Start: 10-23-2024 End: 10-23-2024 Patient encounter procedure Adrien Klein GANG PUSHER-C -[facility] Work Phone: Start: 10-23-2024 End: 10-23-2024 Patient encounter procedure Adrien Klein GANG PUSHER-C -[facility] Work Phone: Start: 10-23-2024 End: 10-23-2024 ambulatory No Primary Care Physician -[facility] Start: 10-23-2024 End: 10-23-2024 ambulatory Adrien Klein GANG PUSHER Facility:[facility] Start: 10-14-2024 ambulatory No Primary Car e Physician Facility:[facility] Start: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al status: employed 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: No history of [...] 1-2 times per week duration: 15-30 minutes/day tish/episcopalian: None seatbelt use: always do you feel safe at home: Yes additional social history: ALLISON Tabor- 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 [facility] History 4 Elective abortions [...] - full term 8lbs 8oz Female epidural [facility] Darling Mendoza Delivery Date: 01/10/17 Last Updated [...] (4) Obesity affecting : Status: Acute Comment: LlkD6s-KPOh at 34 weeks (5) Brandon's disease: Status: [...] dorsey MD> Date _ Nallely Doherty MD [facility] Signature: Date (if applicable) CC: ~ [facility] Work Phone: 1([phone]) 201-194705-06-2025 Evaluation note* Diagnosis Onset Date Resolution Status [...] of umbilical cord acute October 23 10:45am [facility] Work Phone: 1([phone]) 363-269305-06-2025 Evaluation note* Diagnosis Onset Date Resolution Status [...] of umbilical cord acute November 06 1:29pm [facility] Work Phone: 1([phone]) [phone] Evaluation note* Diagnosis Onset Date Resolution Status [...] umbilical cord acute September 25, 2024 1:44pm [facility] Work Phone: 1(570) 357-739804-25-2025 Evaluation note* Diagnosis Onset Date Resolution Status [...] umbilical cord acute October 09, 2024 1:34pm [facility] Work Phone: 1(282) 202-506504-25-2025 Evaluation note* Diagnosis Onset Date Resolution Status [...] of umbilical cord acute October 14 1:10pm [facility] Work Phone: 1([phone]) 739-619404-25-2025 Evaluation note* Diagnosis Onset Date Resolution Status [...] of umbilical cord acute October 23 10:45am [facility] Work Phone: [phone]) 191-527904-25-2025 Discharge summary [facility] Medical Records Department [address] [place] [address] Emergency Department Summary 06/29/24 MR#: [id number] Acct: [id number] Name: RANJAN TAN Rep #:[id number] : [...] Denies any alcohol use. She follows with [facility]. 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 Denies any vaginal bleeding. Follows with [facility]. On presentation, patient is hypertensive with a [...] with blood pressure 155/71. Given this finding, [facility] was consulted and patient was discussed with [...] % (Auto) 68.7 Lymph % (Auto) 19.7 [place] % (Auto) 9.3 Eos % (Auto) 1.1 [...] Clarity Clear Urine pH 5.0 Ur Specific [place] 1.025 Urine Protein 30 H Urine Glucose [...] polyp versus adherent tumefactive sludge Reading Location: [id number] Obstetrics Ultrasound 06/29/24 03:37 IMPRESSION: Single, live intrauterine gestation. No abnormality is noted. Reading Location: [place] [address] Discharge Plan Triage Chief Complaint: Nausea/Vomiting ED Provider: Vaughn Tan Dx/Rx/DC Orders Clinical Impression: Nausea & vomiting, Hypertension, Instructions: ED Diet Vomiting Diarrhea, ED Hypertension, To Be Confirmed, ED Prescriptions: New cephalexin 500 mg capsule 500 mg PO Q6H 7 Days Qty: 28 0RF No Action PNV no.915-RL-ky0-ape-eya-xrgg 180 mcg-35 mg- 25 mg-5 mg tablet,chewable [...] have your blood pressure repeated at your [facility] RN office this afternoon. Call them when you [...] polyp. Follow-up with general surgery. Print Language: Swazi Disposition Disposition: Home, Self Care What to do if you have Problems For any increased pain, shortness of breath, bleeding, nausea or vomiting, chestpain, or any unexpected problems, contact your Primary Care Provider. Call [facility] ([phone]) or report tothe closest Emergency Room. Call 911 if necessary. 06/29/24 07 Cosigner Signature (if applicable): CC: No Primary Care Physician ~ Signed [facility]04-25-2025 Radiology Diagnostic study note [facility] Imaging Services [address] [place] [place], [place] [address] Transvaginal w/Preg US MR#: [id number] Acct: [id number] Name: RANJAN TAN Rep #: [id number] : 2000 F 24 From: Katerin Walton MD PCP: Dagoberto Physician,No Primary Status: REG ER Study:Transvaginal w/Preg US Date of Exam: 06/29/24 Exam# [id number] Ordering Dr: Vaughn Guzman DO PROCEDURE: TRANSVAGINAL [...] gestation. No abnormality is noted. Reading Location: [place] [address] CC: Dr. Vaughn Tan DO; No Primary Care Physician ~ Salvage Mend Worker: Signed [facility]04-25-2025 Radiology Diagnostic study note [facility] Imaging Services [address] [place] [address] Abdomen Limited MR#: [id number] Acct: [id number] Name: RANJAN TAN Rep #: [id number] : 2000 F 24 From: Jorge Sinha MD PCP: Care Physician,No Primary Status: REG ER Study:Abdomen Limited Date of Exam: 06/06 07/29 Exam# [id number] Ordering Dr: Vaughn Guzman DO PROCEDURE: ABDOMEN [...] polyp versus adherent tumefactive sludge Reading Location: [id number] CC: Dr. Vaughn Tan, DO; No Primary Care Physician ~ Salvage Mend Worker: Signed [facility]03-24-2025 NotePap Smear Specimen [facility]acyOhio[facility] 2024 11:59pmComment.Satisfactory for evaluation. Endocervical and/or squamous metaplasticcells (endocervical component)are present.[facility] INTER[facility]ACED A#[id number] Va / Crille HospitalComment on above:Satisfactory for evaluation. 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, 2024 2:14pm LGSIL (low grade squamous intraepithelial dysplasia) acute May 28, 2024 2:14pm Marijuana use acute May 28, 2024 2:14pm Obesity affecting acute May 28, 2024 2:14pm acute May 28 2:14pm Supervision of high-risk acute May 28, 2024 2:14pm [facility] Work Phone: 1([phone]) 416-997203-24-2025 Evaluation note* Diagnosis Onset Date Resolution Status Admit Date Anxiety and depression acute [facility] 2024 2:14pm Cigarette smoker acute May 282024 [...] cord acute August 09, 2024 2 :39pm [facility] Work Phone: 1([phone]) 727-495303-24-2025 Evaluation note* Diagnosis Onset Date Resolution Status Admit Date Anxiety and depression acute [facility] 2024 2:14pm Cigarette smoker acute May 282024 [...] cord acute September 04, 2024 1 2:44pm [facility] Work Phone: 1([phone]) 210-433103-24-2025 Evaluation note* Diagnosis Onset Date Resolution Status Admit Date Anxiety and depression acute [facility] 2024 2:14pm Cigarette smoker acute May 282024 [...] cord acute September 04, 2024 1 2:44pm [facility] Work Phone: [phone]) [phone] Evaluation note* Diagnosis Onset Date Resolution Status Admit Date Anxiety and depression acute [facility] 2024 2:14pm Cigarette smoker acute May 282024 [...] umbilical cord acute September 25, 2024 1:44pm [facility] Work Phone: [phone]) [phone] NotePap Smear Specimen AdequacyNovember 2022 5:04pmComment.Satisfactory for evaluation. No endocervical component is identified.An endocervical component is not commonly seen in the patient.[facility] INTER[facility]ACED A#[id number] Va / Crille HospitalComment on above: Satisfactory for evaluation. No endocervical component is identified.An endocervical component is not commonly seen in the patient.01-26-2023 NotePap Smear Specimen AdequacyNovember 2022 5:04pmComment.Satisfactory for evaluation. No endocervical component is identified.An endocervical component is not commonly seen in the patient.[facility] INTERFACED A#[id number] Va / Crille HospitalCommclaren [facility] [place] on above:Satisfactory for evaluation. No endocervical component is identified.An endocervical component is not commonly seen in the patient.01-26-2023 NotePap Smear Specimen AdequacyNovember 2022 6:04pmComment.Satisfactory for evaluation. No endocervical component is identified.An endocervical component is not commonly seen in the patient.[facility] INTER[facility]ACED A#[id number] Va / Crille HospitalCommclaren [facility] [place] on above:Satisfactory for evaluation. No endocervical component [...] Tuesday before. Please advise [facility] Miscellaneous Notes* Quick Notes - Angelica [...] Patient had her previous 2 deliveries at [facility].Pt has a history of depression diagnosed [...] was transferred to a psychiatric facility in [place]. She states she did do cutting at that time. Denies any suicidal thoughts since then. She sees a counselor Mac Galeano at [facility]. Patient was seen at [facility] on December 27 for nausea and [...] a quantitative hCG done December 27 at [facility] her where she was seen for [...] testing. Angelica Angeles RN documented in this encounterEast [facility]11-[facility]-2023 NoteHNO ID: [id number] Author: Angelica Angeles RN Service: ? 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 documented in [facility] encounterEast [facility]10-[facility]23 Discharge summary Author Jarad Hilton [facility] January 02, 2023 8:21pm Note Date/Time January 02, 2023 7 :20pm [facility] Medical Records Department [address] [place] [address] Emergency Department Summary 01/02/23 MR#: [id number] Acct: [id number] Name: RANJAN TAN Rep #:[id number] : [...] Dr. Valerio Cardenas for her . [facility] Medical History Depression Home Medications ondansetron 4 mg disintegrating tablet 4 mg PO Q8H PRN PRN Nausea #10 tabs 01/02/23 [Rx Last Taken Unknown] pnv #[id number] acid-dha 28 mg-975 mcg-200 mg oral powder [...] Clarity Cloudy Urine pH 8.0 Ur Specific [place] 1.015 Urine Protein Negative Urine Glucose (UA) [...] prescription for Zofran and follow-up with her carrier driver Dr. Nallely Cardenas Discharge Plan Triage Chief Complaint: Nausea/Vomiting ED Provider: Jarad Hilton Dx/Rx/DC Orders Clinical Impression: Hyperemesis gravidarum, First trimester Prescriptions: New ondansetron [ondansetron] 4 mg tablet,disintegrating 4 mg PO Q8H PRN PRN (Reason: Nausea) Qty: 10 0RF No Action pnv #93-[id number]-LJ-dha 28-975-200 mg-mcg-mg powder effervescent in packet 1 [...] your Primary Care Provider. Call [facility] ([phone]) or report to the closest Emergency Room. Call 911 if necessary. 01/02/232020 <Electronically signed by Jarad Hilton MD> Cosigner Signature (if applicable): CC: Dr. Christy Lao MD ~ Signed [facility] Work Phone: 1(919) 566-749010-20-2023 Miscellaneous Notes* Telephone Encounter - Robby Live [...] Rangel APRN.CNM * Telephone Encounter - MyrnaCamilaLaura DIRECTOR OF CORPORATE SALES - 12/24/2022 1:52 PM EDT Pt just got positive test, LMP 11/06/22, 6w 6d. She is c/o dark brown vaginal bleeding thatshe notes with wiping. No cramping or LOF. Pt was given bleeding precautions and voiced understanding. Pt did report intercourse about 2 days ago. Please see pended order below and advise. Laura Norris LPN documented in this encounterHollister ClinicDischar summary Author Vaughn Quintanillagett [facility] Note Date/Time June 29, 2024 7:1 9am [facility] Medical Records Department [address] [place] [id number] Emergency Department Summary 06/29/24 MR#: [id number] Acct: [id number] Name: RANJAN TAN Rep #:[id number] : [...] Denies any alcohol use. She follows with [facility] RN. 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 Denies any vaginal bleeding. Follows with [facility] RN. On presentation, patient is hypertensive with a [...] with blood pressure 155/71. Given this finding, [facility] RN was consulted and patient was discussed with [...] % (Auto) 68.7 Lymph % (Auto) 19.7 [place] % (Auto) 9.3 Eos % (Auto) 1.1 [...] Clarity Clear Urine pH 5.0 Ur Specific [place] 1.025 Urine Protein 30 H Urine Glucose [...] polyp versus adherent tumefactive sludge Reading Location: [id number] Obstetrics Ultrasound 06/29/24 03:37 IMPRESSION: Single, live intrauterine gestation. No abnormality is noted. Reading Location: [place] [address] Discharge Plan Triage Chief Complaint: Nausea/Vomiting ED Provider: Vaughn Tan Dx/Rx/DC Orders Clinical Impression: Nausea & vomiting, Hypertension, Instructions: ED Diet Vomiting Diarrhea, ED Hypertension, To Be Confirmed, ED Prescriptions: New cephalexin 500 mg capsule 500 mg PO Q6H 7 Days Qty: 28 0RF No Action PNV no.786-SX-bi7-bkc-xiy-gywe 180 mcg-35 mg- 25 mg-5 mg tablet,chewable [...] have your blood pressure repeated at your CLINICAL APPEALS RN office this afternoon. Call them when you [...] polyp. Follow-up with general surgery. Print Language: Swazi Disposition Disposition: Home, Self Care What to do if you have Problems For any increased pain, shortness of breath, bleeding, nausea or vomiting, chestpain, or any unexpected problems, contact your Primary Care Provider. Call [facility] ([phone]) or report to the closest Emergency Room. Call 911 if necessary. 06/29/24 0719 <Electronically signed by Vaughn Tan DO> Cosigner Signature (if applicable): CC: No Primary Care Physician ~ Signed [facility] Work Phone: Evaluation note* Diagnosis Bleeding in early - Primary Unspecified hemorrhage in early , unspecified as to episode of care documented in this encounter [facility] noteNo assessment information availableWSouthwest General Health Center Work Phone: Evaluation note* Diagnosis Supervision of [...] Other specified examination documented in this encounter [facility] note* Diagnosis Encounter for screening of mother- Primary Unspecified screening documented in this encounter [facility] note* Diagnosis Onset Date Resolution Status Anxiety and depression acute Cigarette smoker 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 Marijuana use acute Obesity (BMI 30-39.9) acute acute Seasonal allergies acute Supervision of high-risk acute [facility] Work Phone: Evaluation note* Diagnosis Screening, , for malformation by ultrasound Encounter for routine screening for malformation using ultrasonics 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 care, single or unspecified fetus documented in this encounter [facility]* 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 [facility] Diagnosis Onset Date Resolution Status Anxiety [...] 30-39.9) acute acute Supervision of high-risk acute [id number] acute Anxiety and depression acute Cigarette smoker acute 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 acute Obesity (BMI 30-39.9) acute acute Seasonal allergies acute Supervision of high-risk acute [facility] Work Phone: Evaluation note* Diagnosis Onset [...] 30-39.9) acute acute Supervision of high-risk acute [id number] acute Anxiety and depression acute Cigarette smoker acute 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 acute Obesity (BMI 30-39.9) acute acute Seasonal allergies acute Supervision of high-risk acute Supervision of high-risk acute Elevated AST (SGOT) resolved [id number] acute Anxiety and depression acute Cigarette smoker acute 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 acute Obesity (BMI 30-39.9) acute acute Seasonal allergies acute Supervision of high-risk acute Elevated AST (SGOT) resolved [facility] Work Phone: Evaluation note* Diagnosis Onset Date Resolution Status Anxiety and depression acute Cigarette smoker acute 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 Obesity (BMI 30-39.9) acute acute Supervision of high-risk acute [id number] acute Anxiety and depression acute Cigarette smoker acute 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 acute Obesity (BMI 30-39.9) acute acute Seasonal allergies acute Supervision of high-risk acute Supervision of high-risk acute Elevated AST (SGOT) resolved [id number] acute Anxiety and depression acute Cigarette smoker acute 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 acute Obesity (BMI 30-39.9) acute acute Seasonal allergies acute Supervision of high-risk acute Elevated AST (SGOT) resolved [id number] acute Anemia affecting a cute Anxiety and depression acute Cigarette smoker acute 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 Obesity (BMI 30-39.9) acute acute Supervision of high-risk acute [id number] acute Anemia affecting a cute Anxiety and depression acute Cigarette smoker acute 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 Obesity (BMI 30-39.9) acute acute Supervision of high-risk acute [id number] acute Anemia affecting a cute Anxiety and depression acute Cigarette smoker acute 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 Call them when you [...] a possible gallbladder polyp. Follow-up with general surgery.[facility] Work Phone: Hospital Discharge instructionsAdditional Instructions Keep next office appointment. Macrobid prescription sent to pharmacy. Take twice daily.[facility] Work Phone: Reason for referral (narrative)* Diagnostic Procedure Only (Routine) - Pending Review Specialty Diagnoses / Procedures Referred By Vidal churchill Referred To Contact [facility] Diagnoses Encounter for screening of mother Procedures NUCHAL TRANSLUCENCY WHI US NUCHAL TRANSLUCENCY 1ST GESTATION Melissa Mcclellan APRN.CNM [address] [place] [address] [facility] [address] [place] [address] Referral ID Status Reason Start Date Expiration Date Visits Requested Visits Authorized [id number] Pending Review Auto-Generat ed Referral 3 01/19/2024 1 1 [facility]No reason for referral information availableWSouthwest General Health Center Work Phone: Summary Purpose Family History No Family History Records Found Relationship Condition Age at Onset Recorded Date/T winsome grandmother Malignant neoplasm of breast 74 aunt Family history of liver cancer 51 aunt Family history of liver cancer 61 Advance Directives No Advanced Directives Records Found Advance Directive Response Recorded Date/ Time Living Will No May 12, 2019 11:56pm Power of Vp Respiratory No May 11 11:56pm Advance Directive Response Recorded Date/ Time Living Will No January 02 6:29pm Power of Vp Respiratory No January 02, 2023 6:29pm Advance Directive Response Recorded Date/ Time Living Will No January 02 5:29pm Power of Vp Respiratory No January 02, 2023 5:29pm Advance Directive Response Recorded Date/ Time Do you have a Healthcare Power of Vp Respiratory? 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) Marijuana use Obesity (BMI 30-39.9) Seasonal allergies Supervision of high-risk Elevated AST (SGOT) Chief Complaint 19 WK OB 24 WK OB R/O LABOR R/O LABOR 28 WK OB/GLUCOSE *pt to see Dr per phone note 30 WK OB 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/tb BD/ FIT TEST- [place] 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 34 WK OB 36 WK OB Reason for Visit Anxiety and depressi on Cigarette smoker 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 Obesity (BMI 30-39.9) Supervision of high-risk [id number] Anxiety and depression Cigarette smoker 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) Marijuana use Obesity (BMI 30-39.9) Seasonal allergies Supervision of high-risk Supervision of high-risk Elevated AST (SGOT) [id number] Anxiety and depression Cigarette smoker 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) Marijuana use Obesity (BMI 30-39.9) Seasonal allergies Supervision of high-risk Elevated AST (SGOT) [id number] Anemia affecting Anxiety and depression Cigarette smoker 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 Obesity (BMI 30-39.9) Supervision of high-risk [id number] Anemia affecting Anxiety and depression Cigarette smoker 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 Obesity (BMI 30-39.9) Supervision of high-risk [id number] Anemia affecting Anxiety and depression Cigarette smoker [...] 10 :45am Contraception management October 23 10:45am Branodn's disease October 23, 2024 10 :45am LGSIL [...] 06, 2024 1:29pm Supervision of high-risk [facility] 2024 1:29pm Velamentous insertion of umbilical [...] 13, 2024 1:55pm Supervision of high-risk [facility] 2024 1:55pm Velamentous insertion of umbilical [...] 20, 2024 10:07am Supervision of high-risk [facility] 2024 10:07am Velamentous insertion of umbilical cord November 20, 2024 10:07am Reason for Referral Specialty Diagnoses / Procedures Referred By Contac t Referred To Contact Radiology Diagnoses Screening, , for malformation by ultrasound 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 care, single or unspecified fetus Procedures MRI (single) Dez Olmstead MD [address] [facility] [address] [place] [address] Referral ID Status Reason Start Date Expiration Date Visits Re quested Visits Authorized [id number] Closed 03/28/2023 03/27/2024 1 1 Additional Source Comments INFORMATION SOURCE (unrecogn ized section and content) DATE CREATED AUTHOR 02/10/2021 [facility] DATE CREATED AUTHOR AUTHOR'S ORGANIZ ATION 02/10/2021 [facility] DATE CREATED AUTHOR AUTHOR'S ORGANIZ ATION 02/07/2023 [facility] DATE CREATED AUTHOR AUTHOR'S ORGANIZ ATION 11/23/2024 [facility] DATE CREATED AUTHOR AUTHOR'S ORGANIZ ATION 11/25/2024 [facility] Source Comments (unrecognize d section and content) In the event this informatio n is protected by the Federal Confidentiality of Alcohol and Drug Abuse Patient Records regulations: The Federal rules restrict any use of the information to criminally investigate or prosecute any alcohol or drug abuse patient.[facility] the event this information is protected by the Federal Confidentiality of Alcohol and Drug Abuse Patient Records regulations: The Federal rules restrict any use of the information to criminally investigate or prosecute any alcohol or drug abuse patient.[facility] HospitalIn the event this information is protected by the Federal Confidentiality of Alcohol and Drug Abuse Patient Records regulations: The Federal rules restrict any use of the information to criminally investigate or prosecute any alcohol or drug abuse patient.[facility] Reason for Visit (unrecogniz ed section and content) Reason Comments Patient Question Reason Comments Care Reason Comments Care Specialty Diagnoses / Procedures Referred By Contac t Referred To Contact Radiology Diagnoses Screening, , for malformation by ultrasound 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 care, single or unspecified fetus Procedures MRI (single) Dez Olmstead MD [address] [facility] [address] [place] [address] Referral ID Status Reason Start Date Expiration Date Visits Re quested Visits Authorized [id number] Closed 03/28/2023 03/27/2024 1 1 Care Teams [...] CNM Attending Provider, Referring Pr ovider Active 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 Christy Lao MD Family Provider Active No Primary Care Physician Primary Care Provider Active Team Status: Inactive Member Role Status Dates Dr. Christy Lao MD Primary Care Provider, Referrin g Provider Active Adrien Klein GANG PUSHER, GANG PUSHER-C Attending Provider Active Team Status: Inactive Member [...] Provider, Refer ring Provider Active Adrien Klein GANG PUSHER, GANG PUSHER-C Attending Provider Active Team Status: Inactive Member [...] Physician Primary Care Provider Active Adrien Klein GANG PUSHER, GANG PUSHER-C Attending Provider, Referring Provider Active Team Status: [...] 28, 2024 End: May 28, 2024 Simi Laar CNM Attending Provider Active S tart: May [...] End: September 04, 2024 Adrien Klein NP, GANG PUSHER-C Attending Provider Active Start: September 04, 2024 End: September 04, 2024 Team Status: Inactive Member Role/Relationship Status Dates No Primary Care Physician Primary Care Provider Active Start: September 04, 2024 End: September 04, 2024 Dr. Nallely Doherty MD Attending Provider Active Start: September 04, 2024 End: September 04, 2024 Dr. Nallely Dhoerty MD Referring Provider Active Start: September 04, [...] End: September 04, 2024 Adrien Klein NP, GANG PUSHER-C Attending Provider Active Start: September 04, 2024 [...] End: October 23, 2024 Adrien Klein NP, GANG PUSHER-C Attending Provider Active Start: October 23, 2024 [...] End: September 04, 2024 Adrien Klein NP, GANG PUSHER-C Attending Provider Active Start: September 04, 2024 [...] 2024 End: October 23, 2024 Adrien Klein GANG PUSHER, GANG PUSHER-C Attending Provider Active Start: October 23, 2024 End: October 23, 2024 Team Status: Inactive Member Role/Relationship Status Dates No Primary Care Physician Primary Care Provider Active Start: October 23, 2024 End: October 23, 2024 Adrien Klein GANG PUSHER, GANG PUSHER-C Attending Provider Active Start: October 23, 2024 End: October 23, 2024 Team Status: Inactive Member Role/Relationship Status Dates No Primary Care Physician Primary Care Provider Active Start: November 06, 2024 End: November 06, 2024 No Primary Care Physician Referring Provider Active Start: November 06, 2024 End: November 06, 2024 Adrien Klein GANG PUSHER, GANG PUSHER-C Attending Provider Active Start: November 06, 2024 [...] End: September 04, 2024 Adrien Klein NP, GANG PUSHER-C Attending Provider Active Start: September 04, 2024 [...] End: October 23, 2024 Adrien Klein NP, GANG PUSHER-C Attending Provider Active Start: October 23, 2024 End: October 23, 2024 Team Status: Inactive Member Role/Relationship Status Dates No Primary Care Physician Primary Care Provider Active Start: October 23, 2024 End: October 23, 2024 Adrien Klein GANG PUSHER, GANG PUSHER-C Attending Provider Active Start: October 23, 2024 End: October 23, 2024 Team Status: Inactive Member Role/Relationship Status Dates No Primary Care Physician Primary Care Provider Active Start: November 06, 2024 End: November 06, 2024 No Primary Care Physician Referring Provider Active Start: November 06, 2024 End: November 06, 2024 Adrien Klein NP, GANG PUSHER-C Attending Provider Active Start: November 06, 2024 [...] BE BASED ON THE PRIMARY CLINICAL RECORDS. [facility]. provides no warranty or guarantee of the accuracy or completeness of information in this document.
[2024-11-28] MEDS: Lactated Ringers 1,000 ML 999 ML IV (05:50)
[2024-11-28 06:03] LABS: Hematocrit 35.6 % (37-47); Hemoglobin 11.9 g/dL (12.0-15.0); Immature Granulocytes Count 0.100 X10^3/uL (0.0-0.0); Mean Corp Hgb Conc 33.4 g/dL (32-36); Mean Corpuscular Volume 82.8 fL (81-99); Mean Platelet Vol. 9.2 fl (6.2-12.0); NRBC Flagged by Analyzer 0 % (0-5); Platelet Count 307 K/mm3 (150-450); RBC Distribution Width CV 14.5 % (11.6-14.6); RBC Distribution Width SD 42.7 fl (35.1-43.9); Red Blood Count 4.30 M/mm3 (4.2-5.4); White Blood Count 10.7 K/mm3 (4.4-11.0)
[2024-11-28] MEDS: Lactated Ringers 1,000 ML 150 ML IV (06:55)
[2024-11-28 07:00] LABS: Syphilis Antibodies Nonreactive (Nonreactive)
[2024-11-28] MEDS: Lactated Ringers 1,000 ML 1000 ML IV (07:20)
[2024-11-28] MEDS: Gentamicin 800 MG/20 ML Vial 270 MG IV (07:45)
[2024-11-28] MEDS: Oxytocin 15 Units/NS 250ml 15 UNITS/250 ML IV.SOLN 83 UNITS IV (08:50)
[2024-11-28 08:53] LABS: Barbiturate Urine NEGATIVE (< 200 ng/mL); Benzodiazepine Urine NEGATIVE (< 200 ng/mL); PCP Urine NEGATIVE (< 25 ng/mL); THC Urine PRESUMPTIVE POSITIVE (< 50 ng/mL)
[2024-11-28] MEDS: Ketorolac 30 MG/ML Syringe IV ×3 (10:02→22:05)
[2024-11-28] MEDS: Lactated Ringers 1,000 ML 100 ML IV (12:01)
--- NOTE | 2024-11-28 12:24 | NURSING ---
unable to locate fundus with exam- pts pad changed and normal amount of lochia seen- no leaking of lochia while trying to locate fundus
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
--- NOTE | 2024-11-28 14:07 | EX.PCM.OBRPT ---
Assessment & Plan (1) Breech presentation: COMMENT: discussed options plan primary 11/28 . (2) delivery delivered: COMMENT: ltcs breech 39 boy leila Maternal Data Information JORJE Calculator Estimated Delivery Date Method Current WG Current Estimate 12/05/24 LMP (Certain) 39w 0d Other Estimates 12/02/24 Ultrasound #1 39w 3d Operative Report (OB) Procedure Details Date of Procedure: 11/28/24 Procedure Start Time: 07:57 Pre-Operative Diagnosis: Other Other Pre-Operative diagnosis: see a/p comments Post-Operative Diagnosis: Same as Pre-operative diagnosis Classification: Scheduled Type of Anesthesia: Spinal Special Medications: none Antibiotic Given: Ancef 3 grams IV x1 Drain: Meredith to straight drain Estimated Blood Loss: 400 Fluids Replaced: crystalloid Findings Description of surgery: Spinal anesthesia was placed without difficulty. Meredith catheter was placed. The patient was placed in the dorsal supine position with leftward tilt. Patient was prepped and draped in the normal sterile fashion. Pfannenstiel skin incision was made with the scalpel and carried through to the underlying layer of fascia with the scalpel. Fascia was nicked in the midline and the incision extended laterally. The rectus bellies were dissected off superiorly and inferiorly with out complication both sharply and bluntly. The peritoneum was entered digitally. The incision was stretched and a low transverse uterine incision was made with the scalpel. The buttox was delivered atraumatically and the right and left legs were swept anteriorly and delivered, followed by the body and the arms which were swept anteriorly and delivered. Gentle traction was placed on the mentum to flex the head which was delivered without complication. The cord was clamped and cut and the was handed off to awaiting nurse. The placenta was delivered spontaneously immediately following and was noted to be intact and have a three-vessel cord. The uterus was exteriorized cleared of all clots and debris, and the incision was closed in a single layer closure using #1 Monocryl. The ovaries and fallopian tubes were noted to be within normal limits. The uterus was returned to the maternal abdomen and gutters were cleared of all clots and debris. The peritoneum was closed with 3-0 Monocryl in a running fashion. Gloves were changed prior to fascial closure. Fascia was closed with 0 PDS in a running fashion. Subcutaneous tissue was copiously irrigated and the skin was closed with 3-0 Monocryl in a subcuticular fashion. Mepilex dressing was applied without complication. Patient was taken to recovery in stable condition. It was discussed with the patient that based on the clinical information obtained during this encounter, combined with her history, at this time I would recommend vaginal or for future deliveries if further pregnancies are desired. Surgical findings: breech Amniotic Membrane Rupture Type: Artificial Amniotic Fluid Description: Clear Specimen collected: Yes Description of specimen(s) removed: Placenta Cord Vessel Description: 3 Vessels Delayed Cord Clamping: Yes Behavioral Interventionist cloth winding supervisor: Yes Rotary Swaging Machine Operator: Hoa Lynne Tasks completed by school psychologist assistant: Opening & closing, Retracting and Other (Assisting with delivery of the infant) Additional certified physical therapist assistant?: No Complications Complications: No Admit VTE Documentation VTE Present on Admission: No VTE Mechan Device Prophylaxis: SCD's Procedures Urinary/Genital [id number]: [id number] delivery+PP Care([facility])
[2024-11-28] MEDS: 0.9% Saline Lock 10 ML Syringe IV ×2 (15:02→15:57)
--- NOTE | 2024-11-28 18:43 | DCINST_ITS ---
Discharge Instructions DC O2, CPAP, BIPAP needs Home O2 Discharge instructions: No Dressing / Incision Discharge Activity: May Not Drive (for 2 weeks or while taking narcotic pain medications.), May Shower and May Take a Tub Bath (in 7 days) May shower in (days): 0 May resume sexual activity in: 4-6 weeks Weight Bearing Status: Full weight bearing Lifting Restrictions: 20 pounds Dressing / Incision Call your doctor if your incision/area has: Continuous Slow Oozing, Sudden Increased Bleeding, Increased Pain/ Swelling, Increased Redness and Foul Smelling Discharge Call your doctor if you observe: Fever of 101 or Higher and Using more than 1 pad per hour (for 2 hours) Suture Line Care: Avoid Pulling/Pushing and Avoid Pinching/Bending Cleanse incision/area with: Soap & Water and Keep Dressing Clean & Dry Follow Up Care Please Follow Up With: Nallely Barksdale MD When: Call [phone] to make an appointment for an incision check in 1-2 weeks. Test Results: Test results from this visit will be discussed in further detail at your follow- up appointment, if applicable. Discharge Plan Admission Admit Date/Time: 11/28/24 05:27 Attending Provider: Nallely Barksdale Primary Care Provider: Care Physician,Maggy Primary Discharge Orders/Prescriptions Prescriptions: New oxycodone-acetaminophen [Percocet] 5-325 mg tablet 1 tab PO Q4H PRN (Reason: pain) 7 Days Qty: 20 0RF naproxen 500 mg tablet 500 mg PO BID PRN PRN (Reason: Pain) Qty: 30 1RF No Action mv-mn [id number] 180 mcg-35 mg- 25 mg-5 mg tablet,chewable 1 tab PO DAILY famotidine 20 mg tablet 20 mg PO BID Qty: 60 3RF ondansetron 4 mg tablet,disintegrating 4 mg PO Q6H PRN (Reason: nausea and vomiting) Qty: 14 0RF ferrous sulfate [Feosol] 325 mg (65 mg iron) tablet 325 mg PO DAILY Referrals / Follow Up: Care Physician,No Primary [Primary Care Provider, Medical]
[2024-11-29 00:25] VITALS: BP 112/75; PULSE 85; RESP 14; TEMP 36.3; O2SAT 99
[2024-11-29] MEDS: Ketorolac 30 MG/ML Syringe IV (04:05)
[2024-11-29] MEDS: 0.9% Saline Lock 10 ML Syringe IV (04:05)
[2024-11-29 04:07] VITALS: BP 118/68; PULSE 57; RESP 14; TEMP 36.9; O2SAT 98
[2024-11-29 06:38] LABS: Hematocrit 38.2 % (37-47); Hemoglobin 12.7 g/dL (12.0-15.0); Mean Corp Hgb Conc 33.2 g/dL (32-36); Mean Corpuscular Volume 82.0 fL (81-99); Mean Platelet Vol. 8.6 fl (6.2-12.0); Platelet Count 310 K/mm3 (150-450); RBC Distribution Width CV 14.5 % (11.6-14.6); RBC Distribution Width SD 42.3 fl (35.1-43.9); Red Blood Count 4.66 M/mm3 (4.2-5.4); White Blood Count 12.7 K/mm3 (4.4-11.0)
--- NOTE | 2024-11-29 07:51 | PCM.PN.OB ---
Subjective Subjective Patient doing well without complaints. Tolerating PO. Ambulating and voiding without difficulty. Feeding well. Denies chest pain, shortness of breath, calf pain/swelling, fevers, chills, lightheadedness. Objective Data Objective Data Vital Signs: Vital Signs Temp Pulse Resp BP Pulse Ox O2 Del Method 98.4 F 57 L 14 118/68 98 Room Air 11/29/24 04:07 11/29/24 04:07 11/29/24 04:07 11/29/24 04:07 11/29/24 04:07 11/29/24 04:07 Oxygen Delivery Method Room Air Weight: 293 lb Body Mass Index (BMI) 50.3 Intake & Output: Intake and Output for Last 24 Hours 11/27/24 11/28/24 11/29/24 23:59 23:59 23:59 Intake Total 1985.5 / 1985.5 Output Total 1300 / 1300 Balance 685.5 / 685.5 Lab / Micro Data 11/29/24 06:30 Labs: Laboratory Results - last 24 hr 11/28/24 05:45: Urine Opiates Screen NEGATIVE, U Buprenorphine Qual NEGATIVE, Ur Oxycodone Screen NEGATIVE, Urine Methadone Screen NEGATIVE, Urine Fentanyl Screen NEGATIVE, Ur Barbiturates Screen NEGATIVE, Ur Phencyclidine Scrn NEGATIVE, Ur Amphetamines Screen NEGATIVE, U Benzodiazepines Scrn NEGATIVE, Urine Cocaine Screen NEGATIVE, U Cannabinoids Screen PRESUMPTIVE POSITIVE 11/29/24 06:30: WBC 12.7 H, RBC 4.66, Hgb 12.7, Hct 38.2, MCV 82.0, MCH 27.3, MCHC 33.2, RDW Std Deviation 42.3, RDW Coeff of Juni 14.5, Plt Count 310, MPV 8.6 Physical Exam Const alert and oriented x3 HEENT normocephalic Eyes PERRL Neck full ROM Resp normal respiratory effort GI soft to palpation GI Narrative: FF below U. Dressing dry and intact Palpation: tender other (appropriately) Assessment & Plan (1) delivery delivered: COMMENT: sm ltcs breech 39 boy sigtrygger PLAN: Plan s/p LTCS PPD # 1 1. routine post care 2. bottle feeding- support given 3. rh positive 4. rubella immune
[2024-11-29 08:16] VITALS: BP 128/77; PULSE 59; RESP 16; TEMP 36.9; O2SAT 100
[2024-11-29] MEDS: Senna/Docusate Sodium 1 Tablet PO (10:14)
[2024-11-29 14:21] VITALS: BP 124/84; PULSE 66; RESP 16; TEMP 36.9; O2SAT 100
[2024-11-29 20:12] VITALS: BP 140/91; PULSE 65; RESP 16; TEMP 36.6; O2SAT 98
[2024-11-30 02:00] VITALS: BP 131/75; PULSE 66; RESP 18; TEMP 36.5; O2SAT 97
[2024-11-30 08:00] VITALS: BP 128/81; PULSE 62; RESP 18; O2SAT 98
--- NOTE | 2024-11-30 09:32 | PCM.DC.SUM ---
Providers Date of Admission: 11/28/24 Primary Care Physician: No Primary Care Phys Reason For Visit: PRIMARY C SECTION Diagnosis Discharge Diagnosis (1) delivery delivered: Status: Acute Code(s): O82 - Encounter for delivery without indication Medications at Discharge Home Medications mv-mn 110-FA 180 mcg-om3 35 mg-dha 25 mg-epa 5 mg-fish oil chew tablet 1 tab PO DAILY 05/22/24 ferrous sulfate 325 mg (65 mg iron) tablet (Feosol) 325 mg PO DAILY ANEMIA 06/29/24 famotidine 20 mg tablet 20 mg PO BID HEARTBURN #60 tabs 09/25/24 ondansetron 4 mg disintegrating tablet 4 mg PO Q6H PRN nausea and vomiting #14 tabs 11/20/24 naproxen 500 mg tablet 500 mg PO BID PRN PRN Pain #30 tabs 11/28/24 oxycodone-acetaminophen 5 mg-325 mg tablet (Percocet) 1 tab PO Q4H PRN pain 7 days #20 tabs 11/28/24 Hospital Course Operations None and section Summary of Care Provided Minutes Spent on Discharge: 30 Hospital Course: The patient was admitted for a primary section with Dr. Barksdale on 11/28/24.There were no complications. On day #1 she was tolerating pain well and ambulating, on day #2 she was ready for discharge. Physical Exam HEENT normocephalic Resp normal respiratory effort and normal air movement GI soft to palpation, non-tender and non-distended Rectal Exam: other Other Details: Incision is clean, dry, and intact no CVA tenderness Extremity normal to inspection General Extremity: edema bilateral (trace ) Weight / BMI Weight Weight: 293 lb Body Mass Index (BMI) 50.3 ABG / Lab / Microbiology Data 11/29/24 06:30 D/C Instructions May shower in (days): 0 May resume sexual activity in: 4-6 weeks Weight Bearing Status: Full weight bearing Call your doctor if your incision/area has: Continuous Slow Oozing, Sudden Increased Bleeding, Increased Pain/ Swelling, Increased Redness and Foul Smelling Discharge Call your doctor if you observe: Fever of 101 or Higher and Using more than 1 pad per hour (for 2 hours) Suture Line Care: Avoid Pulling/Pushing and Avoid Pinching/Bending Cleanse incision/area with: Soap & Water and Keep Dressing Clean & Dry DC O2, CPAP, BIPAP Needs Home O2 Discharge instructions: No Please Follow Up With: Nallely Barksdale MD When: Call [phone] to make an appointment for an incision check in 1-2 weeks. Meaningful Use Info Meaningful Use Meaningful Use Diagnoses (Choose all that apply): None applicable Discharge Plan Admission Admit Date/Time: 11/28/24 05:27 Primary Reason for Your Visit: section Attending Provider: Nallely Barksdale Primary Care Provider: Care Maggy Julian Primary Discharge Orders/Prescriptions Prescriptions: New oxycodone-acetaminophen [Percocet] 5-325 mg tablet 1 tab PO Q4H PRN (Reason: pain) 7 Days Qty: 20 0RF naproxen 500 mg tablet 500 mg PO BID PRN PRN (Reason: Pain) Qty: 30 1RF No Action mv-mn [id number] 180 mcg-35 mg- 25 mg-5 mg tablet,chewable 1 tab PO DAILY famotidine 20 mg tablet 20 mg PO BID Qty: 60 3RF ondansetron 4 mg tablet,disintegrating 4 mg PO Q6H PRN (Reason: nausea and vomiting) Qty: 14 0RF ferrous sulfate [Feosol] 325 mg (65 mg iron) tablet 325 mg PO DAILY Referrals / Follow Up: Care Physician,Maggy Primary [Primary Care Provider, Medical] Disposition Disposition (needs filled in before D/C Order can be placed): Home, Self Care
[2024-11-30 09:43] VITALS: TEMP 36.7
[2024-11-30] MEDS: Senna/Docusate Sodium 1 Tablet PO (09:56)
--- NOTE | 2024-11-30 10:30 | CASEMGMT ---
Social Work Assessment Labor and Delivery Unit Patient Address: [facility] Annia Davalos [address] [place] [address] Phone number: [phone] Date of Referral: 11/28/24 Time of Referral: 1121 Referred By: Dr. Dudley Date of Intervention: 11/29/24 Time of Intervention: 1420 Reason for Referral: "THC use, has medical card" Sw completed chart review and acknowledges social work consult due to maternal use of THC, possibly has medical card. Sw presented to bedside and introduced self to mother of baby (BOSTON Woodruff). Sw explained reason for sw involvement and completed psychosocial assessment. History obtained from: medical records, MOB Household composition: TERRY states that family currently resides in a trailer which she and father of baby (MITA- Reji Tabor) rent. Residing in trailer is MOB, MITA, TERRY's two older children: Ann (7), Azam (5), MOB and MITA's daughter: Frank (1). baby to be included in residence when ready for discharge. MOB denies any problems or concerns with where they reside stating that it is safe and secure. Patient's parent/guardian status: TERRY states that she and MIAT have been in a romantic relationship for 3 years, but have known each other since attending high school together. TERRY denies experiencing domestic violence between herself and MITA or intimate partner violence. - TERRY states that the father's from her older children have been supportive in providing childcare while she has been admitted to labor and delivery. Medical History: TERRY is 24 year old female who is 4, para 3- now 4 following labor and delivery of . TERRY received routine care during with [place]. TERRY presented to hospital and delivered baby via due to baby with breech presentation. Baby was born on 11/28/24 at 39 weeks gestation. Baby boy, named Imer, was born weighing 7lb 1oz and had apgars of 9 and 9 at one and five minutes of life, respectfully TERRY is bottle feeding and states that baby will be followed by Dr. Bailey for pediatric care. Educational Status: Both parents graduated from high school. No problems reported with reading, learning or comprehension. Financial Status: Both parents are gainfully employed outside of the home. 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 Supplies: All necessary baby supplies obtained, including: car seat, safe sleep space, clothes, diapers and wipes. Childcare/Caregiver(s): TERRY will be the primary caregiver to baby, along with MITA when he is not working. Parents report that they work alternating shifts so that one of them is always able to be with the children. Transportation: Both parents have their drivers license and reliable means of transportation, no barriers. Programs/Agencies Involved: TERRY is connected to insurance and food benefits through [employer]. She is also receiving WIC. Erma educated TERRY to childcare assistance called Title [employer]. Children Services/Legal Issues: TERRY states that she has had open cases with children services in the past, made by ex- partners who she states "were being vindictive". MOB states that the cases were not substantiated and they were closed. - Erma informed TERRY that erma is mandated to make referral to [facility] as part of [employer] Act due to intrauterine drug exposure due to maternal use of THC use during . TERRY expressed understanding. Behavioral Health Issues: Mental Health History: MITA denies mental health history or diagnoses. TERRY states that she has been diagnosed with anxiety, depression and history of depression, which includes including suicidality which resulted in an inpatient hospitalization. TERRY states that during this current she felt really good. TERRY reports that she feels that she has matured and has learned how to parent and navigate her mental health needs and triggers. TERRY reports that following her first delivery she really struggled navigating becoming a mom for the first time, and did not have a lot of support from her baby's father. MOB states at that time she did experience thought of self harm which resulted in an inpatient hospitalization. TERRY states that she believes that hospitalization did help her, as it taught her coping skills that she continues to use to this day. TERRY states that she is also connected to a mental health professional that she has seen for many years (Hector Galeano at [facility]). TERRY reports that there are times where she feels over stimulated with her children and as a result she will tend to smoke THC or vape, and that helps to release some of her tension or anxiety. MOB states that she also enjoys spending time outside. MOB states that since baby she has felt happy and denies feeling down, sad, anxious or depressed. Substance Use History: TERRY reports that she did use THC vape during this . She historically had a medical card, but it has since lapsed and she has not gotten it renewed. MOB states that her use is typically once or twice a day here and there. Family History: MOB informs sw that her mother has a history of BiPolar disorder. Drug Screens: Maternal and baby urine toxicology screen is presumptive positive and the meconium screen is still pending. Family/Social Stressors: MOB denies any issues, stressors or concerns at this time. Support Systems: TERRY reports that FOB, her mom and her counselor are her biggest supports. Depression/Shaken Baby/Safe Sleeping: Sw educated MOB on signs and symptoms of baby blues and depression and anxiety. Sw explained that due to MOB mental health history she is more at risk for experiencing these symptoms during this period. Sw also explained that due to maternal grandmother having diagnosis of BiPolar MOB is also at risk for experiencing psychosis, and MOB expresses understanding. MOB reports to feeling good at this time, and was observed holding baby, smiling at him and rocking him appropriately. MOB states that she talks to her counselor regularly, and is also able to text him if she has an emergency. MOB states that if she were to struggle, FOB is also a good help for her and he helps her calm down and "balances" her out. Sw also educated MOB on using healthy and safe coping skills to manage her mental health status and not seeking comfort from drugs or alcohol, MOB expressed understanding. Sw reviewed ABCs of safe sleep, and shaken baby prevention, MOB expressed understanding. ASSESSMENT: Sw met with MOB mostly and then FOB towards end of conversation in room following labor and delivery of . Sw introduced self and sw role to parents. MOB was engaging and talkative while conversing with sw. Conversation flowed easily and naturally. MOB was holding baby throughout conversation, he was asleep throughout duration of assessment. MOB and sw discussed maternal mental health history, reviewed symptoms to be mindful of, and encouraged ongoing linkage to MOB counselor. MOB made and maintained good eye contact throughout conversation. MOB expressed understanding of need for sw to make referral to Children Services due to her THC use during . Safe Plan of Care for related to substance use: MOB states that she does not have a medical card at this time, and does not plan on getting one as marijuana is now legal, and reports that it is not marijuana that she uses, but the THC oil from the vape shop that she puts in her vape pen. TERRY states that she does not use substances in her home or around her children, and they are kept out of reach of her children in a locked space. TERRY states that she is never under the influence of substances, typically takes "one or two hits" to take the edge off, which makes her more calm at times when she feels anxious or over stimulated. MOB states that she feels more at ease to care for her children and FOB is always around. Safe Plan of Care for related to substance use: TERRY states that she does intend to smoke THC oil at the continued use as before. TERRY reports that her use is a couple of times a day here or there, not continuously or even daily. TERRY states that she keeps her THC oil and vape pens locked up and out of reach from her children, and does not smoke in the home. TERRY states when she does vape FOB is home and assists with childcare, however MOB reports that her vape/ THC use does not impede her ability to care for her children. Ongoing education provided. PLAN: No other services requested or indicated. MOB and baby to be discharged when medically ready. Parents were provided literature regarding: signs and symptoms of baby blues and mood and anxiety disorders, Help Me Grow, shaken baby prevention, ABCs of safe sleep and a list of county resources that are available for them should any needs present themselves. Gee Knight, [employer], [employer]
== END 2024-11-30 11:55 | disposition home or self-care (01) | DRG 540 ==
PROVIDERS: Admitting Provider Obstetrics & Gynecology; Visit Provider Obstetrics & Gynecology
PROC: 10D00Z1 Extraction of Products of Conception, Low, Open Approach (ICD-10-PCS; CPT 59514; principal; 2024-11-28 07:00)
DX: O32.1XX0 Maternal care for breech presentation, not applicable or unspecified (principal); O99.214 Obesity complicating childbirth; F17.290 Nicotine dependence, other tobacco product, uncomplicated; F32.A Depression, unspecified; F41.9 Anxiety disorder, unspecified; O99.334 Smoking (tobacco) complicating childbirth; O99.344 Other mental disorders complicating childbirth; Z79.899 Other long term (current) drug therapy; Z3A.39 39 weeks gestation of pregnancy; Z37.0 Single live birth; Z86.59 Personal history of other mental and behavioral disorders
CPT/HCPCS: 59025; 59050; 80307; 85025; 85027; 86780; 86850; 86900; 86901; 99221; A4216; G0378; J2405

== ENCOUNTER → 2025-01-09 | Outpatient (CLI) | payer MEDICAID, SELFPAY ==
--- OUTSIDE RECORDS SUMMARY | 2025-01-09 18:21 | XMS RPT_ITS | CCD ---
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 content not included)... Normal [facility] Platelet countOrdered By: Gavin Lara on 05-28-2024 Platelets (Bld) [#/Vol] 268 10*3/uL 150-450 [facility] RBC Auto (Bld) [#/Vol]Ordere d By: Simi Lara on 05-28-2024 RBC (Bld) [#/Vol] 4.72 10*6/uL 4.2-5.4 [facility] Rubella immune status determ ination by IgG antibody assayOrdered By: Simi Lara on 05-28-2024 Rubella IgG Antibody REAC Nonreactive [facility] Comment on above: Antibody Result: Int erpretationNon-Reactive: Non-ImmuneReactive: ImmuneThe following results were obtained with the [employer] Rubella IgG assay. Results from assays of other manufacturers cannot be used interchangeably. Service comment (Unsp spec) [Interp]Ordered By: Simi Lara on 05-28-2024 Pap Smear Comment (3) . . [facility] T. pallidum abOrdered By: Gavin Lara on 05-28-2024 Syphilis Total Antibody Non-Reactive Nonreactive [facility] T4 Free Directon 05-28-2024 T4 FREE DIRECT 0.90 ng/dL Normal 0.76-1.46 [facility] Comment on above: Order Comment: NIPT with Gender Performed By: #### L 501.4405, L501.0900, L501.4100, L100.0500, L501.1400, L501.1105 #### [facility] [address] [place], [place], [address] T4 freeOrdered By: Simi lilly on 05-28-2024 Free T4 [Mass/Vol] 0.90 ng/dL 0.76-1.46 [facility] TSH DL <= 0.005 mIU/L QnOrde red By: Simi Lara on 05-28-2024 Thyroid Stimulating Hormone (TSH) 1.310 uIU/mL 0.300-4.200 [facility] TSH Qn 1.310 uIU/mL 0.300-4.200 [facility] Thyroid Stim Hormone (TSH)on 05-28-2024 TSH 1.310 uIU/mL Normal 0.300-4.200 [facility] Comment on above: Performed By: #### L 501.4405, L501.0900, L501.4100, L100.0500, L501.1400, L501.1105 #### [facility] [address] [place], [place], [address] Type AND Screenon 05-28-2024 ABO and Rh group Nom (Bld) Blood group O Rh(D) positive Normal [facility] Comment on above: Order Comment: PN Performed By: #### L 501.4405, L501.0900, L501.4100, L100.0500, L501.1400, L501.1105 #### [facility] [address] [place], [place], [id number] Urine cultureOrdered By: Víctor Lara on 05-28-2024 Bacteria identified Cx Nom (U) Culture exhibits no growth. [facility] White blood cell (WBC) count Ordered By: Simi Lara on 05-28-2024 WBC (Bld) [#/Vol] 9.9 10*3/uL 4.4-11.0 [facility] Absolute lymphocyte countOrd ered By: Adrien Klein on 06-30-2023 Lymphocytes Auto (Unsp spec) [#/Vol] 2.30 10*3/uL 0.83-4.51 [facility] Automated lymphocyte count a s percentage of total leukocytesOrdered By: Adrien Klein on 06-30-2023 Lymphocytes/100 WBC Auto (Unsp spec) 27.0 % 19-41 [facility] Basophil percentageOrdered B y: Adrien Klein on 06-30-2023 Basophils/100 WBC (Bld) 0.7 % 0-1 [facility] Eosinophils/100 WBC (Bld) 1.5 % 0-5 [facility] Hemoglobin (Bld) [Mass/Vol] 11.0 g/dL 12.0-15.0 [facility] Monocytes/100 WBC (Bld) 7.9 % 0-10 [facility] Neutrophils (Bld) [#/Vol] 5.2 10*3/uL 2.0-7.7 [facility] Neutrophils/100 WBC (Bld) 61.3 % 47-70 [facility] WBC (Bld) [#/Vol] 8.5 10*3/uL 4.4-11.0 [facility] Determination of erythrocyte mean corpuscular volume (MCV)Ordered By: Adrien Klein on 06-30-2023 MCV (RBC) [Entitic vol] 82.9 fL 81-99 [facility] Erythrocyte distribution wid th ratioOrdered By: Adriennichole Klein on 06-30-2023 Erythrocyte distribution width (RBC) [Ratio] 15.8 % 11.6-14.6 [facility] Erythrocyte distribution wid th standard deviationOrdered By: Adriennichole Klein on 06-30-2023 Erythrocyte distribution width (RBC) [Entitic vol] 47.5 fL 35.1-43.9 [facility] Hematocrit Auto (Bld) [Volum e fraction]Ordered By: Adriennichole Klein on 06-30-2023 Hematocrit (Bld) [Volume fraction] 34.9 % 37-47 [facility] Immature granulocytes/100 WB C Auto (Bld)Ordered By: Adriennichole Klein on 06-30-2023 Immature granulocytes/100 WBC (Bld) 1.600 % 0.0-0.9 [facility] Comment on above: IG% - Immature Granu locytes (promyelocytes, myelocytes and metamyelocytes) > 1% indicates that a LEFT SHIFT is Present. Laboratory - Hematology and Cell countsOrdered By: Adrien Klein on 06-30-2023 MCH (RBC) [Entitic mass] 26.1 pg 27.0-32.0 [facility] MCHC (RBC) [Mass/Vol] 31.5 g/dL 32-36 [facility] Nucleated RBC/100 WBC (Bld) [Ratio] 0 % 0-5 [facility] Platelet mean volume (Bld) [Entitic vol] 8.3 fL 6.2-12.0 [facility] Platelets (Bld) [#/Vol] 229 10*3/uL 150-450 [facility] RBC Auto (Bld) [#/Vol]Ordere d By: Adrien Klein on 06-30-2023 RBC (Bld) [#/Vol] 4.21 10*6/uL 4.2-5.4 [facility] Laboratory - Chemistry and C hemistry - challengeon 06-27-2023 Glucose Ql (U) Negative [facility] Laboratory - Urinalysison Protein Ql (U) Negative [facility] Qualitative QuantiFERON-TB g old in tube testOrdered By: Pablito Grossman on 06-15-2023 M. tuberculosis tuberculin stim IFN-g Ql (Bld) 0.06 IU/mL . [facility] Thin prep Papanicolaou smear with manual screeningOrdered By: Pablito Grossman on 06-15-2023 Thin prep Papanicolaou smear with manual screening Comment . [facility] Comment on above: QuantiFERON-TB Gold [...] smear with manual screening 0.05 IU/mL . [facility] Thin prep Papanicolaou smear with manual screening 7.70 IU/mL . [facility] Thin prep Papanicolaou smear with manual screening Negative Negative [facility] Comment on above: No response [...] the productionof interferon gamma. Chemiluminescence immunoassaymethodologyPerformed at: [facility] [address] [id number] Director: Brian Alvarado PhD, Phone: [phone] Laboratory - Chemistry and C hemistry - challengeon 05-30-2023 Glucose Ql (U) Negative [facility] Laboratory - Urinalysison Protein Ql (U) Negative [facility] Absolute lymphocyte countOrd ered By: Simi Lara on 05-18-2023 Lymphocytes Auto (Unsp spec) [#/Vol] 2.59 10*3/uL 0.83-4.51 [facility] Automated lymphocyte count a s percentage of total leukocytesOrdered By: Simi Lara on 05-18-2023 Lymphocytes/100 WBC Auto (Unsp spec) 21.4 % 19-41 [facility] Basophil percentageOrdered B y: Simi Lara on 05-18-2023 Basophils/100 WBC (Bld) 0.8 % 0-1 [facility] Eosinophils/100 WBC (Bld) 1.4 % 0-5 [facility] Hemoglobin (Bld) [Mass/Vol] 10.4 g/dL 12.0-15.0 [facility] Monocytes/100 WBC (Bld) 7.9 % 0-10 [facility] Neutrophils (Bld) [#/Vol] 8.0 10*3/uL 2.0-7.7 [facility] Neutrophils/100 WBC (Bld) 66.0 % 47-70 [facility] WBC (Bld) [#/Vol] 12.1 10*3/uL 4.4-11.0 [facility] Basophil percentageOrdered B y: Darling Tabor on 05-18-2023 Bilirubin [Mass/Vol] 0.30 mg/dL 0.20-1.00 [facility] Comment on above: For patients on eltr ombopag therapy, use of Dimension [place] TBIL is not recommended. Chloride [Moles/Vol] 105 mmol/L 98-107 [facility] Glucose [Mass/Vol] 109 mg/dL 74-106 [facility] Comment on above: Fasting Glucose resu lt from 100 to 125 mg/dL suggests IMPAIRED HOMEOSTASIS per A.D.A. criteria. Potassium [Moles/Vol] 3.5 mmol/L 3.5-5.1 [facility] Protein [Mass/Vol] 6.5 g/dL 6.4-8.2 [facility] Sodium [Moles/Vol] 136 mmol/L 136-145 [facility] Determination of erythrocyte mean corpuscular volume (MCV)Ordered By: Simi Lara on 05-18-2023 MCV (RBC) [Entitic vol] 81.8 fL 81-99 [facility] Erythrocyte distribution wid th ratioOrdered By: Simi Lara on 05-18-2023 Erythrocyte distribution width (RBC) [Ratio] 13.4 % 11.6-14.6 [facility] Erythrocyte distribution wid th standard deviationOrdered By: Simi Lara on 05-18-2023 Erythrocyte distribution width (RBC) [Entitic vol] 40.1 fL 35.1-43.9 [facility] Gestational diabetes screen 1-hour screen with 50g oral glucose loadOrdered By: Simi Lara on 05-18-2023 Glucose 1 Hr post 50 g glucose PO [Mass/Vol] 109 mg/dL 70-140 [facility] HIV 1 and HIV-2 antibody ass ay with HIV-1 p24 antigen detectionOrdered By: Simi Lara on 05-18-2023 HIV 1+2 Ab+HIV1 p24 Ag IA Ql Non-Reactive Nonreactive [facility] Hematocrit Auto (Bld) [Volum e fraction]Ordered By: Simi Lara on 05-18-2023 Hematocrit (Bld) [Volume fraction] 32.7 % 37-47 [facility] Immature granulocytes/100 WB C Auto (Bld)Ordered By: Simi Lara on 05-18-2023 Immature granulocytes/100 WBC (Bld) 2.500 % 0.0-0.9 [facility] Comment on above: IG% - Immature Granu locytes (promyelocytes, myelocytes and metamyelocytes) > 1% indicates that a LEFT SHIFT is Present. Laboratory - Chemistry and C hemistry - challengeon 05-18-2023 Glucose Ql (U) Negative [facility] Laboratory - Chemistry and C hemistry - challengeOrdered By: Darling Tabor on 05-18-2023 Albumin/Globulin [Mass ratio] 0.6 {ratio} 0.9-2.4 [facility] ALP [Catalytic activity/Vol] 65 U/L 45-117 [facility] ALT [Catalytic activity/Vol] 21 U/L 13-56 [facility] CO2 [Moles/Vol] 24.0 mmol/L 21.0-32.0 [facility] Globulin (S) [Mass/Vol] 4.0 g/dL 2.2-4.2 [facility] Urea nitrogen/Creatinine [Mass ratio] 18.5 mg/mg 10-20 [facility] Laboratory - Hematology and Cell countsOrdered By: Simi Lara on 05-18-2023 MCH (RBC) [Entitic mass] 26.0 pg 27.0-32.0 [facility] MCHC (RBC) [Mass/Vol] 31.8 g/dL 32-36 [facility] Nucleated RBC/100 WBC (Bld) [Ratio] 0 % 0-5 [facility] Platelet mean volume (Bld) [Entitic vol] 8.5 fL 6.2-12.0 [facility] Platelets (Bld) [#/Vol] 246 10*3/uL 150-450 [facility] Laboratory - Urinalysison Protein Ql (U) Negative [facility] No Panel InformationOrdered By: Darling Tabor on 05-18-2023 Estimated GFR (MDRD) Amer 159 mL/min >60 [facility] Comment on above: GFR Calc Estimated GFR (MDRD) Non-Af Amer 131 mL/min >60 [facility] Comment on above: Non- GFR Calc RBC Auto (Bld) [#/Vol]Ordere d By: Simi Lara on 05-18-2023 RBC (Bld) [#/Vol] 4.00 10*6/uL 4.2-5.4 [facility] Serum Treponema species anti body detectionOrdered By: Simi Lara on 05-18-2023 Treponema sp Ab Ql (S) Non-Reactive [facility] Serum or plasma calcium hudson urement (mass/volume)Ordered By: Darling Tabor on 05-18-2023 Calcium [Mass/Vol] 8.4 mg/dL 8.5-10.1 [facility] Serum or plasma creatinine m easurement (mass/volume)Ordered By: Darling Tabor on 05-18-2023 Creatinine [Mass/Vol] 0.59 mg/dL 0.55-1.02 [facility] Comment on above: The validity of the calculated GFR & GFRAA in patients over 70 years has not been determined. Clinical correlation is essential. Serum or plasma urea nitroge n measurement (mass/volume)Ordered By: Darling Tabor on 05-18-2023 Urea nitrogen [Mass/Vol] 11 mg/dL 7-18 [facility] Thin prep Papanicolaou smear with manual screeningOrdered By: Darling Tabor on 05-18-2023 Thin prep Papanicolaou smear with manual screening 2.5 g/dL 3.2-5.0 [facility] Thin prep Papanicolaou smear with manual screening 15 U/L 15-37 [facility] Thin prep Papanicolaou smear with manual screening 7 5-15 [facility] Basophil percentageOrdered B y: Darling Tabor on 05-06-2023 Basophil percentage 5-10 SEEN /hpf 0-5 [facility] Bilirubin [Mass/Vol] 0.30 mg/dL 0.20-1.00 [facility] Comment on above: For patients on eltr ombopag therapy, use of Dimension [place] TBIL is not recommended. Chloride [Moles/Vol] 108 mmol/L 98-107 [facility] Glucose [Mass/Vol] 92 mg/dL 74-106 [facility] Potassium [Moles/Vol] 3.4 mmol/L 3.5-5.1 [facility] Protein [Mass/Vol] 6.5 g/dL 6.4-8.2 [facility] Sodium [Moles/Vol] 135 mmol/L 136-145 [facility] Bilirubin Test strip Ql (U)O rdered By: Darling Tabor on 05-06-2023 Bilirubin Ql (U) 1 mg/dL Negative [facility] Comment on above: COLOR OF URINE MAY A FFECT DIPSTICK RESULTS. Ketones Test strip Ql (U)Ord ered By: Darling Tabor on 05-06-2023 Ketones Ql (U) 150 mg/dl Negative [facility] Comment on above: CRITICAL VALUE *HCRI TICAL VALUE VERIFIED. CALLED TO PAYAM MURPHY (WP)05/06/23 1318 Eber Fong.RESULTS READ BACK BY SAME. Laboratory - Chemistry and C hemistry - challengeOrdered By: Darling Tabor on 05-06-2023 Albumin/Globulin [Mass ratio] 0.6 {ratio} 0.9-2.4 [facility] ALP [Catalytic activity/Vol] 71 U/L 45-117 [facility] ALT [Catalytic activity/Vol] 37 U/L 13-56 [facility] CO2 [Moles/Vol] 20.0 mmol/L 21.0-32.0 [facility] Globulin (S) [Mass/Vol] 4.0 g/dL 2.2-4.2 [facility] Urea nitrogen/Creatinine [Mass ratio] 15.2 mg/mg 10-20 [facility] Mucus LM Ql (Urine sed)Order ed By: Darling Tabor on 05-06-2023 Mucus Ql (Urine sed) 0 SEEN /hpf [facility] Nitrite Test strip Ql (U)Ord ered By: Darling Tabor on 05-06-2023 Nitrite Ql (U) Negative Negative [facility] No Panel InformationOrdered By: Darling Tabor on 05-06-2023 Estimated Creatinine Clearance Calc 189.25 ml/min [facility] Estimated GFR (MDRD) Amer 182 mL/min >60 [facility] Comment on above: GFR Calc Estimated GFR (MDRD) Non-Af Amer 151 mL/min >60 [facility] Comment on above: Non- GFR Calc Urine RBC 0 SEEN /hpf 0-5 [facility] Protein Test strip Ql (U)Ord ered By: Darling Tabor on 05-06-2023 Protein Ql (U) 30 mg/dl Negative [facility] Serum or plasma calcium hudson urement (mass/volume)Ordered By: Darling Tabor on 05-06-2023 Calcium [Mass/Vol] 8.0 mg/dL 8.5-10.1 [facility] Serum or plasma creatinine m easurement (mass/volume)Ordered By: Darling Tabor on 05-06-2023 Creatinine [Mass/Vol] 0.53 mg/dL 0.55-1.02 [facility] Comment on above: The validity of the calculated GFR & GFRAA in patients over 70 years has not been determined. Clinical correlation is essential. Serum or plasma urea nitroge n measurement (mass/volume)Ordered By: Darling Tabor on 05-06-2023 Urea nitrogen [Mass/Vol] 8 mg/dL 7-18 [facility] Squamous epithelial cells de tection in urine sediment by light microscopyOrdered By: Darling Tabor on 05-06-2023 Epithelial cells.squamous LM Ql (Urine sed) 0-5 SEEN /hpf 5-10 [facility] Thin prep Papanicolaou smear with manual screeningOrdered By: Darling Tabor on 05-06-2023 Thin prep Papanicolaou smear with manual screening 2.5 g/dL 3.2-5.0 [facility] Thin prep Papanicolaou smear with manual screening 42 U/L 15-37 [facility] Thin prep Papanicolaou smear with manual screening 7 5-15 [facility] Urine blood detectionOrdered By: Darling Tabor on 05-06-2023 RBC Ql (U) Negative Negative [facility] Urine clarityOrdered By: Yuli Tabor on 05-06-2023 Clarity (U) Sl. Cloudy Clear [facility] Urine color determinationOrd ered By: Darling Tabor on 05-06-2023 Color (U) Yellow Yellow [facility] Urine glucose detectionOrder ed By: Darling Tabor on 05-06-2023 Glucose Ql (U) Normal mg/dl Normal [facility] Urine leukocyte esterase det ection by dipstickOrdered By: Darling Tabor on 05-06-2023 Leukocyte esterase Test strip Ql (U) 25 /ul Negative [facility] Urine pHOrdered By: Darling Tabor on 05-06-2023 pH (U) 6.0 [pH] 5.0 - 8.0 [facility] Urine sediment bacteria coun t by microscopy (number/high power field)Ordered By: Darling Tabor on 05-06-2023 Bacteria LM.HPF (Urine sed) [#/Area] 2 /[HPF] None Seen [facility] Urine specific gravity measu rementOrdered By: Darling Tabor on 05-06-2023 Specific gravity (U) [Rel density] 1.025 1.002-1.030 [facility] Urine urobilinogen measureme ntOrdered By: Darling Tabor on 05-06-2023 Urobilinogen Ql (U) Normal mg/dl Normal [facility] Laboratory - Chemistry and C hemistry - challengeon 04-21-2023 Glucose Ql (U) Negative [facility] Laboratory - Urinalysison Protein Ql (U) Negative [facility] MR Fetalon 04-06-2023 IMPRESSION: The study is significantly limited by motion. 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 No other obvious B[employer] BUILDER APPRENTICE abnormality is identified This report has been created using voice recognition software [facility] MRI (SINGLE) CLINICAL HISTORY: agnesis [...] are unremarkable. Visible maternal spine is unremarkable. [facility] Fidencio Coley MD - 04/06/2023 [...] configuration of the ventricles. No other obvious BODY BUILDER APPRENTICE abnormality is identified This report has been created using voice recognition software [facility] Radiology Study observation (narrative) [facility] MR FetalOrdered By: Fidencio Coley on 04-06-2023 [facility] Work Phone: Laboratory - Chemistry and C hemistry - challengeon 03-23-2023 Glucose Ql (U) Negative [facility] Laboratory - Urinalysison Protein Ql (U) Negative [facility] Laboratory - Chemistry and C hemistry - challengeon 02-21-2023 Glucose Ql (U) Negative [facility] Laboratory - Urinalysison Protein Ql (U) Negative [facility] Absolute lymphocyte countOrd ered By: Darling Tabor on 02-08-2023 Lymphocytes Auto (Unsp spec) [#/Vol] 2.86 10*3/uL 0.83-4.51 [facility] Basophil percentageOrdered B y: Darling Tabor on 02-08-2023 Basophils/100 WBC (Bld) 0.8 % 0-1 [facility] Eosinophils/100 WBC (Bld) 3.3 % 0-5 [facility] Neutrophils (Bld) [#/Vol] 5.9 10*3/uL 2.0-7.7 [facility] Neutrophils/100 WBC (Bld) 59.6 % 47-70 [facility] WBC (Bld) [#/Vol] 9.8 10*3/uL 4.4-11.0 [facility] Blood erythrocytes count (nu mber/volume)Ordered By: Darling Tabor on 02-08-2023 RBC (Bld) [#/Vol] 4.38 10*6/uL 4.2-5.4 [facility] Blood hemoglobin measurement (mass/volume)Ordered By: Darling Tabor on 02-08-2023 Hemoglobin (Bld) [Mass/Vol] 12.2 g/dL 12.0-15.0 [facility] Blood lymphocytes/100 leukoc ytesOrdered By: Darling Tabor on 02-08-2023 Lymphocytes/100 WBC (Bld) 29.1 % 19-41 [facility] Blood monocytes/100 leukocyt esOrdered By: Darling Tabor on 02-08-2023 Monocytes/100 WBC (Bld) 6.7 % 0-10 [facility] Blood platelet mean volumeOr dered By: Darling Tabor on 02-08-2023 Platelet mean volume (Bld) [Entitic vol] 8.7 fL 6.2-12.0 [facility] Determination of erythrocyte mean corpuscular volume (MCV)Ordered By: Darling Tabor on 02-08-2023 MCV (RBC) [Entitic vol] 84.7 fL 81-99 [facility] HIV 1 and HIV-2 antibody ass ay with HIV-1 p24 antigen detectionOrdered By: Darling Tabor on 02-08-2023 HIV 1+2 Ab+HIV1 p24 Ag IA Ql Non-Reactive Nonreactive [facility] Hematocrit Auto (Bld) [Volum e fraction]Ordered By: Darling Tabor on 02-08-2023 Hematocrit (Bld) [Volume fraction] 37.1 % 37-47 [facility] Laboratory - Chemistry and C hemistry - challengeOrdered By: Darling Tabor on 02-08-2023 Free T4 [Mass/Vol] 0.95 ng/dL 0.76-1.46 [facility] Laboratory - Hematology and Cell countsOrdered By: Darling Tabor on 02-08-2023 Erythrocyte distribution width (RBC) [Entitic vol] 43.7 fL 35.1-43.9 [facility] Erythrocyte distribution width (RBC) [Ratio] 14.1 % 11.6-14.6 [facility] Immature granulocytes/100 WBC (Bld) 0.500 % 0.0-0.9 [facility] Comment on above: IG% - Immature Granu locytes (promyelocytes, myelocytes and metamyelocytes) > 1% indicates that a LEFT SHIFT is Present. MCH (RBC) [Entitic mass] 27.9 pg 27.0-32.0 [facility] Nucleated RBC/100 WBC (Bld) [Ratio] 0 % 0-5 [facility] MCHC Auto (RBC) [Mass/Vol]Or dered By: Darling Tabor on 02-08-2023 MCHC (RBC) [Mass/Vol] 32.9 g/dL 32-36 [facility] No Panel InformationOrdered By: Darling Tabor on 02-08-2023 Free Triiodothyronine (T3) pg/dL 1.5 pg/mL 2.18-3.98 [facility] Hepatitis B Surface Antigen Non-Reactive Nonreactive [facility] Hepatitis C Antibody Non-Reactive Nonreactive [facility] Comment on above: Non Reactive: < 0.8 Equivocal: >/= 0.8 to < 1.0 Reactive: >/= 1.0The CDC recommends that a reactive/equivocal HCV antibody result be followed up by the HCV Nucleic Acid Amplificationtest (114172) Miscellaneous Test Comment MAILED SPECIMEN [facility] Rubella IgG Antibody Reactive Nonreactive [facility] Comment on above: Antibody Results Int erpretation of Immune Status Non Reactive Presumed Non-Immune Equivocal Equivocal Reactive Presumed Immune Thyroid Stimulating Hormone (TSH) 1.07 uIU/mL 0.358-3.74 [facility] Platelets bldOrdered By: Yuli Tabor on 02-08-2023 Platelets (Bld) [#/Vol] 250 10*3/uL 150-450 [facility] Serum Treponema species anti body detectionOrdered By: Darling Tabor on 02-08-2023 Treponema sp Ab Ql (S) Non-Reactive [facility] Serum or plasma thyroperoxid ase antibody assay (units/volume)Ordered By: Darling Tabor on 02-08-2023 TPO Ab Qn 19 [IU]/mL 0-34 [facility] Comment on above: Performed at: [facility] [employer] [address] [id number] Director: Brian Alvarado PhD, Phone: [phone] Whole blood hemoglobin A1c/t otal hemoglobin ratio (mass fraction)Ordered By: Darling Tabor on 02-08-2023 HbA1c (Bld) [Mass fraction] 5.0 % 3.8-5.6 [facility] Comment on above: Normal < 5.7 % Predi abetic 5.7 - 6.4 % Diabetic >or= 6.5 % Please note range changes. Cervical or vagninal specime n microscopic examination by cytology stain (reported asOrdered By: Darling Tabor on 01-26-2023 Cytology report Cyto stain Doc (Cvx/Vag) Comment . [facility] Comment on above: The Pap [...] rRNA SHAJI+probe Ql (Unsp spec) Negative Negative [facility] Culture, urineOrdered By: Kim Tabor on 01-26-2023 Bacteria identified Cx Nom (U) Positive [facility] Bacteria identified Cx Nom (U) Positive [facility] Laboratory - CytologyOrdered By: Darling Tabor on 01-26-2023 Cloth Printer Cyto stain Nom (Cvx/Vag) [ID] Comment . [facility] Comment on above: Eric Worrell otechnologist (ASCP) Pathologist Cyto stain Nom (Cvx/Vag) [ID] Comment . [facility] Comment on above: Brooklyn Murillo MD, Pa thologist Recommended follow-up Cyto stain Nom (Cvx/Vag) Comment . [facility] Comment on above: Suggest follow up as clinically appropriate. Laboratory - Drug toxicology Ordered By: Darling Tabor on 01-26-2023 Amphetamines Ql (U) Negative <1000 ng/mL [facility] Benzodiazepines Ql (U) Negative < 200 ng/mL [facility] Cannabinoids Screen Ql (U) Positive < 50 ng/mL [facility] Cocaine Ql (U) Negative < 300 ng/mL [facility] Opiates Ql (U) Negative < 300 ng/mL [facility] Laboratory - Microbiology an d Antimicrobial susceptibilityOrdered By: Darling Tabor on 01-26-2023 N. gonorrhoeae DNA SHAJI+probe Ql (Unsp spec) Negative Negative [facility] Comment on above: Performed at: =[address] [id number] Director: Tomeka Brandt MD, Phone: [phone] Laboratory - Miscellaneous t estsOrdered By: Darling Tabor on 01-26-2023 Service comment (Unsp spec) [Interp] Comment . [facility] Comment on above: This liquid based Th inPrep(R) pap test was screened withthe use of an image guided system. Service comment (Unsp spec) [Interp] . . [facility] No Panel InformationOrdered By: Darling Tabor on 01-26-2023 Human Papillomavirus Screen Comment . [facility] Comment on above: See below for HPV te sting results. MDMA (Ecstasy) Screen Negative < 500 ng/mL [facility] Pathology report final diagnosis Narrative Comment . [facility] Comment on above: EPITHELIAL CELL ABNO RMALITY.ATYPICAL SQUAMOUS CELLS OF UNDETERMINED SIGNIFICANCE (ASC-US). R87.610 Urine Barbiturates Screen Negative < 200 ng/mL [facility] Urine Drug Screen Comment [facility] Comment on above: CONFIRMATORY TESTING [...] MUST BE ORDERED SEPARATELY. USE TESTMNEMONIC: [facility] Urine Methadone Screen Negative < 300 ng/mL [facility] Urine phencyclidine (PCP) de tectionOrdered By: Darling Tabor on 01-26-2023 Phencyclidine Ql (U) Negative < 25 ng/mL [facility] CNNURSEon 01-19-2023 CNNURSE Nurse Visit (OBGYWM) -- ANGIERANJAN ([id number]) 2000 F Date Time Provider Department 01/19/23 9:00 AM NURSE PNOB [facility] OBGYWM During your visit today, we [...] use: No Multivitamin with Folic acid: Yes Zoroastrian or heritage: No Would refuse blood transfusion if medically necessary: No 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 Normal [facility] Jace 01-19-2023 ALEXANDRE Telephone (OBGYWM) -- RANJAN TAN ([id number]) 2000 F Date Time Provider Department 01/19/23 [...] that date but recommend NOB sooner. Thanks, FABIOLA Ochoa Lindsey RN 01/19/2023 1:34 PM Signed Left message [...] screening of mother [Z36.9] Order(s):NUCHAL TRANSLUCENCY WHI [[id number]] Order #: [id number]: 1 FUTURE Prescriptions as of 02/04/2023 - vit 47-ociv-kxsfr-dha (SELECT-OB+DHA) 29 mg iron-1 mg -250 mg [...] Status:Closed by CAT DOUGLASS RN on 02/04/23 [facility] CNCOon 01-14-2023 CNCO Letter Text [facility] CNPNon 01-11-2023 CNPN Telephone (OBGYWM) -- RANJAN TAN ([id number]) 2000 F Date Time Provider Department 01/11/23 [facility] OBGYWM During your visit today, we recorded the following information about you: Angelica Angeles RN 01/11/2023 5:05 PM Signed Left message for patient to return phone call. Patient has PNOB appt 01/19. Please ask her if she has delivered elsewhere or if this is her [facility] . Please assist her in getting records sent here is applicable. Amira Damon RN 01/14/2023 11:31 AM Addendum LMP 9 Patient returned call. 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 Asked that patient request her delivery records. Also, faxed a request to [facility]. CP- patient has gone to ER for antiemetics. She is almost out. Asking if she could have another RX. Currently taking Zofran 4 MG ODT. Pharmacy added. Allergies updated. Please advise. Thank you. Silvina Quintanilla RN, RN 01/14/2023 11:56 AM Signed Delivery records from 2016 and 2019 received from [facility]. Please also see patients question about Zofran. Scan on 01/14/2023 11:35 AM by Provider, External, PA-C: 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 Farida Rangel APRN.CNM 01/14/2023 1:38 PM [...] needed for nausea/vomiting. Encounter Status:Closed by FARIDA RNAGEL on 01/14/23 Normal [facility] Amorphous sediment detection in urine sediment by light microscopyOrdered By: Jarad Hilton on 01-02-2023 Amorphous sediment LM Ql (Urine sed) 2+ [facility] Basophil percentageOrdered B y: Jarad Hilton on 01-02-2023 Basophil percentage 0-5 SEEN /hpf 0-5 [facility] Chloride [Moles/Vol] 105 mmol/L 98-107 [facility] Glucose [Mass/Vol] 120 mg/dL 74-106 [facility] Comment on above: Fasting Glucose resu lt from 100 to 125 mg/dL suggests IMPAIRED HOMEOSTASIS per A.D.A. criteria. Potassium [Moles/Vol] 3.5 mmol/L 3.5-5.1 [facility] Sodium [Moles/Vol] 134 mmol/L 136-145 [facility] Bilirubin Test strip Ql (U)O rdered By: Jarad Hilton on 01-02-2023 Bilirubin Ql (U) Negative Negative [facility] Ketones Test strip Ql (U)Ord ered By: Jarad Hilton on 01-02-2023 Ketones Ql (U) Negative Negative [facility] Laboratory - Chemistry and C hemistry - challengeOrdered By: Jarad Hilton on 01-02-2023 CO2 [Moles/Vol] 25.0 mmol/L 21.0-32.0 [facility] Urea nitrogen/Creatinine [Mass ratio] 17.4 mg/mg 10 [facility] Mucus LM Ql (Urine sed)Order ed By: Jarad Hilton on 01-02-2023 Mucus Ql (Urine sed) 0 SEEN /hpf [facility] Nitrite Test strip Ql (U)Ord ered By: Jarad Hilton on 01-02-2023 Nitrite Ql (U) Negative Negative [facility] No Panel InformationOrdered By: Jarad Hilton on 01-02-2023 Estimated Creatinine Clearance Calc 129.15 ml/min [facility] Estimated GFR (MDRD) Amer 165 mL/min >60 [facility] Comment on above: GFR Calc Estimated GFR (MDRD) Non-Af Amer 137 mL/min >60 [facility] Comment on above: Non- GFR Calc Protein Test strip Ql (U)Ord ered By: Jarad Hilton on 01-02-2023 Protein Ql (U) Negative Negative [facility] Serum or plasma calcium hudson urement (mass/volume)Ordered By: Jarad Hilton on 01-02-2023 Calcium [Mass/Vol] 8.4 mg/dL 8.5-10.1 [facility] Serum or plasma creatinine m easurement (mass/volume)Ordered By: Jarad Hilton on 01-02-2023 Creatinine [Mass/Vol] 0.58 mg/dL 0.55-1.02 [facility] Comment on above: The validity of the calculated GFR & GFRAA in patients over 70 years has not been determined. Clinical correlation is essential. Serum or plasma urea nitroge n measurement (mass/volume)Ordered By: Jarad Hilton on 01-02-2023 Urea nitrogen [Mass/Vol] 10 mg/dL 7-18 [facility] Squamous epithelial cells de tection in urine sediment by light microscopyOrdered By: Jarad Hilton on 01-02-2023 Epithelial cells.squamous LM Ql (Urine sed) 0-5 SEEN /hpf 5-10 [facility] Thin prep Papanicolaou smear with manual screeningOrdered By: Jarad Hilton on 01-02-2023 Thin prep Papanicolaou smear with manual screening 4 5-15 [facility] Urine blood detectionOrdered By: Jarad Hilton on 01-02-2023 RBC Ql (U) Negative Negative [facility] RBC Ql (U) 0 SEEN /hpf 0-5 [facility] Urine clarityOrdered By: Jarad Hilton on 01-02-2023 Clarity (U) Cloudy Clear [facility] Urine color determinationOrd ered By: Jarad Hilton on 01-02-2023 Color (U) Yellow Yellow [facility] Urine glucose detectionOrder ed By: Jarad Hilton on 01-02-2023 Glucose Ql (U) Normal mg/dl Normal [facility] Urine leukocyte esterase det ection by dipstickOrdered By: Jarad Hilton on 01-02-2023 Leukocyte esterase Test strip Ql (U) 25 /ul Negative [facility] Urine pHOrdered By: Jarad kauffman on 01-02-2023 pH (U) 8.0 [pH] 5.0 - 8.0 [facility] Urine sediment bacteria coun t by microscopy (number/high power field)Ordered By: Jarad Hilton on 01-02-2023 Bacteria LM.HPF (Urine sed) [#/Area] RARE /hpf None Seen [facility] Urine specific gravity measu rementOrdered By: Jarad Hilton on 01-02-2023 Specific gravity (U) [Rel density] 1.015 1.002-1.030 [facility] Urobilinogen Auto test strip Ql (U)Ordered By: Jarad Hilton on 01-02-2023 Urobilinogen Ql (U) Normal mg/dl Normal [facility] Serum or plasma choriogonado tropin detectionOrdered By: Nallely Doherty on 10-23-2023 HCG ( test) [place]l [address] mIU/mL <4 [facility] Comment on above: hCG levels with Gest ational AgeGestational Age hCG mIU/mL (IU/L)0.2 - 1 week 5 - 501-2 weeks 50 - 5002-3 weeks 100 - 33962-6 weeks 500 - 120149-0 weeks 1000 - 114912-5 weeks 79039 - 100,0006-8 weeks 63724 - 200,0002-3 months 37404 - 100,000 [facility] RANJAN TAN ([id number]) 2000 F Date Time Provider Department 12/24/22 FARIDA RANGEL OBROWENAWM During your visit today, we recorded the [...] Status:Closed by FARIDA RANGEL on 12/24/22 Normal [facility] B TESTO SHBG, FEM, CHIL [CCL ]on 02-09-2021 Sex Hormon Bind Glb 80 Normal [facility] [place] Comment on above: Result Comment: Refe rence range: 30 to 135 Unit: nmol/L (NOTE) REFERENCE INTERVAL: Sex Hormone Binding Globulin Access complete set of age- and/or gender-specific reference intervals for this test in the [facility] Test Directory (TwitChat). Performed By: #### 2 [id number] #### [place] [id number] Testos Bioavail 3.1 Normal [facility] [place] Comment on above: Result Comment: Refe rence range: 2.2 to 20.6 Unit: ng/dL (NOTE) Testosterone LC-MS, Bioavailable Reference Interval Females, 18 years and older Postmenopausal: 1.5 - 9.4 ng/dL REFERENCE INTERVAL: Testosterone LC-MS, Bioavailable Access complete set of age- and/or gender-specific reference intervals for this test in the [facility] Test Directory ([place]). [place] [address] Wayne Andrade III, M.D. [id number] Performed By: #### 2 77051 #### [address] [address] Testosterone [Mass/Vol] 11 ng/dL Normal [facility] [place] Comment on above: Result Comment: Refe rence range: 9 to 55 Unit: ng/dL (NOTE) Total Testosterone, Females 18 years and older Premenopausal 9-55 ng/dL Postmenopausal 5-32 ng/dL REFERENCE INTERVAL: Testosterone, LC-MS/MS Access complete set of age- and/or gender-specific reference intervals for this test in the [facility] Test Directory (TwitChat). This test was developed and its performance characteristics determined by [facility]. It has not been cleared or approved by the [place] Food and Drug Administration. This test was performed in a CLIA certified laboratory and is intended for clinical purposes. Performed By: #### 2 50072 #### [place] [address] Testosterone Free 1.0 Normal [facility] [place] Comment on above: Result Comment: Refe renkristel [...] reference intervals for this test in the [facility] (TwitChat). This test was developed and its performance characteristics determined by [facility]. It has not been cleared or approved by the [place] Food and Drug Administration. This test was performed in a CLIA certified laboratory and is intended for clinical purposes. Performed by [facility], [address] [place] [id number] [email or web address], Jillian Metzger MD, Lab. Director Performed By: #### 2 67885 #### [place] [address] B TestoSHBG,fem,chilon 02-09 Sex Hormon Bind Glb 80 nmol/L Normal 30-135 [facility] Reference Lab Testos Bioavail 3.1 ng/dL Normal 2.2-20.6 [facility] Testosterone [Mass/Vol] 11 ng/dL Normal 9-55 [facility] Testosterone Free 1.0 pg/mL Normal 0.8-7.4 [facility] CBC + DIFFon 02-03-2021 Baso # 0.10 x10EE3/UL Normal 0.00 - 0.10 [facility] [place] Comment on above: Performed By: #### 2 12968 #### [place] [address] Basophils/100 WBC (Bld) 1.0 % Normal 0.0 - 2.0 [facility] [place] Comment on above: Performed By: #### 2 71774 #### [facility] [place],[address] [place] [address] CBC + DIFF Normal [facility] [place] Comment on above: Result Comment: CBC- COMPLETE BLOOD COUNT Performed By: #### 2 06555 #### [place] [address] EO # 0.30 x10EE3/UL Normal 0.00 - 0.50 [facility] [place] Comment on above: Performed By: #### 2 36419 #### [place] [address] Eosinophils/100 WBC (Bld) 6.2 % Normal 0.0 - 7.0 [facility] [place] Comment on above: Performed By: #### 2 66368 #### [place] [address] Erythrocyte distribution width (RBC) [Ratio] 14.1 % Normal 12.0 - 15.6 [facility] [place] Comment on above: Performed By: #### 2 42932 #### [place] [address] Hematocrit (Bld) [Volume fraction] 40.0 % Normal 34.0 - 46.0 [facility] [place] Comment on above: Performed By: #### 2 23978 #### [place] [address] Hemoglobin (Bld) [Mass/Vol] 13.2 g/dL Normal 12.0 - 16.0 [facility] [place] Comment on above: Performed By: #### 2 60725 #### [facility] [place],[address] [place] [address] Lymph # 1.70 x10EE3/UL Normal 0.80 - 2.80 [facility] [place] Comment on above: Performed By: #### 2 31800 #### [facility] [place],[address] [place] [address] Lymphocytes/100 WBC (Bld) 32.7 % Normal 20.0 - 45.0 [facility] [place] Comment on above: Performed By: #### 2 40189 #### [facility] [place],[address] [place] [address] MANUAL DIFF N/A Normal [facility] [place] Comment on above: Performed By: #### 2 62791 #### [facility] [place],[address] [place] [address] MCH (RBC) [Entitic mass] 26 pg Low 27 - 33 [facility] [place] Comment on above: Performed By: #### 2 56662 #### [place] [address] MCHC 33 X10 3 Normal 32 - 36 [facility] Comment on above: Performed By: #### 2 37073 #### [facility] [place],[address] [place] [address] MCV (RBC) [Entitic vol] 78 fL Low 80 - 99 [facility] [place] Comment on above: Performed By: #### 2 85974 #### [place] [address] [place] # 0.30 x10EE3/UL Normal 0.20 - 1.00 [facility] [place] Comment on above: Performed By: #### 2 80890 #### [place] [address] MONOS % 6.7 % Normal 0.0 - 10.0 [facility] Comment on above: Performed By: #### 2 61543 #### [facility] [place],[address],[place] [address] Morphology González (Bld) [Interp] N/A Normal [facility] Comment on above: Result Comment: {CD] Performed By: #### 2 34866 #### [facility],[address] [place] [address] Neut # 2.70 x10EE3/UL Normal 1.50 - 7.10 [facility] Comment on above: Performed By: #### 2 35625 #### [facility] [place],[address] [place], [place] [id number] Neutrophils/100 WBC (Bld) 53.4 % Normal 46.0 - 76.0 [facility] Comment on above: Performed By: #### 2 34484 #### [facility] [place],[address] [place] [address] PLATELET 216 x10EE3/UL Normal 150 - 450 [facility] Comment on above: Performed By: #### 2 28038 #### [facility] [place],[address] [place] [address] Platelet mean volume (Bld) [Entitic vol] 7.9 fL Normal 6.6 - 10.5 [facility] Comment on above: Result Comment: AUTO MATED DIFFERENTIAL Performed By: #### 2 98308 #### [facility],[address] [place] [address] RBC 5.10 x 10EE6/UL Normal 4.10 - 5.30 [facility] Comment on above: Performed By: #### 2 29099 #### [facility],[address] [place] [address] WBC 5.1 x 10EE3/UL Normal 4.5 - 10.8 [facility] Comment on above: Performed By: #### 2 76426 #### [facility],[address] [place] [address] CMP with eGFRon 02-03-2021 AGE 20 years Normal [facility] Comment on above: Performed By: #### 2 48486 #### [facility],[address] [place] [address] Albumin [Mass/Vol] 4.2 g/dL Normal 3.4 - 5.0 [facility] Comment on above: Performed By: #### 2 09440 #### [facility],[address] [place] [address]2007 Albumin/Globulin [Mass ratio] 1.2 {ratio} Normal 0.9 - 1.6 [facility] Comment on above: Performed By: #### 2 95164 #### [facility],[address] [place] [address] ALK PHOS 58 U/L Normal 46 - 116 [facility] Comment on above: Performed By: #### 2 25008 #### [facility],[address] [place] [address] ALT [Catalytic activity/Vol] 21 U/L Normal 14 - 59 [facility] Comment on above: Performed By: #### 2 52044 #### [facility],[address] [place] [address]23 Anion gap [Moles/Vol] 17 mmol/L Normal 10 - 20 [facility] Comment on above: Performed By: #### 2 30787 #### [facility] [place],[address] [place] [address]457 AST [Catalytic activity/Vol] 16 U/L Normal 13 - 39 [facility] Comment on above: Performed By: #### 2 67805 #### [facility],[address] [place] [address] B/C RATIO 19 ratio Normal 0 - 30 [facility] Comment on above: Performed By: #### 2 56000 #### [facility],[address] [place] [address] Bilirubin [Mass/Vol] 0.6 mg/dL Normal 0.2 - 1.0 [facility] Comment on above: Performed By: #### 2 21104 #### [facility],[address] [place] [address] Calcium [Mass/Vol] 9.2 mg/dL Normal 8.5 - 10.1 [facility] Comment on above: Performed By: #### 2 67814 #### [facility] [place],[address] [place] [address]1667 Chloride [Moles/Vol] 103 mmol/L Normal 98 - 107 [facility] Comment on above: Performed By: #### 2 26524 #### [facility],[address] [place] [address] CMP with eGFR Normal [facility] Comment on above: Result Comment: COMP REHENSIVE METABOLIC PANEL Performed By: #### 2 81187 #### [facility] [place],[address] [place] [address] CO2 [Moles/Vol] 24.3 mmol/L Normal 21.0 - 32.0 [facility] Comment on above: Performed By: #### 2 97877 #### [facility],[address] [place] [address] Creatinine [Mass/Vol] 0.72 mg/dL Normal 0.55 - 1.02 [facility] Comment on above: Performed By: #### 2 19568 #### [facility] [place],[address] [place] [address] GFR/1.73 sq M.predicted among non-blacks MDRD (S/P/Bld) [Vol rate/Area] mL/min/{1.73_m2} Normal 60 - 999 [facility] Comment on above: Performed By: #### 2 81116 #### [facility],[address] [place] [address] Result Comment: ACCO RDING TO THE NATIONAL KIDNEY DISEASE EDUCATION PROGRAM(NKDE), A NORMAL eGFR IS A VALUE GREATER THAN OR EQUAL TO 60 ML/MIN/1.73 SQ METERS. CHRONIC KIDNEY DISEASE: <60mL/MIN/1.73 SQ METERS KIDNEY FAILURE: <15mL/MIN/1.73 SQ METERS THIS TEST SHOULD ONLY BE USED FOR PATIENTS 18 YEARS OF AGE AND OLDER. Globulin (S) [Mass/Vol] 3.6 g/dL Normal 1.5 - 3.8 [facility] Comment on above: Performed By: #### 2 52113 #### [facility] [place],[address] [place] [address]168 Glucose [Mass/Vol] 82 mg/dL Normal 74 - 106 [facility] Comment on above: Performed By: #### 2 01778 #### [facility],[address] [place] [address] Potassium [Moles/Vol] 3.9 mmol/L Normal 3.5 - 5.1 [facility] Comment on above: Performed By: #### 2 44947 #### [facility] [place],[address] [place] [address]46 Protein [Mass/Vol] 7.8 g/dL Normal 6.4 - 8.2 [facility] Comment on above: Performed By: #### 2 97482 #### [facility] [place],[address] [place] [address] 85875 Sodium [Moles/Vol] 140 mmol/L Normal 136 - 145 [facility] Comment on above: Performed By: #### 2 45546 #### [facility] [place],[address] [place] [address] 09531 Urea nitrogen [Mass/Vol] 14 mg/dL Normal 7 - 18 [facility] Comment on above: Performed By: #### 2 48155 #### [facility] [place],[address] [place] [address] LIPID PROFILEon 02-03-2021 Cholesterol [Mass/Vol] 181 mg/dL Normal 0 - 240 [facility] Comment on above: Performed By: #### 2 04606 #### [facility] [place],[address] [place] [address] 69035 Cholesterol in HDL [Mass/Vol] 76 mg/dL High 40 - 60 [facility] [place] Comment on above: Performed By: #### 2 63726 #### [facility] [place],[address] [place] [address]368 Cholesterol in LDL [Mass/Vol] 97 mg/dL Normal 0 - 129 [facility] [place] Comment on above: Performed By: #### 2 89760 #### [facility] [place],[address] [place], [place] [id number] Cholesterol.total/Chol esterol in HDL [Mass ratio] 2.4 {ratio} Normal 0.0 - 5.0 [facility] [place] Comment on above: Performed By: #### 2 67905 #### [facility] [place],[address] [place] [address] 30970 Lipid 1996 panel Normal [facility] [place] Comment on above: Result Comment: LIPI D PROFILE Performed By: #### 2 49766 #### [facility] [place],[address] [place] [address] Triglyceride [Mass/Vol] 41 mg/dL Normal 0 - 150 [facility] [place] Comment on above: Performed By: #### 2 04102 #### [facility] [place],[address] [place], [place] [id number] T4 (THYROXINE) TOTALon 02-03 T4 (THYROXINE) TOTAL Normal [facility] Comment on above: Result Comment: THYR OXINE(T4) Performed By: #### 2 24374 #### [facility] [place],[address] [place], [place] [id number] T4 [Mass/Vol] 6.7 ug/dL Normal 4.7 - 13.3 [facility] [place] Comment on above: Performed By: #### 2 86895 #### [facility] [place],[address] [place], [place] [id number] TSHon 02-03-2021 TSH Qn 2.50 m[IU]/L Normal 0.35 - 3.74 [facility] [place] Comment on above: Performed By: #### 2 94927 #### [facility] [place],[address] [place] [address] CORONAVIRUS PCR - [facility] 12-03-2020 SARS-CoV-2 (COVID-19) RNA SHAJI+probe Ql (Unsp spec) Negative Normal NORMAL: NEGATIVE [facility] [place] Comment on above: Performed By: #### 2 02723 #### [facility] [place],[address] [place] [address]13 SEND TO ? YES Normal [facility] [place] Comment on above: Result Comment: RESU LTS FAXED TO INFECTION CONTROL. SARS-CoV-2 THIS TEST IS BEING USED UNDER THE FDA EUA PROCEDURE. THIS ASSAY HAS BEEN VALIDATED IN THE [facility] FOR USE WITH NASOPHARYNGEAL SPECIMENS IN [facility]. INTERPRETIVE DATA LABORATORY TEST RESULTS SHOULD ALWAYS [...] PUBLIC HEALTH AUTHORITIES. Performed By: #### 2 74383 #### [facility] [place],[address] [place] [address] CORONAVIRUS PCR - [facility] 09-03-2021 SARS-CoV-2 (COVID-19) RNA SHAJI+probe Ql (Unsp spec) Negative Normal NORMAL: NEGATIVE [facility] [place] Comment on above: Performed By: #### 2 57383 #### [facility] [place],[address] [place] [address] 20416 SEND TO ? YES Normal [facility] Comment on above: Result Comment: RESU LTS FAXED TO INFECTION CONTROL. SARS-CoV-2 THIS TEST IS BEING USED UNDER THE FDA EUA PROCEDURE. THIS ASSAY HAS BEEN VALIDATED IN THE [facility] FOR USE WITH NASOPHARYNGEAL SPECIMENS IN [facility]. INTERPRETIVE DATA LABORATORY TEST RESULTS SHOULD ALWAYS [...] PUBLIC HEALTH AUTHORITIES. Performed By: #### 2 10314 #### [facility] [place],[address] [place] [address]181 EMERGENCY REPORTon 1 EMERGENCY REPORT [facility] EMERGENCY ROOM REPORT NAME ACCOUNT SEX AGE ADMIT DISCHARGE PT MED. RECORD# NUMBER DATE DATE TYPE ANGIE [id number] F 20 09/03/20 09/03/20 3 RANJAN [address] ROOM: ER DATE OF : 2000 DICTATING [...] of 2 RANJAN TAN Emergency Room Report ANGIE RANJAN : 2000 JOB #: [id number] Transcribed By: rut 09/04/20 08:33 Electronically signed by: E-SIGN: Morro Juárez D.O. 09/04/20 09:41 Page 2 of 2 RANJAN TAN Emergency Room Report Normal [facility] T3, FREE [CCL]on 06-30-2020 Free T3 [Mass/Vol] 2.8 pg/mL Normal 2.3-4.1 [facility] [place] Comment on above: Result Comment: [facility] [address] [place] [address] Wayne Andrade III, M.D. [id number] Performed By: #### 2 83726 #### [facility] [place],[address] [place] [address] 17974 THYROGLOBULIN AB [CCL]on Thyroglobulin Ab Qn 2.4 [IU]/mL Normal <14.4 [facility] [place] Comment on above: Result Comment: [facility] [address] [place] [id number] Wayne Andrade III, M.D. [id number] Performed By: #### 2 27339 #### [facility] [place],[address] [place] [address] 30336 THYROID PEROXIDASE AB [CCL]o n 06-30-2020 TPO Antibody <1.0 Normal <5.6 [facility] [place] Comment on above: Result Comment: [facility] [address] [place] [address] Wayne Andrade III, M.D. [id number] Performed By: #### 2 04329 #### [facility] [place],[address] [place] [address] 52077 TPO Antibodyon 06-30-2020 TPO Antibody <1.0 Normal <5.6 [facility] Comment on above: Performed By: #### F REET3, TGAB, MICRO #### [facility] Routine Lab [address] [place] [phone] Thyroglobulin Abon Thyroglobulin Ab Qn 2.4 [IU]/mL Normal <14.4 [facility] Comment on above: Performed By: #### F REET3, TGAB, MICRO #### [facility] Routine Lab [address] [place] [phone] Free T3on 06-28-2020 Free T3 [Mass/Vol] 2.8 pg/mL Normal 2.3-4.1 [facility] Comment on above: Performed By: #### F REET3, TGAB, MICRO #### [facility] Routine Lab [address] [place], [place] [address] T4-FREE (FREE THYROXINE)on 0 06-27-2020 Free T4 [Mass/Vol] 0.93 ng/dL Normal 0.76 - 1.46 [facility] [place] Comment on above: Result Comment: P otential of falsely elevated results when biotin concentrations are > 10 ng/mL. Performed By: #### 2 71272 #### [facility] [place],[address] [place] [address] TSHon 06-27-2020 TSH Qn 2.78 m[IU]/L Normal 0.35 - 3.74 [facility] [place] Comment on above: Performed By: #### 2 59936 #### [facility] [place],[address] [place], [place] [id number] Vital Signs Date Time Vital Sign Value Performing Clinician Elena harry 12-13-2024 10:160400 Body height 162.56 cm No Primary Care Physician [facility] 12-13-2024 10:110400 Body mass index (BMI) [Ratio] 45.8 kg/m2 No Primary Care Physician [facility] 12-13-2024 10:11040 Body weight 121.16 kg No Primary Care Physician [facility] 12-13-2024 10:110400 Diastolic blood pressure 84 mm[Hg] No Primary Care Physician [facility] 12-13-2024 10:110400 Systolic blood pressure 123 mm[Hg] No Primary Care Physician [facility] 12-05-2024 13:160400 Diastolic blood pressure 86 mm[Hg] No Primary Care Physician [facility] 12-05-2024 13:160400 Systolic blood pressure 137 mm[Hg] No Primary Care Physician [facility] 12-05-2024 13:10040 Body height 162.56 cm No Primary Care Physician [facility] 12-05-2024 13:10-0400 Body mass index (BMI) [Ratio] 47.2 kg/m2 No Primary Care Physician [facility] 12-05-2024 13:10-0400 Body weight 124.85 kg No Primary Care Physician [facility] 11-30-2024 09:43-0400 Body temperature 98.1 [degF] No Primary Care Physician [facility] 11-30-2024 08:00-0400 Diastolic blood pressure 81 mm[Hg] No Primary Care Physician [facility] 11-30-2024 08:00-0400 Heart rate 62 /min No Primary Care Physician [facility] 11-30-2024 08:00-0400 Respiratory rate 18 /min No Primary Care Physician [facility] 11-30-2024 08:00-0400 SaO2% (BldA) [Mass fraction] 98 % No Primary Care Physician [facility] 11-30-2024 08:00-0400 Systolic blood pressure 128 mm[Hg] No Primary Care Physician [facility] 11-28-2024 05:27-0400 Body height 162.56 cm No Primary Care Physician [facility] 11-28-2024 05:27-0400 Body mass index (BMI) [Ratio] 50.3 kg/m2 No Primary Care Physician [facility] 11-28-2024 05:27-0400 Body weight 132.9 kg No Primary Care Physician [facility] 11-27-2024 09:47-0400 Body mass index (BMI) [Ratio] 50.3 kg/m2 No Primary Care Physician [facility] 11-27-2024 09:47-0400 Body weight 133.01 kg No Primary Care Physician [facility] 11-27-2024 09:47-0400 Diastolic blood pressure 82 mm[Hg] No Primary Care Physician [facility] 11-27-2024 09:47-0400 Systolic blood pressure 130 mm[Hg] No Primary Care Physician [facility] 11-20-2024 10:34-0400 Diastolic blood pressure 81 mm[Hg] No Primary Care Physician [facility] 11-20-2024 10:34-0400 Systolic blood pressure 124 mm[Hg] No Primary Care Physician [facility] 11-20-2024 10:15-0400 Body height 162.56 cm No Primary Care Physician [facility] 11-20-2024 10:15-0400 Body mass index (BMI) [Ratio] 49.5 kg/m2 No Primary Care Physician [facility] 11-20-2024 10:15-0400 Body weight 130.88 kg No Primary Care Physician [facility] 11-13-2024 14:12-0400 Body height 162.56 cm No Primary Care Physician [facility] 11-13-2024 14:12-0400 Body mass index (BMI) [Ratio] 49.4 kg/m2 No Primary Care Physician [facility] 11-13-2024 14:12-0400 Body weight 130.69 kg No Primary Care Physician [facility] 11-13-2024 14:12-0400 Diastolic blood pressure 83 mm[Hg] No Primary Care Physician [facility] 11-13-2024 14:12-0400 Systolic blood pressure 122 mm[Hg] No Primary Care Physician [facility] 11-06-2024 13:39-0400 Body height 162.56 cm No Primary Care Physician [facility] 11-06-2024 13:35-0400 Body mass index (BMI) [Ratio] 49.4 kg/m2 No Primary Care Physician [facility] 11-06-2024 13:35-0400 Body weight 130.63 kg No Primary Care Physician [facility] 11-06-2024 13:35-0400 Diastolic blood pressure 77 mm[Hg] No Primary Care Physician [facility] 11-06-2024 13:35-0400 Systolic blood pressure 129 mm[Hg] No Primary Care Physician [facility] 10-23-2024 11:00-0400 Body weight 129 kg No Primary Care Physician [facility] 10-23-2024 11:00-0400 Diastolic blood pressure 70 mm[Hg] No Primary Care Physician [facility] 10-23-2024 11:00-0400 Systolic blood pressure 110 mm[Hg] No Primary Care Physician [facility] 10-23-2024 10:48-0400 Body height 162.56 cm No Primary Care Physician [facility] 10-23-2024 10:48-0400 Body mass index (BMI) [Ratio] 48.7 kg/m2 No Primary Care Physician [facility] 10-14-2024 15:03-0400 Diastolic blood pressure 65 mm[Hg] No Primary Care Physician [facility] 10-14-2024 15:03-0400 Heart rate 88 /min No Primary Care Physician [facility] 10-14-2024 15:03-0400 Systolic blood pressure 117 mm[Hg] No Primary Care Physician [facility] 10-14-2024 14:13-0400 Body height 162.56 cm No Primary Care Physician [facility] 10-14-2024 14:13-0400 Body mass index (BMI) [Ratio] 47.7 kg/m2 No Primary Care Physician [facility] 10-14-2024 14:13-0400 Body weight 126 kg No Primary Care Physician [facility] 10-14-2024 13:56-0400 Body temperature 97.8 [degF] No Primary Care Physician [facility] 10-14-2024 13:56-0400 Respiratory rate 16 /min No Primary Care Physician [facility] 10-14-2024 13:32-0400 SaO2% (BldA) [Mass fraction] 94 % No Primary Care Physician [facility] 10-09-2024 13:51-0400 Body height 162.56 cm No Primary Care Physician [facility] 10-09-2024 13:51-0400 Body mass index (BMI) [Ratio] 48.6 kg/m2 No Primary Care Physician [facility] 10-09-2024 13:51-0400 Body weight 128.42 kg No Primary Care Physician [facility] 10-09-2024 13:51-0400 Diastolic blood pressure 70 mm[Hg] No Primary Care Physician [facility] 10-09-2024 13:51-0400 Systolic blood pressure 108 mm[Hg] No Primary Care Physician [facility] 09-25-2024 13:49-0400 Body height 162.56 cm No Primary Care Physician [facility] 09-25-2024 13:49-0400 Body mass index (BMI) [Ratio] 47.5 kg/m2 No Primary Care Physician [facility] 09-25-2024 13:49-0400 Body weight 125.64 kg No Primary Care Physician [facility] 09-25-2024 13:49-0400 Diastolic blood pressure 76 mm[Hg] No Primary Care Physician [facility] 09-25-2024 13:49-0400 Systolic blood pressure 117 mm[Hg] No Primary Care Physician [facility] 09-04-2024 12:57-0400 Body height 162.56 cm No Primary Care Physician [facility] 09-04-2024 12:57-0400 Body mass index (BMI) [Ratio] 46.3 kg/m2 No Primary Care Physician [facility] 09-04-2024 12:57-0400 Body weight 122.52 kg No Primary Care Physician [facility] 09-04-2024 12:57-0400 Diastolic blood pressure 78 mm[Hg] No Primary Care Physician [facility] 09-04-2024 12:57-0400 Systolic blood pressure 116 mm[Hg] No Primary Care Physician [facility] 08-09-2024 14:43-0400 Body height 162.56 cm No Primary Care Physician [facility] 08-09-2024 14:43-0400 Body mass index (BMI) [Ratio] 44.9 kg/m2 No Primary Care Physician [facility] 08-09-2024 14:43-0400 Body weight 118.55 kg No Primary Care Physician [facility] 08-09-2024 14:43-0400 Diastolic blood pressure 80 mm[Hg] No Primary Care Physician [facility] 08-09-2024 14:43-0400 Systolic blood pressure 121 mm[Hg] No Primary Care Physician [facility] 07-10-2024 13:03-0400 Body mass index (BMI) [Ratio] 43.3 kg/m2 No Primary Care Physician [facility] 07-10-2024 13:03-0400 Body weight 114.47 kg No Primary Care Physician [facility] 07-10-2024 13:03-0400 Diastolic blood pressure 71 mm[Hg] No Primary Care Physician [facility] 07-10-2024 13:03-0400 Systolic blood pressure 109 mm[Hg] No Primary Care Physician [facility] 06-29-2024 13:55-0400 Body mass index (BMI) [Ratio] 42.4 kg/m2 No Primary Care Physician [facility] 06-29-2024 13:55-0400 Body weight 112.15 kg No Primary Care Physician [facility] 06-29-2024 13:55-0400 Diastolic blood pressure 73 mm[Hg] No Primary Care Physician [facility] 06-29-2024 13:55-0400 Systolic blood pressure 116 mm[Hg] No Primary Care Physician [facility] 06-29-2024 07:21-0400 Body temperature 97.9 [degF] No Primary Care Physician [facility] 06-29-2024 07:21-0400 Diastolic blood pressure 85 mm[Hg] No Primary Care Physician [facility] 06-29-2024 07:21-0400 Heart rate 72 /min No Primary Care Physician [facility] 06-29-2024 07:21-0400 Respiratory rate 16 /min No Primary Care Physician [facility] 06-29-2024 07:21-0400 SaO2% (BldA) [Mass fraction] 99 % No Primary Care Physician [facility] 06-29-2024 07:21-0400 Systolic blood pressure 148 mm[Hg] No Primary Care Physician [facility] 06-29-2024 03:06-0400 Body height 162.56 cm No Primary Care Physician [facility] 06-29-2024 03:06-0400 Body mass index (BMI) [Ratio] 42.5 kg/m2 No Primary Care Physician [facility] 06-29-2024 03:06-0400 Body weight 112.3 kg No Primary Care Physician [facility] 05-28-2024 14:19-0400 Body height 162.56 cm No Primary Care Physician [facility] 05-28-2024 14:19-0400 Body mass index (BMI) [Ratio] 42.4 kg/m2 No Primary Care Physician [facility] 05-28-2024 14:19-0400 Body weight 112.15 kg No Primary Care Physician [facility] 05-28-2024 14:19-0400 Diastolic blood pressure 73 mm[Hg] No Primary Care Physician [facility] 05-28-2024 14:19-0400 Systolic blood pressure 108 mm[Hg] No Primary Care Physician [facility] 07-05-2023 11:00-0400 Body height 162.[address] Christy Lao Work Phone: [facility] 07-05-2023 11:00-0400 Body mass index (BMI) [Ratio] 42.2 kg/m2 Dr. Christy Lao Work Phone: [facility] 07-05-2023 11:00-0400 Body weight 111.[address] Christy Lao Work Phone: [facility] 07-05-2023 11:00-0400 Diastolic blood pressure 78 mm[Hg] Dr. Christy Lao Work Phone: [facility] 07-05-2023 11:00-0400 Systolic blood pressure 118 mm[Hg] Dr. Christy Lao Work Phone: [facility] 06-27-2023 09:59-0400 Body mass index (BMI) [Ratio] 42.3 kg/m2 Dr. Christy Lao Work Phone: [facility] 06-27-2023 09:59-0400 Body weight 111.[address] Christy Lao Work Phone: [facility] 06-27-2023 09:59-0400 Diastolic blood pressure 72 mm[Hg] Dr. Christy Lao Work Phone: [facility] 06-27-2023 09:59-0400 Systolic blood pressure 118 mm[Hg] Dr. Christy Lao Work Phone: [facility] 05-30-2023 08:21-0400 Body mass index (BMI) [Ratio] 40.1 kg/m2 Dr. Christy Lao Work Phone: [facility] 05-30-2023 08:21-0400 Body weight 106.[address] Christy Lao Work Phone: [facility] 05-30-2023 08:21-0400 Diastolic blood pressure 84 mm[Hg] Dr. Christy Lao Work Phone: [facility] 05-30-2023 08:21-0400 Systolic blood pressure 124 mm[Hg] Dr. Christy Lao Work Phone: [facility] 05-18-2023 10:40-0400 Body height 162.[address] Christy Lao Work Phone: [facility] 05-18-2023 10:39-0400 Body mass index (BMI) [Ratio] 39.6 kg/m2 Dr. Christy Lao Work Phone: [facility] 05-18-2023 10:39-0400 Body weight 104.[address] Christy Lao Work Phone: [facility] 05-18-2023 10:39-0400 Diastolic blood pressure 69 mm[Hg] Dr. Christy Lao Work Phone: [facility] 05-18-2023 10:39-0400 Systolic blood pressure 106 mm[Hg] Dr. Christy Lao Work Phone: [facility] 05-06-2023 12:01-0500 Body height 162.[address] Christy Lao Work Phone: [facility] 05-06-2023 12:01-0500 Body mass index (BMI) [Ratio] 38.2 kg/m2 Dr. Christy Lao Work Phone: [facility] 05-06-2023 12:01-0500 Body weight 101.[address] Christy Lao Work Phone: [facility] 05-06-2023 11:54-0500 Body temperature 98 [degF] Dr. Christy Lao Work Phone: [facility] 05-06-2023 11:54-0500 Diastolic blood pressure 61 mm[Hg] Dr. Christy Lao Work Phone: [facility] 05-06-2023 11:54-0500 Heart rate 81 /min Dr. Christy Lao Work Phone: [facility] 05-06-2023 11:54-0500 Systolic blood pressure 111 mm[Hg] Dr. Christy Lao Work Phone: [facility] 04-21-2023 15:53-0500 Body mass index (BMI) [Ratio] 39.1 kg/m2 Dr. Christy Lao Work Phone: [facility] 04-21-2023 15:53-0500 Body weight 103.[address] Christy Lao Work Phone: [facility] 04-21-2023 15:53-0500 Diastolic blood pressure 73 mm[Hg] Dr. Christy Lao Work Phone: [facility] 04-21-2023 15:53-0500 Systolic blood pressure 114 mm[Hg] Dr. Christy Lao Work Phone: [facility] 03-23-2023 09:31-0500 Body mass index (BMI) [Ratio] 37.8 kg/m2 Dr. Christy Lao Work Phone: [facility] 03-23-2023 09:31-0500 Body weight 99.[address] Christy Lao Work Phone: [facility] 03-23-2023 09:31-0500 Diastolic blood pressure 68 mm[Hg] Dr. Christy Lao Work Phone: [facility] 03-23-2023 09:31-0500 Systolic blood pressure 110 mm[Hg] Dr. Christy Lao Work Phone: [facility] 02-21-2023 10:38-0500 Body mass index (BMI) [Ratio] 37.3 kg/m2 Dr. Christy Lao Work Phone: [facility] 12-18-2023 10:38-0500 Body weight 98.[address] Christy Lao Work Phone: [facility] 02-21-2023 10:38-0500 Diastolic blood pressure 76 mm[Hg] Dr. Christy Lao Work Phone: [facility] 02-21-2023 10:38-0500 Systolic blood pressure 123 mm[Hg] Dr. Christy Lao Work Phone: [facility] 01-26-2023 14:34-0500 Body height 162.[address] Christy Lao Work Phone: [facility] 01-26-2023 14:23-0500 Body mass index (BMI) [Ratio] 36.2 kg/m2 Dr. Christy Lao Work Phone: [facility] 01-26-2023 14:23-0500 Body weight 95.[address] Christy Lao Work Phone: [facility] 01-26-2023 14:23-0500 Diastolic blood pressure 72 mm[Hg] Dr. Christy Lao Work Phone: [facility] 01-26-2023 14:23-0500 Systolic blood pressure 112 mm[Hg] Dr. Christy Lao Work Phone: [facility] 01-02-2023 20:35-0400 Diastolic blood pressure 78 mm[Hg] [facility] 01-02-2023 20:35-0400 Heart rate 88 /min [facility] 01-02-2023 20:35-0400 Respiratory rate 16 /min [facility] 01-02-2023 20:35-0400 Systolic blood pressure 125 mm[Hg] [facility] 01-02-2023 18:22-0400 Body height 162.56 cm [facility] 01-02-2023 18:22-0400 Body mass index (BMI) [Ratio] 35.2 kg/m2 [facility] 01-02-2023 18:22-0400 Body temperature 98.8 [degF] [facility] 01-02-2023 18:22-0400 Body weight 92.94 kg [facility] 01-02-2023 18:22-0400 SaO2% (BldA) [Mass fraction] 100 % [facility] Encounters Encounter Date Encounter Type Care Provider Facility Start: 01-09-2025 ambulatory No Primary Car e Physician Facility:[facility] Start: 12-13-2024 End: 12-13-2024 Patient encounter procedure Adrien WHITE -[facility] Work Phone: Start: 12-13-2024 End: 12-13-2024 ambulatory No Primary Care Physician [facility] Start: 12-05-2024 End: 12-05-[address] Amira Underwood DO -[facility] Work Phone: Start: 12-05-2024 End: 12-05-2024 ambulatory No Primary Care Physician [facility] Start: 11-30-2024 Non-patient / Non-visit Dr. Angelo Underwood DO [facility] Start: 11-29-2024 Non-patient / Non-visit Adrien WHITE [facility] Start: 11-28-2024 Non-patient / Non-visit Dr. Thuy Doherty MD -[facility] Start: 11-28-2024 ambulatory Nallely Parker lity:[facility] Start: 11-28-2024 End: 11-30-2024 Evaluation and management of inpatient Dr. Nallely Doherty MD [facility] Work Phone: Start: 11-27-2024 End: 11-27-2024 Patient encounter procedure Simi Lara CNM -[facility] Work Phone: Start: 11-27-2024 End: 11-27-2024 ambulatory No Primary Care Physician [facility] Start: 11-22-2024 End: 11-22-2024 ambulatory MISC [facility] Start: 11-20-2024 End: 11-20-2024 Patient encounter procedure Simi Joseph MAHMOOD -[facility] Work Phone: Start: 11-20-2024 End: 11-20-2024 ambulatory No Primary Care Physician -[facility] Start: 11-15-2024 End: 11-15-2024 ambulatory [facility] Start: 11-13-2024 End: 11-13-2024 ambulatory No Primary Care Physician -[facility] Start: 11-13-2024 End: 11-13-[address] Nallely Doherty MD -[facility] Work Phone: Start: 11-13-2024 End: 11-13-[address] 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 -[facility] Work Phone: Start: 11-06-2024 End: 11-06-2024 ambulatory No Primary Care Physician -[facility] Start: 11-01-2024 End: 11-01-2024 ambulatory [facility] Start: 10-25-2024 End: 10-25-2024 ambulatory [facility] Start: 10-23-2024 End: 10-23-2024 ambulatory No Primary Care Physician -[facility] Spec[facility] Start: 10-23-2024 End: 10-23-2024 Patient encounter procedure Adrien Klein FINANCIAL REPORTING MANAGER-C -[facility] Work Phone: Start: 10-23-2024 End: 10-23-2024 Patient encounter procedure Adrien WHITE -[facility] Work Phone: Start: 10-23-2024 End: 10-23-2024 ambulatory No Primary Care Physician -[facility] Start: 10-23-2024 End: 10-23-2024 ambulatory No Primary Care Physician Facility:[facility] Start: 10-14-2024 ambulatory No Primary Car e Physician Facility:[facility] Start: 10-14-2024 Non-patient / Non-visit Simi Brown ms CNM -[facility] Start: 10-14-2024 End: 10-14-2024 Patient encounter procedure Simi Lara CNM -[facility] Work Phone: Start: 10-14-2024 End: 10-14-2024 ambulatory No Primary Care Physician -[facility] Start: 10-11-2024 End: 10-11-2024 [facility] Start: 10-09-2024 End: 10-09-[address] Amira Underwood DO -[facility] Work Phone: Start: 10-09-2024 End: 10-09-2024 ambulatory No Primary Care Physician -[facility] Start: 10-09-2024 End: 10-09-2024 ambulatory No Primary Care Physician Facility:[facility] Start: 09-25-2024 End: 09-25-2024 ambulatory No Primary Care Physician -[facility] Specimen Start: 09-25-2024 End: 09-25-[address] Nallely Doherty MD -[facility] Work Phone: Start: 09-25-2024 End: 09-25-[address] Nallely Doherty MD -[facility] Work Phone: Start: 09-25-2024 End: 09-25-2024 ambulatory No Primary Care Physician -[facility] Start: 09-25-2024 End: 09-25-2024 ambulatory Nallely Doherty Facility:[facility] Start: 09-10-2024 End: 09-10-2024 ambulatory REJIARPITA Navarro [facility] Start: 09-04-2024 End: 09-04-2024 ambulatory No Primary Care Physician -[facility] Start: 09-04-2024 End: 09-04-2024 Patient encounter procedure Adrien WHITE -[facility] Work Phone: Start: 09-04-2024 End: 09-04-2024 ambulatory Nallely Doherty Facility:[facility] Start: 08-09-2024 End: 08-09-[address] Nallely Doherty MD -[facility] Work Phone: Start: 08-09-2024 End: 08-09-2024 ambulatory No Primary Care Physician [facility] Work Phone: Start: 08-09-2024 End: 08-09-2024 ambulatory Nallely Doherty Facility:[facility] Start: 08-07-2024 End: 08-07-2024 ambulatory [facility] Start: 07-10-2024 End: 07-10-2024 Patient encounter procedure Simi Lara CNM -[facility] Work Phone: Start: 07-10-2024 End: 07-10-2024 ambulatory [facility] Start: 06-29-2024 End: 06-29-[address] Amira Underwood DO -[facility] Work Phone: Start: 06-29-2024 End: 06-29-2024 ambulatory No Primary Care Physician Facility:[facility] Start: 06-29-2024 End: 06-29-2024 Emergency department patient visit No Primary Care Physician -Emergency Department Work Phone: Start: 05-28-2024 End: 05-28-2024 Patient encounter procedure Simi Lara CNM -[facility] Work Phone: Start: 05-28-2024 End: 05-28-2024 ambulatory No Primary Care Physician [facility] Work Phone: Start: 05-28-2024 End: 05-28-2024 ambulatory Simi Lara Facility:[facility] Start: 07-05-2023 End: 07-05-[address] Christy Lao Work Phone: [facility] Work Phone: Start: 06-30-2023 End: 06-30-[address] Christy Lao Work Phone: [facility] Work Phone: Start: 06-30-2023 End: 06-30-[address] Christy Lao Work Phone: [facility] Start: 06-27-2023 End: 06-27-[address] Christy Lao Work Phone: [facility] Work Phone: Start: 06-15-[address] Christy Lao Work Phone: [facility] Work Phone: Start: 06-15-2023 End: 06-15-[address] Christy Lao Work Phone: [facility] Work Phone: Start: 05-30-2023 End: 05-30-[address] Christy Lao Work Phone: [facility] Work Phone: Start: 05-18-2023 End: 05-18-[address] Christy Lao Work Phone: [facility] Work Phone: Start: 05-18-2023 End: 05-18-[address] Christy Lao Work Phone: [facility] Work Phone: Start: 05-06-2023 Non-patient / Non-visit Dr. Antonio Lao Work Phone: [facility] Start: 05-06-2023 End: 05-06-[address] Christy Lao Work Phone: [facility] Work Phone: Start: 05-06-2023 End: 05-06-[address] Christy Lao Work Phone: [facility] Work Phone: Start: 04-21-2023 End: 04-21-2023 [...] 02-08-[address] Christy Lao Work Phone: [facility] Work Phone: Start: 02-08-2023 End: 02-08-[address] Christy Lao Work Phone: [facility] Start: 01-26-2023 End: 01-26-[address] Christy Lao Work Phone: [facility] Spec[facility] Work Phone: Start: 01-26-2023 End: 01-26-[address] Crhisty Lao Work Phone: [facility] Work Phone: Start: 01-19-2023 Telephone encounter Melissa monaco APRN.CNM Work Phone: OB/Gynecology Comment on above: Care Start: 01-19-2023 End: 01-19-2023 ambulatory Facility:[facility] Start: 01-19-2023 End: 01-19-2023 Nursing evaluation of patient and report Nurse [facility] Work Phone: OB/Gynecology Comment on [...] End: 01-19-2023 Patient requested procedure Nurse [facility] Work Phone: [facility] Work Phone: Start: 01-02-2023 End: 01-02-2023 Emergency department patient visit [facility] Work Phone: Start: 12-27-2022 End: 12-27-2022 ambulatory [facility] Work Phone: Start: 12-27-2022 End: 12-27-2022 Patient encounter procedure [facility] Work Phone: Start: 12-24-2022 Telephone encounter Farida olivares APRN.CNM Work Phone: OB/Gynecology Comment on above: Patient Question Start: 02-03-2021 End: 02-03-2021 ambulatory MELISSA BELL [facility] Start: 12-02-2020 End: 12-02-2020 ambulatory EDUARDO GONZALEZ [facility] Start: 11-06-2020 End: 11-06-[address] DOUGIE VITAL [facility] Start: 09-03-2020 End: 09-03-2020 Emergency department patient visit MORRO JUÁREZ [facility] Start: 06-27-2020 End: 06-27-2020 ambulatory OTONIEL BECKER REI [facility] Start: 03-28-2020 [facility] Procedures Date Procedure Procedure Detail Performing Clinician Start: 11-28-2024 Procedure No Primary Care Physician Comment on above: Test Ordered: 000401 Cannabinoid Conf, MS, URCannabinoid Positive [A ] UI Reference Range: .Carboxy THC Conf, MS, UR >750 ng/mL UI Reference Range: Cutoff=10Performed at: UI - [facility] [id number] [place], [place] [id number] Director: Colleen Qureshi PhD, Phone: [phone] at: - [facility] [address] [id number] Director: Brian Alvarado PhD, Phone: [phone] Start: 11-28-2024 Serologic test for syphilis No Primary Care Physician Start: 11-28-2024 Methadone measurement, urine No Primary Care Physician Start: 11-13-2024 Beta-hemolytic Strep tococcus culture No [...] therefore, no HPV testing was performed.Performed at: [facility] [address] [id number] Director: Radha Lau PhD, Phone: [phone] at: [facility] [address] [id number] Director: Tomeka Brandt MD, Phone: [phone] Start: 05-28-2024 Hepatitis C antibody measurement No [...] HCV Quant by PCR testing - HCVPCR #[id number] Non Reactive: < 0.8 Equivocal: >/= 0.8 [...] Treatment Date Care Activity Detail Author Start: 11-30-2024 Patient discharge [facility] Start: 11-30-2024 Non-patient / Non-visit Non-pa tient / Non-visit -[facility] Start: 11-29-2024 Application of abdom inal corset [facility] Start: 11-29-2024 Non-patient / Non-visit Non-pa tient / Non-visit -[facility] Start: 11-28-2024 Non-patient / Non-visit Non-pa tient / Non-visit -[facility] Start: 11-28-2024 Application of intermittent pneumatic compression device [facility] Start: 11-28-2024 Application of abdom inal corset [facility] Start: 11-28-2024 Ambulation therapy management [facility] Start: 11-28-2024 Application of device [facility] Start: 11-28-2024 Application of intermittent pneumatic compression device [facility] Start: 11-28-2024 Assessment of risk o f venous thromboembolism [facility] Start: 11-28-2024 Catheterization of vein [facility] Start: 11-28-2024 Continuous pulse oximetry [facility] Start: 11-28-2024 Deep breathing and coughing exercises [facility] Start: 11-28-2024 Exercises [facility] Start: 11-28-2024 Measuring intake and output [facility] Start: 11-28-2024 Notification of physician [facility] Start: 11-28-2024 Oxygen therapy [facility] Start: 11-28-2024 Procedure discontinued [facility] Start: 11-28-2024 Provision of activit y privileges [facility] Start: 11-28-2024 Skin care [facility] Start: 11-28-2024 Vital signs measurements [facility] Start: 11-28-2024 Wound care [facility] Start: 11-28-2024 [facility] Start: 11-28-2024 section Primary C Sec tion (Not Applicable) [facility] Start: 11-28-2024 Admission procedure [facility] Start: 11-28-2024 Application of intermittent pneumatic compression device [facility] Start: 11-28-2024 End: 11-30-2024 Evaluation and management of inpatient Anxiety and depression [facility] Work Phone: Start: 11-28-2024 External monit or surveillance [facility] Start: 11-28-2024 Preoperative care [facility] Start: 11-28-2024 [facility] Start: 11-28-2024 Consultation [facility] Start: 11-27-2024 End: 11-27-2024 Patient encounter procedure Anxiety and depression -[facility] Work Phone: Start: 10-14-2024 End: 10-14-2024 [facility] Start: 10-14-2024 Nonstress test [facility] Start: 10-14-2024 Obstetric monitoring [facility] Start: 10-14-2024 Vital signs measurements [facility] Start: 10-14-[address] ug or medicament by intravenous push THER/PROPH/DIAG INJ IV PUSH [facility] Start: 10-14-2024 Bacteria identified in Urine by Culture Urine Culture [facility] Start: 10-14-2024 Iv infusion hydratio n each additional hour HYDRATE IV INFUSION ADD-ON [facility] Start: 10-14-2024 Ther proph/dx njx iv push single/1st sbst/drug THER/PROPH/DIAG INJ IV PUSH [facility] Start: 10-09-2024 T4 free measurement [facility] Start: 10-09-2024 Thyroid stimulating hormone measurement [facility] Start: 09-04-2024 Measurement of gluco se 2 hours after glucose challenge for glucose tolerance test [facility] Start: 09-04-2024 Serologic test for syphilis [facility] Start: 09-04-2024 [facility] Start: 06-29-2024 [facility] Start: 05-28-2024 Liquid based cervica l cytology screening [facility] Start: 05-06-2023 Iv infusion therapy/prophylaxis /dx 1st to 1 hr THER/PROPH/DIAG IV INF INIT [facility] Start: 05-06-2023 Insertion of cathete r into peripheral vein [facility] Start: 05-06-2023 Nonstress test [facility] Start: 05-06-2023 Obstetric monitoring [facility] Start: 05-06-2023 Vital signs measurements [facility] Start: 05-06-2023 [facility] Start: 05-06-2023 Patient discharge [facility] Start: 04-11-2023 End: 04-11-2023 Patient encounter procedure 04/11/2023 10:15 AM EST Office Visit [facility] [address] [place] [address] Dez Olmstead MD [address] [facility] [address] [place] [address] Hedy Hinojosa, [place], [place] [id number] [facility] Start: 01-19-2023 End: 01-20-2024 NUCHAL TRANSLUCENCY WHI NUCHAL [facility]SLUC[facility] Imaging Routine Encounter for screening of mother Expected: 01/19/2023, Expires: 01/20/2024 [facility] Work Phone: Comment on above: Expected: 01/19/2023 , Expires: 01/20/2024 Start: 01-02-2023 [facility] Start: 11-05-2022 COVID-19 (2022- 4 season) COVID-19 ( season) [facility] Start: 11-05-2022 Covid-19 Vaccine ( season) Covid-19 Vaccine ( season) [facility] Start: 11-05-2022 Influenza vaccination Influenza Vacc ine (#1) [facility] Start: 03-07-2022 Depression Assessment Depression Ass essment [facility] Start: 04-23-2021 Urine microalbumin profile DTaP,Tdap,Td Vaccine (4 - Td or Tdap) [facility] Start: 06-22-2019 Microscopic observat ion [Identifier] in Cervix by Cyto stain Pap Smear [facility] Start: 06-22-2019 Pap Testing Pap Testing [facility] Start: 2017 Urine microalbumin profile DTaP,Tdap,Td Vaccine (1 - Tdap) [facility] Start: 2016 Hepatitis C Screening Hepatitis C Sc reening [facility] Start: 2016 HIV Screening HIV Screening [facility] Start: 2014 MenB (1 of 2 - MenB 2-Dose Series Bexsero) MenB (1 of 2 - MenB 2-Dose Series Bexsero) [facility] Start: 2012 Peds To Adult Transi tion Annual Assessment Peds To Adult Transition Annual Assessment [facility] Start: 2010 Peds To Adult Transi tion Initial Discussion Peds To Adult Transition Initial Discussion [facility] Start: 2009 HPV (1 - 2-dose series) HPV (1 - 2-dose series) [facility] Start: 06-22-2007 HPV Vaccine (1 - 2-d ose series) HPV Vaccine (1 - 2-dose series) [facility] Start: 2005 Tetanus Diphtheria a nd Pertussis Vaccines (1 - Tdap) Tetanus Diphtheria and Pertussis Vaccines (1 - Tdap) [facility] Start: 2004 Pneumococcal vaccination Pneum ococcal Vaccine (1 - PCV) [facility] Start: 06-22-1999 MMR (1 of 1 - Standa rd series) MMR (1 of 1 - Standard series) [facility] Start: 06-22-1999 Varicella (1 of 2 - 2-dose childhood series) Varicella (1 of 2 - 2-dose childhood series) [facility] Start: 1998 Covid-19 Vaccine (#1) Covid-19 Vacci ne (#1) [facility] Start: 1998 Hepatitis B (1 of 3 - 3-dose series) Hepatitis B (1 of 3 - 3-dose series) [facility] Start: 1998 Hepatitis B Vaccine (1 of 3 - 3-dose series) Hepatitis B Vaccine (1 of 3 - 3-dose series) [facility] CBC W Auto Different ial panel - Blood [facility] CMV IgG Ab CMV IgG Ab Lab R outine Agenesis of corpus callosum 04/11/2023 12:[address] [facility] CMV IgM Ab CMV IgM Ab Lab R outine Agenesis of corpus callosum 04/11/2023 12:35 PM [facility] CMV PCR Quantitative CMV PCR Ronaldo ntitative Microbiology Routine Agenesis of corpus callosum 04/11/2023 12:35 PM [facility] Drugs identified in Urine by Screen method [facility] Drugs identified in Urine by Screen method [facility] Measurement of gluco se 2 hours after glucose challenge for glucose tolerance test [facility] Miscellaneous sendou t: Yuval [facility] Work Phone: Path report.final Dx Spec [facility] Patient Education [facility] Work Phone: Patient referral [facility] Work Phone: Serologic test for syphilis [facility] Streptococcus agalac tiae [Presence] in Unspecified specimen by Organism specific culture [facility] Urine culture [facility] Immunizations Immunization Date Immunization Notes Care Provider Fa cility 10-09-2024 tetanus toxoid, redu yuri diphtheria toxoid, and acellular pertussis vaccine, adsorbed No Primary Care Physician [facility] 05-30-2023 tetanus toxoid, redu yuri diphtheria toxoid, and acellular pertussis vaccine, adsorbed Dr. Christy Lao Work Phone: [facility] 03-23-2023 influenza, injectabl e, quadrivalent, preservative free Dr. Christy Lao Work Phone: [facility] Payers Date Payer Category Payer Self-pay [id number] 2022 Medicaid [facility] MEDICAID UHC COMMUNITY PLAN MEDICAID [place] [id number] 2022-Present [phone] [address] [place] [id number] Medicaid [id number] 2022 Unknown [id number] 2022 Private Health Insurance [place] [facility] MEDICAID [facility] [id number] 2022-Present [address] [place] [address] [id number]. [id number] 1998 Unknown [id number] 2.16.840.1.064582.3.579.2. 651 1998 Unknown [id number] 2.16.840.1.478133.3.579.2. 651 1998 Unknown [id number] 2.16.840.1.791409.3.579.2. 651 1998 Unknown [id number] 2.16.840.1.285512.3.579.2. 651 1998 Unknown [id number] 2.16.840.1.030523.3.579.2. 651 1998 Unknown [id number] 2.16.840.1.607821.3.579.2. 65 1998 Unknown [id number] 2.16.840.1.778883.3.579.2. 651 1998 Unknown [id number] 2.16.840.1.540204.3.579.2. 479 1998 Unknown [id number] 2.16.840.1.808891.3.579.2. 479 1998 Unknown [id number] 2.840.1.815630.3.579.2. 479 1998 Unknown [id number] 2.840.1.587241.3.579.2. 479 1998 Unknown [id number] 2.840.1.752876.3.579.2. 479 1998 Unknown [id number] 2.840.1.494531.3.579.2. 479 1998 Unknown [id number] 2.840.1.030444.3.579.2. 479 1998 Unknown [id number] 2.840.1.327538.3.579.2. 479 1998 Unknown [id number] 2.840.1.865202.3.579.2. 479 Private Health Insurance [id number] Unknown [id number] 2840.1.172507.3.579.2. 462 Unknown [id number] 2.840.1.428124.3.579.2. 462 Unknown [id number] 2.840.1.012446.3.579.2. 462 Unknown [id number] 2.16840.1.847443.3.579.2. 462 Unknown [id number] 2.16840.1.054800.3.579.2. 462 Unknown [id number] 2.16840.1.808075.3.579.2. 462 Unknown [id number] 2.16840.1.362667.3.579.2. 462 Unknown [id number] 2.16.840.1.716313.3.579.2. 462 Unknown [id number] 2.16.840.1.340013.3.579.2. 462 Unknown [id number] 2.16.840.1.995755.3.579.2. 462 Unknown [id number] 2.840.1.793338.3.579.2. 462 Unknown [id number] 2.840.1.826972.3.579.2. 462 Unknown [id number] 2.840.1.799936.3.579.2. 462 Unknown [id number] 2.840.1.975805.3.579.2. 462 Unknown [id number] 2.840.1.000288.3.579.2. 462 Unknown [id number] 2.840.1.893903.3.579.2. 462 Unknown [id number] 2.840.1.597593.3.579.2. 462 Unknown [id number] 2.840.1.854776.3.579.2. 462 Unknown [id number] 2.840.1.731271.3.579.2. 462 Unknown [id number] 2.840.1.743468.3.579.2. 462 Unknown [id number] 2.840.1.159517.3.579.2. 462 Unknown [id number] .840.1.884041.3.579.2. 462 Unknown [id number] 2.840.1.117283.3.579.2. 462 Unknown [id number] 2.840.1.552396.3.579.2. 462 Unknown [id number] 2.840.1.338595.3.579.2. 462 Unknown [id number] 2.16.840.1.468043.3.579.2. 462 Unknown [id number] 2.16.840.1.987996.3.579.2. 462 Unknown [id number] 2.16.840.1.964478.3.579.2. 462 Unknown [id number] 2.16.840.1.231678.3.579.2. 462 Unknown [id number] 2.16.840.1.578433.3.579.2. 462 Social History Date Type Detail Facility Start: 05-12-2019 End: 06-15-2023 Tobacco smoking status NHIS Tobacco smoking consumption unknown [facility] Work Phone: Start: 2000 Sex Assigned At Not on file [facility] Start: 01-19-2023 End: 04-11-2023 Gender identity Not on file [facility] Start: 05-12-2019 Cigarettes [facility] Start: 2000 Sex Assigned At Female [facility] Start: 01-19-2023 [facility] Work Phone: End: 01-05-2023 History of tobacco use Cigarette Smoker [facility] Work Phone: Start: 01-19-2023 Tobacco use and exposure Smokeless tobacco non-user [facility] Work Phone: Start: 01-19-2023 End: 04-11-2023 Alcohol intake Ex-drinker (finding) [facility] Start: 01-19-2023 End: 04-11-2023 History of Social function [facility] National Score (1-100), lower number is lower risk 99 [facility] Start: 01-19-2023 Education 15 [facility] Start: 01-19-2023 Alcohol Comment rarely [facility] Start: 11-20-2022 [facility] Start: 04-11-2023 Tobacco smoking stat us NEIS Ex-smoker [facility] End: 01-05-2023 History of tobacco use Current smoker [facility] History of tobacco use Passive smoker [facility] Start: 04-11-2023 Tobacco use and exposure Former smokeless tobacco user [facility] End: 03-07-2023 History of tobacco use User of smokeless tobacco [facility] Start: 05-22-2024 End: 11-28-2024 Tobacco smoking status NHIS Current some day smoker [facility] Start: 06-02-2024 End: 06-29-2024 Sex Female (finding) [facility] Goals Date Patient Goal Desired Activity /State Clinical Notes 12-24-2022 to 12-13-2024 Note Date & Type Note Facility 12-13-2024 Progress note [facility] 12-05-2024 Progress note [facility] 11-30-2024 Discharge summary Note Date/Time November 30, 2024 9:33am [facility] Medical Records Department [address] [place] [address] Discharge Summary 11/30/24 0932 MR#: [id number] Acct: [id number] Name: RANJAN TAN Rep #:[id number] : 2000 24 From: Amira Underwood DO PCP: Care Physician,No Primary Status :ADM IN Location: [address] Providers Date of Admission: 11/28/24 Primary Care Physician: No Primary Care Phys Reason For Visit: PRIMARY C SECTION Diagnosis Discharge Diagnosis (1) delivery delivered: Status: Acute Code(s): O82 - Encounter for delivery without indication Medications at Discharge Home Medications mv-mn 110-FA 180 mcg-om3 35 mg-dha 25 mg-epa 5 mg-fish oil chew tablet 1 tab PO DAILY 05/22/24 ferrous sulfate 325 mg (65 mg iron) tablet (Feosol) 325 mg PO DAILY ANEMIA 06/29/24 famotidine 20 mg tablet 20 mg PO BID HEARTBURN #60 tabs 09/25/24 ondansetron 4 mg disintegrating tablet 4 mg PO Q6H PRN nausea and vomiting #14 tabs 11/20/24 naproxen 500 mg tablet 500 mg PO BID PRN PRN Pain #30 tabs 11/28/24 oxycodone-acetaminophen 5 mg-325 mg tablet (Percocet) 1 tab PO Q4H PRN pain 7 days #20 tabs 11/28/24 Hospital Course Operations None and section Summary of Care Provided Minutes Spent on Discharge: 30 Hospital Course: The patient was admitted for a primary section with Dr. Doherty on 11/28/24.There were no complications. On day #1 she was tolerating pain well and ambulating, on day #2 she was ready for discharge. Physical Exam HEENT normocephalic Resp normal respiratory effort and normal air movement GI soft to palpation, non-tender and non-distended Rectal Exam: other Other Details: Incision is clean, dry, and intact no CVA tenderness Extremity normal to inspection General Extremity: edema bilateral (trace ) Weight / BMI Weight Weight: 293 lb Body Mass Index (BMI) 50.3 ABG / Lab / Microbiology Data 11/29/24 06:30 D/C Instructions May shower in (days): 0 May resume sexual activity in: 4-6 weeks Weight Bearing Status: Full weight bearing Call your doctor if your incision/area has: Continuous Slow Oozing, Sudden Increased Bleeding, Increased Pain/ Swelling, Increased Redness and Foul Smelling Discharge Call your doctor if you observe: Fever of 101 or Higher and Using more than 1 pad per hour (for 2 hours) Suture Line Care: Avoid Pulling/Pushing and Avoid Pinching/Bending Cleanse incision/area with: Soap & Water and Keep Dressing Clean & Dry DC O2, CPAP, BIPAP Needs Home O2 Discharge instructions: No Please Follow Up With: Nallely Doherty MD When: Call [phone] to make an appointment for an incision check in 1-2 weeks. Meaningful Use Info Meaningful Use Meaningful Use Diagnoses (Choose all that apply): None applicable Discharge Plan Admission Admit Date/Time: 11/28/24 05:27 Primary Reason for Your Visit: section Attending Provider: Nallely Doherty Primary Care Provider: Care Physician,Maggy Primary Discharge Orders/Prescriptions Prescriptions: New oxycodone-acetaminophen [Percocet] 5-325 mg tablet 1 tab PO Q4H PRN (Reason: pain) 7 Days Qty: 20 0RF naproxen 500 mg tablet 500 mg PO BID PRN PRN (Reason: Pain) Qty: 30 1RF No Action mv-mn [id number]-[id number] 180 mcg-35 mg- 25 mg-5 mg tablet,chewable 1 tab PO DAILY famotidine 20 mg tablet 20 mg PO BID Qty: 60 3RF ondansetron 4 mg tablet,disintegrating 4 mg PO Q6H PRN (Reason: nausea and vomiting) Qty: 14 0RF ferrous sulfate [Feosol] 325 mg (65 mg iron) tablet 325 mg PO DAILY Referrals / Follow Up: Care Physician,No Primary [Primary Care Provider, Medical] Disposition Disposition (needs filled in before D/C Order can be placed): Home, Self Care 11/30/24 0933 <Electronically signed by Amira Underwood DO> Cosigner Signature (if applicable): CC: Dr. Amira Underwood DO; No Primary Care Physician~ Signed [facility] Work Phone: 1(460) 661-542009-26-2025 Discharge summary [facility] Medical Records Department [address] [place] [address] Discharge Summary 11/30/24 0932 MR#: [id number] Acct: [id number] Name: RANJAN TAN Rep #:[id number] : 2000 24 From: Amira Underwood DO PCP: Care Physician,No Primary Status :ADM IN Location: [address] Providers Date of Admission: 11/28/24 Primary Care Physician: No Primary Care Phys Reason For Visit: PRIMARY C SECTION Diagnosis Discharge Diagnosis (1) delivery delivered: Status: Acute Code(s): O82 - Encounter for delivery without indication Medications at Discharge Home Medications mv-mn 110-FA 180 mcg-om3 35 mg-dha 25 mg-epa 5 mg-fish oil chew tablet 1 tab PO DAILY 05/22/24 ferrous sulfate 325 mg (65 mg iron) tablet (Feosol) 325 mg PO DAILY ANEMIA 06/29/24 famotidine 20 mg tablet 20 mg PO BID HEARTBURN #60 tabs 09/25/24 ondansetron 4 mg disintegrating tablet 4 mg PO Q6H PRN nausea and vomiting #14 tabs 11/20/24 naproxen 500 mg tablet 500 mg PO BID PRN PRN Pain #30 tabs 11/28/24 oxycodone-acetaminophen 5 mg-325 mg tablet (Percocet) 1 tab PO Q4H PRN pain 7 days #20 tabs 11/28/24 Hospital Course Operations None and section Summary of Care Provided Minutes Spent on Discharge: 30 Hospital Course: The patient was admitted for a primary section with Dr. Doherty on 11/28/24.There were no complications. On day #1 she was tolerating pain well and ambulating, on day #2 she was ready for discharge. Physical Exam HEENT normocephalic Resp normal respiratory effort and normal air movement GI soft to palpation, non-tender and non-distended Rectal Exam: other Other Details: Incision is clean, dry, and intact no CVA tenderness Extremity normal to inspection General Extremity: edema bilateral (trace ) Weight / BMI Weight Weight: 293 lb Body Mass Index (BMI) 50.3 ABG / Lab / Microbiology Data 11/29/24 06:30 D/C Instructions May shower in (days): 0 May resume sexual activity in: 4-6 weeks Weight Bearing Status: Full weight bearing Call your doctor if your incision/area has: Continuous Slow Oozing, Sudden Increased Bleeding, Increased Pain/ Swelling, Increased Redness and Foul Smelling Discharge Call your doctor if you observe: Fever of 101 or Higher and Using more than 1 pad per hour (for 2 hours) Suture Line Care: Avoid Pulling/Pushing and Avoid Pinching/Bending Cleanse incision/area with: Soap & Water and Keep Dressing Clean & Dry DC O2, CPAP, BIPAP Needs Home O2 Discharge instructions: No Please Follow Up With: Nallely Doherty MD When: Call [phone] to make an appointment for an incision check in 1-2 weeks. Meaningful Use Info Meaningful Use Meaningful Use Diagnoses (Choose all that apply): None applicable Discharge Plan Admission Admit Date/Time: 11/28/24 05:27 Primary Reason for Your Visit: section Attending Provider: Nallely Doherty Primary Care Provider: Care Physician,Maggy Primary Discharge Orders/Prescriptions Prescriptions: New oxycodone-acetaminophen [Percocet] 5-325 mg tablet 1 tab PO Q4H PRN (Reason: pain) 7 Days Qty: 20 0RF naproxen 500 mg tablet 500 mg PO BID PRN PRN (Reason: Pain) Qty: 30 1RF No Action mv-mn [id number] 180 mcg-35 mg- 25 mg-5 mg tablet,chewable 1 tab PO DAILY famotidine 20 mg tablet 20 mg PO BID Qty: 60 3RF ondansetron 4 mg tablet,disintegrating 4 mg PO Q6H PRN (Reason: nausea and vomiting) Qty: 14 0RF ferrous sulfate [Feosol] 325 mg (65 mg iron) tablet 325 mg PO DAILY Referrals / Follow Up: Care Physician,No Primary [Primary Care Provider, Medical] Disposition Disposition (needs filled in before D/C Order can be placed): Home, Self Care 11/30/24932 Cosigner Signature (if applicable): CC: Dr. Amira Underwood DO; No Primary Care Physician~ Signed [facility]09-26-2025 [facility] Medical Records Department [address] [place] [address] Discharge Summary 11/30/24931 MR#: [id number] Acct: [id number] Name: RANJAN TAN Rep #: [id number] : 2000 From: Amira Underwood DO PCP: Care Physician,No Primary Status:ADM IN Location: [address] Providers Date of Admission: 11/28/24 Primary Care Physician: No Primary Care Phys Reason For Visit: PRIMARY C SECTION Diagnosis Discharge Diagnosis (1) delivery delivered: Status: Acute Code(s): O82 - Encounter for delivery without indication Medications at Discharge Home Medications mv-mn 110-FA 180 mcg-om3 35 mg-dha 25 mg-epa 5 mg-fish oil chew tablet 1 tab PO DAILY 05/22/24 ferrous sulfate 325 mg (65 mg iron) tablet (Feosol) 325 mg PO DAILY ANEMIA 06/29/24 famotidine 20 mg tablet 20 mg PO BID HEARTBURN #60 tabs 09/25/24 ondansetron 4 mg disintegrating tablet 4 mg PO Q6H PRN nausea and vomiting #14 tabs 11/20/24 naproxen 500 mg tablet 500 mg PO BID PRN PRN Pain #30 tabs 11/28/24 oxycodone-acetaminophen 5 mg-325 mg tablet (Percocet) 1 tab PO Q4H PRN pain 7 days #20 tabs 11/28/24 Hospital Course Operations None and section Summary of Care Provided Minutes Spent on Discharge: 30 Hospital Course: The patient was admitted for a primary section with Dr. Doherty on 11/28/24.There were no complications. On day #1 she was tolerating pain well and ambulating, on day #2 she was ready for discharge. Physical Exam HEENT normocephalic Resp normal respiratory effort and normal air movement GI soft to palpation, non-tender and non-distended Rectal Exam: other Other Details: Incision is clean, dry, and intact no CVA tenderness Extremity normal to inspection General Extremity: edema bilateral (trace ) Weight / BMI Weight Weight: 293 lb Body Mass Index (BMI) 50.3 ABG / Lab / Microbiology Data 11/29/24 06:30 D/C Instructions May shower in (days): 0 May resume sexual activity in: 4-6 weeks Weight Bearing Status: Full weight bearing Call your doctor if your incision/area has: Continuous Slow Oozing, Sudden Increased Bleeding, Increased Pain/ Swelling, Increased Redness and Foul Smelling Discharge Call your doctor if you observe: Fever of 101 or Higher and Using more than 1 pad per hour (for 2 hours) Suture Line Care: Avoid Pulling/Pushing and Avoid Pinching/Bending Cleanse incision/area with: Soap Water and Keep Dressing Clean Dry DC O2, CPAP, BIPAP Needs Home O2 Discharge instructions: No Please Follow Up With: Nallely Doherty MD When: Call [phone] to make an appointment for an incision check in 1-2 weeks. Meaningful Use Info Meaningful Use Meaningful Use Diagnoses (Choose all that apply): None applicable Discharge Plan Admission Admit Date/Time: 11/28/24 05:27 Primary Reason for Your Visit: section Attending Provider: Nallely Doherty Primary Care Provider: Care Physician,No Primary Discharge Orders/Prescriptions Prescriptions: New oxycodone-acetaminophen [Percocet] 5-325 mg tablet 1 tab PO Q4H PRN (Reason: pain) 7 Days Qty: 20 0RF naproxen 500 mg tablet 500 mg PO BID PRN PRN (Reason: Pain) Qty: 30 1RF No Action mv-mn [id number] 180 mcg-35 mg- 25 mg-5 mg tablet,chewable 1 tab PO DAILY famotidine 20 mg tablet 20 mg PO BID Qty: 60 3RF ondansetron 4 mg tablet,disintegrating 4 mg PO Q6H PRN (Reason: nausea and vomiting) Qty: 14 0RF ferrous sulfate [Feosol] 325 mg (65 mg iron) tablet 325 mg PO DAILY Referrals / Follow Up: Care Physician,No Primary [Primary Care Provider, Medical] Disposition Disposition (needs filled in before D/C Order can be placed): Home, Self Care 11/30/24 0933 Cosigner Signature (if applicable): CC: Dr. Amira Underwood, DO; No [facility] Phys[facility] Progress note Author Adrien Klein [facility] Note Date/Time November 29, 2024 7:52am [facility] Medical Records Department [address] [facility] [place] [address] Progress Note - OBGYN 11/29/24 0751 MR#: [id number] Acct: [id number] Name: RANJAN TAN Rep #:[id number] : 2000 24 From: Adrien Klein FINANCIAL REPORTING MANAGER FINANCIAL REPORTING MANAGER-C PCP: Care Physician,No Primary Status :ADM IN Location: [address] Subjective Subjective Patient doing well without complaints. Tolerating PO. Ambulating and voiding without difficulty. Feeding well. Denies chest pain, shortness of breath, calf pain/swelling, fevers, chills, lightheadedness. Objective Data Objective Data Vital Signs: Vital Signs Temp Pulse Resp BP Pulse Ox O2 Del Method 98.4 F 57 L 14 118/68 98 Room Air 11/29/24 04:07 11/29/24 04:07 11/29/24 04:07 11/29/24 04:07 11/29/24 04:07 11/29/24 04:07 Oxygen Delivery Method Room Air Weight: 293 lb Body Mass Index (BMI) 50.3 Intake & Output: Intake and Output for Last 24 Hours 11/27/24 11/28/24 11/29/24 23:59 23:59 23:59 Intake Total 1985.5 / 1985.5 Output Total 1300 / 1300 Balance 685.5 / 685.5 Lab / Micro Data 11/29/24 06:30 Labs: Laboratory Results - last 24 hr 11/28/24 05:45: Urine Opiates Screen NEGATIVE, U Buprenorphine Qual NEGATIVE, UrOxycodone Screen NEGATIVE, Urine Methadone Screen NEGATIVE, Urine Fentanyl Screen NEGATIVE, Ur Barbiturates Screen NEGATIVE, Ur Phencyclidine Scrn NEGATIVE, Ur Amphetamines Screen NEGATIVE, U Benzodiazepines Scrn NEGATIVE, Urine Cocaine Screen NEGATIVE, U Cannabinoids Screen PRESUMPTIVE POSITIVE 11/29/24 06:30: WBC 12.7 H, RBC 4.66, Hgb 12.7, Hct 38.2, MCV 82.0, MCH 27.3, MCHC 33.2, RDW Std Deviation 42.3, RDW Coeff of Juni 14.5, Plt Count 310, MPV 8.6 Physical Exam Const alert and oriented x3 HEENT normocephalic Eyes PERRL Neck full ROM Resp normal respiratory effort GI soft to palpation GI Narrative: FF below U. Dressing dry and intact Palpation: tender other (appropriately) Assessment & Plan (1) delivery delivered: COMMENT: ltcs breech 39 boy sigtrygger PLAN: Plan s/p LTCS PPD # 1 1. routine post care 2. bottle feeding- support given 3. rh positive 4. rubella immune 11/29/24751 <Electronically signed by Adrien Klein NP FINANCIAL REPORTING MANAGER-C> Cosigner Signature (if applicable): CC: ~ Signed [facility] Work Phone: 1(850) 932-459909-25-2025 Progress note [facility] Medical Records Department [address] [place] [address] Progress Note - OBGYN 11/29/24 0751 MR#: [id number] Acct: [id number] Name: RANJAN TAN Rep #:[id number] : 2000 24 From: Adrien Klein NP FINANCIAL REPORTING MANAGER-C PCP: Care Physician,No Primary Status :ADM IN Location: DM950-1 Subjective Subjective Patient doing well without complaints. Tolerating PO. Ambulating and voiding without difficulty. Feeding well. Denies chest pain, shortness of breath, calf pain/swelling, fevers, chills, lightheadedness. Objective Data Objective Data Vital Signs: Vital Signs Temp Pulse Resp BP Pulse Ox O2 Del Method 98.4 F 57 L 14 118/68 98 Room Air 11/29/24 04:07 11/29/24 04:07 11/29/24 04:07 11/29/24 04:07 11/29/24 04:07 11/29/24 04:07 Oxygen Delivery Method Room Air Weight: 293 lb Body Mass Index (BMI) 50.3 Intake & Output: Intake and Output for Last 24 Hours 11/27/24 11/28/24 11/29/24 23:59 23:59 23:59 Intake Total 1985.5 / 1985.5 Output Total 1300 / 1300 Balance 685.5 / 685.5 Lab / Micro Data 11/29/24 06:30 Labs: Laboratory Results - last 24 hr 11/28/24 05:45: Urine Opiates Screen NEGATIVE, U Buprenorphine Qual NEGATIVE, UrOxycodone Screen NEGATIVE, Urine Methadone Screen NEGATIVE, Urine Fentanyl Screen NEGATIVE, Ur Barbiturates Screen NEGATIVE, Ur Phencyclidine Scrn NEGATIVE, Ur Amphetamines Screen NEGATIVE, U Benzodiazepines Scrn NEGATIVE, Urine Cocaine Screen NEGATIVE, U Cannabinoids Screen PRESUMPTIVE POSITIVE 11/29/24 06:30: WBC 12.7 H, RBC 4.66, Hgb 12.7, Hct 38.2, MCV 82.0, MCH 27.3, MCHC 33.2, RDW Std Deviation 42.3, RDW Coeff of Juni 14.5, Plt Count 310, MPV 8.6 Physical Exam Const alert and oriented x3 HEENT normocephalic Eyes PERRL Neck full ROM Resp normal respiratory effort GI soft to palpation GI Narrative: FF below U. Dressing dry and intact Palpation: tender other (appropriately) Assessment & Plan (1) delivery delivered: COMMENT: ltcs breech 39 boy sigtrygger PLAN: Plan s/p LTCS PPD # 1 1. routine post care 2. bottle feeding- support given 3. rh positive 4. rubella immune 11/29/24 3352 Cosigner Signature (if applicable): CC: ~ Signed [facility]09-[facility] Discharge summary Author Nallely Doherty [facility] Note Date/Time November 28, 2024 6:44pm [facility] Medical Records Department [address] [place] [address] Instructions for Home/Discharge Instructions 11/28/24 1843 MR#: [id number] Acct: [id number] Name: RANJAN TAN Rep #:[id number] : 2000 24 From: Nallely arboleda MD PCP: Dagoberto PhysicianMaggy Primary Status :ADM IN Discharge Instructions DC O2, CPAP, BIPAP needs Home O2 Discharge instructions: No Dressing / Incision Discharge Activity: May Not Drive (for 2 weeks or while taking narcotic pain medications.), May Shower and May Take a Tub Bath (in 7 days) May shower in (days): 0 May resume sexual activity in: 4-6 weeks Weight Bearing Status: Full weight bearing Lifting Restrictions: 20 pounds Dressing / Incision Call your doctor if your incision/area has: Continuous Slow Oozing, Sudden Increased Bleeding, Increased Pain/ Swelling, Increased Redness and Foul Smelling Discharge Call your doctor if you observe: Fever of 101 or Higher and Using more than 1 pad per hour (for 2 hours) Suture Line Care: Avoid Pulling/Pushing and Avoid Pinching/Bending Cleanse incision/area with: Soap & Water and Keep Dressing Clean & Dry Follow Up Care Please Follow Up With: Nallely Doherty MD When: Call [phone] to make an appointment for an incision check in 1-2 weeks. Test Results: Test results from this visit will be discussed in further detail at your follow- up appointment, if applicable. Discharge Plan Admission Admit Date/Time: 11/28/24 05:27 Attending Provider: Nallely Doherty Primary Care Provider: Care Physician,Maggy Primary Discharge Orders/Prescriptions Prescriptions: New oxycodone-acetaminophen [Percocet] 5-325 mg tablet 1 tab PO Q4H PRN (Reason: pain) 7 Days Qty: 20 0RF naproxen 500 mg tablet 500 mg PO BID PRN PRN (Reason: Pain) Qty: 30 1RF No Action mv-mn [id number] 180 mcg-35 mg- 25 mg-5 mg tablet,chewable 1 tab PO DAILY famotidine 20 mg tablet 20 mg PO BID Qty: 60 3RF ondansetron 4 mg tablet,disintegrating 4 mg PO Q6H PRN (Reason: nausea and vomiting) Qty: 14 0RF ferrous sulfate [Feosol] 325 mg (65 mg iron) tablet 325 mg PO DAILY Referrals / Follow Up: Care Physician,No Primary [Primary Care Provider, Medical] 11/28/241843<Electronically signed by Nallely Dohetry MD>Nallely Doherty MD CC: No Primary Care Physician ~ Signed [facility] Work Phone: 1(821) 193-117909-24-2025 Discharge summary [facility] Medical Records Department [address] [place] [address] Instructions for Home/Discharge Instructions 11/28/241842 MR#: [id number] Acct: [id number] Name: RANJAN TAN Rep #:[id number] : 2000 24 From: Nallely arboleda MD PCP: Dagoberto Physician,No Primary Status :ADM IN Discharge Instructions DC O2, CPAP, BIPAP needs Home O2 Discharge instructions: No Dressing / Incision Discharge Activity: May Not Drive (for 2 weeks or while taking narcotic pain medications.), May Shower and May Take a Tub Bath (in 7 days) May shower in (days): 0 May resume sexual activity in: 4-6 weeks Weight Bearing Status: Full weight bearing Lifting Restrictions: 20 pounds Dressing / Incision Call your doctor if your incision/area has: Continuous Slow Oozing, Sudden Increased Bleeding, Increased Pain/ Swelling, Increased Redness and Foul Smelling Discharge Call your doctor if you observe: Fever of 101 or Higher and Using more than 1 pad per hour (for 2 hours) Suture Line Care: Avoid Pulling/Pushing and Avoid Pinching/Bending Cleanse incision/area with: Soap & Water and Keep Dressing Clean & Dry Follow Up Care Please Follow Up With: Nallely Doherty MD When: Call [phone] to make an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 2024 Adrien Klein NP, FINANCIAL REPORTING MANAGER-C Attending Provider Active Start: October 23, 2024 End: October 23, 2024 Team Status: Inactive Member Role/Relationship Status Dates No Primary Care Physician Primary Care Provider Active Start: October 23, 2024 End: October 23, 2024 Adrien Klein FINANCIAL REPORTING MANAGER, FINANCIAL REPORTING MANAGER-C Attending Provider Active Start: October 23, 2024 End: October 23, 2024 Team Status: Inactive Member Role/Relationship Status Dates No Primary Care Physician Primary Care Provider Active Start: November 06, 2024 End: November 06, 2024 No Primary Care Physician Referring Provider Active Start: November 06, 2024 End: November 06, 2024 Adrien Klein FINANCIAL REPORTING MANAGER, FINANCIAL REPORTING MANAGER-C Attending Provider Active Start: November 06, 2024 [...] 2024 End: September 04, 2024 Adrien Klein FINANCIAL REPORTING MANAGER, FINANCIAL REPORTING MANAGER-C Attending Provider Active Start: September 04, 2024 [...] End: October 23, 2024 Adrien Klein NP, FINANCIAL REPORTING MANAGER-C Attending Provider Active Start: October 23, 2024 End: October 23, 2024 Team Status: Inactive Member Role/Relationship Status Dates No Primary Care Physician Primary Care Provider Active Start: October 23, 2024 End: October 23, 2024 Adrien Latoya FINANCIAL REPORTING MANAGER, FINANCIAL REPORTING MANAGER-C Attending Provider Active Start: October 23, 2024 End: October 23, 2024 Team Status: Inactive Member Role/Relationship Status Dates No Primary Care Physician Primary Care Provider Active Start: November 06, 2024 End: November 06, 2024 No Primary Care Physician Referring Provider Active Start: November 06, 2024 End: November 06, 2024 Adrien Klein FINANCIAL REPORTING MANAGER, FINANCIAL REPORTING MANAGER-C Attending Provider Active Start: November 06, 2024 [...] November 20, 2024 End: November 20, 2024 Team Status: Active Member Role/Relationship Status Dates No Primary Care Physician Primary care physician Activ e Team Status: Inactive Member Role/Relationship Status Dates No Primary Care Physician Primary care physician Activ e Start: August 09, 2024 End: August 09, 2024 No Primary Care Physician Referring Provider Active Start: August 09, 2024 End: August 09, 2024 Dr. Nallely Doherty MD Attending physician Active Start: August 09, 2024 End: August 09, 2024 Team Status: Inactive Member Role/Relationship Status Dates No Primary Care Physician Primary care physician Activ e Start: August 09, 2024 End: August 09, 2024 Dr. Nallely Doherty MD Attending physician Active Start: August 09, 2024 End: August 09, 2024 Dr. Nallely Doherty MD Referring Provider Active Start: August 09, 2024 End: August 09, 2024 Team Status: Inactive Member Role/Relationship Status Dates No Primary Care Physician Primary care physician Activ e Start: September 04, 2024 End: September 04, 2024 Dr. Nallely Doherty MD Attending physician Active Start: September 04, 2024 End: September 04, 2024 Dr. Nallely Doherty MD Referring Provider Active Start: September 04, 2024 End: September 04, 2024 Team Status: Inactive Member Role/Relationship Status Dates No Primary Care Physician Primary care physician Activ e Start: September 04, 2024 End: September 04, 2024 No Primary Care Physician Referring Provider Active Start: September 04, 2024 End: September 04, 2024 Adrien Klein NP, RADHAC Attending physician Active Start: September 04, 2024 End: September 04, 2024 Team Status: Inactive Member Role/Relationship Status Dates No Primary Care Physician Primary care physician Activ e Start: September 25, 2024 End: September 25, 2024 No Primary Care Physician Referring Provider Active Start: September 25, 2024 End: September 25, 2024 Dr. Nallely Doherty MD Attending physician Active Start: September 25, 2024 End: September 25, 2024 Team Status: Inactive Member Role/Relationship Status Dates No Primary Care Physician Primary care physician Activ e Start: September 25, 2024 End: September 25, 2024 Dr. Nallely Doherty MD Attending physician Active Start: September 25, 2024 End: September 25, 2024 Dr. Nallely Doherty MD Referring Provider Active Start: September 25, 2024 End: September 25, 2024 Team Status: Inactive Member Role/Relationship Status Dates No Primary Care Physician Primary care physician Activ e Start: October 09, 2024 End: October 09, 2024 No Primary Care Physician Referring Provider Active Start: October 09, 2024 End: October 09, 2024 Dr. Amira Underwood , Attending physician Acti ve Start: October 09, 2024 End: October 09, 2024 Team Status: Inactive Member Role/Relationship Status Dates No Primary Care Physician Primary care physician Activ e Start: October 09, 2024 End: October 09, 2024 Dr. Amira Vande Velde , DO Attending physician Acti ve Start: October 09, 2024 End: October 09, 2024 Team Status: Inactive Member Role/Relationship Status Dates No Primary Care Physician Primary care physician Activ e Start: October 14, 2024 End: October 14, 2024 Simi Lara CNM Attending physician Active Start: October 14, 2024 End: October 14, 2024 Team Status: Active Member Role/Relationship Status Dates No Primary Care Physician Primary care physician Activ e Start: October 14, 2024 Simi Lara CNM Attending physician Active Start: October 14, 2024 Simi Lara CNM Nurse Practitioner Active S tart: October 14, 2024 Team Status: Inactive Member Role/Relationship Status Dates No Primary Care Physician Primary care physician Activ e Start: October 23, 2024 End: October 23, 2024 No Primary Care Physician Referring Provider Active Start: October 23, 2024 End: October 23, 2024 Adrien Klein NP, FINANCIAL REPORTING MANAGER-C Attending physician Active Start: October 23, 2024 End: October 23, 2024 Team Status: Inactive Member Role/Relationship Status Dates No Primary Care Physician Primary care physician Activ e Start: October 23, 2024 End: October 23, 2024 Adrien Klein NP, FINANCIAL REPORTING MANAGER-C Attending physician Active Start: October 23, 2024 End: October 23, 2024 Team Status: Inactive Member Role/Relationship Status Dates No Primary Care Physician Primary care physician Activ e Start: November 06, 2024 End: November 06, 2024 No Primary Care Physician Referring Provider Active Start: November 06, 2024 End: November 06, 2024 Adrien Klien NP, FINANCIAL REPORTING MANAGER-C Attending physician Active Start: November 06, 2024 End: November 06, 2024 Team Status: Inactive Member Role/Relationship Status Dates No Primary Care Physician Primary care physician Activ e Start: November 13, 2024 End: November 13, 2024 No Primary Care Physician Referring Provider Active Start: November 13, 2024 End: November 13, 2024 Dr. Nallely Doherty MD Attending physician Active Start: November 13, 2024 End: November 13, 2024 Team Status: Inactive Member Role/Relationship Status Dates No Primary Care Physician Primary care physician Activ e Start: November 13, 2024 End: November 13, 2024 Dr. Nallely Doherty MD Attending physician Active Start: November 13, 2024 End: November 13, 2024 Dr. Nallely Doherty MD Referring Provider Active Start: November 13, 2024 End: November 13, 2024 Team Status: Inactive Member Role/Relationship Status Dates No Primary Care Physician Primary care physician Activ e Start: November 20, 2024 End: November 20, 2024 No Primary Care Physician Referring Provider Active Start: November 20, 2024 End: November 20, 2024 Simi Lara CNM Attending physician Active Start: November 20, 2024 End: November 20, 2024 Team Status: Inactive Member Role/Relationship Status Dates No Primary Care Physician Primary care physician Activ e Start: November 27, 2024 End: November 27, 2024 No Primary Care Physician Referring Provider Active Start: November 27, 2024 End: November 27, 2024 Simi Lara CNM Attending physician Active Start: November 27, 2024 End: November 27, 2024 Team Status: Inactive Member Role/Relationship Status Dates No Primary Care Physician Primary care physician Activ e Start: November 28, 2024 End: November 30, 2024 Dr. Nallely Doherty MD Admitting physician Active Start: November 28, 2024 End: November 30, 2024 Dr. Nallely Doherty MD Attending physician Active Start: November 28, 2024 End: November 30, 2024 Team Status: Active Member Role/Relationship Status Dates No Primary Care Physician Primary care physician Activ e Start: November 28, 2024 Dr. Nallely Doherty MD Admitting physician Active Start: November 28, 2024 Dr. Nallely Doherty MD Attending physician Active Start: November 28, 2024 Dr. Nallely Doherty MD Nurse Practitioner Active Start: November 28, 2024 Team Status: Active Member Role/Relationship Status Dates No Primary Care Physician Primary care physician Activ e Start: November 29, 2024 Dr. Nallely Doherty MD Admitting physician Active Start: November 29, 2024 Dr. Nallely Doherty MD Nurse Practitioner Active Start: November 29, 2024 Adrien Klein NP, FINANCIAL REPORTING MANAGER-C Attending physician Active Start: November 29, 2024 Team Status: Active Member Role/Relationship Status Dates No Primary Care Physician Primary care physician Activ e Start: November 30, 2024 Dr. Nallely Doherty MD Admitting physician Active Start: November 30, 2024 Dr. Nallely Doherty MD Nurse Practitioner Active Start: November 30, 2024 Dr. Amira Underwood DO Attending physician Acti ve Start: November 30, 2024 Team Status: Inactive Member Role/Relationship Status Dates No Primary Care Physician Primary care physician Activ e Start: December 05, 2024 End: December 05, 2024 No Primary Care Physician Referring Provider Active Start: December 05, 2024 End: December 05, 2024 Dr. Amira Underwood DO Attending physician Acti ve Start: December 05, 2024 End: December 05, 2024 Team Status: Inactive Member Role/Relationship Status Dates No Primary Care Physician Primary care physician Activ e Start: September 04, 2024 End: September 04, 2024 Dr. Nallely Doherty MD Attending physician Active Start: September 04, 2024 End: September 04, 2024 Dr. Nallely Doherty MD Referring Provider Active Start: September 04, 2024 End: September 04, 2024 Team Status: Inactive Member Role/Relationship Status Dates No Primary Care Physician Primary care physician Activ e Start: September 04, 2024 End: September 04, 2024 No Primary Care Physician Referring Provider Active Start: September 04, 2024 End: September 04, 2024 Adrien Klein NP, FINANCIAL REPORTING MANAGER-C Attending physician Active Start: September 04, 2024 End: September 04, 2024 Team Status: Inactive Member Role/Relationship Status Dates No Primary Care Physician Primary care physician Activ e Start: September 25, 2024 End: September 25, 2024 No Primary Care Physician Referring Provider Active Start: September 25, 2024 End: September 25, 2024 Dr. Nallely Doherty MD Attending physician Active Start: September 25, 2024 End: September 25, 2024 Team Status: Inactive Member Role/Relationship Status Dates No Primary Care Physician Primary care physician Activ e Start: September 25, 2024 End: September 25, 2024 Dr. Nallely Doherty MD Attending physician Active Start: September 25, 2024 End: September 25, 2024 Dr. Nallely Doherty MD Referring Provider Active Start: September 25, 2024 End: September 25, 2024 Team Status: Inactive Member Role/Relationship Status Dates No Primary Care Physician Primary care physician Activ e Start: October 09, 2024 End: October 09, 2024 No Primary Care Physician Referring Provider Active Start: October 09, 2024 End: October 09, 2024 Dr. Amira Underwood , Attending physician Acti ve Start: October 09, 2024 End: October 09, 2024 Team Status: Inactive Member Role/Relationship Status Dates No Primary Care Physician Primary care physician Activ e Start: October 09, 2024 End: October 09, 2024 Dr. Amira Underwood DO Attending physician Acti ve Start: October 09, 2024 End: October 09, 2024 Team Status: Inactive Member Role/Relationship Status Dates No Primary Care Physician Primary care physician Activ e Start: October 14, 2024 End: October 14, 2024 Simi Lara CNM Attending physician Active Start: October 14, 2024 End: October 14, 2024 Team Status: Active Member Role/Relationship Status Dates No Primary Care Physician Primary care physician Activ e Start: October 14, 2024 Simi Lara CNM Attending physician Active Start: October 14, 2024 Simi Lara CNM Nurse Practitioner Active S tart: October 14, 2024 Team Status: Inactive Member Role/Relationship Status Dates No Primary Care Physician Primary care physician Activ e Start: October 23, 2024 End: October 23, 2024 No Primary Care Physician Referring Provider Active Start: October 23, 2024 End: October 23, 2024 Adrien Klein NP FINANCIAL REPORTING MANAGER-C Attending physician Active Start: October 23, 2024 End: October 23, 2024 Team Status: Inactive Member Role/Relationship Status Dates No Primary Care Physician Primary care physician Activ e Start: October 23, 2024 End: October 23, 2024 Adrien Klein NP, FINANCIAL REPORTING MANAGER-C Attending physician Active Start: October 23, 2024 End: October 23, 2024 Team Status: Inactive Member Role/Relationship Status Dates No Primary Care Physician Primary care physician Activ e Start: November 06, 2024 End: November 06, 2024 No Primary Care Physician Referring Provider Active Start: November 06, 2024 End: November 06, 2024 Adrien Klein NP, FINANCIAL REPORTING MANAGER-C Attending physician Active Start: November 06, 2024 End: November 06, 2024 Team Status: Inactive Member Role/Relationship Status Dates No Primary Care Physician Primary care physician Activ e Start: November 13, 2024 End: November 13, 2024 No Primary Care Physician Referring Provider Active Start: November 13, 2024 End: November 13, 2024 Dr. Nallely Doherty MD Attending physician Active Start: November 13, 2024 End: November 13, 2024 Team Status: Inactive Member Role/Relationship Status Dates No Primary Care Physician Primary care physician Activ e Start: November 13, 2024 End: November 13, 2024 Dr. Nallely Doherty MD Attending physician Active Start: November 13, 2024 End: November 13, 2024 Dr. Nallely Doherty MD Referring Provider Active Start: November 13, 2024 End: November 13, 2024 Team Status: Inactive Member Role/Relationship Status Dates No Primary Care Physician Primary care physician Activ e Start: November 20, 2024 End: November 20, 2024 No Primary Care Physician Referring Provider Active Start: November 20, 2024 End: November 20, 2024 Simi Lara CNM Attending physician Active Start: November 20, 2024 End: November 20, 2024 Team Status: Inactive Member Role/Relationship Status Dates No Primary Care Physician Primary care physician Activ e Start: November 27, 2024 End: November 27, 2024 No Primary Care Physician Referring Provider Active Start: November 27, 2024 End: November 27, 2024 Simi Lara CNM Attending physician Active Start: November 27, 2024 End: November 27, 2024 Team Status: Inactive Member Role/Relationship Status Dates No Primary Care Physician Primary care physician Activ e Start: November 28, 2024 End: November 30, 2024 Dr. Nallely Doherty MD Admitting physician Active Start: November 28, 2024 End: November 30, 2024 Dr. Nallely Doherty MD Attending physician Active Start: November 28, 2024 End: November 30, 2024 Team Status: Active Member Role/Relationship Status Dates No Primary Care Physician Primary care physician Activ e Start: November 28, 2024 Dr. Nallely Doherty MD Admitting physician Active Start: November 28, 2024 Dr. Nallely Doherty MD Attending physician Active Start: November 28, 2024 Dr. Nallely Doherty MD Nurse Practitioner Active Start: November 28, 2024 Team Status: Active Member Role/Relationship Status Dates No Primary Care Physician Primary care physician Activ e Start: November 29, 2024 Dr. Nallely Doherty MD Admitting physician Active Start: November 29, 2024 Dr. Nallely Doherty MD Nurse Practitioner Active Start: November 29, 2024 Adrien Klein NP, FINANCIAL REPORTING MANAGER-C Attending physician Active Start: November 29, 2024 Team Status: Active Member Role/Relationship Status Dates No Primary Care Physician Primary care physician Activ e Start: November 30, 2024 Dr. Nallely Doherty MD Admitting physician Active Start: November 30, 2024 Dr. Nallely Doherty MD Nurse Practitioner Active Start: November 30, 2024 Dr. Amira Underwood DO Attending physician Acti ve Start: November 30, 2024 Team Status: Inactive Member Role/Relationship Status Dates No Primary Care Physician Primary care physician Activ e Start: December 05, 2024 End: December 05, 2024 No Primary Care Physician Referring Provider Active Start: December 05, 2024 End: December 05, 2024 Dr. Amira Underwood , Attending physician Acti ve Start: December 05, 2024 End: December 05, 2024 Team Status: Inactive Member Role/Relationship Status Dates No Primary Care Physician Primary care physician Activ e Start: December 13, 2024 End: December 13, 2024 No Primary Care Physician Referring Provider Active Start: December 13, 2024 End: December 13, 2024 Adrien Klein NP FINANCIAL REPORTING MANAGER-C Attending physician Active Start: December 13, 2024 End: December 13, 2024 Goals (unrecognized section and content) Goals [...] BASED ON THE PRIMARY CLINICAL RECORDS. [facility] [employer] provides no warranty or guarantee of the accuracy or completeness of information in this document.
== END | disposition home or self-care (01) ==
LOC: LABSPEC 16:41
PROVIDERS: Visit Provider Obstetrics & Gynecology
DX: Z12.4 Encounter for screening for malignant neoplasm of cervix (principal)
CPT/HCPCS: 88175; G0145